=== PATIENT | female | born 1970 | race Caucasian/White ===

== ENCOUNTER 2021-01-11 23:39 | Emergency (ER) | payer BC ==
--- OUTSIDE RECORDS SUMMARY | 2021-01-11 23:43 | XMS REPORT | Continuity of Care Document ---
:1970 Demographics Address [address] [place] [address] Mobile Phone Email Address DECLINE Preferred Language Iraqi Marital Status Unknown Islam Affiliation Unknown Race Unknown Additional Race(s) Unavailable White Ethnic Group Unknown Author Organization [facility] t Address [address] [place] [address] Care Team Providers Name Role Phone NONE Primary Care Physician Unavailable Theresa Calderon Attending Clinician Yoselyn GARCIA Attending Clinician Doctor Unassigned, Name Attending Clinician Unavailable Yoselyn GARCIA Admitting Clinician Advance Directives Directive Decision Effective Date Termination Date Comments Sour ce Yes N/A [facility] - [place] Problems Condition Condition Condition Status Onset Resolution Last Treating Co mments Source Name Details Category Date Date Treatment Clinician Date Chest pain Problem JENNIFER ANAND at rest S - [place] Atypical Problem [facility]U chest pain S - St . Cammie Upper Problem CHRISTU respirator S - St . y tract Cammie infection Sinusitis Problem SUKUMAR U S - [place] Headache Problem [facility] S - [place] Cervical Problem [facility]U radiculopa S - St . thy Cammie Acute pain Problem JENNIFER TU of right S - St. shoulder Cammie Vertigo Problem [facility] S - [place] Rotator Problem [facility]U cuff S - St. impingemen Cammie t syndrome of right shoulder Rotator Problem [facility]RISTU cuff S St. tendinitis Elizab e th Neck and Problem [facility] shoulder S - St. pain Cammie Dental Problem [facility] abscess S - [place] Calculus Problem [facility]STU of kidney S - [place] Constipati Problem JENNIFER TU on S - [place] Abdominal Problem SUKUMAR U pain S - [place] Nausea and Problem JENNIFER ANAND vomiting S - [place] History of Problem JENNIFER NAAND paroxysmal S - St . supraventr Cammie icular tachycardi a Thoracic Problem [facility] myofascial S - St . strain Cammie Muscle Problem [facility] spasm S - [place] Acute Problem [facility] sinusitis S - [place] Hematuria Problem SUKUMAR U S - [place] Flank pain Problem JENNIFER TU S - [place] Urinary Problem [facility] tract S - St. infection Cammie Supraventr Problem JENNIFER ANAND icular S - St. tachycardi Cammie a Anxiety Problem [facility] S - [place] Rotator Problem [facility] cuff S - St. tendinitis Cammie Labyrinthi Problem JENNIFER ANAND tis of S - St. left ear Cammie Otitis Problem CHRI[facility]U media with S - St . effusion [facility] Allergies, Adverse Reactions, Alerts Allergy Allergy Status Severity Reaction(s) Onset Inactive Treating Comm ents Source Name Type Date Date Clinician soap Allergy Active CHRISTU to 6-04 S - St. substanc 00:00: Alfredito 00 Povidone Allergy Active CHRISTU -iodine to 6-04 S - [address] substanc 00:00: Alfredito 00 Social History Social Habit Start Date Stop Date Quantity Comments Source Sex Assigned At [birth year] [facility] 00:00:00 [facility] Smoking Status Start Date Stop Date Source Never smoked tobacco (finding) C [facility] Medications Ordered Filled Start Stop Current Ordering Indication Dosage Frequency Signature Comments Components Source Medication Medication Date Date Medication? Clinician (SIG) Name Name D-Methorpha 2019-08 No 10mL SUKUMAR U n Hb/P-Epd 0-04 S - St. Hcl/Bpm Syr 14:05: Cammie (Bromphenir 00 -Pseudoephe d-Dm Syr) 118 Ml SYRUP Doxycycline 2019-08 No 100mg JENNIFER TU Monohydrate 0-04 S - St. (Doxycyclin 14:05: Alfredito) 100 Mg 00 CAPSULE Ketorolac 2019-08 No 10mg CHRISTU Tromethamin 0-04 S - St. e (Toradol) 14:05: Cammie 10 Mg TAB 00 Meclizine No 25mg CHRI[facility] Hcl 5-29 S - St. (Antivert) 11:14: Cammie 25 Mg TAB 00 Methylpredn 2020-0 No 1 SUKUMAR U isolone 5-29 S - St. (Medrol 11:14: [facility] Dose-Pack) 00 21 Tab/Dspk TAB Meclizine 2020-0 No 25mg CHRIST[facility] Hcl 5-29 S - St. (Antivert) 11:14: Cammie 25 Mg TAB 00 Methylpredn 2020-0 No 1 SUKUMAR U isolone 5-29 S - St. (Medrol 11:14: [facility] Dose-Pack) 00 21 Tab/Dspk TAB Ondansetron 2020-0 No 8mg SUKUMAR U Hcl (Zofran 1-19 S - St. Odt) 8 Mg 11:52: Cammie ODT 00 Pantoprazol 2020-0 No 40mg SUKUMAR U e 1-19 S - St. (Protonix) 11:48: Cammie 40 Mg TABEC 00 Ondansetron 2020-0 No 8mg SUKUMAR U Hcl (Zofran 1-[address] Odt) 8 Mg 10:52: Elizabe ODT 00 th Ondansetron 2020-0 No 8mg SUKUMAR U Hcl (Zofran 1-19 S - St. Odt) 8 Mg 10:52: Cammie ODT 00 Pantoprazol 2020-0 No 40mg SUKUMAR U e 1-19 S - St. (Protonix) 10:48: Cammie 40 Mg TABEC 00 Pantoprazol 2020-0 No 40mg SUKUMAR U e 1-[address] (Protonix) 10:48: Elizabe 40 Mg TABEC 00 th Cyclobenzap 2018-0 No 10mg SUKUMAR U rine Hcl 2-08 S - St. (Flexeril) 02:03: Cammie 10 Mg TAB 00 Cyclobenzap 2018-0 No 10mg SUKUMAR U rine Hcl 2-[address] (Flexeril) 01:03: Elizabe 10 Mg TAB 00 th Cyclobenzap 2018-0 No 10mg SUKUMAR U rine Hcl 2-08 S - St. (Flexeril) 01:03: Cammie 10 Mg TAB 00 Tramadol 2016- No 50mg CHRISTU Hcl 1-05 S - St. (Ultram) 50 18:07: Cammie Mg TAB 00 Tramadol 2016-08 No 50mg CHRISTU Hcl 1-05 S - St. (Ultram) 50 17:07: Cammie Mg TAB 00 Tramadol 2016-08 No 50mg CHRI[facility] Hcl 1-[address] (Ultram) 50 17:07: Elizab e Mg TAB 00 th Vital Signs Vital Name Observation Time Observation Value Comments Source Body Temperature 2020-05-18 14:14:00 98.3 [degF] [facility] Heart Rate 2020-05-18 14:14:00 81 /min [facility] Respiratory rate 2020-05-18 14:14:00 16 /min [facility] BP Systolic 2020-05-18 14:14:00 116 mm[Hg] [facility] [place] BP Diastolic 2020-05-18 14:14:00 87 mm[Hg] [facility] Heart Rate 2020-05-18 14:11:00 81 /min [facility] Respiratory rate 2020-05-18 14:11:00 16 /min [facility] BP Systolic 2020-05-18 14:11:00 116 mm[Hg] [facility] BP Diastolic 2020-05-18 14:11:00 87 mm[Hg] [facility] Weight 2020-05-18 12:19:00 166.44 [lb_av] [facility] BMI (Body Mass 2020-05-18 12:19:00 28.6 kg/m2 [facility] Body Temperature 2020-01-11 11:16:00 98.2 [degF] [facility] Heart Rate 2020-01-11 11:16:00 74 /min [facility] Respiratory rate 2020-01-11 11:16:00 18 /min [facility] BP Systolic 2020-01-11 11:16:00 139 mm[Hg] [facility] - [place] BP Diastolic 2020-01-11 11:16:00 75 mm[Hg] [facility] - [place] Heart Rate 2020-01-11 11:03:00 74 /min [facility] - [place] Respiratory rate 2020-01-11 11:03:00 18 /min [facility] [place] BP Systolic 2020-01-11 11:03:00 139 mm[Hg] [facility] - [place] BP Diastolic 2020-01-11 11:03:00 75 mm[Hg] [facility] [place] Weight 2020-01-11 11:03:00 170 [lb_av] [facility] [place] BMI (Body Mass 2020-01-11 11:03:00 29.2 kg/m2 [facility] - St. Index) [facility] Body Temperature 2019-09-02 08:00:00 98.1 [degF] [facility] [place] Weight 2019-08-30 11:00:00 174.25 [lb_av] [facility] [place] BMI (Body Mass 2019-08-30 11:00:00 29.9 kg/m2 [facility]. Index) [place] Procedures Procedure Date / Time Performing Source Performed Clinician X-ray of chest, single view 2020-05-18 [facility] - [facility] 00:00:00 Cammie Radiologic examination, abdomen; 2 2019-09-[address] views 00:00:00 [place] Esophagogastroduodenoscopy with 2019-08-[address] closed biopsy 00:00:00 [place] Diagnostic 2019-08-[address] esophagogastroduodenoscopy (EGD) 00:00:00 [place] with specimen collection X-RAY EXAM OF FOOT 2019-08-[address] 00:00:00 [place] X-ray of foot, two views 2019-08-[address] 00:00:00 [place] Plan of Care Planned Activity Planned Date Details Comments Source Future Scheduled Test Streptococcus pyogenes [facility] - St. culture [code = Cammie 38582-1] Future Scheduled Test Serum or plasma [facility]R ISTUS St. magnesium measurement Elizab eth (mass/volume) [code = 49414-9] Goal Patient referral [code JENNIFER TUS - St. = 7886058 ] [facility] Goal Patient referral [code JENNIFER TUS - St. = [id number] ] Cammie Instructions Nausea and Vomiting, CHRISTU S St. Adult [place] Instructions Stomach Ache and [facility] St . Stomach Upset [place] Encounters Start End Encounter Admission Attending Care Care Encounter Source Date/Time Date/Time Type Type Clinicians Facility Department ID 2020-11-07 2020-11-08 Emergency Braden Rivas [facility] [id number]. [id number] 11:25:00 13:59:00 Yoselyn Enrriquericardo Peguero [id number] [place] 4.2.7.2.686 [place] [id number] 2020-11-07 2020-11-07 Orders Doctor LOREE [id number] 00:00:00 00:00:00 Only Unassigned, ANKITA 350.1.13.10 [facility] .2.7.2.686 [id number] 2020-10-05 2020-10-05 Emergency Braden Rivas [facility] [id number] 14:42:00 17:26:00 Theresa Peguero [id number] [place] 4.2.7.2.686 [place] [id number] 2020-05-18 2020-05-18 Departed TAM ELIAS [id number] [facility] 12:15:00 14:15:00 Emergency [facility] [address] - [address] Room [facility] 2020-01-11 2020-01-11 Departed TAM ELIAS [id number] [facility] 11:00:00 11:21:00 [facility] [place] [address] - [facility] Room [facility] 2019-09-01 2019-09-02 Discharged TAM ELIAS [id number] [facility] 18:00:00 14:00:00 [facility] [address] [facility] 2019-08-13 2019-08-13 Registered TAM ELIAS AM07 [id number] [facility] 10:44:00 10:44:00 Clinic [facility] [address] [facility] 2017-01-15 2017-01-15 Emergency E [facility] [id number] Medical 14:30:00 14:30:00 [facility] 2016-12-29 2016-12-29 Emergency E [facility] [id number] Medical 17:31:00 17:31:00 [facility] Results Test Description Test Time Test Comments Results Result Comments Source REFLEX CULTURE, URINE 2020-11-01 12:59:00 Test Item Value Reference Range Interpretation Comme nts Report Text (test code = Report Text) [facility] 2020-10-31 936 Report Text7 (test code = Report NO GROWTH WITHIN 24 HOURS Text7) Report Text8 (test code = Report PRELIMINARY REPORT Text8) Report Text9 (test code = Report Text9) Report Text10 (test code = Report [facility] 2020-11-01 1259 Text10) Report Text11 (test code = Report NO GROWTH WITHIN 48 HOURS Text11) Report Text12 (test code = Report FINAL REPORT Text12) [id number] 04:39:00 Test Item Value Reference Range Interpretation Comments GLUCOSE (test code = URGLU) NEGATIVE MG/DL NEG-100 BILIRUBN (test code = URBILI) NEGATIVE NEGATIVE KETONE (test code = URKET) NEGATIVE MG/DL NEGATIVE BLOOD (test code = URBLD) MODERATE UR PH (test code = URPH) 5.0 5.0-7.5 PROTEIN (test code = URPRO) 100 MG/DL NEGATIVE NITRITES (test code = URNIT) NEGATIVE NEGATIVE UROBILINGEN (test code = 1.0 EU/DL 0.2-1.0 URURO) LEUKOCYT (test code = URLEU) SMALL NEGATIVE UA COLOR (test code = UA YELLOW YELLOW COLOR) CLARITY (test code = CLARITY) CLOUDY CLEAR SP GRAV (test code = URSPGRAV) 1.024 1.000-1.025 UAMICRO (test code = UAMICRO) YES WBC (test code = URWBC) 274 /HPF 0-5 H RBC (test code = URRBC) 11 /HPF 0-2 H CASTS (test code = CAST) 2 /LPF 0-3 UR EPI (test code = EPI) 21 /LPF BACTERIA (test code = NEGATIVE NONE BACTERIA) WHOLE BLOOD [id number] 04:35:00 Test Item Value Reference Range Interpretation Comments WHOLE BLOOD GLUCOSE 124 MG/DL 70-99 H Fastin g glucose (test code = POC GLU) normal <100 MG/DL- [employer] recommend ation Throat Streptococcus pyogenes antigen [id number] 13:00:00 Test Item Value Reference Range Interpretation Comments Group A Streptococcus Screen (test Negative code = 74888-9) [facility] A antigen detection in [id number] 13:00:00 Test Item Value Reference Range Interpretation Comments Influenza Type A Antigen (test code Negative = 12137-1) [facility] virus B antigen detection in [id number] 13:00:00 Test Item Value Reference Range Interpretation Comments Influenza Type B Antigen (test code Negative = 14398-1) [facility] BondsGFR estimate [id number] 05:10:00 Test Item Value Reference Range Interpretation Comments Estimat Glomerular Filtration Rate 114 (test code = 87569-5) [facility] glucose [facility] (mass/volume) 2019-09-02 05:10:00 Test Item Value Reference Range Interpretation Comments Glucose Level (test code = 2345-7) 104 mg/dL [facility] Cent[facility]rum or plasma calcium measurement (mass/volume) 2019-09-02 05:10:00 Test Item Value Reference Range Interpretation Comments Calcium Level (test code = 39875-2) 8.0 mg/dL [facility] total bilirubin measurement (mass/volume) 2019-09-02 05:10:00 Test Item Value Reference Range Interpretation Comments Total Bilirubin (test code = 0.2 mg/dL 1974-2) [facility]. [facility] or plasma aspartate aminotransferase measurement (enzymatic activity/volume)2019-09-02 05:10:00 Test Item Value Reference Range Interpretation Comments Aspartate Amino Transf (AST/SGOT) 12 U/L (test code = 1920-8) [facility] alanine aminotransferase measurement (enzymatic activity/volume)2019-09-02 05:10:00 Test Item Value Reference Range Interpretation Comments Alanine Aminotransferase (ALT/SGPT) 8 U/L (test code = 1742-6) [facility]. [facility] Centererum or plasma protein measurement (mass/volume) 2019-09-02 05:10:00 Test Item Value Reference Range Interpretation Comments Total Protein (test code = 2885-2) 5.8 g/dL [facility] Centererum or plasma albumin measurement (mass/volume) 2019-09-02 05:10:00 Test Item Value Reference Range Interpretation Comments Albumin (test code = 1751-7) 3.4 g/dL [facility]ibeLand[facility] Medical Centererum or plasma alkaline phosphatase measurement (enzymatic activity/volume)2019-09-02 05:10:00 Test Item Value Reference Range Interpretation Comments Alkaline Phosphatase (test code = 49 U/L 6768-6) [facility] ElizabethSer[facility] or plasma sodium measurement (moles/volume) 2019-09-02 05:10:00 Test Item Value Reference Range Interpretation Comments Sodium Level (test code = 2951-2) 138 mmol/L [facility] St[facility] ElibethSerum or plasma potassium measurement (moles/volume) 2019-09-02 05:10:00 Test Item Value Reference Range Interpretation Comments Potassium Level (test code = 3.8 mmol/L 2823-3) [facility] ElizabethSerum or plasma chloride measurement (moles/volume) 2019-09-02 05:10:00 Test Item Value Reference Range Interpretation Comments Chloride Level (test code = 109 mmol/L 5-0) [facility]ibeLand[facility] Medical Centererum or plasma total carbon dioxide measurement (moles/volume)2019-09-02 05:10:00 Test Item Value Reference Range Interpretation Comments Carbon Dioxide Level (test code = 25 mmol/L 2027-9) [facility] ElizabethSerum or plasma anion gap determination (moles/volume) 2019-09-02 05:10:00 Test Item Value Reference Range Interpretation Comments Anion Gap (test code = 24262-3) [address] [facility] [address] ElizabethSerum or plasma urea nitrogen measurement (mass/volume) 2019-09-02 05:10:00 Test Item Value Reference Range Interpretation Comments Blood Urea Nitrogen (test code = 13 mg/dL 3094-0) [facility] ElizabethSerum or plasma creatinine measurement (mass/volume) 2019-09-02 05:10:00 Test Item Value Reference Range Interpretation Comments Creatinine (test code = 2160-0) 0.6 mg/dL [facility] ElizabethSerum or plasma magnesium measurement (mass/volume) 2019-09-01 04:50:00 Test Item Value Reference Range Interpretation Comments Magnesium Level (test code = 1.95 mg/dL 47376-2) [facility] StJw PerezbethCapillary whole blood glucose measurement by glucometer (mass/volume)2019-08-31 05:22:00 Test Item Value Reference Range Interpretation Comments Bedside Glucose (test code = 78 mg/dL 98457-1) [facility] AnabethAutomated blood leukocyte count (number/volume)2019-08-31 05:05:00 Test Item Value Reference Range Interpretation Comments White Blood Count (test code = 4.4 10*3/uL 6690-2) [facility] AnabethBlood erythrocytes automated count (number/volume) 2019-08-31 05:05:00 Test Item Value Reference Range Interpretation Comments Red Blood Count (test code = 3.77 10*6/uL 789-8) [facility] AnabethBlood hemoglobin measurement (mass/volume)2019-08-31 05:05:00 Test Item Value Reference Range Interpretation Comments Hemoglobin (test code = 718-7) 11.5 g/dL [facility] StJw PerezbethAutomated blood hematocrit (volume fraction)2019-08-31 05:05:00 Test Item Value Reference Range Interpretation Comments Hematocrit (test code = 4544-3) 35.3 % [facility] AnabethAutomated erythrocyte mean corpuscular volume (MCV) [id number] 05:05:00 Test Item Value Reference Range Interpretation Comments Mean Corpuscular Volume (test code = 94 fL 787-2) [facility] ElizabethAutomated erythrocyte mean corpuscular hemoglobin (mass per erythrocyte)2019-08-31 05:05:00 Test Item Value Reference Range Interpretation Comments Mean Corpuscular Hemoglobin (test 30.5 pg code = 785-6) [facility] ElizabethAutomated erythrocyte mean corpuscular hemoglobin concentration measurement (mass/[id number] 05:05:00 Test Item Value Reference Range Interpretation Comments Mean Corpuscular Hemoglobin Concent 32.6 g/dL (test code = 786-4) [facility] ArianazabethAutomated erythrocyte distribution width [id number] 05:05:00 Test Item Value Reference Range Interpretation Comments Red Cell Distribution Width (test code 12.8 % = 788-0) [facility] AnabethAutomated blood platelet count (count/volume)2019-08-31 05:05:00 Test Item Value Reference Range Interpretation Comments Platelet Count (test code = 162 10*3/uL 777-3) [facility] ElizabethAutomated blood platelet mean volume [id number] 05:05:00 Test Item Value Reference Range Interpretation Comments Mean Platelet Volume (test code = 12.1 52476-6) [facility] ElizabethAutomated blood neutrophil count as percentage of total rzjzevupqz1150-36-41 05:05:00 Test Item Value Reference Range Interpretation Comments Neutrophils (%) (Auto) (test code = 43 % 770-8) [facility] ElizabethAutomated blood immature granulocyte count as percentage of total bkjxgvuoyo6910-71-43 05:05:00 Test Item Value Reference Range Interpretation Comments Immature Granulocyte % (Auto) (test 1 % code = 54771-5) [facility] ElizabethAutomated blood lymphocyte count as percentage of total gwyahtimzd5225-98-35 05:05:00 Test Item Value Reference Range Interpretation Comments Lymphocytes (%) (Auto) (test code = 43 % 736-9) [facility] ElizabethAutomated blood monocyte count as percentage of total famqpxuqgx5760-43-78 05:05:00 Test Item Value Reference Range Interpretation Comments Monocytes (%) (Auto) (test code = 8 % 5905-5) [facility] ElizabethAutomated blood eosinophil count as percentage of total swovhbjtvh6743-01-35 05:05:00 Test Item Value Reference Range Interpretation Comments Eosinophils (%) (Auto) (test code = 4 % 713-8) [facility] ElizabethAutomated blood basophil count as percentage of total rbhwjthgvc1712-25-25 05:05:00 Test Item Value Reference Range Interpretation Comments Basophils (%) (Auto) (test code = 1 % 706-2) [facility] ElizabethAutomated blood nucleated erythrocyte count as percentage of total lwvdicwjmw0379-51-87 05:05:00 Test Item Value Reference Range Interpretation Comments Nucleated Red Blood Cells % (test code 0.0 % = 85685-4) [facility] ElizabethAutomated blood neutrophil count (number/volume)2019-08-31 05:05:00 Test Item Value Reference Range Interpretation Comments Neutrophils # (Auto) (test code = 1.9 10*3/uL 751-8) [facility] immature granulocyte count as percentage of total izhmmpqtac1806-86-34 05:05:00 Test Item Value Reference Range Interpretation Comments Immature Granulocyte # (Auto) 0.0 10*3/uL (test code = 06895-6) [facility] lymphocyte count (number/volume)2019-08-31 05:05:00 Test Item Value Reference Range Interpretation Comments Lymphocytes # (Auto) (test code = 1.9 10*3/uL 731-0) [facility] automated count (number/volume)2019-08-31 05:05:00 Test Item Value Reference Range Interpretation Comments Monocytes # (Auto) (test code = 0.4 10*3/uL 742-7) [facility]Autom[facility] blood eosinophil [id number] 05:05:00 Test Item Value Reference Range Interpretation Comments Eosinophils # (Auto) (test code = 0.2 10*3/uL 711-2) [facility]. [place] blood basophil count (number/volume)2019-08-31 05:05:00 Test Item Value Reference Range Interpretation Comments Basophils # (Auto) (test code = 0.0 10*3/uL 704-7) [facility]. [place]Autom[place] blood nucleated erythrocyte count (count/volume) 2019-08-31 05:05:00 Test Item Value Reference Range Interpretation Comments Nucleated Red Blood Cells # 0.00 10*3/uL (test code = 771-6) [facility]. [place]Service comment [id number] 05:05:00 Test Item Value Reference Range Interpretation Comments Manual Differential (test code = Not Ind 8265-1) [facility] ElizabeLandmark Medical Centererum or plasma total combined glucuronidated bilirubin and albumin bound bilirubin measurement (mass/volume)2019-08-30 12:48:00 Test Item Value Reference Range Interpretation Comments Direct Bilirubin (test code = 0.1 mg/dL 1967-) [facility] ElizabethSerum or plasma lipase measurement (enzymatic activity/volume)2019-08-30 12:48:00 Test Item Value Reference Range Interpretation Comments Lipase (test code = 3040-3) 26 U/L UCRT [id number] 21:58:00 Test Item Value Reference Range Interpretation Comments LIPASE (test code = LIPA) 69 U/L 23-300 US PELVIS NON-OB [id number] 22:54:[place] [id number] IMAGING REPORTPatient Name: JODI PRAJAPATI DDate of Service: 91-12-1921Lsm: 46 Sex: F Order #: [id number] Room: ERSDOB: 1970 X-Ray Number: [id number] Record Number: [id number] Hospital Number: [id number] Physician: VANE BEST - Ordering Physician: Shanna SOLIMAN pelvis complete 8:37 PMHistory: Right lower quadrant pain.Findings:The uterus has been removed.The right was not visualized.The left ovary is normal in size and echotexture without mass or cyst.There is no adnexalmass seen.There is no free fluid in the pelvis.Impression:Hysterectomy. Nonvisualization of right ovary.Otherwise unremarkable study.Electronically Signed By: Kartik Rios M.D., 03/30/2017 10:51 PMLegally authenticated by ROSIE FOFANA 2017-03-30 22:51:46CT ABDOMEN/PELVIS [id number] 17:41:00BA[place] [id number] IMAGING REPORTPatient Name: JODI PRAJAPATI DDate of Service: 01-40-5933Iwj: 46 Sex: F Order #: [id number] Room: ERSDOB: 1970 X-Ray Number: [id number] Record Number: [id number] Hospital Number: [id number] Physician: VIKTORIA RIVERAOrdering Physician: SOHAIL ELIAS abdomen and pelvis.History: Left lower quadrant abdominal pain.Technique: IV contrast enhanced CT axial images of the abdomen and pelviswith sagittal and coronal reformatted images were reviewed.This CT exam was performed using one or more of the following dosereduction techniques: Automated exposure control, adjustment of the MAand/or KV according to patient size or use of iterative reconstructiontechnique.Comparison: No ne.Findings:Images of the lower lungs and mediastinum demonstrate no specific defects.The solid large organs of the upper abdomen appear focally normal.The gallbladder surgically absent.There is no significant retroperitoneal adenopathy or fluid collectionsdepicted.Small bowel loops appear normal.Large bowel loops demonstrate only scattered fecal debris.The appendix is non-identified.The urinary bladder appears normal. There is no pelvic free fluid seen.The uterus and adnexal structures are not visualized.Impression:No specific acute appearing abdominal abnormalities.Electronically Signed By: Jonnathan Bowen M.D., 03/19/2017 5:39 PMLegally authenticated by STARLA Ritter 2017-03-19 17:39:25CT HEAD W/O [id number] 17:27:00BA10 [address] StreetIAGNOSTIC IMAGING REPORTPatient Name: JODI PRAJAPATI DDate of Service: [id number]: 46 Sex: F Order #: [id number] [facility] 1970 X-Ray Number: [id number] Record Number: [id number] Hospital Number: [id number] Physician: HAROON RUELASOrdering Physician: WILL WELLS head without contrast, 02/04/2017, 1702 hoursHistory: Head injury. Headache.Technique: Axial tomographic images are performed. Sagittal and coronalformatted images are also reviewed. This CT exam was performed using one ormore of the following dose reduction techniques: Automated exposurecontrol, adjustment of the MA and/or KV according to patient size or use ofiterative reconstruction technique.Comparison: NoneFindings: Visualized brain, calvarium, orbits and mastoid air cells aremaintained. There is moderate left maxillary sinus mucoperiostealthickening with or without proteinaceous fungus material.Impression:1. No significant intracranial abnormality detected.2. Chronic left maxillary sinusitis.Electronically Signed By: Jamal Turner M.D., 02/04/2017 5:25 PMLegally authenticated by NIRMAL TOLEDO 2017-02-04 17:25:30CT CHEST ANGIO W/[id number] 05:41:00CT CHEST ANGIO W/CONTRASTDIAGNOSIS: Chest pain and shortness of breathMultiple axial tomographic sections were obtained through the chestfollowing the intravenous injection of 100 cc of Isovue-370. Multiplanarand 3-D reconstructions were performed. Radiation dose loweringtechniques were used with automated exposure control, adjusting the mAaccording to patient's size.The main, right and left pulmonary arteries are normal. No peripheralpulmonary arterial thrombus is demonstrated.The thoracic aorta isnormal.No hilar or mediastinal masses are identified.No pulmonary nodules, pleural effusions or pulmonary infiltrates areevident.IMPRESSION: Normal CT pulmonary angiography.US DUPLX LWR EXT.VEIN COMPRSS [id number] 16:32:32US DUPLX LWR EXT.VEIN COMPRSS UNI- LEFTHISTORY: Left-sided pain and swellingCOMPARISON: None availableTECHNIQUE: Real-time sonographic images of the left lower extremity deepveins obtained color and spectral Doppler analysis.FINDINGS: Complete compressibility with normal phasic and augmented flownoted throughout the sampled left lower extremity deep veins.IMPRESSION: No visualized left lower extremityDVT.XR CHEST SGL 1V, [id number] 15:24:33XR CHEST SGL 1V, FRONTALHISTORY: Chest painCOMPARISON: 05/24/2016TECHNIQUE: Single AP view of the chest providedFINDINGS: Heart size and pulmonary vasculature within normal limits. Nonew opacity or acute pleural abnormality. Bony thorax intact wherevisualized.IMPRESSION: No active cardiopulmonary process.CT HEAD OR BRAIN WO [id number] 18:40:55CT HEAD OR BRAIN WO CONTRASTHISTORY: Injury, headache, dizziness, nausea and vomitingCOMPARISON: None availableTECHNIQUE: Helical noncontrast tomographic imaging obtained through thebrain. Radiation dos e lowering techniques were used according to Adriana.FINDINGS: Midline is nondisplaced. Ventricular caliber and basilarcisterns within normal limits. Norris-white differentiation is preserved.No mass effect, acute intracranial blood products, or abnormalextra-axial fluid collections present. Surrounding calvarium is intact.Near opacification of the left maxillary sinus noted with chronicappearing thickening of the antral de la o.IMPRESSION: 1. No CT evidence of acute intracranial posttraumatic sequela.2. Suspected chronic sinusitis left maxillary antrum.
--- NOTE | 2021-01-12 00:41 | ER ---
Nurse's Notes [facility] Name: Pily Morrissey Age: 50 yrs Sex: Female : 1970 Arrival Date: 01/11/2021 Time: 23:44 Bed Waiting [facility] MD: Diagnosis: ED Course: 01/11 23:44 Patient arrived in ED. es Administered Medications: No medications were administered Outcome: 01/12 00:40 Patient left the ED. iw Signatures: Fela Menchaca Irene, RN RN iw
== END 2021-01-12 00:40 | disposition left against medical advice (07) ==
LOC: ER 23:39
DX: Z02.9 Encounter for administrative examinations, unspecified (principal)

== ENCOUNTER 2021-03-30 14:28 | Emergency (ER) | payer BC ==
--- OUTSIDE RECORDS SUMMARY | 2021-03-30 14:31 | XMS REPORT | Continuity of Care Document ---
:1970 Author Organization [facility] t Address [address] [place] [address] Care Team Providers Name Role Phone NONE Primary Care Physician Unavailable Theresa Calderon Attending Clinician Yoselyn GARCIA Attending Clinician Doctor Unassigned, Name Attending Clinician Unavailable Yoselyn GARCIA Admitting Clinician Advance Directives Directive Decision Effective Date Termination Date Comments Sour ce Yes N/A [facility] - [place] Problems Condition Condition Condition Status Onset Resolution Last Treating Co mments Source Name Details Category Date Date Treatment Clinician Date Chest pain Problem JENNIFER ANAND at rest S - [place] Atypical Problem CH[facility]U chest pain S - St . Cammie Upper Problem CHRISTU respirator S - St . y tract Cammie infection Sinusitis Problem SUKUMAR U S - [place] Headache Problem [facility]U S - [place] Cervical Problem [facility]U radiculopa S - St . thy Cammie Acute pain Problem JENNIFER TU of right S - St. shoulder Cammie Vertigo Problem [facility] S - [place] Rotator Problem [facility] cuff S - St. impingemen Cammie t syndrome of right shoulder Rotator Problem [facility] cuff S St. tendinitis Elizab e th Neck and Problem [facility] shoulder S - St. pain Cammie Dental Problem [facility] abscess S - [place] Calculus Problem CHRISTU of kidney S - [place] Constipati Problem JENNIFER TU on S - [place] Abdominal Problem SUKUMAR U pain S - [place] Nausea and Problem JENNIFER ANAND vomiting S - [place] History of Problem JENNIFER ANAND paroxysmal S - St . supraventr Cammie icular tachycardi a Thoracic Problem [facility] myofascial S - St . strain Cammie Muscle Problem [facility] spasm S - [place] Acute Problem [facility] sinusitis S - [place] Hematuria Problem SUKUMAR U S - [place] Flank pain Problem JENNIFER TU S - [place] Urinary Problem [facility] tract S - St. infection Cammie Supraventr Problem JENNIFER ANAND icular S - St. tachycardi Cammie a Anxiety Problem [facility] S - [place] Rotator Problem [facility] cuff S - St. tendinitis Cammie Labyrinthi Problem JENNIFER ANAND tis of S - St. left ear Cammie Otitis Problem [facility] media with S - St . effusion [facility] Allergies, Adverse Reactions, Alerts Allergy Allergy Status [...] Source Sex Assigned At [birth year] Female [facility] [[email or web address]US - St. 00:00:00 00:00:00 [facility] Smoking Status Start Date Stop Date Source Never smoked tobacco (finding) C [facility] [employer] [facility] Medications Ordered Filled Start Stop Current Ordering [...] isolone 5-29 S - St. (Medrol 11:14: [facility] Dose-Pack) 00 21 Tab/Dspk TAB Meclizine 2020-0 No 25mg [facility] Hcl 5-29 S - St. (Antivert) 11:14: Cammie 25 Mg TAB 00 Methylpredn 2020-0 No 1 SUKUMAR U isolone 5-29 S - St. (Medrol 11:14: [facility] Dose-Pack) 00 21 Tab/Dspk TAB Ondansetron 2020-0 [...] Source Body Temperature 2020-05-18 14:14:00 98.3 [degF] [facility] Heart Rate 2020-05-18 14:14:00 81 /min [facility] Respiratory rate 2020-05-18 14:14:00 16 /min [facility] BP Systolic 2020-05-18 14:14:00 116 mm[Hg] [facility] [place] BP Diastolic 2020-05-18 14:14:00 87 mm[Hg] [facility] Heart Rate 2020-05-18 14:11:00 81 /min [facility] Respiratory rate 2020-05-18 14:11:00 16 /min [facility] BP Systolic 2020-05-18 14:11:00 116 mm[Hg] [facility] BP Diastolic 2020-05-18 14:11:00 87 mm[Hg] [facility] Weight 2020-05-18 12:19:00 166.44 [lb_av] [facility] BMI (Body Mass 2020-05-18 12:19:00 28.6 kg/m2 [facility] Body Temperature 2020-01-11 11:16:00 98.2 [degF] [facility] Heart Rate 2020-01-11 11:16:00 74 /min [facility] Respiratory rate 2020-01-11 11:16:00 18 /min [facility] BP Systolic 2020-01-11 11:16:00 139 mm[Hg] [facility] - [place] BP Diastolic 2020-01-11 11:16:00 75 mm[Hg] [facility] - [place] Heart Rate 2020-01-11 11:03:00 74 /min [facility] - [place] Respiratory rate 2020-01-11 11:03:00 18 /min [facility] [place] BP Systolic 2020-01-11 11:03:00 139 mm[Hg] [facility] - [place] BP Diastolic 2020-01-11 11:03:00 75 mm[Hg] [facility] [place] Weight 2020-01-11 11:03:00 170 [lb_av] [facility] [place] BMI (Body Mass 2020-01-11 11:03:00 29.2 kg/m2 [facility] - St. Index) [facility] Body Temperature 2019-09-02 08:00:00 98.1 [degF] [facility] [place] Weight 2019-08-30 11:00:00 174.25 [lb_av] [facility] [[email or web address] [place] BMI (Body Mass 2019-08-30 11:00:00 29.9 kg/m2 [facility]. Index) [place] Procedures Procedure Date / Time [...] [facility] - St. culture [code = Cammie 76885-1] Future Scheduled Test Serum or plasma CHR ISTUS St. magnesium measurement Elizab eth (mass/volume) [code = 13442-8] Goal Patient referral [code JENNIFER TUS - St. = 4411900 ] [facility] Goal Patient referral [code JENNIFER TUS - St. = 3343833 ] Cammie Instructions Nausea and Vomiting, CHRISTU S St. Adult [place] Instructions Stomach Ache and CHRISTUS St . Stomach Upset [place] Encounters Start End Encounter Admission Attending Care Care Encounter Source Date/Time Date/Time Type Type Clinicians Facility Department ID 2020-11-07 2020-11-08 Emergency Braden Rivas [facility] 1.2.840. [id number] 11:25:00 13:59:00 Yoselyn Enrriquericardo Peguero [id number] [place] 4.2.7.2.686 [place] [id number] 2020-11-07 2020-11-07 Orders Doctor LOREE [id number] 00:00:00 00:00:00 Only Unassigned, ANKITA 350.1.13.10 [facility] .2.7.2.686 [id number] 2020-10-05 2020-10-05 Emergency Braden Rivas [facility] [id number] 14:42:00 17:26:00 Theresa Peguero [id number] [place] 4.2.7.2.686 [place] [id number] 2020-05-18 2020-05-18 Departed TAM ELIAS [id number] [facility] 12:15:00 14:15:00 Emergency [facility] [address] - [address] Room [facility] 2020-01-11 2020-01-11 Departed TAM ELIAS [id number] [facility] 11:00:00 11:21:00 [facility] [place] [address] [facility] [address] Room [facility] 2019-09-01 2019-09-02 Discharged TAM ELIAS AE00 [id number] [facility] 18:00:00 14:00:00 [facility] [address] [facility] 2019-08-13 2019-08-13 Registered TAM ELIAS AM07 [id number] [facility] 10:44:00 10:44:00 Clinic [facility] [address] [facility] 2017-01-15 2017-01-15 Emergency E [facility] [id number] Medical 14:30:00 14:30:00 [facility] 2016-12-29 2016-12-29 Emergency E [facility] [id number] Medical 17:31:00 17:31:00 [facility] Results Test Description Test Time Test Comments Results Result Comments Source REFLEX CULTURE, URINE 2020-11-01 12:59:00 Test Item Value Reference Range Interpretation Comme nts Report Text (test code = Report Text) [facility] 2020-10-31 936 Report Text7 (test code = Report NO GROWTH WITHIN 24 HOURS Text7) Report Text8 (test code = Report PRELIMINARY REPORT Text8) Report Text9 (test code = Report Text9) Report Text10 (test code = Report [facility] 2020-11-01 1259 Text10) Report Text11 (test code = Report NO GROWTH WITHIN 48 HOURS Text11) Report Text12 (test code = Report FINAL REPORT Text12) [id number] 04:39:00 Test Item Value Reference Range Interpretation [...] code = NEGATIVE NONE BACTERIA) WHOLE BLOOD [id number] 04:35:00 Test Item Value Reference Range Interpretation Comments WHOLE BLOOD GLUCOSE 124 MG/DL 70-99 H Fastin g glucose (test code = POC GLU) normal <100 MG/DL- [employer] recommend ation Throat Streptococcus pyogenes antigen [id number] 13:00:00 Test Item Value Reference Range Interpretation Comments Group A Streptococcus Screen (test Negative code = 89422-2) [facility] antigen detection in [id number] 13:00:00 Test Item Value Reference Range Interpretation Comments Influenza Type A Antigen (test code Negative = 94370-4) [facility] B antigen detection in [id number] 13:00:00 Test Item Value Reference Range Interpretation Comments Influenza Type B Antigen (test code Negative = 08775-9) [facility] potassium measurement (moles/volume) 2019-09-02 05:10:00 Test Item Value Reference Range Interpretation Comments Potassium Level (test code = 3.8 mmol/L 2823-3) [facility] plasma chloride measurement (moles/volume) 2019-09-02 05:10:00 Test Item Value Reference Range Interpretation Comments Chloride Level (test code = 109 mmol/L 5-0) [facility]. [facility] or plasma total carbon dioxide measurement (moles/volume)2019-09-02 05:10:00 Test Item Value Reference Range Interpretation Comments Carbon Dioxide Level (test code = 25 mmol/L 2027-9) [facility]. TyrobethSerum or plasma anion gap determination (moles/volume) 2019-09-02 05:10:00 Test Item Value Reference Range Interpretation Comments Anion Gap (test code = 58050-1) [address] [facility] [address] [facility] or plasma urea nitrogen measurement (mass/volume) 2019-09-02 05:10:00 Test Item Value Reference Range Interpretation Comments Blood Urea Nitrogen (test code = 13 mg/dL 3094-0) [facility]. TyrobethSerum or plasma creatinine measurement (mass/volume) 2019-09-02 05:10:00 Test Item Value Reference Range Interpretation Comments Creatinine (test code = 2160-0) 0.6 mg/dL [facility]. TyrobethGFR estimate [id number] 05:10:00 Test Item Value Reference Range Interpretation Comments Estimat Glomerular Filtration Rate 114 (test code = 97906-7) [facility]. TyrobethSerum or plasma glucose measurement (mass/volume) 2019-09-02 05:10:00 Test Item Value Reference Range Interpretation Comments Glucose Level (test code = 2345-7) 104 mg/dL [facility] or plasma calcium measurement (mass/volume) 2019-09-02 05:10:00 Test Item Value Reference Range Interpretation Comments Calcium Level (test code = 64896-9) 8.0 mg/dL [facility] or plasma total bilirubin measurement (mass/volume) 2019-09-02 05:10:00 Test Item Value Reference Range Interpretation Comments Total Bilirubin (test code = 0.2 mg/dL 1975-2) [facility] or plasma aspartate aminotransferase measurement (enzymatic activity/volume)2019-09-02 05:10:00 Test Item Value Reference Range Interpretation Comments Aspartate Amino Transf (AST/SGOT) 12 U/L (test code = 1920-8) [facility] or plasma alanine aminotransferase measurement (enzymatic activity/volume)2019-09-02 05:10:00 Test Item Value Reference Range Interpretation Comments Alanine Aminotransferase (ALT/SGPT) 8 U/L (test code = 1742-6) [facility] plasma protein measurement (mass/volume) 2019-09-02 05:10:00 Test Item Value Reference Range Interpretation Comments Total Protein (test code = 2885-2) 5.8 g/dL [facility] or plasma albumin measurement (mass/volume) 2019-09-02 05:10:00 Test Item Value Reference Range Interpretation Comments Albumin (test code = 1751-7) 3.4 g/dL [facility]. [facility] or plasma alkaline phosphatase measurement (enzymatic activity/volume)2019-09-02 05:10:00 Test Item Value Reference Range Interpretation Comments Alkaline Phosphatase (test code = 49 U/L 6768-6) [facility]. [facility] or plasma sodium measurement (moles/volume) 2019-09-02 05:10:00 Test Item Value Reference Range Interpretation Comments Sodium Level (test code = 2951-2) 138 mmol/L [facility]. [facility] or plasma magnesium measurement (mass/volume) 2019-09-01 04:50:00 Test Item Value Reference Range Interpretation Comments Magnesium Level (test code = 1.95 mg/dL 05032-3) [facility] glucose measurement by glucometer (mass/volume)2019-08-31 05:22:00 Test Item Value Reference Range Interpretation Comments Bedside Glucose (test code = 78 mg/dL 43383-8) [facility] RoseannaAutomated blood leukocyte count (number/volume)2019-08-31 05:05:00 Test Item Value Reference Range Interpretation Comments White Blood Count (test code = 4.4 10*3/uL 6690-2) [facility] MelbaBlood erythrocytes automated count (number/volume) 2019-08-31 05:05:00 Test Item Value Reference Range Interpretation Comments Red Blood Count (test code = 3.77 10*6/uL 789-8) [facility] RoseannaBlood hemoglobin measurement (mass/volume)2019-08-31 05:05:00 Test Item Value Reference Range Interpretation Comments Hemoglobin (test code = 718-7) 11.5 g/dL [facility]. AnabethAutomated blood hematocrit (volume fraction)2019-08-31 05:05:00 Test Item Value Reference Range Interpretation Comments Hematocrit (test code = 4544-3) 35.3 % [facility] St[facility] AnabethAutomated erythrocyte mean corpuscular volume (MCV) oputigqrtrx3539-05-16 05:05:00 Test Item Value Reference Range Interpretation Comments Mean Corpuscular Volume (test code = 94 fL 787-2) [facility] ElivaniabethAutomated erythrocyte mean corpuscular hemoglobin (mass per erythrocyte)2019-08-31 05:05:00 Test Item Value Reference Range Interpretation Comments Mean Corpuscular Hemoglobin (test 30.5 pg code = 785-6) [facility] ElizabethAutomated erythrocyte mean corpuscular hemoglobin concentration measurement (mass/qzz5655-20-94 05:05:00 Test Item Value Reference Range Interpretation Comments Mean Corpuscular Hemoglobin Concent 32.6 g/dL (test code = 786-4) [facility] AnabethAutomated erythrocyte distribution width pluds2417-76-96 05:05:00 Test Item Value Reference Range Interpretation Comments Red Cell Distribution Width (test code 12.8 % = 788-0) [facility] AnabethAutomated blood platelet count (count/volume)2019-08-31 05:05:00 Test Item Value Reference Range Interpretation Comments Platelet Count (test code = 162 10*3/uL 777-3) [facility] platelet mean volume thkxasrhmnr6001-41-00 05:05:00 Test Item Value Reference Range Interpretation Comments Mean Platelet Volume (test code = 12.1 70077-0) [facility] ElizabethAutom[facility] blood neutrophil count as percentage of total stvcxiiqfm9176-33-17 05:05:00 Test Item Value Reference Range Interpretation Comments Neutrophils (%) (Auto) (test code = 43 % 770-8) [facility] ElizabethAutom[facility] blood immature granulocyte count as percentage of total lqnqysobzy4284-63-64 05:05:00 Test Item Value Reference Range Interpretation Comments Immature Granulocyte % (Auto) (test 1 % code = 74432-4) [facility] blood lymphocyte count as percentage of total qvzkcbmtio8189-60-24 05:05:00 Test Item Value Reference Range Interpretation Comments Lymphocytes (%) (Auto) (test code = 43 % 736-9) [facility] blood monocyte count as percentage of total gpyefmoldn2479-34-44 05:05:00 Test Item Value Reference Range Interpretation Comments Monocytes (%) (Auto) (test code = 8 % 5905-5) [facility] Elizabeth[facility] blood eosinophil count as percentage of total clwocendgw9173-04-73 05:05:00 Test Item Value Reference Range Interpretation Comments Eosinophils (%) (Auto) (test code = 4 % 713-8) [facility] Elizabeth[facility] blood basophil count as percentage of total qnnlyukqkf3573-35-27 05:05:00 Test Item Value Reference Range Interpretation Comments Basophils (%) (Auto) (test code = 1 % 706-2) [facility] Elizabeth[facility] blood nucleated erythrocyte count as percentage of total sdudmtfecn8703-58-53 05:05:00 Test Item Value Reference Range Interpretation Comments Nucleated Red Blood Cells % (test code 0.0 % = 30580-8) [facility] ElizabethAutom[facility] blood neutrophil count (number/volume)2019-08-31 05:05:00 Test Item Value Reference Range Interpretation Comments Neutrophils # (Auto) (test code = 1.9 10*3/uL 751-8) [facility] immature granulocyte count as percentage of total fiwqyrsexh3645-73-95 05:05:00 Test Item Value Reference Range Interpretation Comments Immature Granulocyte # (Auto) 0.0 10*3/uL (test code = 89994-4) [facility] lymphocyte count (number/volume)2019-08-31 05:05:00 Test Item Value Reference Range Interpretation Comments Lymphocytes # (Auto) (test code = 1.9 10*3/uL 731-0) [facility] count (number/volume)2019-08-31 05:05:00 Test Item Value Reference Range Interpretation Comments Monocytes # (Auto) (test code = 0.4 10*3/uL 742-7) [facility] HospitalAutom[facility] blood eosinophil yrlsd8893-63-54 05:05:00 Test Item Value Reference Range Interpretation Comments Eosinophils # (Auto) (test code = 0.2 10*3/uL 711-2) [facility] HospitalAutom[facility] blood basophil count (number/volume)2019-08-31 05:05:00 Test Item Value Reference Range Interpretation Comments Basophils # (Auto) (test code = 0.0 10*3/uL 704-7) [facility]. [place] JoseAutomated blood nucleated erythrocyte count (count/volume) 2019-08-31 05:05:00 Test Item Value Reference Range Interpretation Comments Nucleated Red Blood Cells # 0.00 10*3/uL (test code = 771-6) [facility]. TyrobethService comment [id number] 05:05:00 Test Item Value Reference Range Interpretation Comments Manual Differential (test code = Not Ind 8265-1) [facility]ibeNew[facility] Hospitalerum or plasma total combined glucuronidated bilirubin and albumin bound bilirubin measurement (mass/volume)2019-08-30 12:48:00 Test Item Value Reference Range Interpretation Comments Direct Bilirubin (test code = 0.1 mg/dL 1968-02) [facility]. ElizabethSerum or plasma lipase measurement (enzymatic activity/volume)2019-08-30 12:48:00 Test Item Value Reference Range Interpretation Comments Lipase (test code = 3040-3) 26 U/L CURT WoodGangwyrukXLOEFQ2895-11-47 21:58:00 Test Item Value Reference Range Interpretation Comments LIPASE (test code = LIPA) 69 U/L 23-300 US PELVIS NON-OB [id number] 22:54:00[place] [id number] IMAGING REPORTPatient Name: JODI PRAJAPATI DDate of Service: 14-15-6097Tpv: 46 Sex: F Order #: [id number] Room: ERSDOB: 1970 X-Ray Number: [id number] Record Number: [id number] Hospital Number: [id number] Physician: VANE BEST - Ordering Physician: Vikas SOLIMANrasuna pelvis complete 8:37 PMHistory: Right lower quadrant pain.Findings:The uterus has been removed.The right was not visualized.The left ovary is normal in size and echotexture without mass or cyst.There is no adnexalmass seen.There is no free fluid in the pelvis.Impression:Hysterectomy. Nonvisualization of right ovary.Otherwise unremarkable study.Electronically Signed By: Kartik Rios M.D., 03/30/2017 10:51 PMLegally authenticated by ROSIE FOFANA 2017-03-30 22:51:46CT ABDOMEN/PELVIS [id number] 17:41:[address] [address]VQZGDATDOR IMAGING REPORTPatient Name: JODI PRAJAPATI DDate of Service: 91-93-4232Spp: 46 Sex: F Order #: [id number] Room: ERSDOB: 1970 X-Ray Number: [id number] Record Number: [id number] Hospital Number: [id number] Physician: VIKTORIA RIVERAOrdering Physician: SOHAIL ELIAS abdomen [...] by STARLA Ritter 2017-03-19 17:39:25CT HEAD W/O [id number] 17:27:00BA02 Walker StreetIAGNOSTIC IMAGING REPORTPatient Name: JODI PRAJAPATI DDate of Service: 99-05-5735Glv: 46 Sex: F Order #: [id number] Room: [facility]: 1970 X-Ray Number: [id number] Record Number: [id number] Hospital Number: [id number] Physician: HAROON RUELASOrdering Physician: WILL WELLS head [...] by NIRMAL TOLEDO 2017-02-04 17:25:30CT CHEST ANGIO W/[id number] 05:41:00CT CHEST ANGIO W/CONTRASTDIAGNOSIS: Chest pain and [...] CT pulmonary angiography.US DUPLX LWR EXT.VEIN COMPRSS DRN-[id number] 16:32:32US DUPLX LWR EXT.VEIN COMPRSS UNI- LEFTHISTORY: Left-sided pain and swellingCOMPARISON: None availableTECHNIQUE: Real-time sonographic images of the left lower extremity deepveins obtained color and spectral Doppler analysis.FINDINGS: Complete compressibility with normal phasic and augmented flownoted throughout the sampled left lower extremity deep veins.IMPRESSION: No visualized left lower extremityDVT.XR CHEST SGL 1V, [id number] 15:24:33XR CHEST SGL 1V, FRONTALHISTORY: Chest painCOMPARISON: 05/24/2016TECHNIQUE: Single AP view of the chest providedFINDINGS: Heart size and pulmonary vasculature within normal limits. Nonew opacity or acute pleural abnormality. Bony thorax intact wherevisualized.IMPRESSION: No active cardiopulmonary process.CT HEAD OR BRAIN WO [id number] 18:40:55CT HEAD OR BRAIN WO CONTRASTHISTORY: Injury, [...]
--- NOTE | 2021-03-30 15:33 | RAD REPORT ---
EXAM DESCRIPTION: RAD - Chest Single View - 03/30/2021 3:22 pm CLINICAL HISTORY: CHEST PAIN COMPARISON: None TECHNIQUE: AP portable chest image was obtained 03/30/2021 3:22 pm . FINDINGS: Lungs are clear. Heart and vasculature are normal. No measurable pleural effusion and no p neumothorax. No acute bony abnormality seen. No acute aortic findings suspected. IMPRESSION: No acute cardiopulmonary process.
[2021-03-30 18:13] LABS: Absolute Lymphocytes (CBC) 1.5 K/uL (0.7-4.9); Basophils % 0.6 % (0-1.3); Hematocrit 41.5 % (36.0-45.0); Lymphocytes % 32.4 % (15.3-44.8); MPV 8.7 fL (7.6-11.3)
[2021-03-30 18:16] LABS: Protime INR 0.93
[2021-03-30 18:36] LABS: ALT/SGPT 25 U/L (12-78); AST/SGOT 19 U/L (15-37); Alkaline Phosphatase 84 U/L (45-117); BUN Blood Urea Nitrogen 17 mg/dL (7-18); Bicarbonate 33 mmol/L (21-32); Bilirubin Direct < 0.1 mg/dL (0-0.2); Bilirubin Total 0.2 mg/dL (0.2-1.0); Glucose Level 88 mg/dL (74-106); Magnesium 2.2 mg/dL (1.8-2.4); NT PRO-BNP 31 pg/mL (<125); Protein, Total 8.1 g/dL (6.4-8.2); Sodium Level 140 mmol/L (136-145); Troponin (Emerg Dept Use Only) < 0.02 ng/mL (0.0-0.045)
[2021-03-30] MEDS ORDERED: ONDANSETRON 4 MG/2 ML VIAL ONE (18:44)
[2021-03-30] MEDS ORDERED: MORPHINE 4 MG/ML SYR ONE (18:44)
--- NOTE | 2021-03-30 20:17 | RAD REPORT ---
EXAM DESCRIPTION: CT - Chest For Pe Angio - 03/30/2021 8:06 pm CLINICAL HISTORY: chest pain, sob COMPARISON: Chest Single View dated 03/30/2021 TECHNIQUE: Dynamically enhanced 3 mm thick images of the chest were obtained during administration o f approximately 150mL Isovue 370 IV contrast. Coronal and oblique MIP reconstruction images were gene rated and reviewed. Exam utilizes a protocol to evaluate the pulmonary arterial tree. All CT scans are performed using dose optimization technique as appropriate and may include automated exposure control or mA/KV adjustment according to patient size. FINDINGS: No pulmonary emboli are identified. The aorta as imaged shows no acute or suspicious finding. No pericardial thickening or effusion. Minimal ground-glass opacities in each posterior lower lung field believed to be atelectasis. No cons olidation or suspicious mass. No typical COVID-19 pneumonia process identifiable. No pleural effusion or pleural thickening. No mediastinal or hilar suspicious masses. No chest wall masses or abnormal axillary lymphadenopathy. IMPRESSION: No pulmonary emboli identified. No other significant or suspicious findings.
[2021-03-30] MEDS ORDERED: KETOROLAC 30 MG/ML INJ ONE (21:38)
[2021-03-30] MEDS ORDERED: MAGNES/ALUMIN/SIMET 30ML UCUP ONE (21:38)
[2021-03-30] MEDS ORDERED: LIDOCAINE VISCOUS 2% SOLN 15 ML UDC ONE (21:38)
[2021-03-30] MEDS ORDERED: FAMOTIDINE 20 MG/2 ML VIAL IV ONE (21:41)
--- NOTE | 2021-03-30 22:01 | ER ---
Nurse's Notes [facility] Name: Pily Morrissey Age: 50 yrs Sex: Female : 1970 Arrival Date: 03/30/2021 Time: 14:29 Bed 12 Private MD: Diagnosis: Chest pain, unspecified Presentation: 03/30 14:59 Chief complaint: Substernal chest pain, unrelieved by antacids x 2 days. Hx of SVT. hb Coronavirus screen: At this time, the client does not indicate any symptoms associated with coronavirus-19. Ebola Screen: No symptoms or risks identified at this time. Onset of symptoms was March 28, 2021. 14:59 Method Of Arrival: Ambulatory hb 14:59 Acuity: RJ 3 hb 22:20 Initial Sepsis Screen: Does the patient meet any 2 criteria? No. Patient's initial ms4 sepsis screen is negative. Does the patient have a suspected source of infection? No. Patient's initial sepsis screen is negative. Risk Assessment: Do you want to hurt yourself or someone else? Patient reports no desire to harm self or others. Triage Assessment: 22:20 General: Appears in no apparent distress. General: Behavior is calm, cooperative. Pain: ms4 Denies pain. Historical: - Allergies: 15:01 Betadine; hb - PMHx: 15:01 SVT; hb - Immunization history:: Adult Immunizations up to date, Client reports having NOT received the Covid vaccine. - Social history:: Smoking status: unknown. Screenin:38 Abuse screen: Denies threats or abuse. Denies injuries from another. Nutritional ms4 screening: No deficits noted. Tuberculosis screening: No symptoms or risk factors identified. Fall Risk None identified. Assessment: 21:38 Pain: Complains of pain in abdomen. Neuro: No deficits noted. Cardiovascular: No ms4 deficits noted. Respiratory: No deficits noted. 22:21 Pain: Pain began. ms4 Vital Signs: 14:59 BP 154 / 87; Pulse 59; Resp 16; Temp 97.9; Pulse Ox 100% on R/A; Pain 8/10; hb 21:37 BP 104 / 74; Pulse 61; Resp 18; Temp 98.2; Pulse Ox 99% ; Pain 4/10; ms4 ED Course: 14:29 Patient arrived in ED. ds1 15:00 Ajay Spencer PA is PHCP. [facility] 15:00 Pippa León is Attending Physician. [facility] 15:01 Triage completed. hb 15:21 XRAY Chest (1 view) In Process Unspecified. EDMS 18:18 Initial lab(s) drawn, by me, sent to lab. Inserted saline lock: 20 gauge in left jp3 antecubital area, using aseptic technique. Blood collected. 20:06 CT Chest For PE Angio In Process Unspecified. EDMS 21:38 Patient has correct armband on for positive identification. cafeteria monitor on. ms4 22:20 No provider procedures requiring assistance completed. IV discontinued, intact, ms4 bleeding controlled, No redness/swelling at site. Patient maintains SpO2 saturation greater than 95% on room air. 22:21 Arm band placed on. ms4 Administered Medications: 18:24 Drug: morphine 4 mg Route: IVP; Site: left antecubital; iw 22:20 Follow up: Response: No adverse reaction ms4 18:24 Drug: Zofran (Ondansetron) 4 mg Route: IVP; Site: left antecubital; iw 22:19 Follow up: Response: No adverse reaction ms4 21:25 Drug: Pepcid (famotidine) 20 mg Route: IVP; Site: left antecubital; ms4 22:19 Follow up: Response: No adverse reaction ms4 21:25 Drug: Ketorolac 30 mg Route: IVP; Site: left antecubital; ms4 22:19 Follow up: Response: No adverse reaction ms4 21:25 Drug: GI Cocktail without - (Maalox Suspension 30 ml, Lidocaine Liquid 2 % 15 ms4 ml) Route: PO; 22:19 Follow up: Response: No adverse reaction ms4 Outcome: 22:01 Discharge ordered by . [facility] 22:20 Discharged to home ms4 22:20 Condition: stable 22:20 Discharge instructions given to patient, Instructed on discharge instructions, follow up and referral plans. Demonstrated understanding of instructions, follow-up care, medications, Prescriptions given X 1. 22:21 Patient left the ED. ms4 Signatures: Dispatcher [employer] EDMS Ajay Spencer PA PA jmm Sanford, Demi ds1 Lina Covarrubias RN RN Mary Jimenez RN RN Ryan Augusitne jp3 Ysabel Shaw, DONAVON RN ms4
--- NOTE | 2021-03-30 22:02 | EDPHYS ---
Physician Documentation [facility] Name: Pily Morrissey Age: 50 yrs Sex: Female : 1970 Arrival Date: 03/30/2021 Time: 14:29 Bed 12 Private MD: ED Physician Pippa León HPI: 03/30 21:35 This 50 yrs old Female presents to ER via Ambulatory with complaints of Chest jmm Pain. 21:35 The patient or guardian reports chest pain that is located primarily in the substernal [facility] area. Onset: gradually, 1 day(s) ago. Onset: The symptoms/episode began/occurred acutely. The pain does not radiate. Associated signs and symptoms: Pertinent negatives: shortness of breath, vomiting. Modifying factors: The patient symptoms are alleviated by nothing, the patient symptoms are aggravated by nothing. Associated signs and symptoms: Pertinent negatives: palpitations, vomiting. The chest pain is described as aching, a pressure. Duration: The patient or guardian reports a single episode, that is still ongoing, and worsening. Modifying factors: The symptoms are alleviated by nothing. the symptoms are aggravated by eating. The patient has not experienced similar symptoms in the past. Historical: - Allergies: 15:01 Betadine; hb - PMHx: 15:01 SVT; hb - Immunization history:: Adult Immunizations up to date, Client reports having NOT received the Covid vaccine. - Social history:: Smoking status: unknown. ROS: 21:35 Constitutional: Negative for fever, chills, and weight loss. jmm 21:35 Cardiovascular: Positive for chest pain. 21:35 All other systems are negative. Exam: 21:35 Constitutional: This is a well developed, well nourished patient who is awake, alert, jmm and in no acute distress. Head/Face: atraumatic. Eyes: EOMI, no conjunctival erythema appreciated ENT: Moist Mucus Membranes Neck: Trachea midline, Supple Chest/axilla: Normal chest wall appearance and motion. Cardiovascular: Regular rate and rhythm. No edema appreciated Respiratory: Normal respirations, no respiratory distress appreciated Abdomen/GI: Non distended, soft Back: Normal ROM Skin: General appearance color normal MS/ Extremity: Moves all extremities, no obvious deformities appreciated, no edema noted to the lower extremities Neuro: Awake and alert, normal gait Psych: Behavior is normal, Mood is normal, Patient is cooperative and pleasant Vital Signs: 14:59 BP 154 / 87; Pulse 59; Resp 16; Temp 97.9; Pulse Ox 100% on R/A; Pain 8/10; hb 21:37 BP 104 / 74; Pulse 61; Resp 18; Temp 98.2; Pulse Ox 99% ; Pain 4/10; ms4 MDM: 15:06 Patient medically screened. [facility] 21:57 The patient was not given aspirin in the Emergency Department. Data reviewed: vital [facility] signs, nurses notes, lab test result(s), EKG, radiologic studies. ED course: Patient is alert nontoxic in appearance in the ED. Cardiac enzymes are negative. Patient's pain is relieved after GI cocktail. I do not suspect ACS, PE, dissection at this time. Patient is advised to follow-up with PCP for possible GI/cardiology follow-up. Patient is otherwise given strict return precautions. Patient understood and agrees to plan of care.. 03/30 15:05 Order name: Basic Metabolic Panel [facility] 03/30 15:05 Order name: CBC with Diff [facility] 03/30 15:05 Order name: LFT's [facility] 03/30 15:05 Order name: Magnesium [facility] 03/30 15:05 Order name: NT PRO-BNP; Complete Time: 18:47 [facility] 03/30 15:05 Order name: PT-INR; Complete Time: 18:47 [facility] 03/30 15:05 Order name: Troponin (emerg Dept Use Only); Complete Time: 18:47 [facility] 03/30 15:05 Order name: Basic Metabolic Panel; Complete Time: 18:47 [facility] 03/30 15:05 Order name: CBC with Automated Diff; Complete Time: 18:47 [facility] 03/30 15:05 Order name: Liver (Hepatic) Function; Complete Time: 18:47 [facility] 03/30 15:05 Order name: D-Dimer; Complete Time: 18:47 [facility] 03/30 15:05 Order name: Magnesium; Complete Time: 18:47 [facility] 03/30 15:05 Order name: XRAY Chest (1 view); Complete Time: 15:36 [facility] 03/30 15:05 Order name: EKG; Complete Time: 15:05 [facility] 03/30 15:05 Order name: Cardiac monitoring; Complete Time: 20:39 [facility] 03/30 15:05 Order name: EKG - Nurse/Tech; Complete Time: 19:10 [facility] 03/30 15:05 Order name: IV Saline Lock; Complete Time: 19:10 [facility] 03/30 15:05 Order name: Labs collected and sent; Complete Time: 19:10 [facility] 03/30 15:05 Order name: O2 Per Protocol; Complete Time: 20:39 [facility] 03/30 18:35 Order name: CT Chest For PE Angio; Complete Time: 20:19 [facility] 03/30 19:13 Order name: SARS-COV-2 RT PCR; Complete Time: 19:30 [facility] 03/30 19:31 Order name: Troponin (emerg Dept Use Only); Complete Time: 21:54 [facility] 03/30 15:05 Order name: O2 Sat Monitoring; Complete Time: 20:39 [facility] Administered Medications: 18:24 Drug: morphine 4 mg Route: IVP; Site: left antecubital; iw 22:20 Follow up: Response: No adverse reaction ms4 18:24 Drug: Zofran (Ondansetron) 4 mg Route: IVP; Site: left antecubital; iw 22:19 Follow up: Response: No adverse reaction ms4 21:25 Drug: Pepcid (famotidine) 20 mg Route: IVP; Site: left antecubital; ms4 22:19 Follow up: Response: No adverse reaction ms4 21:25 Drug: Ketorolac 30 mg Route: IVP; Site: left antecubital; ms4 22:19 Follow up: Response: No adverse reaction ms4 21:25 Drug: GI Cocktail without - (Maalox Suspension 30 ml, Lidocaine Liquid 2 % 15 ms4 ml) Route: PO; 22:19 Follow up: Response: No adverse reaction ms4 Disposition: 03/31 18:54 Co-signature as Attending Physician, Pippa León I agree with the assessment and plan sp3 of care. Disposition Summary: 03/30/21 22:01 Discharge Ordered Location: Home [facility] Condition: Stable [facility] Diagnosis - Chest pain, unspecified jmm Followup: [facility] - With: Private Physician - When: 2 - 3 days - Reason: Recheck today's complaints, Continuance of care, Re-evaluation by your physician Discharge Instructions: - Discharge Summary Sheet [facility] - Nonspecific Chest Pain, Adult [facility] Forms: - Medication Reconciliation Form jm - Thank You Letter jm - Antibiotic Education [facility] - Prescription Opioid Use [facility] Prescriptions: - sucralfate 100 mg/mL Oral suspension - take 10 milliliter by ORAL route 4 times per day on an empty stomach 1 hour jmm before meals and at bedtime; 200 milliliter; Refills: 0, Product Selection Permitted Signatures: Dispatcher [employer] EDMS Ajay Spencer PA PA jmm Williams, Irene, DONAVON RN Mary Jimenez RN RN Pippa León sp3 Ysabel Shaw RN RN ms4 Corrections: (The following items were deleted from the chart) 03/30 18:13 15:12 CORONAVIRUS+MR.LAB.BRZ ordered. EDMS EDMS 18:38 18:36 CBC Smear Scan ordered. EDMS EDMS 21:31 21:28 TROPONIN (EMERG DEPT USE ONLY)+C.LAB.BRZ ordered. EDMS EDMS
[2021-03-30 23:04] VITALS: BP 104/74; TEMP 98.2; O2SAT 99
--- NOTE | 2021-03-31 16:57 | EKG ---
Test Date: 2021-03-30 Test Time: 14:56:59 Professor Of Finance: HB MEASUREMENT RESULTS: Intervals: Rate: 68 AR: 172 QRSD: 92 QT: 378 QTc: 401 Shannon: P: 28 AR: 172 QRS: 30 T: 47 INTERPRETIVE STATEMENTS: Normal sinus rhythm Normal ECG No previous ECG available for comparison Electronically Signed On 03-31-21 16:53:46 CDT by Urban Lopez
== END 2021-03-30 22:21 | disposition home or self-care (01) ==
LOC: ER 14:28
DX: R07.9 Chest pain, unspecified (principal); Z20.822 Contact with and (suspected) exposure to COVID-19; Z91.048 Other nonmedicinal substance allergy status
CPT/HCPCS: 93005; 85025; 80048; 36415; 83735; 85610; 85379; 80076; 84484 ×2; 83880; 71275; 71045; 96375; 96374; 99285; U0003; Q9967; J2405

== ENCOUNTER 2021-06-06 20:48 | Emergency (ER) | payer BC ==
--- NOTE | 2021-06-06 21:52 | RAD REPORT ---
EXAM DESCRIPTION: RAD - Knee Left 3 View - 06/06/2021 9:44 pm CLINICAL HISTORY: PAIN COMPARISON: <Comparisons> FINDINGS: No acute fracture. No malalignment. No significant focal degenerative changes. IMPRESSION: No acute osseous abnormality involving the left knee.
--- NOTE | 2021-06-06 21:58 | ER ---
Nurse's Notes [facility] Name: Pily Morrissey Age: 50 yrs Sex: Female : 1970 Arrival Date: 06/06/2021 Time: 21:00 Bed 5 Private MD: Diagnosis: Pain in left knee Presentation: 06/06 21:06 Chief complaint: Patient states: patient presents to the ED c/o left knee pain s/p ms4 fall. patient states she slipped on some water at work and fell on her left knee. no deformity noted. patient ambulatory upon arrival. injury occurred around 193. Care prior to arrival: None. Mechanism of Injury: Fall from standing position. Trauma event details: Injury occurred at: 19:30. 21:06 Acuity: RJ 4 ms4 21:06 Method Of Arrival: Ambulatory ms4 21:20 Coronavirus screen: Client denies travel out of the [place] in the last 14 days. At this ms4 time, the client does not indicate any symptoms associated with coronavirus-19. Ebola Screen: Patient negative for fever greater than or equal to 101.5 degrees Fahrenheit, and additional compatible Ebola Virus Disease symptoms Patient denies exposure to infectious person. Patient denies travel to an Ebola-affected area in the 21 days before illness onset. Initial Sepsis Screen: Does the patient meet any 2 criteria? No. Patient's initial sepsis screen is negative. Does the patient have a suspected source of infection? No. Patient's initial sepsis screen is negative. Risk Assessment: Do you want to hurt yourself or someone else? Patient reports no desire to harm self or others. Onset of symptoms was June 06, 2021. Triage Assessment: 21:10 General: Appears in no apparent distress. Behavior is calm, cooperative, appropriate ms4 for age. Pain: Complains of pain in left knee. Neuro: No deficits noted. Cardiovascular: No deficits noted. Respiratory: No deficits noted. Musculoskeletal: Reports pain in left knee Pain is 6 out of 10 on a pain scale. Trauma Activation: Not Applicable Physician: ED Physician; Name: ; Notified At: ; Arrived At: Physician: General Surgeon; Name: ; Notified At: ; Arrived At: Physician: Radiology; Name: ; Notified At: ; Arrived At: Physician: Respiratory; Name: ; Notified At: ; Arrived At: Physician: Lab; Name: ; Notified At: ; Arrived At: Historical: - Allergies: 21:11 Betadine; ms4 - PMHx: 21:11 SVT; ms4 - Immunization history:: Adult Immunizations up to date, Client reports having NOT received the Covid vaccine. Last tetanus immunization: up to date. - Social history:: Smoking status: unknown Patient uses. Screenin:09 Abuse screen: Denies threats or abuse. Denies injuries from another. Tuberculosis ms4 screening: No symptoms or risk factors identified. 21:21 Nutritional screening: No deficits noted. Fall Risk None identified. ms4 Primary Survey: 21:08 NO uncontrolled hemorrhage observed. A: Airway: patent. Breathing/Chest: Respiratory ms4 pattern: regular, Respiratory effort: spontaneous. Circulation: Cardiac rhythm: sinus rhythm Heart tones present. Disability Alert. Exposure/Environment: There is no evidence of uncontrolled external bleeding. No obvious injuries are noted at this time. Reassessment Airway Airway Breathing/Chest Respiratory pattern Circulation Heart rhythm Sinus rhythm Disability Alert. Secondary Survey: 21:09 HEENT: No deficits noted. Gastrointestinal: No deficits noted. : No deficits noted. ms4 Musculoskeletal: Reports pain in left knee. Assessment: 21:07 General: Appears in no apparent distress. Behavior is calm, cooperative, appropriate ms4 for age, Smells of. Pain: Complains of pain in left leg and left knee. Neuro: No deficits noted. Cardiovascular: No deficits noted. Respiratory: No deficits noted. Musculoskeletal: Circulation, motion, and sensation intact. Capillary refill Tenderness present in left knee Reports pain in left leg and left knee. Vital Signs: 21:20 BP 142 / 82; Pulse 83; Resp 18; Temp 96.9(O); Pulse Ox 99% on R/A; Pain 6/10; ms4 ED Course: 21:00 Patient arrived in ED. cf2 21:01 Day[facility] Frias [facility]C [facility] kb 21:01 Amadou Bradley MD is Attending Physician. kb 21:07 Triage completed. ms4 21:09 Patient has correct armband on for positive identification. ms4 21:11 No provider procedures requiring assistance completed. ms4 21:21 Arm band placed on right wrist. ms4 21:44 Knee Left 3 View XRAY In Process Unspecified. EDMS Administered Medications: 22:07 Not Given (Patient Refused; took before arrivall): Ibuprofen 600 mg PO once ms4 Outcome: 21:58 Discharge ordered by . kb 22:11 Patient left the ED. ms4 Signatures: Dispatcher [employer] EDDayanna Lane, MARIBEL MITCHELL-Suhail Hill cf2 Ysabel Shaw, RN RN ms4
--- NOTE | 2021-06-06 21:59 | EDPHYS ---
Physician Documentation [facility] Name: Pily Morrissey Age: 50 yrs Sex: Female : 1970 Arrival Date: 06/06/2021 Time: 21:00 Bed 5 Private MD: ED Physician Amadou Bradley HPI: 06/06 21:04 This 50 yrs old Female presents to ER via Unassigned with complaints of Fall kb Injury, Knee Injury, Knee Pain, KNEE SWELLING. 21:04 Details of fall: The patient fell from an upright position, while walking. Onset: The kb symptoms/episode began/occurred just prior to arrival. Associated injuries: The patient sustained left knee, painful injury, swelling. Severity of symptoms: At their worst the symptoms were moderate, in the emergency department the symptoms are unchanged. The patient has not experienced similar symptoms in the past. The patient has not recently seen a physician. Pt reports she slipped in water and fell onto left knee . Historical: - Allergies: 21:11 Betadine; ms4 - PMHx: 21:11 SVT; ms4 - Immunization history:: Adult Immunizations up to date, Client reports having NOT received the Covid vaccine. Last tetanus immunization: up to date. - Social history:: Smoking status: unknown Patient uses. ROS: 21:03 Constitutional: Negative for fever, chills, and weight loss. kb 21:03 MS/extremity: Positive for injury or acute deformity, pain, swelling, tenderness, of the left knee. 21:03 All other systems are negative. Exam: 21:03 Constitutional: This is a well developed, well nourished patient who is awake, alert, kb and in no acute distress. Head/Face: Normocephalic, atraumatic. ENT: Moist Mucous membranes Respiratory: Respirations even and unlabored. No increased work of breathing, no retractions or nasal flaring. Skin: Warm, dry with normal turgor. Normal color. Neuro: Awake and alert, GCS 15, oriented to person, place, time, and situation. Moves all extremities. Normal gait. Psych: Awake, alert, with orientation to person, place and time. Behavior, mood, and affect are within normal limits. 21:03 Musculoskeletal/extremity: Extremities: grossly normal except: noted in the left knee: pain, swelling, tenderness, ROM: no acute changes, Circulation is intact in all extremities. Sensation intact. Weight bearing: able to fully bear weight. Vital Signs: 21:20 BP 142 / 82; Pulse 83; Resp 18; Temp 96.9(O); Pulse Ox 99% on R/A; Pain 6/10; ms4 MDM: 21:03 Patient medically screened. kb 21:03 Data reviewed: vital signs, nurses notes. Data interpreted: Pulse oximetry: on room air kb is 100 %. Interpretation: normal. 21:57 Counseling: I had a detailed discussion with the patient and/or guardian regarding: the kb historical points, exam findings, and any diagnostic results supporting the discharge/admit diagnosis, radiology results, the need for outpatient follow up, a orthopedic surgeon, to return to the emergency department if symptoms worsen or persist or if there are any questions or concerns that arise at home. 06/06 21:03 Order name: Knee Left 3 View XRAY; Complete Time: 21:57 kb 06/06 21:58 Order name: Clarke Wrap; Complete Time: 22:07 kb Administered Medications: 22:07 Not Given (Patient Refused; took before arrivall): Ibuprofen 600 mg PO once ms4 Disposition: 06/07 07:35 Co-signature as Attending Physician, Amadou Bradley MD. [email or web address] Disposition Summary: 06/06/21 21:58 Discharge Ordered Location: Home kb Condition: Stable kb Diagnosis - Pain in left knee kb Followup: kb - With: Emergency Department - When: As needed - Reason: Worsening of condition Followup: kb - With: Private Physician - When: 2 - 3 days - Reason: Recheck today's complaints, Continuance of care, Re-evaluation by your physician Discharge Instructions: - Discharge Summary Sheet kb - Acute Knee Pain, Adult, [id number] kb Forms: - Medication Reconciliation Form kb - Thank You Letter kb - Antibiotic Education kb - Prescription Opioid Use kb - Work release form lp1 Signatures: Dispatcher [employer] Dayanna Hawthorne FNP-C FNP-Amadou López MD MD 7 Ysabel Shaw RN RN ms4
[2021-06-06 22:22] VITALS: BP 142/82; TEMP 96.9; O2SAT 99
== END 2021-06-06 22:11 | disposition home or self-care (01) ==
LOC: ER 20:48
DX: M25.562 Pain in left knee (principal); W01.0XXA Fall on same level from slipping, tripping and stumbling without subsequent striking against object, initial encounter; Y93.9 Activity, unspecified; Y92.89 Other specified places as the place of occurrence of the external cause; Y99.0 Civilian activity done for income or pay
CPT/HCPCS: 99282

== ENCOUNTER 2021-11-29 14:33 | Emergency (ER) | payer BC ==
--- OUTSIDE RECORDS SUMMARY | 2021-11-29 14:39 | XMS REPORT | Continuity of Care Document ---
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 [facility] 22:55:00 19:46:00 Deon 77 [facility] 2021-04-16 2021-04-16 Outpatient CURT TERESA [id number] [facility] 12:08:00 12:08:00 TANA [id number] [facility] 2020-11-07 2020-11-08 Emergency Braden Rivas Theresa [facility] 1.2.840. [id number] 11:25:00 13:59:00 Enrrique Topete [id number] [place] [id number] [place] [phone] 2020-11-07 2020-11-07 Orders Doctor LOREE 1.2.840.114 [id number] 00:00:00 00:00:00 Only Unassigned, ANKITA [id number] [place] [phone] [id number] 2020-10-30 2020-10-30 Emergency ENNIS, CHAPIN GORMAN QER 1205 16813- Spiritism 03:51:00 03:51:00 [id number] Hospi [facility] 2020-10-05 2020-10-05 Emergency Braden Rivas [facility] 1.2.840.114 [id number] 14:42:00 17:26:00 Theresa [place] [id number] [place] [id number] [place] [phone] [id number] 2020-05-18 2020-05-18 Departed TAM ELIAS [id number] [facility] 12:15:00 14:15:00 Emergency [facility] [address] [facility] 2020-05-18 2020-05-18 Departed TAM ELIAS [id number] [place] 12:15:00 14:15:00 Emergency [facility] [address] - [facility] 2020-05-18 2020-05-18 Emergency ER UNASSIGNED, CURT ELIAS [id number] [place] 12:15:00 12:15:00 ED [facility] 2020-01-11 2020-01-11 Departed TAM ELIAS [id number] [place] 11:00:00 11:21:00 Emergency [facility] [address] [facility] 2020-01-11 2020-01-11 Departed TAM ELIAS [id number] [place] 11:00:00 11:21:00 Emergency [facility] [address] - [facility] 2019-12-04 2019-12-04 Outpatient CARMEN CURT ELIAS [id number] [facility] 09:11:00 09:11:00 URI 96 [facility] 2019-09-01 2019-09-02 Inpatient UR PERRY CURT [facility] [id number] [place] 18:00:00 14:00:00 AI [id number] [facility] 2019-09-01 2019-09-02 Discharged SUKUMARLUIZA CURT AE00 [id number] [facility] 18:00:00 14:00:[address] 2019-09-01 2019-09-02 Discharged SUKUMARLUIZA CURT AE00 [id number] [facility] 18:00:00 14:00:[address] 2019-08-13 2019-08-13 Outpatient MIKA CURT ROWELL [id number] 23-20 [facility] 10:44:00 10:44:00 TANA [id number] [facility] 2019-08-13 2019-08-13 Registered CHRISTLUIZA [facility]US AM07 [id number] [facility] 10:44:00 10:44:00 Clinic [facility] 09 [facility] 2019-08-13 2019-08-13 Registered CHRISTLUIZA [facility]US AM07 [id number] [facility] 10:44:00 10:44:00 Clinic [facility] 09 [facility] 2019-03-13 2019-03-13 Emergency ER CURT KRUGER [id number] 3-20 [facility] 07:06:00 09:02:00 QUIN [id number] [facility] 2018-08-22 2018-08-22 Emergency ER NIEVES CURT ELIAS [id number] 23-20 [facility] 20:34:00 21:26:00 FANG [id number] [facility] 2017-09-21 2017-09-22 Emergency ER NIEVESCURT CHUNG [id number] 23-20 [facility] 22:04:00 01:13:00 FANG [id number] [facility] 2017-08-01 2017-08-01 Outpatient MIKA ROWELLCURT [id number] 23-20 [facility] 10:54:00 10:54:00 TANA [id number] [facility] 2017-06-23 2017-06-23 Outpatient EL CURT MORALES [id number] [facility] 07:52:00 07:52:00 URI [id number] [facility] 2017-06-19 2017-06-19 Emergency ER CURT QUACH [id number] [facility] 15:05:00 17:24:00 SHANNON [id number] [facility] 2017-06-10 2017-06-10 Outpatient EL CURT ROWELL [id number] 23-20 [place] 08:04:00 08:04:00 TANA [id number] [facility] 2017-03-17 2017-03-17 Emergency ER CURT HALE [id number] 23-20 [facility] 07:40:00 10:05:00 ADEYIN [id number] [facility] 2017-01-15 2017-01-15 Emergency E MCSET[facility] MED [id number] Medical 14:30:00 14:30:00 [facility] 2016-12-29 2016-12-29 Emergency E MCSETX MED [id number] Medical 17:31:00 17:31:00 [facility] 2016-06-14 2016-06-14 Emergency ER UCRT FELIZ [id number] [place] 10:26:00 11:59:00 NATA [id number] [facility] 2016-04-09 2016-04-09 Emergency ER CURT MORA [id number] 3-20 [facility] 14:11:00 15:12:00 CAMRYN [id number] [facility] 2015-11-18 2015-11-19 Emergency ER CURT TOVAR CURT 5269 [id number] [place] 21:14:00 00:29:00 KALEY [id number] [facility] Results Test Description Test Time Test Comments Results Result Comments Source BASIC METABOLIC PANEL 2021-10-07 10:00:00 Test Item Value Reference Range Interpretation Comme nts SODIUM (test code = NA) 143 mEq/L 134-147 N POTASSIUM (test code = K) 3.9 mEq/L 3.4-5.0 N CHLORIDE (test code = CL) 105 mEq/L 100-108 N CARBON DIOXIDE (test code = CO2) 30 mEq/l 21-33 N ANION GAP (test code = GAP) 12 0-20 N GLUCOSE (test code = GLU) 98 mg/dL 70-110 N BLOOD UREA NITROGEN (test code = 15 mg/dL 7-18 N BUN) GLOMERULAR FILTRATION RATE (test 131.1 95-105 H Units of measure = ml/min/1.73 code = GFR) m2 CREATININE (test code = CREAT) 0.5 mg/dL 0.6-1.3 L CALCIUM (test code = CA) 8.9 mg/dL 8.0-10.5 N CBC W/AUTO [id number] 09:49:00 Test Item Value Reference Range Interpretation Comments WHITE BLOOD CELL (test code = 4.4 x10 3/uL 4.5-11.0 L WBC) RED BLOOD CELL (test code = 3.38 x10 6/uL 3.54-5.02 L RBC) HEMOGLOBIN (test code = HGB) 10.0 g/dL 11.0-15.0 L HEMATOCRIT (test code = HCT) 31.8 % 33.0-45.0 L MEAN CELL VOLUME (test code = 94.1 fL 81.0-99.0 N MCV) MEAN CELL HGB (test code = MCH) 29.6 pg 27.0-33.0 N MEAN CELL HGB CONCETRATION 31.4 g/dL 33.0-37.0 L (test code = MCHC) RED CELL DISTRIBUTION WIDTH CV 14.9 % 11.5-14.5 H (test code = RDW) PLATELET COUNT (test code = 353 x10 3/uL 150-400 N PLT) NEUTROPHIL % (test code = NT%) 51.5 % 56.0-77.0 L LYMPHOCYTE % (test code = LY%) 29.4 % 14.0-32.0 N NEUTROPHIL # (test code = NT#) 2.25 x10 3/uL 2.0-7.6 N LYMPHOCYTE # (test code = LY#) 1.28 x10 3/uL 1.0-3.8 N MANUAL DIFF REQUIRED (test code NO = MDIFF) RED CELL DISTRIBUTION WIDTH SD 51.2 fL 37.0-54.0 N (test code = RDW-SD) MEAN PLATELET VOLUME (test code 9.3 fL 7.0-9.0 H = MPV) IMMATURE GRANULOCYTE % (test 0.5 % 0.0-2.0 N code = IG%) MONOCYTE % (test code = MO%) 12.2 % 4.8-9.0 H EOSINOPHIL % (test code = EO%) 5.5 % 0.3-3.7 H BASOPHIL % (test code = BA%) 0.9 % 0.0-2.0 N NUCLEATED RBC % (test code = 0.0 % 0-0 N NRBC%) IMMATURE GRANULOCYTE # (test 0.02 x10 3/uL 0.00-0.03 N code = IG#) MONOCYTE # (test code = MO#) 0.53 x10 3/uL 0.1-0.8 N EOSINOPHIL # (test code = EO#) 0.24 x10 3/uL 0.0-0.2 H BASOPHIL # (test code = BA#) 0.04 x10 3/uL 0.0-0.2 N NUCLEATED RBC # (test code = 0.00 x10 3/uL 0.0-0.1 N NRBC#) HGB [id number] 07:26:00 Test Item Value Reference Range Interpretation Comments HEMOGLOBIN (test code = HGB) 8.9 g/dL 11.0-15.0 L HEMATOCRIT (test code = HCT) 28.8 % 33.0-45.0 L [id number] 07:09:00 Test Item Value Reference Range Interpretation Comments ALBUMIN (test code = ALB) 3.10 g/dL 3.4-5.0 L [id number] 07:09:00 Test Item Value Reference Range Interpretation Comments PREALBUMIN (test code = PREALB) 16.9 mg/dL 16.0-40.0 N HGB [id number] 07:46:00 Test Item Value Reference Range Interpretation Comments HEMOGLOBIN (test code = HGB) 8.0 g/dL 11.0-15.0 L HEMATOCRIT (test code = HCT) 25.7 % 33.0-45.0 L HGB [id number] 08:19:00 Test Item Value Reference Range Interpretation Comments HEMOGLOBIN (test code = HGB) 8.2 g/dL 11.0-15.0 L HEMATOCRIT (test code = HCT) 25.2 % 33.0-45.0 L [id number] 06:53:00 Test Item Value Reference Range Interpretation Comments ALBUMIN (test code = ALB) 3.00 g/dL 3.4-5.0 L [id number] 06:53:00 Test Item Value Reference Range Interpretation Comments PREALBUMIN (test code = PREALB) 10.1 mg/dL 16.0-40.0 L UA RFLX MICR CULT IF [id number] 16:36:00 Test Item Value Reference Range Interpretation Comments UA COLOR (test code = COLU) YELLOW YEL/STRAW UA APPEARANCE (test code = APPU) SL CLOUDY CLEAR UA GLUCOSE DIPSTICK (test code = NEGATIVE NEGATIVE DGLUU) UA BILIRUBIN DIPSTICK (test code NEGATIVE NEGATIVE = BILU) UA KETONE DIPSTICK (test code = NEGATIVE NEGATIVE KETU) UA SPECIFIC GRAVITY (test code = 1.012 1.005-1.030 N SGU) UA BLOOD DIPSTICK (test code = 1+ NEGATIVE A NESTOR) UA PH DIPSTICK (test code = VIDA) 7.0 5.0-7.0 N UA PROTEIN DIPSTICK (test code = NEGATIVE NEGATIVE PROU) UA UROBILINIOGEN DIPSTICK (test 0.2 mg/dL 0.2-1.0 code = URO) UA NITRITE DIPSTICK (test code = NEGATIVE NEGATIVE RIANA) UA LEUKOCYTE ESTERASE DIPSTICK 3+ NEGATIVE A (test code = LEUU) UA WBC (test code = WBCU) >50 WBC/HPF 0-3 A UA RBC (test code = RBCU) >50 RBC/HPF 0-3 A UA WBC NO REFLEX (test code = >50 WBC/HPF 0-3 A WBCUCL) UA BACTERIA (test code = BACU) 1+ /HPF NONE SEEN A UA SQUAMOUS CELLS (test code = 0-5 /HPF NONE SEEN SQU) UA MUCUS (test code = MUCU) TRACE /LPF NONE SEEN Cath type: Temporary/indwellingIN date: 09/24/21IN time: 1840Elapse time: 44 Hrs 29 MinsIndication for culture: RiskForSepsis-no oth srcSpecimen Description: STRAIGHT CATHHGB [id number] 07:30:00 Test Item Value Reference Range Interpretation Comments HEMOGLOBIN (test code = HGB) 7.7 g/dL 11.0-15.0 L HEMATOCRIT (test code = HCT) 24.4 % 33.0-45.0 L COMPREHENSIVE METABOLIC [id number] 07:37:00 Test Item Value Reference Range Interpretation Comments SODIUM (test code = NA) 140 mEq/L 134-147 N POTASSIUM (test code = 3.7 mEq/L 3.4-5.0 N K) CHLORIDE (test code = 103 mEq/L 100-108 N CL) CARBON DIOXIDE (test 30 mEq/l 21-33 N code = CO2) ANION GAP (test code = 10 0-20 N GAP) GLUCOSE (test code = 113 mg/dL 70-110 H GLU) BLOOD UREA NITROGEN 18 mg/dL 7-18 (test code = BUN) GLOMERULAR FILTRATION 169.6 95-105 H Units of measure = RATE (test code = GFR) ml/mi n/1.73 m2 CREATININE (test code = 0.4 mg/dL 0.6-1.3 L CREAT) TOTAL PROTEIN (test 5.8 g/dL 6.4-8.2 L code = PROT) ALBUMIN (test code = 2.60 g/dL 3.4-5.0 L ALB) CALCIUM (test code = 8.3 mg/dL 8.0-10.5 N CA) BILIRUBIN TOTAL (test 0.50 mg/dL 0.0-1.0 N code = BILT) SGOT/AST (test code = 20 IUnit/L 15-37 N AST) SGPT/ALT (test code = 16 IUnit/L 30-65 L ALT) ALKALINE PHOSPHATASE 66 IUnit/L 20-125 N TOTAL (test code = ALKP) [id number] 07:37:00 Test Item Value Reference Range Interpretation Comments MAGNESIUM (test code = MAG) 1.66 mg/dL 1.80-2.40 L CBC W/AUTO [id number] 07:13:00 Test Item Value Reference Range Interpretation Comments WHITE BLOOD CELL (test code = 6.1 x10 3/uL 4.5-11.0 N WBC) RED BLOOD CELL (test code = 2.60 x10 6/uL 3.54-5.02 L RBC) HEMOGLOBIN (test code = HGB) 7.8 g/dL 11.0-15.0 L HEMATOCRIT (test code = HCT) 23.7 % 33.0-45.0 L MEAN CELL VOLUME (test code = 91.2 fL 81.0-99.0 N MCV) MEAN CELL HGB (test code = MCH) 30.0 pg 27.0-33.0 N MEAN CELL HGB CONCETRATION 32.9 g/dL 33.0-37.0 L (test code = MCHC) RED CELL DISTRIBUTION WIDTH CV 14.0 % 11.5-14.5 N (test code = RDW) PLATELET COUNT (test code = 250 x10 3/uL 150-400 N PLT) NEUTROPHIL % (test code = NT%) 64.6 % 56.0-77.0 N LYMPHOCYTE % (test code = LY%) 21.0 % 14.0-32.0 N NEUTROPHIL # (test code = NT#) 3.91 x10 3/uL 2.0-7.6 N LYMPHOCYTE # (test code = LY#) 1.27 x10 3/uL 1.0-3.8 N MANUAL DIFF REQUIRED (test code NO = MDIFF) RED CELL DISTRIBUTION WIDTH SD 45.4 fL 37.0-54.0 N (test code = RDW-SD) MEAN PLATELET VOLUME (test code 10.1 fL 7.0-9.0 H = MPV) IMMATURE GRANULOCYTE % (test 3.3 % 0.0-2.0 H code = IG%) MONOCYTE % (test code = MO%) 6.8 % 4.8-9.0 N EOSINOPHIL % (test code = EO%) 3.8 % 0.3-3.7 H BASOPHIL % (test code = BA%) 0.5 % 0.0-2.0 N NUCLEATED RBC % (test code = 0.0 % 0-0 N NRBC%) IMMATURE GRANULOCYTE # (test 0.20 x10 3/uL 0.00-0.03 H code = IG#) MONOCYTE # (test code = MO#) 0.41 x10 3/uL 0.1-0.8 N EOSINOPHIL # (test code = EO#) 0.23 x10 3/uL 0.0-0.2 H BASOPHIL # (test code = BA#) 0.03 x10 3/uL 0.0-0.2 N NUCLEATED RBC # (test code = 0.00 x10 3/uL 0.0-0.1 N NRBC#) COVID 19 Asymptomatic IH [id number] 16:41:00 Test Item Value Reference Range Interpretation Comments COVID 19 Asymptomatic Negative Negative A nega tive result is IH AG (test code = presumpti ve and should COVNONPUIAG) be confirmedwit h an FDA authorized mole cular assay, if neces barrett forpatient tye gement.A positive result does not rule out co-inf ections withother patho gens.This test detects maria alejandra th viable (live) and non-viable,SARS -CoV, and SARS-CoV-2. Ezequiel t performance dep ends on theamount of vi mayte (antigen) in th e sample.This ezequiel t has not been FDA cleare d or approved; the t est hasbeen authori zed by FDA under an Em ergency Use Authorizati on(EUA) for use by labo ratories certified under the CLIA thatmeet the requirements to perform moderate, high or waivedcomplexit y tests. CBC W/AUTO [id number] 08:04:00 Test Item Value Reference Range Interpretation Comments WHITE BLOOD CELL (test code = 6.6 x10 3/uL 4.5-11.0 N WBC) RED BLOOD CELL (test code = 2.73 x10 6/uL 3.54-5.02 L RBC) HEMOGLOBIN (test code = HGB) 8.0 g/dL 11.0-15.0 L HEMATOCRIT (test code = HCT) 25.3 % 33.0-45.0 L MEAN CELL VOLUME (test code = 92.7 fL 81.0-99.0 N MCV) MEAN CELL HGB (test code = MCH) 29.3 pg 27.0-33.0 N MEAN CELL HGB CONCETRATION 31.6 g/dL 33.0-37.0 L (test code = MCHC) RED CELL DISTRIBUTION WIDTH CV 14.1 % 11.5-14.5 N (test code = RDW) RED CELL DISTRIBUTION WIDTH SD 46.7 fL 37.0-54.0 N (test code = RDW-SD) PLATELET COUNT (test code = 233 x10 3/uL 150-400 N PLT) MEAN PLATELET VOLUME (test code 10.3 fL 7.0-9.0 H = MPV) NEUTROPHIL % (test code = NT%) 63.7 % 56.0-77.0 N IMMATURE GRANULOCYTE % (test 4.1 % 0.0-2.0 H code = IG%) LYMPHOCYTE % (test code = LY%) 21.5 % 14.0-32.0 N MONOCYTE % (test code = MO%) 8.4 % 4.8-9.0 N EOSINOPHIL % (test code = EO%) 1.8 % 0.3-3.7 N BASOPHIL % (test code = BA%) 0.5 % 0.0-2.0 N NUCLEATED RBC % (test code = 0.6 % 0-0 H NRBC%) NEUTROPHIL # (test code = NT#) 4.23 x10 3/uL 2.0-7.6 N IMMATURE GRANULOCYTE # (test 0.27 x10 3/uL 0.00-0.03 H code = IG#) LYMPHOCYTE # (test code = LY#) 1.43 x10 3/uL 1.0-3.8 N MONOCYTE # (test code = MO#) 0.56 x10 3/uL 0.1-0.8 N EOSINOPHIL # (test code = EO#) 0.12 x10 3/uL 0.0-0.2 N BASOPHIL # (test code = BA#) 0.03 x10 3/uL 0.0-0.2 N NUCLEATED RBC # (test code = 0.04 x10 3/uL 0.0-0.1 N NRBC#) MANUAL DIFF REQUIRED (test code NO = MDIFF) BASIC METABOLIC [id number] 08:01:00 Test Item Value Reference Range Interpretation Comments SODIUM (test code = NA) 140 mEq/L 134-147 N POTASSIUM (test code = 3.9 mEq/L 3.4-5.0 N K) CHLORIDE (test code = 103 mEq/L 100-108 N CL) CARBON DIOXIDE (test 30 mEq/l 21-33 N code = CO2) ANION GAP (test code = 11 0-20 N GAP) GLUCOSE (test code = 108 mg/dL 70-110 N GLU) BLOOD UREA NITROGEN 12 mg/dL 7-18 N (test code = BUN) GLOMERULAR FILTRATION 170.4 95-105 H Units of measure = RATE (test code = GFR) ml/mi n/1.73 m2 CREATININE (test code = 0.4 mg/dL 0.6-1.3 L CREAT) CALCIUM (test code = 8.1 mg/dL 8.0-10.5 N CA) RENAL FUNCTION [id number] 06:40:00 Test Item Value Reference Range Interpretation Comments SODIUM (test code = NA) 143 mEq/L 134-147 N POTASSIUM (test code = 3.6 mEq/L 3.4-5.0 N K) CHLORIDE (test code = 108 mEq/L 100-108 N CL) CARBON DIOXIDE (test 30 mEq/l 21-33 N code = CO2) ANION GAP (test code = 8 0-20 N GAP) GLUCOSE (test code = 112 mg/dL 70-110 H GLU) BLOOD UREA NITROGEN 12 mg/dL 7-18 N (test code = BUN) GLOMERULAR FILTRATION 170.4 95-105 H Units of measure = RATE (test code = GFR) ml/mi n/1.73 m2 CREATININE (test code = 0.4 mg/dL 0.6-1.3 L CREAT) ALBUMIN (test code = 2.80 g/dL 3.4-5.0 L ALB) CALCIUM (test code = CA) 7.5 mg/dL 8.0-10.5 L PHOSPHOROUS (test code = 2.2 MG/DL 2.5-4.9 L PHOS) [id number] 06:40:00 Test Item Value Reference Range Interpretation Comments MAGNESIUM (test code = MAG) 1.75 mg/dL 1.80-2.40 L CBC W/AUTO [id number] 06:35:00 Test Item Value Reference Range Interpretation Comments WHITE BLOOD CELL (test code = 10.2 x10 3/uL 4.5-11.0 N WBC) RED BLOOD CELL (test code = 2.68 x10 6/uL 3.54-5.02 L RBC) HEMOGLOBIN (test code = HGB) 8.0 g/dL 11.0-15.0 L HEMATOCRIT (test code = HCT) 24.8 % 33.0-45.0 L MEAN CELL VOLUME (test code = 92.5 fL 81.0-99.0 N MCV) MEAN CELL HGB (test code = MCH) 29.9 pg 27.0-33.0 N MEAN CELL HGB CONCETRATION 32.3 g/dL 33.0-37.0 L (test code = MCHC) RED CELL DISTRIBUTION WIDTH CV 13.9 % 11.5-14.5 N (test code = RDW) RED CELL DISTRIBUTION WIDTH SD 47.1 fL 37.0-54.0 N (test code = RDW-SD) PLATELET COUNT (test code = 215 x10 3/uL 150-400 N PLT) MEAN PLATELET VOLUME (test code 10.8 fL 7.0-9.0 H = MPV) NEUTROPHIL % (test code = NT%) 71.4 % 56.0-77.0 N IMMATURE GRANULOCYTE % (test 3.5 % 0.0-2.0 H code = IG%) LYMPHOCYTE % (test code = LY%) 15.0 % 14.0-32.0 N MONOCYTE % (test code = MO%) 9.8 % 4.8-9.0 H EOSINOPHIL % (test code = EO%) 0.0 % 0.3-3.7 L BASOPHIL % (test code = BA%) 0.3 % 0.0-2.0 N NUCLEATED RBC % (test code = 0.4 % 0-0 H NRBC%) NEUTROPHIL # (test code = NT#) 7.26 x10 3/uL 2.0-7.6 N IMMATURE GRANULOCYTE # (test 0.36 x10 3/uL 0.00-0.03 H code = IG#) LYMPHOCYTE # (test code = LY#) 1.53 x10 3/uL 1.0-3.8 N MONOCYTE # (test code = MO#) 1.00 x10 3/uL 0.1-0.8 H EOSINOPHIL # (test code = EO#) 0.00 x10 3/uL 0.0-0.2 N BASOPHIL # (test code = BA#) 0.03 x10 3/uL 0.0-0.2 N NUCLEATED RBC # (test code = 0.04 x10 3/uL 0.0-0.1 N NRBC#) MANUAL DIFF REQUIRED (test code NO = MDIFF) PROTHROMBIN [id number] 06:48:00 Test Item Value Reference Range Interpretation Comments PROTHROMBIN TIME 10.9 SECONDS 9.3-12.9 N PATIENT (test code = PTP) INTERNATIONAL NORMAL 1.0 0.8-1.2 N TARGET RATIO (test code = INR BY IN DICATION INR) Indication INR1. Prophyl axis of venous thrombos is 2.0 - 3. 0 (orthopedic vanessa evelyn), Prophylaxis of venous thrombos is (other than hig h-risk surgery), Gilda tment of Deep Vein Thrombosis/Pulm onary Embolism, Preve ntion of systemic emb olism - Tissue heart va lves, Acute Myocardia l Infarction (to prevent systemic embo lism), Valvular heart disease, Atri al Fibrillation, Bileaflet mecha nical valve in aortic position.2. Mec hanical prosthetic valv es (high risk), 2.5 - 3.5 Presence of Lupus Anticoagu lant or Antiphospholi pid Antibodies, Pre vention of systemic e mbolism - Acute Myocard ial Infarction (t o prevent recurre nt infarct). THROMBOPLASTIN TIME [id number] 06:48:00 Test Item Value Reference Range Interpretation Comments THROMBOPLASTIN TIME 30.1 Seconds 25.0-39.5 N Ther apeutic PARTIAL (test code = Range: 50.4 - 88.3 PTT) Seconds Effective 11/28/2018 RENAL FUNCTION [id number] 06:33:00 Test Item Value Reference Range Interpretation Comments SODIUM (test code = NA) 145 mEq/L 134-147 N POTASSIUM (test code = 3.6 mEq/L 3.4-5.0 N K) CHLORIDE (test code = 113 mEq/L 100-108 H CL) CARBON DIOXIDE (test 29 mEq/l 21-33 N code = CO2) ANION GAP (test code = 6 0-20 N GAP) GLUCOSE (test code = 112 mg/dL 70-110 H GLU) BLOOD UREA NITROGEN 15 mg/dL 7-18 N (test code = BUN) GLOMERULAR FILTRATION 131.7 95-105 H Units of measure = RATE (test code = GFR) ml/mi n/1.73 m2 CREATININE (test code = 0.5 mg/dL 0.6-1.3 L CREAT) ALBUMIN (test code = 2.60 g/dL 3.4-5.0 L ALB) CALCIUM (test code = CA) 7.8 mg/dL 8.0-10.5 L PHOSPHOROUS (test code = 1.8 MG/DL 2.5-4.9 L PHOS) [id number] 06:33:00 Test Item Value Reference Range Interpretation Comments MAGNESIUM (test code = MAG) 1.58 mg/dL 1.80-2.40 L CBC W/AUTO [id number] 06:23:00 Test Item Value Reference Range Interpretation Comments WHITE BLOOD CELL (test code = 8.8 x10 3/uL 4.5-11.0 N WBC) RED BLOOD CELL (test code = 2.52 x10 6/uL 3.54-5.02 L RBC) HEMOGLOBIN (test code = HGB) 7.6 g/dL 11.0-15.0 L HEMATOCRIT (test code = HCT) 23.4 % 33.0-45.0 L MEAN CELL VOLUME (test code = 92.9 fL 81.0-99.0 N MCV) MEAN CELL HGB (test code = MCH) 30.2 pg 27.0-33.0 N MEAN CELL HGB CONCETRATION 32.5 g/dL 33.0-37.0 L (test code = MCHC) RED CELL DISTRIBUTION WIDTH CV 13.6 % 11.5-14.5 N (test code = RDW) PLATELET COUNT (test code = 195 x10 3/uL 150-400 N PLT) NEUTROPHIL % (test code = NT%) 68.2 % 56.0-77.0 N LYMPHOCYTE % (test code = LY%) 23.6 % 14.0-32.0 N NEUTROPHIL # (test code = NT#) 6.02 x10 3/uL 2.0-7.6 N LYMPHOCYTE # (test code = LY#) 2.08 x10 3/uL 1.0-3.8 N MANUAL DIFF REQUIRED (test code NO = MDIFF) RED CELL DISTRIBUTION WIDTH SD 45.7 fL 37.0-54.0 N (test code = RDW-SD) MEAN PLATELET VOLUME (test code 10.6 fL 7.0-9.0 H = MPV) IMMATURE GRANULOCYTE % (test 1.4 % 0.0-2.0 N code = IG%) MONOCYTE % (test code = MO%) 6.3 % 4.8-9.0 N EOSINOPHIL % (test code = EO%) 0.3 % 0.3-3.7 N BASOPHIL % (test code = BA%) 0.2 % 0.0-2.0 N NUCLEATED RBC % (test code = 0.6 % 0-0 H NRBC%) IMMATURE GRANULOCYTE # (test 0.12 x10 3/uL 0.00-0.03 H code = IG#) MONOCYTE # (test code = MO#) 0.56 x10 3/uL 0.1-0.8 N EOSINOPHIL # (test code = EO#) 0.03 x10 3/uL 0.0-0.2 N BASOPHIL # (test code = BA#) 0.02 x10 3/uL 0.0-0.2 N NUCLEATED RBC # (test code = 0.05 x10 3/uL 0.0-0.1 N NRBC#) - XR FLUOROSCOPY 0-60 [id number] 00:00:00 [facility] JODI PRAJAPATI : 1970 Sex: F FAX: Sebastian Joseph Jr [phone] [place]: St: [facility] FAX: Deon Lorenz DO [phone] FAX: Theron Burleson MD [phone] Name: JODI PRAJAPATI [facility] [place], [place] : 1970 Age/S: 50/F [address] [place] [address] Blvd Unit #: [id number] Loc: [address] [address] Phys: Sebastian Lindsay Jr, MD Acct: [id number] Dis Date: Status: ADM IN PHONE #: [phone] Exam Date: 09/21/2021 1623 FAX #: [phone] Reason: LEFT ELBOW FX EXAMS: CPT CODE: [id number] XR FLUOROSCOPY 0-60 MIN 13059 PROCEDURE INFORMATION: Exam: FL Fluoroscopy, Up to 1 Hour Physician Time; Radiologist Not Present For Fluoroscopy Exam date and time:09/21/2021 12:58 PM Age: 50 years old Clinical indication: Symptoms: Left elbow FX TECHNIQUE: Imaging protocol: Fluoroscopy , up to 1 hour physician or other qualified health after school caregiver time. This radiologist did not supervise this procedure. Exam supervised by facility personnel. Report for radiation dosage reporting and documentation only. Other technique: Radiologist was not present during this procedure. COMPARISON: No relevant prior studies available. RADIATION DOSE METRICS: Fluoroscopy time (seconds): seconds= 7SEC Number of fluoro spot images: images= 2 Reference air kerma (MOISES): 0.50 mGy FINDINGS: Procedural imaging: Fluoroscopic assistance was provided. Radiologist was not present during the procedure. Intraoperative review of these images was performed by the operating physician. Please refer to the procedure report for further details. Notes: Fluoroscopy supervised by facility personnel. See also separate procedure report. IMPRESSION: Fluoroscopy dosage documentation. See also separate procedure notes. at 6244 Reported and signed by: Simon Castro M.D. CC: Sebastian Lindsay Jr, MD; Deon Lorenz DO; Theron High MD Technologist: RT Domingo(R); RT Maria Victoria(R) Trnncrd Date/Time/By: 09/21/2021 (0084) : By: [email or web address] Orig Print D/T: S: 09/21/2021 (2341) PAGE 1 Signed ReportRENAL FUNCTION PANEL 2021-09-20 05:25:00 Test Item Value Reference Range Interpretation Comments SODIUM (test code = NA) 142 mEq/L 134-147 N POTASSIUM (test code = 4.2 mEq/L 3.4-5.0 N K) CHLORIDE (test code = 112 mEq/L 100-108 H CL) CARBON DIOXIDE (test 27 mEq/l 21-33 N code = CO2) ANION GAP (test code = 7 0-20 N GAP) GLUCOSE (test code = 170 mg/dL 70-110 H GLU) BLOOD UREA NITROGEN 15 mg/dL 7-18 N (test code = BUN) GLOMERULAR FILTRATION 131.7 95-105 H Units of measure = RATE (test code = GFR) ml/mi n/1.73 m2 CREATININE (test code = 0.5 mg/dL 0.6-1.3 L CREAT) ALBUMIN (test code = 2.70 g/dL 3.4-5.0 L ALB) CALCIUM (test code = CA) 7.5 mg/dL 8.0-10.5 L PHOSPHOROUS (test code = 1.4 MG/DL 2.5-4.9 L PHOS) [id number] 05:25:00 Test Item Value Reference Range Interpretation Comments MAGNESIUM (test code = MAG) 2.01 mg/dL 1.80-2.40 N CBC W/AUTO [id number] 05:13:00 Test Item Value Reference Range Interpretation Comments WHITE BLOOD CELL (test code = 9.9 x10 3/uL 4.5-11.0 WBC) RED BLOOD CELL (test code = 2.66 x10 6/uL 3.54-5.02 L RBC) HEMOGLOBIN (test code = HGB) 8.0 g/dL 11.0-15.0 L HEMATOCRIT (test code = HCT) 24.3 % 33.0-45.0 L MEAN CELL VOLUME (test code = 91.4 fL 81.0-99.0 N MCV) MEAN CELL HGB (test code = MCH) 30.1 pg 27.0-33.0 N MEAN CELL HGB CONCETRATION 32.9 g/dL 33.0-37.0 L (test code = MCHC) RED CELL DISTRIBUTION WIDTH CV 13.0 % 11.5-14.5 N (test code = RDW) RED CELL DISTRIBUTION WIDTH SD 43.2 fL 37.0-54.0 N (test code = RDW-SD) PLATELET COUNT (test code = 170 x10 3/uL 150-400 N PLT) MEAN PLATELET VOLUME (test code 10.6 fL 7.0-9.0 H = MPV) NEUTROPHIL % (test code = NT%) 87.7 % 56.0-77.0 H IMMATURE GRANULOCYTE % (test 1.0 % 0.0-2.0 N code = IG%) LYMPHOCYTE % (test code = LY%) 6.5 % 14.0-32.0 L MONOCYTE % (test code = MO%) 4.7 % 4.8-9.0 L EOSINOPHIL % (test code = EO%) 0.0 % 0.3-3.7 L BASOPHIL % (test code = BA%) 0.1 % 0.0-2.0 N NUCLEATED RBC % (test code = 0.0 % 0-0 N NRBC%) NEUTROPHIL # (test code = NT#) 8.70 x10 3/uL 2.0-7.6 H IMMATURE GRANULOCYTE # (test 0.10 x10 3/uL 0.00-0.03 H code = IG#) LYMPHOCYTE # (test code = LY#) 0.65 x10 3/uL 1.0-3.8 L MONOCYTE # (test code = MO#) 0.47 x10 3/uL 0.1-0.8 N EOSINOPHIL # (test code = EO#) 0.00 x10 3/uL 0.0-0.2 N BASOPHIL # (test code = BA#)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 Bedside Glucose (test code = 78 mg/dL 40546-3) [facility] (number/volume)2019-08-31 05:05:00 Test Item Value Reference Range Interpretation Comments White Blood Count (test code = 4.4 10*3/uL 4.5-11.5 6690-2) [facility] erythrocytes automated count (number/volume)2019-08-31 05:05:00 Test Item Value Reference Range Interpretation Comments Red Blood Count (test code = 3.77 10*6/uL 3.8-5.1 789-8) [facility] hemoglobin measurement (mass/volume)2019-08-31 05:05:00 Test Item Value Reference Range Interpretation Comments Hemoglobin (test code = 718-7) 11.5 g/dL 12.0-15.2 [facility] HealthAutomated blood hematocrit (volume fraction)2019-08-31 05:05:00 Test Item Value Reference Range Interpretation Comments Hematocrit (test code = 4544-3) 35.3 % 34.0-45.5 [facility] HealthAutomated erythrocyte mean corpuscular volume (MCV) measurement 2019-08-31 05:05:00 Test Item Value Reference Range Interpretation Comments Mean Corpuscular Volume (test code = 94 fL 80-94 787-2) [facility] erythrocyte mean corpuscular hemoglobin (mass per erythrocyte)2019-08-31 05:05:00 Test Item Value Reference Range Interpretation Comments Mean Corpuscular Hemoglobin (test 30.5 pg 27.0-33.0 code = 785-6) [facility] erythrocyte mean corpuscular hemoglobin concentration measurement (mass/[id number] 05:05:00 Test Item Value Reference Range Interpretation Comments Mean Corpuscular Hemoglobin Concent 32.6 g/dL 33.0-37.0 (test code = 786-4) [facility] erythrocyte distribution width vdgon9297-30-01 05:05:00 Test Item Value Reference Range Interpretation Comments Red Cell Distribution Width (test code 12.8 % 10.7-14.5 = 788-0) [facility] blood platelet count (count/volume)2019-08-31 05:05:00 Test Item Value Reference Range Interpretation Comments Platelet Count (test code = 162 10*3/uL 150-450 777-3) [facility] blood platelet mean volume ugwadmdctkk1299-08-54 05:05:00 Test Item Value Reference Range Interpretation Comments Mean Platelet Volume (test code = 12.1 5.7-10.7 54448-4) [facility] blood neutrophil count as percentage of total eyoxymipeb4325-21-68 05:05:00 Test Item Value Reference Range Interpretation Comments Neutrophils (%) (Auto) (test code = 43 % 47-75 770-8) [facility] blood immature granulocyte count as percentage of total ydbebbdked8746-98-53 05:05:00 Test Item Value Reference Range Interpretation Comments Immature Granulocyte % (Auto) (test 1 % 0-0 code = 58592-0) [facility]Autom[facility] blood lymphocyte count as percentage of total rfqfijvhxd4977-24-41 05:05:00 Test Item Value Reference Range Interpretation Comments Lymphocytes (%) (Auto) (test code = 43 % 25-44 736-9) [facility] blood monocyte count as percentage of total leukocytes 2019-08-31 05:05:00 Test Item Value Reference Range Interpretation Comments Monocytes (%) (Auto) (test code = 8 % 3-10 5905-5) [facility] blood eosinophil count as percentage of total bmqwcocorg5418-53-27 05:05:00 Test Item Value Reference Range Interpretation Comments Eosinophils (%) (Auto) (test code = 4 % 0-7 713-8) [facility] blood basophil count as percentage of total leukocytes 2019-08-31 05:05:00 Test Item Value Reference Range Interpretation Comments Basophils (%) (Auto) (test code = 1 % 0-1 706-2) [facility] blood nucleated erythrocyte count as percentage of total tbkltgokyu6415-51-37 05:05:00 Test Item Value Reference Range Interpretation Comments Nucleated Red Blood Cells % (test code 0.0 % 0-0.2 = 75078-5) [facility] blood neutrophil count (number/volume)2019-08-31 05:05:00 Test Item Value Reference Range Interpretation Comments Neutrophils # (Auto) (test code = 1.9 10*3/uL 1.3-6.7 751-8) [facility] blood immature granulocyte count as percentage of total lflyensotd1973-12-83 05:05:00 Test Item Value Reference Range Interpretation Comments Immature Granulocyte # (Auto) 0.0 10*3/uL 0.0-0.0 (test code = 29685-6) [facility] blood lymphocyte count (number/volume)2019-08-31 05:05:00 Test Item Value Reference Range Interpretation Comments Lymphocytes # (Auto) (test code = 1.9 10*3/uL 1.4-4.1 731-0) [facility] HealthBlood monocytes automated count (number/volume)2019-08-31 05:05:00 Test Item Value Reference Range Interpretation Comments Monocytes # (Auto) (test code = 0.4 10*3/uL 0-1.3 742-7) [facility] blood eosinophil hzqla7954-39-61 05:05:00 Test Item Value Reference Range Interpretation Comments Eosinophils # (Auto) (test code = 0.2 10*3/uL 0-0.8 711-2) [facility] blood basophil count (number/volume)2019-08-31 05:05:00 Test Item Value Reference Range Interpretation Comments Basophils # (Auto) (test code = 0.0 10*3/uL 0-0.1 704-7) [facility] blood nucleated erythrocyte count (count/volume) 2019-08-31 05:05:00 Test Item Value Reference Range Interpretation Comments Nucleated Red Blood Cells # 0.00 10*3/uL 0-0.01 (test code = 771-6) [facility] comment [id number] 05:05:00 Test Item Value Reference Range Interpretation Comments Manual Differential (test code = Not Ind 8265-1) [facility] HealthAutomated blood leukocyte count (number/volume)2019-08-31 05:05:00 Test Item Value Reference Range Interpretation Comments White Blood Count (test code = 4.4 10*3/uL 6690-2) [facility] erythrocytes automated count (number/volume) 2019-08-31 05:05:00 Test Item Value Reference Range Interpretation Comments Red Blood Count (test code = 3.77 10*6/uL 789-8) [facility] hemoglobin measurement (mass/volume)2019-08-31 05:05:00 Test Item Value Reference Range Interpretation Comments Hemoglobin (test code = 718-7) 11.5 g/dL [facility] blood hematocrit (volume fraction)2019-08-31 05:05:00 Test Item Value Reference Range Interpretation Comments Hematocrit (test code = 4544-3) 35.3 % [facility] erythrocyte mean corpuscular volume (MCV) kkqpphokeso8264-99-37 05:05:00 Test Item Value Reference Range Interpretation Comments Mean Corpuscular Volume (test code = 94 fL 787-2) [facility] erythrocyte mean corpuscular hemoglobin (mass per erythrocyte)2019-08-31 05:05:00 Test Item Value Reference Range Interpretation Comments Mean Corpuscular Hemoglobin (test 30.5 pg code = 785-6) [facility] erythrocyte mean corpuscular hemoglobin concentration measurement (mass/ixo0205-78-24 05:05:00 Test Item Value Reference Range Interpretation Comments Mean Corpuscular Hemoglobin Concent 32.6 g/dL (test code = 786-4) [facility] erythrocyte distribution width sgwnx8140-45-35 05:05:00 Test Item Value Reference Range Interpretation Comments Red Cell Distribution Width (test code 12.8 % = 788-0) [facility]Autom[facility] blood platelet count (count/volume)2019-08-31 05:05:00 Test Item Value Reference Range Interpretation Comments Platelet Count (test code = 162 10*3/uL 777-3) [facility] blood platelet mean volume qhipqnxjdxs0649-52-78 05:05:00 Test Item Value Reference Range Interpretation Comments Mean Platelet Volume (test code = 12.1 33243-7) [facility] blood neutrophil count as percentage of total adkmsgbdxw5094-18-69 05:05:00 Test Item Value Reference Range Interpretation Comments Neutrophils (%) (Auto) (test code = 43 % 770-8) [facility]Autom[facility] blood immature granulocyte count as percentage of total oaciwyzcso4884-07-56 05:05:00 Test Item Value Reference Range Interpretation Comments Immature Granulocyte % (Auto) (test 1 % code = 05212-8) [facility] lymphocyte count as percentage of total jqodsxincc0463-11-62 05:05:00 Test Item Value Reference Range Interpretation Comments Lymphocytes (%) (Auto) (test code = 43 % 736-9) [facility] blood monocyte count as percentage of total sjampzhaga8125-13-80 05:05:00 Test Item Value Reference Range Interpretation Comments Monocytes (%) (Auto) (test code = 8 % 5905-5) [facility] blood eosinophil count as percentage of total llsbcarfqk2463-95-61 05:05:00 Test Item Value Reference Range Interpretation Comments Eosinophils (%) (Auto) (test code = 4 % 713-8) [facility] blood basophil count as percentage of total panwoekyft6212-59-52 05:05:00 Test Item Value Reference Range Interpretation Comments Basophils (%) (Auto) (test code = 1 % 706-2) [facility] blood nucleated erythrocyte count as percentage of total ggpwtulxwt6804-75-99 05:05:00 Test Item Value Reference Range Interpretation Comments Nucleated Red Blood Cells % (test code 0.0 % = 69644-3) [facility] blood neutrophil count (number/volume)2019-08-31 05:05:00 Test Item Value Reference Range Interpretation Comments Neutrophils # (Auto) (test code = 1.9 10*3/uL 751-8) [facility] blood immature granulocyte count as percentage of total dlcrhxsdbs8444-03-50 05:05:00 Test Item Value Reference Range Interpretation Comments Immature Granulocyte # (Auto) 0.0 10*3/uL (test code = 92579-2) [facility] blood lymphocyte count (number/volume)2019-08-31 05:05:00 Test Item Value Reference Range Interpretation Comments Lymphocytes # (Auto) (test code = 1.9 10*3/uL 731-0) [facility]Blood monocytes automated count (number/volume)2019-08-31 05:05:00 Test Item Value Reference Range Interpretation Comments Monocytes # (Auto) (test code = 0.4 10*3/uL 742-7) [facility] blood eosinophil hcois6293-95-73 05:05:00 Test Item Value Reference Range Interpretation Comments Eosinophils # (Auto) (test code = 0.2 10*3/uL 711-2) [facility] blood basophil count (number/volume)2019-08-31 05:05:00 Test Item Value Reference Range Interpretation Comments Basophils # (Auto) (test code = 0.0 10*3/uL 704-7) [facility] blood nucleated erythrocyte count (count/volume) 2019-08-31 05:05:00 Test Item Value Reference Range Interpretation Comments Nucleated Red Blood Cells # 0.00 10*3/uL (test code = 771-6) [facility] comment [id number] 05:05:00 Test Item Value Reference Range Interpretation Comments Manual Differential (test code = Not Ind 8265-1) [facility]Serum or plasma total combined glucuronidated bilirubin and albumin bound bilirubin measurement (mass/volume)2019-08-30 12:48:00 Test Item Value Reference Range Interpretation Comments Direct Bilirubin (test code = 0.1 mg/dL 0.0-0.5 1968-02) [facility] or plasma lipase measurement (enzymatic activity/volume) 2019-08-30 12:48:00 Test Item Value Reference Range Interpretation Comments Lipase (test code = 3040-3) 26 U/L 8-78 [facility]um or plasma total combined glucuronidated bilirubin and albumin bound bilirubin measurement (mass/volume)2019-08-30 12:48:00 Test Item Value Reference Range Interpretation Comments Direct Bilirubin (test code = 0.1 mg/dL 1968-02) [facility] lipase measurement (enzymatic activity/volume)2019-08-30 12:48:00 Test Item Value Reference Range Interpretation Comments Lipase (test code = 3040-3) 26 U/L [facility]gwudavqvZKCQAF0359-46-23 21:58:00 Test Item Value Reference Range Interpretation Comments LIPASE (test code = LIPA) 69 U/L 23-300 US PELVIS NON-OB [id number] 22:54:[address] [id number] IMAGING REPORTPatient Name: JODI PRAJAPATI DDate of Service: 06-44-9738Spy: 44 Sex: F Order #: [id number] [facility] 1970 [facility] Number: [id number] Record Number: [id number] Hospital Number: [id number] Physician: VANE BEST - Ordering Physician: Shanna [...] authenticated by ROSIE FOFANA 2017-03-30 22:51:46CT ABDOMEN/PELVIS [id number] 17:41:[address] [id number] IMAGING REPORTPatient Name: JODI PRAJAPATI DDate of Service: 04-10-9452Pfi: 44 Sex: F Order #: 500 Room: ERSDOB: 1970 X-Ray Number: [id number] Record Number: [id number] Hospital Number: [id number] Physician: VIKTORIA RIVERAOrdering Physician: SOHAIL ELIAS abdomen [...] by STARLA Ritter 2017-03-19 17:39:25CT HEAD W/O [id number] 17:27:[address] [id number] IMAGING REPORTPatient Name: JODI PRAJAPATI DDate of Service: 75-64-9350Ray: 46 Sex: F Order #: 100 [facility] 1970 [facility] Number: [id number] Record Number: [id number] Hospital Number: [id number] Physician: HAROON RUELASOrdering Physician: WILL WELLS head [...] by NIRMAL TOLEDO 2017-02-04 17:25:30CT CHEST ANGIO W/[id number] 05:41:00CT CHEST ANGIO W/CONTRASTDIAGNOSIS: Chest pain and [...] CT pulmonary angiography.US DUPLX LWR EXT.VEIN COMPRSS [id number] 16:32:32US DUPLX LWR EXT.VEIN COMPRSS UNI- LEFTHISTORY: Left-sided pain and swellingCOMPARISON: None availableTECHNIQUE: Real-time sonographic images of the left lower extremity deepveins obtained color and spectral Doppler analysis.FINDINGS: Complete compressibility with normal phasic and augmented flownoted throughout the sampled left lower extremity deep veins.IMPRESSION: No visualized left lower extremityDVT.XR CHEST SGL 1V, [id number] 15:24:33XR CHEST SGL 1V, FRONTALHISTORY: Chest painCOMPARISON: 05/24/2016TECHNIQUE: Single AP view of the chest providedFINDINGS: Heart size and pulmonary vasculature within normal limits. Nonew opacity or acute pleural abnormality. Bony thorax intact wherevisualized.IMPRESSION: No active cardiopulmonary process.CT HEAD OR BRAIN WO [id number] 18:40:55CT HEAD OR BRAIN WO CONTRASTHISTORY: Injury, headache, dizziness, nausea and vomitingCOMPARISON: None availableTECHNIQUE: Helical noncontrast tomographic imaging obtained through thebrain. Radiation dos e lowering techniques were used according to ALARAprinciple.FINDINGS: Midline is nondisplaced. Ventricular caliber and basilarcisterns [...]
--- NOTE | 2021-11-29 16:31 | RAD REPORT ---
EXAM DESCRIPTION: CT - Head Brain Wo Cont - 11/29/2021 4:22 pm CLINICAL HISTORY: Headache COMPARISON: None. TECHNIQUE: Computed axial tomography of the head was obtained. IV contrast was not requested. All CT scans are performed using dose optimization technique as appropriate and may include automated exposure control or mA/KV adjustment according to patient size. FINDINGS: An intracranial bleed is not seen . The ventricles are normal in caliber. No significant hypodense areas within the brain No extra-axial fluid collection is noted. Fluid within the sinuses/ mastoids is not seen. Chronic opacification left maxillary sinus probably c hronic sinusitis IMPRESSION: No acute intracranial abnormality is seen. If patient's symptoms persist MRI of the bra in would be recommended. Chronic opacification left maxillary sinus probably chronic sinusitis
[2021-11-29] MEDS ORDERED: MECLIZINE HCL 12.5 MG TAB ONE (17:41)
[2021-11-29] MEDS ORDERED: DIPHENHYDRAMINE 50 MG/ML VIAL ONE (17:41)
[2021-11-29] MEDS ORDERED: KETOROLAC 30 MG/ML INJ ONE (17:41)
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
[2021-11-29] MEDS ORDERED: DIAZEPAM 2 MG TABLET ONE (19:00)
[2021-11-29 19:17] VITALS: BP 144/90; TEMP 98.3; O2SAT 99
== END 2021-11-29 19:02 | disposition home or self-care (01) ==
LOC: ER 14:33
DX: H81.10 Benign paroxysmal vertigo, unspecified ear (principal); R51.9 Headache, unspecified; I47.1 Supraventricular tachycardia; W18.30XA Fall on same level, unspecified, initial encounter; Z88.3 Allergy status to other anti-infective agents
CPT/HCPCS: 70450; 96375; 96374; 99284; J1200; J8597

== ENCOUNTER 2022-09-03 10:14 | Emergency (ER) | payer BC, SELFPAY ==
--- OUTSIDE RECORDS SUMMARY | 2022-09-03 10:21 | XMS REPORT | Continuity of Care Document ---
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 Basophils # (Auto) (test code = 0.0 10*3/uL 704-7) Automated blood nucleated erythrocyte count (count/volume)2019-08-31 05:05:00 Test Item Value Reference Range Interpretation Comments Nucleated Red Blood Cells # 0.00 10*3/uL (test code = 771-6) Service comment 05:05:00 Test Item Value Reference Range Interpretation Comments Manual Differential (test code = Not Ind 8265-1) Serum or plasma total combined glucuronidated bilirubin and [...] Bilirubin (test code = 0.1 mg/dL 1968-02) Serum or plasma lipase measurement (enzymatic activity/volume)2019-08-30 12:48:00 Test Item Value Reference Range Interpretation Comments Lipase (test code = 3040-3) 26 U/L [id number] 21:58:00 Test Item Value Reference Range Interpretation Comments LIPASE (test code = LIPA) 69 U/L 23-300 US PELVIS NON-OB [id number] 22:54:[address] [id number] IMAGING REPORTPatient Name: JODI PRAJAPATI DDate of Service: 33-93-4381Omn: 46 Sex: F Order #: [id number] [facility] 1970 [facility] Number: [id number] Record Number: [id number] Hospital Number: [id number] Physician: VANE BEST -Ordering Physician: Shanna SOLIMAN pelvis complete 8:37 PMHistory: Right lower quadrant pain.Findings:The uterus has been removed.The right was not visualized.The left ovary is normal in size and echotexture without mass or cyst.There is no adnexal mass seen.There isno free fluid in the pelvis.Impression:Hysterectomy. Nonvisualization of right ovary.Otherwise unrema rkable study.Electronically Signed By: Kartik Rios M.D., 03/30/2017 10:51 PMLegally authenticatedby ROSIE FOFANA 2017-03-30 22:51:46CT ABDOMEN/PELVIS WITH 2017-03-19 17:41:[address] [id number] IMAGING REPORTPatient Name: JODI PRAJAPATI DDate of Service: 56-14-9974Ggp: 46 Sex: F Order #: [id number] [facility] 1970 [facility] Number: [id number] Record Number: [id number] Hospital Number: [id number] Physician: VIKTORIA RIVERAOrdering Physician: SOHAIL ELIAS abdomen and pelvis.History: Left lower quadrant abdominal pain.Technique: IV contrast enhanced CT axial images of the abdomen and pelviswithsagittal and coronal reformatted images were reviewed.This CT exam was performed using one or more of the following dosereduction techniques: Automated exposure control, adjustment of the MAand/or KV according to patient size or use of iterative reconstructiontechnique.Comparison: None.Findings:Imagesof the lower lungs and mediastinum demonstrate no specific defects.The solid large organs of the upper abdomen appear focally normal.The gallbladder surgically absent.There is no significant retroperitoneal adenopathy or fluid collectionsdepicted.Small bowel loops appear normal.Large bowel loops demonstrate only scattered fecal debris.The appendix is non-identified.The urinary bladder appears normal.There is no pelvic free fluid seen.The uterus and adnexal structures are not visualized.Impression:No specific acute appearing abdominal abnormalities.Electronically Signed By: Jonnathan Bowen M.D.,03/19/2017 5:39 PMLegally authenticated by STARLA Ritter 2017-03-19 17:39:25CT HEAD W/O CONT 2017-02-04 17:27:[address] [id number] IMAGING REPORTPatient Name: JODI PRAJAPATI DDate of Service: 58-83-0194Njg: 46 Sex: F Order #: [id number] [facility] 1970 [facility] Number: [id number] Record Number: [id number] Hospital Number: [id number] Physician: HAROON RUELASOrdering Physician: WILL WELLS head without contrast, 02/04/2017, 1702 hoursHistory: Head injury. Headache.Technique: Axial tomographic images are performed. Sagittal and coronalformatted images are also reviewed. This CT exam was performed using one ormore of the following dose reduction techniques: Automated exposurecontrol, adjustment of the MA and/or KV according topatient size or use ofiterative reconstruction technique.Comparison: NoneFindings: Visualized brain,calvarium, orbits and mastoid air cells aremaintained. There is moderate left maxillary sinus mucoperiostealthickening with or without proteinaceous fungus material.Impression:1. No significant intracranial abnormality detected.2. Chronic left maxillary sinusitis.Electronically Signed By: Jamal Turner M.D., 02/04/2017 5:25 PMLegally authenticated by NIRMAL TOLEDO 2017-02-04 17:25:30CT CHEST ANGIO [id number] 05:41:00CT CHEST ANGIO W/CONTRASTDIAGNOSIS: Chest pain and [...] CT pulmonary angiography.US DUPLX LWR EXT.VEIN COMPRSS [id number] 16:32:32US DUPLX LWR EXT.VEIN COMPRSS UNI- LEFTHISTORY: Left-sided pain and swellingCOMPARISON: None availableTECHNIQUE: Real-time sonographic images of the left lower extremity deepveins obtained color and spectral Doppler analysis.FINDINGS: Complete compressibility with normal phasic and augmented flownoted throughout the sampled left lower extremity deep veins.IMPRESSION: No visualized left lower extremityDVT.XR CHEST SGL 1V, [id number] 15:24:33XR CHEST SGL 1V, FRONTALHISTORY: Chest painCOMPARISON: 05/24/2016TECHNIQUE: Single AP view of the chest providedFINDINGS: Heart size and pulmonary vasculature within normal limits. Nonew opacity or acute pleural abnormality. Bony thorax intact wherevisualized.IMPRESSION: No active cardiopulmonary process.CT HEAD OR BRAIN WO [id number] 18:40:55CT HEAD OR BRAIN WO CONTRASTHISTORY: Injury, [...]
[2022-09-03] MEDS ORDERED: Ringers Lactate 1,000 ML IV ONE ×2 (10:30→11:54)
[2022-09-03] MEDS ORDERED: ONDANSETRON 4 MG/2 ML VIAL ONE (10:42)
[2022-09-03] MEDS ORDERED: KETOROLAC 30 MG/ML INJ ONE (10:42)
[2022-09-03 10:51] LABS: Absolute Lymphocytes (CBC) 1.8 K/uL (0.7-4.9); Hematocrit 38.1 % (36.0-45.0); Lymphocytes % 36.6 % (15.3-44.8); MCV 87.5 fL (80-100); MPV 9.1 fL (7.6-11.3); RBC Red Blood Cell Count 4.36 M/uL (3.86-4.86)
[2022-09-03 11:02] LABS: Albumin 3.7 g/dL (3.4-5.0); Bilirubin Total 0.4 mg/dL (0.2-1.0); Potassium 3.5 mmol/L (3.5-5.1); Protein, Total 7.5 g/dL (6.4-8.2)
[2022-09-03 11:15] LABS: Urine Blood Negative (Negative); Urine Glucose Negative (Negative); Urine Protein Negative (Negative); Urine pH 5.5 (5.0-7.0)
[2022-09-03 11:24] LABS: SARS-COV-2 RT PCR NEGATIVE (NEGATIVE)
[2022-09-03] MEDS ORDERED: NA CHLORIDE 0.9% 50 ML IV ONE (11:43)
[2022-09-03] MEDS ORDERED: PROMETHAZINE INJ 25 MG/ML AMP ONE (11:43)
--- NOTE | 2022-09-03 13:03 | EDPHYS ---
Physician Documentation [facility] Name: Pily Morrissey Age: 51 yrs Sex: Female : 1970 Arrival Date: 09/03/2022 Time: 10:16 Bed 7 Private MD: Cliff Hannah ED Physician James Magaña HPI: 09/03 10:25 This 51 yrs old Female presents to ER via Ambulatory with complaints of Cough, Vomiting.jmm 10:25 Is a 51-year-old female with history of SVT the presents emerged part with complaints jmm of cough, vomiting, frontal sinus headache the past few days ago. States multiple family emergency had similar episodes. Also complains of a few episodes of diarrhea. Denies abdominal pain denies chest pain, denies shortness of. 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 Flu vaccine is up to date. - Social history:: Smoking status: Patient denies any tobacco usage or history of. ROS: 10:25 Constitutional: Positive for body aches, chills. jmm 10:25 Respiratory: Positive for cough. 10:25 Abdomen/GI: Positive for nausea, vomiting, diarrhea. 10:25 Neuro: Positive for headache. 10:25 All other systems are negative. Exam: 10:25 Constitutional: This is a well developed, well nourished patient who is awake, alert, jmm and in no acute distress. Head/Face: atraumatic. Eyes: EOMI, no conjunctival erythema appreciated ENT: Moist Mucus Membranes Neck: Trachea midline, Supple Chest/axilla: Normal chest wall appearance and motion. Cardiovascular: Regular rate and rhythm. No edema appreciated Respiratory: Normal respirations, no respiratory distress appreciated Abdomen/GI: Non distended Back: Normal ROM Skin: General appearance color normal MS/ Extremity: Moves all extremities, no obvious deformities appreciated, no edema noted to the lower extremities Neuro: Awake and alert Psych: Behavior is normal, Mood is normal, Patient is cooperative and pleasant Vital Signs: 10:21 BP 131 / 79; Pulse 88; Resp 18; Temp 97.7; Pulse Ox 97% on R/A; Weight 77.11 kg; Height iw 5 ft. 4 in. (162.56 cm); 11:54 BP 124 / 80; Pulse 60; ll1 13:24 BP 130 / 75; Pulse 60; Resp 17; Pulse Ox 97% ; Pain 7/10; ll1 10:21 Body Mass Index 29.18 (77.11 kg, 162.56 cm) MDM: 10:[address] [facility] 13:01 Data reviewed: vital signs, nurses notes. [facility] 17:43 Data reviewed: lab test result(s). I considered the following discharge prescriptions [facility] or medication management in the emergency department Antibiotics: At this time antibiotics are not recommended, Medications were administered in the Emergency Department. See MAR. Test considered but Not performed: Other Details CT of the brain was not completed due to previous similar episodes.. Counseling: I had a detailed discussion with the patient and/or guardian regarding: the historical points, exam findings, and any diagnostic results supporting the discharge/admit diagnosis, lab results, the need for outpatient follow up, to return to the emergency department if symptoms worsen or persist or if there are any questions or concerns that arise at home. Response to treatment: the patient's symptoms have markedly improved after treatment. 09/03 10:25 Order name: CBC with Diff; Complete Time: 11:15 [facility] 09/03 10:25 Order name: CMP; Complete Time: 11:15 [facility] 09/03 10:25 Order name: Lipase; Complete Time: 11:15 [facility] 09/03 10:25 Order name: COVID-19/FLU A+B; Complete Time: 11:28 [facility] 09/03 11:16 Order name: Urine Dipstick-Ancillary; Complete Time: 11:17 [facility] 09/03 10:25 Order name: IV Saline Lock; Complete Time: 10:26 [facility] 09/03 10:25 Order name: Labs collected and sent; Complete Time: 10: [facility] Administered Medications: 10:43 Drug: Zofran (Ondansetron) 4 mg Route: IVP; Site: right antecubital; ll1 11:35 Follow up: Response: No adverse reaction ll1 10:45 Drug: Lactated Ringers Solution 1000 ml Route: IV; Rate: 1000 bolus; Site: right ll1 antecubital; 11:35 Follow up: Response: No adverse reaction; IV Status: Completed infusion; IV Intake: ll1 1000ml 10:45 Drug: Ketorolac 15 mg {Note: pain 8/10.} Route: IVP; Site: right antecubital; ll1 11:35 Follow up: Response: No adverse reaction; Pain is decreased; RASS: Alert and Calm (0) ll1 11:49 Drug: Promethazine 12.5 mg Route: IVP; Site: right antecubital; ll1 12:23 Follow up: Response: No adverse reaction; Nausea is decreased; RASS: Alert and Calm (0) ll1 11:54 Drug: Lactated Ringers Solution 1000 ml Route: IV; Rate: 1000 bolus; Site: right ll1 antecubital; 13:26 Follow up: Response: No adverse reaction; IV Status: Completed infusion; IV Intake: ll1 1000ml Disposition: 16:57 Co-signature as Attending Physician, James Magaña DO I reviewed the patient's care ms3 provided by the Advanced Practice Provider and agree with the diagnosis and treatment plan. Disposition Summary: 09/03/22 13:02 Discharge Ordered Location: Home jmm Condition: Stable jmm Diagnosis - Vomiting jmm - Diarrhea, unspecified jmm - Cough jmm Followup: jmm - With: Cliff Hannah DO - When: 2 - 3 days - Reason: Recheck today's complaints, Continuance of care, Re-evaluation by your physician Discharge Instructions: - Discharge Summary Sheet jmm - Diarrhea, Adult jmm - Cough, Adult jmm - Vomiting, Adult jmm Forms: - Medication Reconciliation Form jmm - Thank You Letter jmm - Antibiotic Education jmm - Prescription Opioid Use jmm - Work release form ms3 Prescriptions: - promethazine-DM - take 10 milliliter by ORAL route every 4 hours As needed; [address]; [facility] Refills: 0, Product Selection Permitted Signatures: Dispatcher [employer] Ajay Buck PA PA jmm Williams, Irene, RN RN Sky Arauz RN RN [facility] James Magaña DO DO ms3
--- NOTE | 2022-09-03 13:03 | ER ---
Nurse's Notes [facility] Name: Pily Morrissey Age: 51 yrs Sex: Female : 1970 Arrival Date: 09/03/2022 Time: 10:16 Bed 7 Private MD: Cliff Hannah Diagnosis: Vomiting;Diarrhea, unspecified;Cough Presentation: 09/03 10:21 Chief complaint: Patient states: feeling sick since Tuesday, this morning I woke up iw vomiting , cough and body aches since yesterday. Coronavirus screen: Client presents with at least one sign or symptom that may indicate coronavirus-19. Ebola Screen: Patient negative for fever greater than or equal to 101.5 degrees Fahrenheit, and additional compatible Ebola Virus Disease symptoms Patient denies exposure to infectious person. Patient denies travel to an Ebola-affected area in the 21 days before illness onset. No symptoms or risks identified at this time. Initial Sepsis Screen: Does the patient meet any 2 criteria? No. Patient's initial sepsis screen is negative. Does the patient have a suspected source of infection?. Risk Assessment: Do you want to hurt yourself or someone else? Patient reports no desire to harm self or others. Onset of symptoms was August 31, 2022. 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 Flu vaccine is up to date. - Social history:: Smoking status: Patient denies any tobacco usage or history of. Screenin:24 [facility] ED Fall Risk Assessment (Adult) Score/Fall Risk Level 0 - 2 = Low Risk ll1 Oriented to surroundings, Maintained a safe environment, Educated pt \T\ family on fall prevention, incl call for assistance when getting out of bed, Hourly rounding (assess needs \T\ fall precautionary measures) done. Abuse screen: Denies threats or abuse. Nutritional screening: No deficits noted. Tuberculosis screening: No symptoms or risk factors identified. Assessment: 10:25 General: Appears ill, Behavior is calm, cooperative, appropriate for age. Respiratory: ll1 Reports cough that is. GI: Abdomen is round Reports nausea, vomiting. EENT: EENT: Reports nasal congestion. 10:25 Pain: Complains of pain in head Quality of pain is described as aching, Pain began 2-3 ll1 days ago. Neuro: Reports headache weakness. 10:45 Reassessment: No changes from previously documented assessment. ll1 11:54 Reassessment: No changes from previously documented assessment. Patient and/or family ll1 updated on plan of care and expected duration. Pain level reassessed. Patient is alert, oriented x 3, equal unlabored respirations, skin warm/dry/pink. 12:00 Reassessment: No changes from previously documented assessment. ll1 13:25 Reassessment: No changes from previously documented assessment. Patient and/or family ll1 updated on plan of care and expected duration. Pain level reassessed. Patient is alert, oriented x 3, equal unlabored respirations, skin warm/dry/pink. Vital Signs: 10:21 BP 131 / 79; Pulse 88; Resp 18; Temp 97.7; Pulse Ox 97% on R/A; Weight 77.11 kg; Height iw 5 ft. 4 in. (162.56 cm); 11:54 BP 124 / 80; Pulse 60; ll1 13:24 BP 130 / 75; Pulse 60; Resp 17; Pulse Ox 97% ; Pain 7/10; ll1 10:21 Body Mass Index 29.18 (77.11 kg, 162.56 cm) iw ED Course: 10:16 Patient arrived in ED. as 10:16 Cliff Hannah DO is Private Physician. as 10:17 Ajay Spencer PA is PHCP. jmlucy 10:17 James Magaña DO is Attending Physician. jmm 10:22 Triage completed. iw 10:23 Arm band placed on. iw 10:24 Sky Arauz, DONAVON is Primary Nurse. ll1 10:24 Patient placed in an exam room, on a stretcher. ll1 10:24 Patient has correct armband on for positive identification. Bed in low position. Call ll1 light in reach. Side rails up X 1. Client placed on continuous cardiac and pulse oximetry monitoring. NIBP monitoring applied. 10:46 COVID-19/FLU A+B Sent. ll1 10:46 Inserted saline lock: 22 gauge in right antecubital area, using aseptic technique. ll1 Blood collected. 13:01 Cliff Hannah DO is Referral Physician. elder 13:25 No provider procedures requiring assistance completed. IV discontinued, intact, ll1 bleeding controlled, No redness/swelling at site. Pressure dressing applied. Administered Medications: 10:43 Drug: Zofran (Ondansetron) 4 mg Route: IVP; Site: right antecubital; ll1 11:35 Follow up: Response: No adverse reaction ll1 10:45 Drug: Lactated Ringers Solution 1000 ml Route: IV; Rate: 1000 bolus; Site: right ll1 antecubital; 11:35 Follow up: Response: No adverse reaction; IV Status: Completed infusion; IV Intake: ll1 1000ml 10:45 Drug: Ketorolac 15 mg {Note: pain 8/10.} Route: IVP; Site: right antecubital; ll1 11:35 Follow up: Response: No adverse reaction; Pain is decreased; RASS: Alert and Calm (0) ll1 11:49 Drug: Promethazine 12.5 mg Route: IVP; Site: right antecubital; ll1 12:23 Follow up: Response: No adverse reaction; Nausea is decreased; RASS: Alert and Calm (0) ll1 11:54 Drug: Lactated Ringers Solution 1000 ml Route: IV; Rate: 1000 bolus; Site: right ll1 antecubital; 13:26 Follow up: Response: No adverse reaction; IV Status: Completed infusion; IV Intake: ll1 1000ml Medication: 10:24 VIS not applicable for this client. ll1 Intake: 11:35 IV: 1000ml; Total: 1000ml. ll1 13:26 IV: 1000ml; Total: 2000ml. ll1 Outcome: 13:02 Discharge ordered by . elder 13:25 Discharged to home ambulatory. ll1 13:25 Condition: stable 13:25 Discharge instructions given to patient, Instructed on discharge instructions, follow up and referral plans. no drinking with medication, no driving heavy equipment, medication usage, Demonstrated understanding of instructions, follow-up care, medications, Prescriptions given X 1. 13:26 Patient left the ED. ll1 Signatures: Ajay Spencer PA PA jmm Martinez, Amelia as Lina Covarrubias RN RN iw Sky Arauz RN RN ll1 Corrections: (The following items were deleted from the chart) : 10:25 EENT: ll1 ll1 10:47 10:46 Pain: Complains of pain in head Quality of pain is described as aching, Pain 1 began 2-3 days ago. ll1 10:47 10:46 Neuro: Reports headache weakness 1 ll1
[2022-09-03 14:26] VITALS: TEMP 97.7; O2SAT 97
[2022-09-03 14:28] VITALS: BP 130/75
== END 2022-09-03 13:26 | disposition home or self-care (01) ==
LOC: ER 10:14
DX: R11.10 Vomiting, unspecified (principal); R19.7 Diarrhea, unspecified; R05.9 Cough, unspecified; Z88.3 Allergy status to other anti-infective agents; Z20.822 Contact with and (suspected) exposure to COVID-19
CPT/HCPCS: 0240U; 36415; 80053; 81003; 83690; 85025; 96361; 96374; 96375; 99284; J2405; J2550; J7120

== ENCOUNTER 2022-09-13 10:35 | Emergency (ER) | payer SELFPAY ==
--- OUTSIDE RECORDS SUMMARY | 2022-09-13 10:40 | XMS REPORT | Continuity of Care Document ---
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 code 0.0 % 0-0.2 = 58644-1) [facility] HealthAutomated blood neutrophil count (number/volume)2019-08-31 05:05:00 Test Item Value Reference Range Interpretation Comments Neutrophils # (Auto) (test code = 1.9 10*3/uL 1.3-6.7 751-8) [facility] HealthAutomated blood immature granulocyte count as percentage of total fznvuempjp4632-66-95 05:05:00 Test Item Value Reference Range Interpretation Comments Immature Granulocyte # (Auto) 0.0 10*3/uL 0.0-0.0 (test code = 25004-6) [facility] HealthAutomated blood lymphocyte count (number/volume)2019-08-31 05:05:00 Test Item Value Reference Range Interpretation Comments Lymphocytes # (Auto) (test code = 1.9 10*3/uL 1.4-4.1 731-0) [facility] monocytes automated count (number/volume)2019-08-31 05:05:00 Test Item Value Reference Range Interpretation Comments Monocytes # (Auto) (test code = 0.4 10*3/uL 0-1.3 742-7) [facility] HealthAutomated blood eosinophil wxkqt5293-59-25 05:05:00 Test Item Value Reference Range Interpretation Comments Eosinophils # (Auto) (test code = 0.2 10*3/uL 0-0.8 711-2) [facility] HealthAutomated blood basophil count (number/volume)2019-08-31 05:05:00 Test Item Value Reference Range Interpretation Comments Basophils # (Auto) (test code = 0.0 10*3/uL 0-0.1 704-7) [facility] HealthAutomated blood nucleated erythrocyte count (count/volume) 2019-08-31 05:05:00 Test Item Value Reference Range Interpretation Comments Nucleated Red Blood Cells # 0.00 10*3/uL 0-0.01 (test code = 771-6) [facility] HealthService comment [id number] 05:05:00 Test Item Value Reference Range Interpretation Comments Manual Differential (test code = Not Ind 8265-1) [facility]number/volume)2019-08-31 05:05:00 Test Item [...] % Automated erythrocyte mean corpuscular volume (MCV) nzlyvmtukhy2447-43-51 05:05:00 Test Item Value Reference Range Interpretation Comments Mean Corpuscular Volume (test code = 94 fL 787-2) Automated erythrocyte mean corpuscular hemoglobin (mass per erythrocyte) 2019-08-31 05:05:00 Test Item Value Reference Range Interpretation Comments Mean Corpuscular Hemoglobin (test 30.5 pg code = 785-6) Automated erythrocyte mean corpuscular hemoglobin concentration measurement (mass/rtj3681-01-52 05:05:00 Test Item Value Reference Range Interpretation Comments Mean Corpuscular Hemoglobin Concent 32.6 g/dL (test code = 786-4) Automated erythrocyte distribution width sriqi6933-98-82 05:05:00 Test Item Value Reference Range Interpretation Comments Red Cell Distribution Width (test code 12.8 % = 788-0) Automated blood platelet count (count/volume)2019-08-31 05:05:00 Test Item Value Reference Range Interpretation Comments Platelet Count (test code = 162 10*3/uL 777-3) Automated blood platelet mean volume thrgayqupbo5845-64-64 05:05:00 Test Item Value Reference Range Interpretation Comments Mean Platelet Volume (test code = 12.1 07361-2) Automated blood neutrophil count as percentage of total sdvdsscmne8753-07-78 05:05:00 Test Item Value Reference Range Interpretation Comments Neutrophils (%) (Auto) (test code = 43 % 770-8) Automated blood immature granulocyte count as percentage of total leukocytes 2019-08-31 05:05:00 Test Item Value Reference Range Interpretation Comments Immature Granulocyte % (Auto) (test 1 % code = 28788-7) Automated blood lymphocyte count as percentage of total ukibyyelfm4463-97-01 05:05:00 Test Item Value Reference Range Interpretation Comments Lymphocytes (%) (Auto) (test code = 43 % 736-9) Automated blood monocyte count as percentage of total uloiojawhd4141-24-30 05:05:00 Test Item Value Reference Range Interpretation Comments Monocytes (%) (Auto) (test code = 8 % 5905-5) Automated blood eosinophil count as percentage of total fcvkajggsa9904-05-41 05:05:00 Test Item Value Reference Range Interpretation Comments Eosinophils (%) (Auto) (test code = 4 % 713-8) Automated blood basophil count as percentage of total fsqubwvqqq7309-43-80 05:05:00 Test Item Value Reference Range Interpretation Comments Basophils (%) (Auto) (test code = 1 % 706-2) Automated blood nucleated erythrocyte count as percentage of total leukocytes 2019-08-31 05:05:00 Test Item Value Reference Range Interpretation Comments Nucleated Red Blood Cells % (test code 0.0 % = 89190-7) Automated blood neutrophil count (number/volume)2019-08-31 05:05:00 Test Item Value Reference Range Interpretation Comments Neutrophils # (Auto) (test code = 1.9 10*3/uL 751-8) Automated blood immature granulocyte count as percentage of total leukocytes 2019-08-31 05:05:00 Test Item Value Reference Range Interpretation Comments Immature Granulocyte # (Auto) 0.0 10*3/uL (test code = 52589-3) Automated blood lymphocyte count (number/volume)2019-08-31 05:05:00 Test Item Value Reference Range Interpretation Comments Lymphocytes # (Auto) (test code = 1.9 10*3/uL 731-0) Blood monocytes automated count (number/volume)2019-08-31 05:05:00 Test Item Value Reference Range Interpretation Comments Monocytes # (Auto) (test code = 0.4 10*3/uL 742-7) Automated blood eosinophil wwqma3271-70-94 05:05:00 Test Item Value Reference Range Interpretation [...] Lipase (test code = 3040-3) 26 U/L URBIFR0714-01-13 21:58:00 Test Item Value Reference Range Interpretation Comments LIPASE (test code = LIPA) 69 U/L 23-300 US PELVIS NON-OB [id number] 22:54:[address] [id number] IMAGING REPORTPatient Name: JODI PRAJAPATI DDate of Service: 68-93-3196Cdp: 46 Sex: F Order #: [id number] Room: ERSDOB: 1970 X-Ray Number: [id number] Record Number: [id number] Hospital Number: [id number] Physician: VANE BEST -Ordering Physician: Shanna SOLIMAN [...] ROSIE FOFANA 2017-03-30 22:51:46CT ABDOMEN/PELVIS WITH 2017-03-19 17:41:[address] [id number] IMAGING REPORTPatient Name: JODI PRAJAPATI DDate of Service: 78-83-9266Gvo: 46 Sex: F Order #: [id number] [facility] 1970 [facility] Number: [id number] Record Number: [id number] Hospital Number: [id number] Physician: VIKTORIA RIVERAOrdering Physician: SOHAIL ELIAS abdomen and pelvis.History: Left lowerquadrant abdominal pain.Technique: IV contrast enhanced CT axial images of the abdomen and pelviswith sagittal and coronal reformatted images were reviewed.This CT exam was performed using one or more of the following dosereduction techniques: Automated exposure control, adjustment of the MAand/or KV according to patient size or use of iterative reconstructiontechnique.Comparison: None.Findings:Images of the lower lungs and mediastinum demonstrate [...] Ritter 2017-03-19 17:39:25CT HEAD W/O CONT 2017-02-04 17:27:[address] [id number] IMAGING REPORTPatient Name: JODI PRAJAPATI DDate of Service: 61-07-4975Axd: 46 Sex: F Order #: 100 [facility] 1970 [facility] Number: [id number] Record Number: [id number] Hospital Number: [id number] Physician: HAROON RUELASOrdering Physician: WILL WELLS head [...] by NIRMAL TOLEDO 2017-02-04 17:25:30CT CHEST ANGIO W/FBXVBNBC1535-18-32 05:41:00CT CHEST ANGIO W/CONTRASTDIAGNOSIS: Chest pain and [...] CT pulmonary angiography.US DUPLX LWR EXT.VEIN COMPRSS [id number] 16:32:32US DUPLX LWR EXT.VEIN COMPRSS UNI- LEFTHISTORY: Left-sided pain and swellingCOMPARISON: None availableTECHNIQUE: Real-time sonographic images of the left lower extremity deepveins obtained color and spectral Doppler analysis.FINDINGS: Complete compressibility with normal phasic and augmented flownoted throughout the sampled left lower extremity deep veins.IMPRESSION: No visualized left lower extremityDVT.XR CHEST SGL 1V, [id number] 15:24:33XR CHEST SGL 1V, FRONTALHISTORY: Chest painCOMPARISON: 05/24/2016TECHNIQUE: Single AP view of the chest providedFINDINGS: Heart size and pulmonary vasculature within normal limits. Nonew opacity or acute pleural abnormality. Bony thorax intact wherevisualized.IMPRESSION: No active cardiopulmonary process.CT HEAD OR BRAIN WO [id number] 18:40:55CT HEAD OR BRAIN WO CONTRASTHISTORY: Injury, [...]
--- NOTE | 2022-09-13 11:45 | RAD REPORT ---
EXAM DESCRIPTION: RAD - Chest Single View - 09/13/2022 11:24 am CLINICAL HISTORY: COUGH Chest pain. COMPARISON: Chest Single View dated 03/30/2021 FINDINGS: Portable technique limits examination quality. Small patchy opacity medial left lung base. This is retrocardiac. The heart is normal in size. No dis placed fractures. IMPRESSION: Small retrocardiac opacity medial left lung base likely pneumonia.
--- NOTE | 2022-09-13 11:59 | ER ---
Nurse's Notes [facility] Name: Pily Morrissey Age: 51 yrs Sex: Female : 1970 Arrival Date: 09/13/2022 Time: 10:36 Bed 7 Private MD: Diagnosis: Pneumonia, unspecified organism Presentation: 09/13 10:46 Chief complaint: Patient states: she was evaluated here approx one week ago for cough ap3 and congestion, however the patient reports her symptoms are getting increasingly worse instead of better. patient reports cough, congestion, and chest tightness with her cough for the last three days. Coronavirus screen: Client presents with at least one sign or symptom that may indicate coronavirus-19. Ebola Screen: No symptoms or risks identified at this time. Initial Sepsis Screen: Does the patient meet any 2 criteria? No. Patient's initial sepsis screen is negative. Does the patient have a suspected source of infection? Yes: Productive cough/pneumonia. Risk Assessment: Do you want to hurt yourself or someone else? Patient reports no desire to harm self or others. Onset of symptoms was September 06, 2022. 10:46 Method Of Arrival: Ambulatory ap3 10:46 Acuity: RJ 4 ap3 Triage Assessment: 10:48 General: Appears uncomfortable, Behavior is calm, cooperative. Pain: Complains of pain ap3 in chest Quality of pain is described as tightness Aggravated by coughing. Neuro: Level of Consciousness is awake, alert, obeys commands, Oriented to person, place, time, situation, Gait is steady. Cardiovascular: Patient's skin is warm and dry. Respiratory: Reports cough that is Airway is patent Respiratory effort is even, unlabored. FIELD RESEARCH ASSISTANT: 12:28 LMP N/A - control method kr3 Historical: - Allergies: 10:48 Betadine; ap3 - PMHx: 10:48 SVT; ap3 - PSHx: 10:48 birthmark removal; hysterectomy; left arm; sinus; ap3 - Immunization history:: Client reports having NOT received the Covid vaccine. Flu vaccine is up to date. - Social history:: Smoking status: Patient denies any tobacco usage or history of. Screenin:49 [facility] ED Fall Risk Assessment (Adult) History of falling in the last 3 months, ap3 including since admission No falls in past 3 months (0 pts). Abuse screen: Denies threats or abuse. Nutritional screening: No deficits noted. Tuberculosis screening: No symptoms or risk factors identified. Assessment: 10:49 Pain: ap3 10:55 General: Appears uncomfortable, Behavior is calm, cooperative. Pain: Complains of pain aa5 in chest with cough Pain currently is 8 out of 10 on a pain scale. Quality of pain is described as aching, Pain began 2-3 days ago. Is intermittent. Neuro: Level of Consciousness is awake, alert, obeys commands, Oriented to person, place, time, situation. Cardiovascular: Heart tones S1 S2 present Rhythm is regular. Respiratory: Reports cough/congestion Airway is patent Respiratory effort is even, unlabored, Respiratory pattern is regular, symmetrical, Breath sounds with wheezes bilaterally. GI: No signs and/or symptoms were reported involving the gastrointestinal system. : No signs and/or symptoms were reported regarding the genitourinary system. EENT: Reports nasal congestion. Derm: Skin is pink, warm \T\ dry. Musculoskeletal: Range of motion: intact in all extremities. 11:04 Reassessment: X-ray at bedside . aa5 12:26 Reassessment: Patient appears in no apparent distress at this time. kr3 Vital Signs: 10:46 BP 138 / 79; Pulse 76; Resp 19; Temp 97.9; Pulse Ox 100% ; Weight 77.11 kg; ap3 12:26 BP 141 / 74; Pulse 98; Resp 18; Pulse Ox 97% on R/A; kr3 ED Course: 10:36 Patient arrived in ED. as 10:36 Abby Manrique FNP is [facility]. jh7 10:36 Luke Birmingham MD is Attending Physician. jh7 10:48 Triage completed. ap3 10:49 Arm band placed on right wrist. ap3 10:49 Patient has correct armband on for positive identification. Bed in low position. Call ap3 light in reach. Side rails up X 1. Pulse ox on. NIBP on. Door closed. Noise minimized. 10:49 Patient maintains SpO2 saturation greater than 95% on room air. ap3 10:50 Lissett Ortiz, RN is Primary Nurse. aa5 11:27 XRAY Chest (1 view) In Process Unspecified. EDMS 12:27 No provider procedures requiring assistance completed. Patient did not have IV access kr3 during this emergency room visit. intact, bleeding controlled, No redness/swelling at site. Pressure dressing applied. Administered Medications: 11:03 Drug: Albuterol - atroVENT (ipratropium) (3:1) (2.5 mg - 0.5 mg) 3 ml Route: Nebulizer; aa5 12:27 Follow up: Response: No adverse reaction kr3 11:03 Drug: Decadron (dexamethasone) 10 mg Route: IM; Site: right gluteus; aa5 12:27 Follow up: Response: No adverse reaction kr3 Medication: 10:50 VIS not applicable for this client. ap3 Outcome: 11:58 Discharge ordered by . jh7 12:27 Discharged to home ambulatory. kr3 12:27 Condition: stable 12:27 Discharge instructions given to patient, Instructed on discharge instructions, follow up and referral plans. medication usage, Demonstrated understanding of instructions, follow-up care, medications, Prescriptions given X 3. 12:28 Patient left the ED. kr3 Signatures: Dispatcher [employer] EDMS Sonia Dumont Audri, RN RN aa5 Montserrat Manzo RN RN ap3 Abby Manrique, MANUFACTURING INDUSTRIAL ENGINEER MANUFACTURING INDUSTRIAL ENGINEER 7 Loly German, RN RN kr3 Corrections: (The following items were deleted from the chart) 11:16 10:55 Respiratory: Reports cough/congestion Airway is patent Respiratory effort is aa5 even, unlabored, Respiratory pattern is regular, symmetrical, aa5
--- NOTE | 2022-09-13 11:59 | EDPHYS ---
Physician Documentation [facility] Name: Pily Morrissey Age: 51 yrs Sex: Female : 1970 Arrival Date: 09/13/2022 Time: 10:36 Bed 7 Private MD: ED Physician Luke Birmingham HPI: 09/13 10:50 This 51 yrs old Female presents to ER via Ambulatory with complaints of Chest Pressure, jh7 Congestion, Cough. 10:50 Onset: The symptoms/episode began/occurred 1 week(s) ago, and became worse 3 day(s) jh7 ago. Associated signs and symptoms: Pertinent positives: cough, shortness of breath, Chest Tightness, Pertinent negatives: abdominal pain, chest pain, fever. Patient reports that she tested negative for COVID 1 week ago. Has been using [id number] meds with no relief.. MONUMENTAL STONEMASON: 12:28 LMP N/A - control method kr3 Historical: - Allergies: 10:48 Betadine; ap3 - PMHx: 10:48 SVT; ap3 - PSHx: 10:48 birthmark removal; hysterectomy; left arm; sinus; ap3 - Immunization history:: Client reports having NOT received the Covid vaccine. Flu vaccine is up to date. - Social history:: Smoking status: Patient denies any tobacco usage or history of. ROS: 10:50 Constitutional: Negative for fever, chills, and weight loss, Eyes: Negative for injury, jh7 pain, redness, and discharge, ENT: Negative for injury, pain, and discharge, Neck: Negative for injury, pain, and swelling, Abdomen/GI: Negative for abdominal pain, nausea, vomiting, diarrhea, and constipation, Back: Negative for injury and pain, MS/Extremity: Negative for injury and deformity, Skin: Negative for injury, rash, and discoloration, Neuro: Negative for headache, weakness, numbness, tingling, and seizure. 10:50 Cardiovascular: Positive for chest pain, with cough. 10:50 Respiratory: Positive for cough, with yellow sputum, shortness of breath, on exertion. Negative for wheezing. 10:50 All other systems are negative. Exam: 10:50 Constitutional: This is a well developed, well nourished patient who is awake, alert, jh7 and in no acute distress. Head/Face: Normocephalic, atraumatic. Eyes: Pupils equal round and reactive to light, extra-ocular motions intact. Lids and lashes normal. Conjunctiva and sclera are non-icteric and not injected. Cornea within normal limits. Periorbital areas with no swelling, redness, or edema. ENT: Nares patent. No nasal discharge, no septal abnormalities noted. Oropharynx with no redness, swelling, or masses, exudates, or evidence of obstruction, uvula midline. Mucous membranes moist. Neck: Trachea midline, no thyromegaly or masses palpated, and no cervical lymphadenopathy. Supple, full range of motion without nuchal rigidity, or vertebral point tenderness. No Meningismus. Cardiovascular: Regular rate and rhythm with a normal S1 and S2. No gallops, murmurs, or rubs. Normal PMI, no JVD. No pulse deficits. Abdomen/GI: Soft, non-tender, with normal bowel sounds. No distension or tympany. No guarding or rebound. No evidence of tenderness throughout. Back: No spinal tenderness. No costovertebral tenderness. Full range of motion. Skin: Warm, dry with normal turgor. Normal color with no rashes, no lesions, and no evidence of cellulitis. MS/ Extremity: Pulses equal, no cyanosis. Neurovascular intact. Full, normal range of motion. Neuro: Awake and alert, GCS 15, oriented to person, place, time, and situation. Normal gait. 10:50 Respiratory: the patient does not display signs of respiratory distress, Respirations: normal, Breath sounds: decreased breath sounds, that are mild, are heard in the left posterior lower lobe and right posterior lower lobe, Respiratory rate: 18 hacking cough noted on exam. Vital Signs: 10:46 BP 138 / 79; Pulse 76; Resp 19; Temp 97.9; Pulse Ox 100% ; Weight 77.11 kg; ap3 12:26 BP 141 / 74; Pulse 98; Resp 18; Pulse Ox 97% on R/A; kr3 MDM: 10:36 Patient medically screened. jh7 11:55 Differential diagnosis: viral Infection, bacterial infection, URI, bronchitis, jh7 pneumonia. Data reviewed: vital signs, nurses notes, radiologic studies, plain films. I considered the following discharge prescriptions or medication management in the emergency department Medications were administered in the Emergency Department. See MAR. Independent interpretation of the following test(s) in the Emergency Department X-Ray: My interpretation is pneumonia. Test considered but Not performed: EKG: Chest pain reproducible with cough only. Counseling: I had a detailed discussion with the patient and/or guardian regarding: the historical points, exam findings, and any diagnostic results supporting the discharge/admit diagnosis, to return to the emergency department if symptoms worsen or persist or if there are any questions or concerns that arise at home. Response to treatment: the patient's symptoms have mildly improved after treatment. 09/13 10:47 Order name: XRAY Chest (1 view); Complete Time: 11:51 [facility] Administered Medications: 11:03 Drug: Albuterol - atroVENT (ipratropium) (3:1) (2.5 mg - 0.5 mg) 3 ml Route: Nebulizer; aa5 12:27 Follow up: Response: No adverse reaction kr3 11:03 Drug: Decadron (dexamethasone) 10 mg Route: IM; Site: right gluteus; aa5 12:27 Follow up: Response: No adverse reaction kr3 Disposition: 16:38 Co-signature as Attending Physician, Luke Birmingham MD. rn Disposition Summary: 09/13/22 11:58 Discharge Ordered Location: Home [facility] Problem: new [facility] Symptoms: are unchanged [facility] Condition: Stable [facility] Diagnosis - Pneumonia, unspecified organism [facility] Followup: [facility] - With: Private Physician - When: 2 - 3 days - Reason: Recheck today's complaints Discharge Instructions: - Discharge Summary Sheet [facility] - Community-Acquired Pneumonia, Adult [facility] Forms: - Work release form [facility] - Medication Reconciliation Form [facility] - Thank You Letter [facility] - Antibiotic Education [facility] Prescriptions: - ProAir HFA 90 mcg/actuation Inhalation HFA aerosol inhaler - inhale 2 puff by INHALATION route every 4-6 hours As needed; 1 Inhaler; [facility] Refills: 0, Product Selection Permitted - Tessalon Perles 100 mg Oral Capsule - take 1 capsule by ORAL route every 8 hours As needed; 20 capsule; Refills: 0, [facility] Product Selection Permitted - Doxycycline Hyclate 100 mg Oral Tablet - take 1 tablet by ORAL route every 12 hours for 7 days; 14 tablet; Refills: 0, [facility] Product Selection Permitted Signatures: Dispatcher [employer] EDLuke Alarcon MD MD rn Ortiz, Lissett, RN RN aa5 Montserrat Manzo RN RN ap3 Abby Manrique, FILE DRAWER FINISHER FILE DRAWER FINISHER jh7 Loly German RN kr3
[2022-09-13 12:40] VITALS: BP 138/79; TEMP 97.9; O2SAT 100
== END 2022-09-13 12:28 | disposition home or self-care (01) ==
LOC: ER 10:35
DX: J18.9 Pneumonia, unspecified organism (principal); Z88.3 Allergy status to other anti-infective agents
CPT/HCPCS: 71045

== ENCOUNTER 2022-09-16 17:37 | Emergency (ER) | payer SELFPAY ==
--- OUTSIDE RECORDS SUMMARY | 2022-09-16 17:44 | XMS REPORT | Continuity of Care Document ---
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 Immature Granulocyte % (Auto) (test 1 % code = 90208-6) Automated blood lymphocyte count as percentage of total rjyzjgijbr4020-75-70 05:05:00 Test Item Value Reference Range Interpretation Comments Lymphocytes (%) (Auto) (test code = 43 % 736-9) Automated blood monocyte count as percentage of total zujijcpdjk6298-22-49 05:05:00 Test Item Value Reference Range Interpretation Comments Monocytes (%) (Auto) (test code = 8 % 5905-5) Serum or plasma total combined glucuronidated bilirubin [...] Lipase (test code = 3040-3) 26 U/L [id number] 21:58:00 Test Item Value Reference Range Interpretation Comments LIPASE (test code = LIPA) 69 U/L 23-300 US PELVIS NON-OB [id number] 22:54:00[address] [id number] IMAGING REPORTPatient Name: JODI PRAJAPATI DDate of Service: 10-12-8138Jev: 46 Sex: F Order #: [id number] [facility] 1970 [facility] Number: [id number] Record Number: [id number] Hospital Number: [id number] Physician: VANE BEST -Ordering Physician: Shanna SOLIMAN [...] ROSIE FOFANA 2017-03-30 22:51:46CT ABDOMEN/PELVIS WITH 2017-03-19 17:41:[address] [id number] IMAGING REPORTPatient Name: JODI PRAJAPATI DDate of Service: 32-65-7458Mug: 46 Sex: F Order #: 500 [facility] 1970 [facility] Number: [id number] Record Number: [id number] Hospital Number: [id number] Physician: VIKTORIA RIVERAOrdering Physician: SOHAIL ELIAS abdomen [...] Ritter 2017-03-19 17:39:25CT HEAD W/O CONT 2017-02-04 17:27:[address] [id number] IMAGING REPORTPatient Name: JODI PRAJAPATI DDate of Service: 86-13-2546Ngp: 46 Sex: F Order #: [id number] [facility] 1970 [facility] Number: [id number] Record Number: [id number] Hospital Number: [id number] Physician: HAROON RUELASOrdering Physician: WILL WELLS head [...] by NIRMAL TOLEDO 2017-02-04 17:25:30CT CHEST ANGIO W/[id number] 05:41:00CT CHEST ANGIO W/CONTRASTDIAGNOSIS: Chest pain and [...] CT pulmonary angiography.US DUPLX LWR EXT.VEIN COMPRSS WIF-[id number] 16:32:32US DUPLX LWR EXT.VEIN COMPRSS UNI- LEFTHISTORY: Left-sided pain and swellingCOMPARISON: None availableTECHNIQUE: Real-time sonographic images of the left lower extremity deepveins obtained color and spectral Doppler analysis.FINDINGS: Complete compressibility with normal phasic and augmented flownoted throughout the sampled left lower extremity deep veins.IMPRESSION: No visualized left lower extremityDVT.XR CHEST SGL 1V, [id number] 15:24:33XR CHEST SGL 1V, FRONTALHISTORY: Chest painCOMPARISON: 05/24/2016TECHNIQUE: Single AP view of the chest providedFINDINGS: Heart size and pulmonary vasculature within normal limits. Nonew opacity or acute pleural abnormality. Bony thorax intact wherevisualized.IMPRESSION: No active cardiopulmonary process.CT HEAD OR BRAIN WO [id number] 18:40:55CT HEAD OR BRAIN WO CONTRASTHISTORY: Injury, [...]
[2022-09-16] MEDS ORDERED: HYDROCODONE/CHLORPHEN 5 ML/OSYR ONE (18:15)
[2022-09-16] MEDS ORDERED: CEFTRIAXONE 1000 MG/VIAL ONE (18:18)
[2022-09-16 18:30] LABS: Absolute Lymphocytes (CBC) 2.5 K/uL (0.7-4.9); Hematocrit 41.3 % (36.0-45.0); Lymphocytes % 31.3 % (15.3-44.8); MCV 87.8 fL (80-100); MPV 8.9 fL (7.6-11.3); RBC Red Blood Cell Count 4.71 M/uL (3.86-4.86)
[2022-09-16] MEDS ORDERED: LIDOCAINE 1% MPF 5 ML VIAL ONE (18:47)
[2022-09-16 19:01] LABS: Albumin 3.9 g/dL (3.4-5.0); Bilirubin Total 0.3 mg/dL (0.2-1.0); Potassium 3.8 mmol/L (3.5-5.1); Protein, Total 8.1 g/dL (6.4-8.2)
[2022-09-16 19:03] LABS: SARS-COV-2 RT PCR NEGATIVE (NEGATIVE)
--- NOTE | 2022-09-16 20:05 | RAD REPORT ---
EXAM DESCRIPTION: CT - Chest For Pe Angio - 09/16/2022 7:54 pm CLINICAL HISTORY: Chest pain. pneumonia COMPARISON: Chest For Pe Angio dated 03/30/2021 TECHNIQUE: CT angiogram of the pulmonary arteries was performed with MIP. All CT scans are performed using dose optimization technique as appropriate and may include automated exposure control or mA/KV adjustment according to patient size. FINDINGS: No evidence of pulmonary thromboembolism. No acute aortic finding demonstrated. Mild linear atelectasis seen in medial left lung base. Otherwise, the lungs are clear. No significant pericardial or pleural fluid. No concerning bony finding. IMPRESSION: No evidence of pulmonary thromboembolism. Mild linear atelectasis is seen left lung base medially. No consolidation typical of pneumonia.
--- NOTE | 2022-09-16 21:18 | EDPHYS ---
Physician Documentation [facility] Name: Pily Morrissey Age: 51 yrs Sex: Female : 1970 Arrival Date: 09/16/2022 Time: 17:39 Bed 12 Private MD: ED Physician James Magaña HPI: 09/16 18:36 This 51 yrs old Female presents to ER via Ambulatory with complaints of Chest Pain, snw Breathing Difficulty. 18:36 The patient or guardian reports cough, that is constant. Onset: The symptoms/episode snw began/occurred 5 day(s) ago, and became worse and became persistent. Associated signs and symptoms: Pertinent positives: insomnia. The patient has not experienced similar symptoms in the past. The patient has been recently seen at the [facility] Emergency Department, this week, for similar complaints continued cough. Historical: - Allergies: 17:45 Betadine; ll1 - PMHx: 17:45 SVT; ll1 - PSHx: 17:45 birthmark removal; hysterectomy; left arm; sinus; ll1 - Immunization history:: Client reports receiving the 2nd dose of the Covid vaccine. - Social history:: Smoking status: Patient denies any tobacco usage or history of. ROS: 18:34 Constitutional: Negative for fever, chills, and weight loss, Eyes: Negative for injury, snw pain, redness, and discharge, ENT: Negative for injury, pain, and discharge, Neck: Negative for injury, pain, and swelling, Cardiovascular: Negative for chest pain, palpitations, and edema. 18:34 Abdomen/GI: Negative for abdominal pain, nausea, vomiting, diarrhea, and constipation, Back: Negative for injury and pain, : Negative for injury, bleeding, discharge, and swelling, MS/Extremity: Negative for injury and deformity, Skin: Negative for injury, rash, and discoloration, Neuro: Negative for headache, weakness, numbness, tingling, and seizure, Psych: Negative for depression, anxiety, suicide ideation, homicidal ideation, and hallucinations. 18:34 Respiratory: Positive for cough, incessant. Exam: 18:33 Head/Face: Normocephalic, atraumatic. Eyes: Pupils equal round and reactive to light, snw extra-ocular motions intact. Lids and lashes normal. Conjunctiva and sclera are non-icteric and not injected. Cornea within normal limits. Periorbital areas with no swelling, redness, or edema. ENT: Nares patent. No nasal discharge, no septal abnormalities noted. Tympanic membranes are normal and external auditory canals are clear. Oropharynx with no redness, swelling, or masses, exudates, or evidence of obstruction, uvula midline. Mucous membranes moist. Neck: Trachea midline, no thyromegaly or masses palpated, and no cervical lymphadenopathy. Supple, full range of motion without nuchal rigidity, or vertebral point tenderness. No Meningismus. Chest/axilla: Normal chest wall appearance and motion. Nontender with no deformity. No lesions are appreciated. Cardiovascular: Regular rate and rhythm with a normal S1 and S2. No gallops, murmurs, or rubs. Normal PMI, no JVD. No pulse deficits. 18:33 Abdomen/GI: Soft, non-tender, with normal bowel sounds. No distension or tympany. No guarding or rebound. No evidence of tenderness throughout. Back: No spinal tenderness. No costovertebral tenderness. Full range of motion. Skin: Warm, dry with normal turgor. Normal color with no rashes, no lesions, and no evidence of cellulitis. MS/ Extremity: Pulses equal, no cyanosis. Neurovascular intact. Full, normal range of motion. Neuro: Awake and alert, GCS 15, oriented to person, place, time, and situation. Cranial nerves II-XII grossly intact. Motor strength 5/5 in all extremities. Sensory grossly intact. Cerebellar exam normal. Normal gait. Psych: Awake, alert, with orientation to person, place and time. Behavior, mood, and affect are within normal limits. 18:33 Constitutional: The patient appears alert, awake, anxious, uncomfortable. 18:33 Respiratory: mild respiratory distress is noted, Respirations: shallow respirations, tachypnea, Breath sounds: rhonchi, that are moderate, are located in both bases, wheezing: expiratory is heard in the left posterior upper lobe and right posterior upper lobe. Vital Signs: 17:42 BP 137 / 73; Pulse 88; Resp 20; Temp 97.5; Pulse Ox 96% ; Weight 77.11 kg; Height 5 ft. ll1 4 in. (162.56 cm); Pain 8/10; 19:00 BP 116 / 73; Pulse 89; Resp 18; Pulse Ox 95% on R/A; eh3 21:00 BP 109 / 63; Pulse 85; Resp 16; Pulse Ox 97% on R/A; eh3 17:42 Body Mass Index 29.18 (77.11 kg, 162.56 cm) ll1 MDM: 17:49 Patient medically screened. snw 21:22 Differential diagnosis: tracheal injury, bronchitis. Antibiotic administration: The snw patient is discharged and will get outpatient antibiotics. Data interpreted: Pulse oximetry: on room air is 94 %. Interpretation: acceptable. Data reviewed: vital signs, nurses notes, old medical records, [employer], dx with pneumonia this week. Counseling: I had a detailed discussion with the patient and/or guardian regarding: the historical points, exam findings, and any diagnostic results supporting the discharge/admit diagnosis, lab results, radiology results, the need for outpatient follow up, for definitive care, to return to the emergency department if symptoms worsen or persist or if there are any questions or concerns that arise at home. Response to treatment: the patient's symptoms have markedly improved after treatment. Special discussion: Based on the patient's history, exam, and Dx evaluation, there is no indication for emergent intervention or inpatient Tx. It is understood by the patient/guardian that if the Sx's persist or worsen they need to return immediately for re-evaluation. 09/16 18:00 Order name: COVID-19/FLU A+B/RSV; Complete Time: 19:07 snw 09/16 18:00 Order name: Blood Culture Adult (2) [facility] 09/16 18:00 Order name: CBC with Diff; Complete Time: 18:32 snw 09/16 18:00 Order name: CMP; Complete Time: 19:07 snw 09/16 18:00 Order name: Lactate w/ 2H reflex if indic.; Complete Time: 19:29 snw 09/16 18:03 Order name: Troponin High Sensitivity; Complete Time: 21:16 snw 09/16 18:00 Order name: Accucheck; Complete Time: 19:45 snw 09/16 18:32 Order name: DD; Complete Time: 19:29 snw 09/16 19:36 Order name: CT Chest For PE Angio; Complete Time: 20:18 snw 09/16 18:00 Order name: Cardiac monitoring; Complete Time: 18:12 snw 09/16 18:00 Order name: EKG - Nurse/Tech; Complete Time: 18:57 snw 09/16 18:00 Order name: IV Saline Lock - Large Bore; Complete Time: 18:13 snw 09/16 18:00 Order name: Labs collected and sent; Complete Time: 18:57 snw 09/16 18:00 Order name: O2 Per Protocol; Complete Time: 18:12 snw 09/16 18:00 Order name: O2 Sat Monitoring; Complete Time: 18:12 snw 09/16 18:00 Order name: Vital Signs; Complete Time: 18:12 snw EC:00 Rate is 73 beats/min. Rhythm is regular. QRS [place] is Normal. No ST changes noted. snw Clinical impression: NSR w/ Non-specific ST/T Changes. Administered Medications: 18:12 Drug: Tussionex Pennkinetic ER (chlorpheniramine-hydrocodone) Suspension 5 ml Route: PO;ko1 19:00 Follow up: Response: Pain is unchanged, physician notified eh3 18:30 Drug: Rocephin (cefTRIAXone) 1 grams Route: IV; Rate: calculated rate; Site: right ko1 antecubital; 19:00 Follow up: Response: No adverse reaction; IV Status: Completed infusion; IV Intake: [id number] 18:48 Drug: Lidocaine (1 %) 3 mg Route: Infiltration; ko1 20:50 Drug: Ketorolac 30 mg Route: IVP; Site: right antecubital; 3 Disposition: 19:17 Co-signature as Attending Physician, James Magaña DO I reviewed the patient's care ms3 provided by the Advanced Practice Provider and agree with the diagnosis and treatment plan. Disposition Summary: 09/16/22 21:17 Discharge Ordered Location: Home snw Condition: Stable snw Diagnosis - Other pneumonia, unspecified organism snw - Cough snw Followup: snw - With: Emergency Department - When: As needed - Reason: Worsening of condition Followup: snw - With: Private Physician - When: 1 - 2 days - Reason: Recheck today's complaints, Continuance of care, Re-evaluation by your physician Discharge Instructions: - Discharge Summary Sheet snw - Community-Acquired Pneumonia, Adult snw - Cool Mist Vaporizer snw - How to Use an Incentive Spirometer snw - Cough, Adult snw - Form - Incentive Spirometer Record snw Forms: - Medication Reconciliation Form snw - Thank You Letter snw - Antibiotic Education snw - Prescription Opioid Use snw Prescriptions: - Pepcid 20 mg Oral Tablet - take 1 tablet by ORAL route every 12 hours for 10 days; 20 tablet; Refills: 0, snw Product Selection Permitted - Zyrtec 10 mg Oral Tablet - take 1 tablet by ORAL route once daily As needed; 20 tablet; Refills: 0, snw Product Selection Permitted Signatures: Dispatcher [employer] EDMS Yolis Posada, EDUCATIONAL/DEVELOPMENT ASSISTANT-C EDUCATIONAL/DEVELOPMENT ASSISTANT-Csnw Sky Arauz RN RN ll1 James Magaña DO DO ms3 Sera Ramirez, RN RN eh3 Karina Ospina RN RN ko1
--- NOTE | 2022-09-16 21:18 | ER ---
Nurse's Notes [facility] Name: Pily Morrissey Age: 51 yrs Sex: Female : 1970 Arrival Date: 09/16/2022 Time: 17:39 Bed 12 Private MD: Diagnosis: Other pneumonia, unspecified organism;Cough Presentation: 09/16 17:42 Chief complaint: Patient states: Diagnosed with pneumonia Tuesday. Had flu 2 months ago. ll1 SOB, CP, and REYES getting worse. Coronavirus screen: Vaccine status: Patient reports being unvaccinated. Client denies travel out of the [place] in the last 14 days. cough unrelated to allergies, difficulty breathing, fatigue, headache, Client presents with at least one sign or symptom that may indicate coronavirus-19. Standard/surgical mask placed on the client. Ebola Screen: Patient denies travel to an Ebola-affected area in the 21 days before illness onset. Initial Sepsis Screen: Does the patient meet any 2 criteria? No. Patient's initial sepsis screen is negative. Does the patient have a suspected source of infection? Yes: Productive cough/pneumonia. Risk Assessment: Do you want to hurt yourself or someone else? Patient reports no desire to harm self or others. Onset of symptoms was September 08, 2022. 17:42 Method Of Arrival: Ambulatory ll1 17:42 Acuity: RJ 3 ll1 Historical: - Allergies: 17:45 Betadine; ll1 - PMHx: 17:45 SVT; ll1 - PSHx: 17:45 birthmark removal; hysterectomy; left arm; sinus; ll1 - Immunization history:: Client reports receiving the 2nd dose of the Covid vaccine. - Social history:: Smoking status: Patient denies any tobacco usage or history of. Screenin:45 [facility] ED Fall Risk Assessment (Adult) History of falling in the last 3 months, ko1 including since admission No falls in past 3 months (0 pts) Confusion or Disorientation No (0 pts) Intoxicated or Sedated No (0 pts) Impaired Gait No (0 pts) Mobility Assist Device Used No (0 pt) Altered Elimination No (0 pt) Score/Fall Risk Level 0 - 2 = Low Risk Oriented to surroundings, Maintained a safe environment, Educated pt \T\ family on fall prevention, incl call for assistance when getting out of bed, Assessed \T\ reinforced patient's understanding of fall precautions, Provided non-skid footwear, Hourly rounding (assess needs \T\ fall precautionary measures) done, Used ambulatory aids as needed (educated on \T\ assisted with), Used gait belt as appropriate. Abuse screen: Denies threats or abuse. Denies injuries from another. Nutritional screening: No deficits noted. Tuberculosis screening: No symptoms or risk factors identified. Assessment: 17:45 General: Appears distressed, uncomfortable, Behavior is cooperative, appropriate for ko1 age, anxious. Pain: Complains of pain in right posterior upper lobe and left posterior upper lobe Pain does not radiate. Pain began gradually. Neuro: No deficits noted. Cardiovascular: No deficits noted. Respiratory: Reports cough that is non-productive, hacking, persistent. GI: No deficits noted. : No deficits noted. EENT: No deficits noted. Derm: No deficits noted. Musculoskeletal: No deficits noted. 19:00 General: Appears in no apparent distress. uncomfortable, Behavior is cooperative, eh3 appropriate for age, anxious. Pain: Complains of pain in forehead, left temporal area and left ear Pain currently is 9 out of 10 on a pain scale. Neuro: Level of Consciousness is awake, alert, obeys commands, Oriented to person, place, time, situation. Cardiovascular: Capillary refill < 3 seconds Patient's skin is warm and dry. Respiratory: Reports cough that is productive, Airway is patent Respiratory effort is even, unlabored, Respiratory pattern is regular, symmetrical. GI: Abdomen is round non-distended, Reports vomiting. : No signs and/or symptoms were reported regarding the genitourinary system. EENT: No signs and/or symptoms were reported regarding the EENT system. Derm: No signs and/or symptoms reported regarding the dermatologic system. Skin is pink, warm \T\ dry. Musculoskeletal: No signs and/or symptoms reported regarding the musculoskeletal system. Circulation, motion, and sensation intact. Range of motion: intact in all extremities. 20:00 Reassessment: Patient appears in no apparent distress at this time. Patient and/or eh3 family updated on plan of care and expected duration. Pain level reassessed. Patient is alert, oriented x 3, equal unlabored respirations, skin warm/dry/pink. 21:00 Reassessment: Patient appears in no apparent distress at this time. Patient and/or eh3 family updated on plan of care and expected duration. Pain level reassessed. Patient is alert, oriented x 3, equal unlabored respirations, skin warm/dry/pink. Vital Signs: 17:42 BP 137 / 73; Pulse 88; Resp 20; Temp 97.5; Pulse Ox 96% ; Weight 77.11 kg; Height 5 ft. ll1 4 in. (162.56 cm); Pain 8/10; 19:00 BP 116 / 73; Pulse 89; Resp 18; Pulse Ox 95% on R/A; eh3 21:00 BP 109 / 63; Pulse 85; Resp 16; Pulse Ox 97% on R/A; eh3 17:42 Body Mass Index 29.18 (77.11 kg, 162.56 cm) ll1 ED Course: 17:39 Patient arrived in ED. rg4 17:40 Yolis Posada FNP-C is [facility]. snw 17:40 James Magaña DO is Attending Physician. snw 17:45 Triage completed. ll1 17:45 Patient has correct armband on for positive identification. Bed in low position. Call ko1 light in reach. Client placed on continuous cardiac and pulse oximetry monitoring. NIBP monitoring applied. playground monitor on. 17:45 Inserted saline lock: 20 gauge in right antecubital area, using aseptic technique. ko1 Blood collected. Patient maintains SpO2 saturation greater than 95% on room air. 17:48 Karina Ospina, RN is Primary Nurse. ko1 18:51 Initial Neb Treatment Given as ordered Patient was instructed and evaluated on ko1 procedure. 18:57 DD Sent. bc6 18:58 Blood Culture Adult (2) Sent. bc6 18:58 CMP Sent. bc6 18:58 Lactate w/ 2H reflex if indic. Sent. bc6 19:00 Arm band placed on. eh3 19:01 COVID-19/FLU A+B/RSV Sent. bc6 19:01 Troponin High Sensitivity Sent. bc6 19:56 CT Chest For PE Angio In Process Unspecified. EDMS 21:06 No provider procedures requiring assistance completed. eh3 21:26 IV discontinued, intact, bleeding controlled, No redness/swelling at site. Pressure eh3 dressing applied. Administered Medications: 18:12 Drug: Tussionex Pennkinetic ER (chlorpheniramine-hydrocodone) Suspension 5 ml Route: PO;ko1 19:00 Follow up: Response: Pain is unchanged, physician notified 3 18:30 Drug: Rocephin (cefTRIAXone) 1 grams Route: IV; Rate: calculated rate; Site: right ko1 antecubital; 19:00 Follow up: Response: No adverse reaction; IV Status: Completed infusion; IV Intake: [id number] 18:48 Drug: Lidocaine (1 %) 3 mg Route: Infiltration; ko1 20:50 Drug: Ketorolac 30 mg Route: IVP; Site: right antecubital; 3 Medication: 21:05 VIS not applicable for this client. 3 Intake: 19:00 IV: 50ml; Total: 50ml. 3 Outcome: 21:17 Discharge ordered by . snw 21:26 Discharged to home ambulatory, with significant other. 3 21:26 Condition: stable 21:26 Discharge instructions given to patient, Instructed on discharge instructions, follow up and referral plans. medication usage, Demonstrated understanding of instructions, follow-up care, medications, Prescriptions given X 2. 21:26 Patient left the ED. 3 Signatures: Dispatcher [employer] EDMS Yolis Posada, FILM AND VIDEO EDITOR-C FILM AND VIDEO EDITOR-Csnw Soraya Nuñez rg4 Sky Arauz RN RN 1 Sera Ramirez RN RN 3 Karina Ospina RN RN ko1 Zaida Pruitt bc6
[2022-09-16 21:30] VITALS: TEMP 97.5
[2022-09-16 21:33] VITALS: BP 109/63; O2SAT 97
== END 2022-09-16 21:26 | disposition home or self-care (01) ==
LOC: ER 17:37
DX: J18.8 Other pneumonia, unspecified organism (principal); Z20.822 Contact with and (suspected) exposure to COVID-19; Z88.3 Allergy status to other anti-infective agents
CPT/HCPCS: 0241U; 36415; 71275; 80053; 83605; 84484; 85025; 85379; 87040; 93005; 96365; 96375; 99285; J2001; Q9967

== ENCOUNTER 2022-10-22 11:36 | Emergency (ER) | payer SELFPAY ==
--- OUTSIDE RECORDS SUMMARY | 2022-10-22 11:42 | XMS REPORT | Continuity of Care Document ---
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 kqvxxxlfmo9676-53-92 05:05:00 Test Item Value Reference Range Interpretation Comments Lymphocytes (%) (Auto) (test code = 43 % 25-44 736-9) [facility]Automated blood monocyte count as percentage of total leukocytes 2019-08-31 05:05:00 Test Item Value Reference Range Interpretation Comments Monocytes (%) (Auto) (test code = 8 % 3-10 5905-5) [facility]Automated blood eosinophil count as percentage of total hevdjbxaix6078-50-76 05:05:00 Test Item Value Reference Range Interpretation Comments Eosinophils (%) (Auto) (test code = 4 % 0-7 713-8) [facility]Automated blood basophil count as percentage of total leukocytes 2019-08-31 05:05:00 Test Item Value Reference Range Interpretation Comments Basophils (%) (Auto) (test code = 1 % 0-1 706-2) [facility] HealthAutomated blood nucleated erythrocyte count as percentage of total uzhgsltzxb5055-10-51 05:05:00 Test Item Value Reference Range Interpretation Comments Nucleated Red Blood Cells % (test code 0.0 % 0-0.2 = 03365-1) [facility] neutrophil count (number/volume)2019-08-31 05:05:00 Test Item Value Reference Range Interpretation Comments Neutrophils # (Auto) (test code = 1.9 10*3/uL 1.3-6.7 751-8) [facility] HealthAutomated blood immature granulocyte count as percentage of total sxszvbnpvm9956-32-88 05:05:00 Test Item Value Reference Range Interpretation Comments Immature Granulocyte # (Auto) 0.0 10*3/uL 0.0-0.0 (test code = 23370-2) [facility] HealthAutomated blood lymphocyte count (number/volume)2019-08-31 05:05:00 Test Item Value Reference Range Interpretation Comments Lymphocytes # (Auto) (test code = 1.9 10*3/uL 1.4-4.1 731-0) [facility] monocytes automated count (number/volume)2019-08-31 05:05:00 Test Item Value Reference Range Interpretation Comments Monocytes # (Auto) (test code = 0.4 10*3/uL 0-1.3 742-7) [facility] HealthAutomated blood eosinophil pgkvk7580-54-39 05:05:00 Test Item Value Reference Range Interpretation Comments Eosinophils # (Auto) (test code = 0.2 10*3/uL 0-0.8 711-2) [facility] HealthAutomated blood basophil count (number/volume)2019-08-31 05:05:00 Test Item Value Reference Range Interpretation Comments Basophils # (Auto) (test code = 0.0 10*3/uL 0-0.1 704-7) [facility] blood nucleated erythrocyte count (count/volume) 2019-08-31 05:05:00 Test Item Value Reference Range Interpretation Comments Nucleated Red Blood Cells # 0.00 10*3/uL 0-0.01 (test code = 771-6) [facility] HealthService comment 05:05:00 Test Item Value Reference Range Interpretation Comments Manual Differential (test code = Not Ind 8265-1) [facility] HealthAutomated blood platelet mean volume efcxyfelmbp0681-26-01 05:05:00 Test Item Value Reference Range Interpretation Comments Mean Platelet Volume (test code = 12.1 32181-3) Automated blood neutrophil count as percentage of total jwxenanajw6132-18-57 05:05:00 Test Item Value Reference Range Interpretation Comments Neutrophils (%) (Auto) (test code = 43 % 770-8) Automated blood immature granulocyte count as percentage of total leukocytes 2019-08-31 05:05:00 Test Item Value Reference Range Interpretation Comments Immature Granulocyte % (Auto) (test 1 % code = 74183-4) Automated blood lymphocyte count as percentage of total afwyzffhrq0134-13-55 05:05:00 Test Item Value Reference Range Interpretation Comments Lymphocytes (%) (Auto) (test code = 43 % 736-9) Automated blood monocyte count as percentage of total yuclrxahme8967-50-96 05:05:00 Test Item Value Reference Range Interpretation Comments Monocytes (%) (Auto) (test code = 8 % 5905-5) Automated blood eosinophil count as percentage of total ydnnjggigg1531-40-29 05:05:00 Test Item Value Reference Range Interpretation Comments Eosinophils (%) (Auto) (test code = 4 % 713-8) Automated blood basophil count as percentage of total gfwurcamty5040-84-69 05:05:00 Test Item Value Reference Range Interpretation Comments Basophils (%) (Auto) (test code = 1 % 706-2) Automated blood nucleated erythrocyte count as percentage of total leukocytes 2019-08-31 05:05:00 Test Item Value Reference Range Interpretation Comments Nucleated Red Blood Cells % (test code 0.0 % = 87242-9) Automated blood neutrophil count (number/volume)2019-08-31 05:05:00 Test Item Value Reference Range Interpretation Comments Neutrophils # (Auto) (test code = 1.9 10*3/uL 751-8) Automated blood immature granulocyte count as percentage of total leukocytes 2019-08-31 05:05:00 Test Item Value Reference Range Interpretation Comments Immature Granulocyte # (Auto) 0.0 10*3/uL (test code = 05509-2) Automated blood lymphocyte count (number/volume)2019-08-31 05:05:00 Test Item Value Reference Range Interpretation Comments Lymphocytes # (Auto) (test code = 1.9 10*3/uL 731-0) Blood monocytes automated count (number/volume)2019-08-31 05:05:00 Test Item Value Reference Range Interpretation Comments Monocytes # (Auto) (test code = 0.4 10*3/uL 742-7) Automated blood eosinophil eejsk2543-72-71 05:05:00 Test Item Value Reference Range Interpretation [...] 10*3/uL (test code = 771-6) Service comment [id number] 05:05:00 Test Item Value Reference Range Interpretation [...] % Automated erythrocyte mean corpuscular volume (MCV) hsohmsczocc9772-51-23 05:05:00 Test Item Value Reference Range Interpretation Comments Mean Corpuscular Volume (test code = 94 fL 787-2) Automated erythrocyte mean corpuscular hemoglobin (mass per erythrocyte) 2019-08-31 05:05:00 Test Item Value Reference Range Interpretation Comments Mean Corpuscular Hemoglobin (test 30.5 pg code = 785-6) Automated erythrocyte mean corpuscular hemoglobin concentration measurement (mass/gbk9622-21-66 05:05:00 Test Item Value Reference Range Interpretation Comments Mean Corpuscular Hemoglobin Concent 32.6 g/dL (test code = 786-4) Automated erythrocyte distribution width zexxb3413-19-56 05:05:00 Test Item Value Reference Range Interpretation Comments Red Cell Distribution Width (test code 12.8 % = 788-0) Automated blood platelet count (count/volume)2019-08-31 05:05:00 Test Item Value Reference Range Interpretation Comments Platelet Count (test code = 162 10*3/uL 777-3) Serum or plasma total combined glucuronidated bilirubin and albumin bound bilirubin measurement (mass/volume)2019-08-30 12:48:00 Test Item Value Reference Range Interpretation Comments Direct Bilirubin (test code = 0.1 mg/dL 0.0-0.5 1967-) [facility]um or plasma lipase measurement (enzymatic [...] Lipase (test code = 3040-3) 26 U/L [id number] 21:58:00 Test Item Value Reference Range Interpretation Comments LIPASE (test code = LIPA) 69 U/L 23-300 US PELVIS NON-OB [id number] 22:54:[address] [id number] IMAGING REPORTPatient Name: JODI PRAJAPATI DDate of Service: 52-54-1282Zyp: 46 Sex: F Order #: [id number] [facility] 1970 [facility]-Ray Number: [id number] Record Number: [id number] Hospital Number: [id number] Physician: VANE BEST -Ordering Physician: Shanna SOLIMAN [...] ROSIE FOFANA 2017-03-30 22:51:46CT ABDOMEN/PELVIS WITH 2017-03-19 17:41:[address] [id number] IMAGING REPORTPatient Name: JODI PRAJAPATI DDate of Service: 10-46-2057Kzy: 46 Sex: F Order #: 500 [facility] [place] 1970 X-Ray Number: [id number] Record Number: [id number] Hospital Number: [id number] Physician: VIKTORIA RIVERAOrdering Physician: SOHAIL ELIAS abdomen [...] Ritter 2017-03-19 17:39:25CT HEAD W/O CONT 2017-02-04 17:27:[address] [id number] IMAGING REPORTPatient Name: JODI PRAJAPATI DDate of Service: 06-03-2838Qei: 46 Sex: F Order #: [id number] Room: [facility]: 1970 X-Ray Number: [id number] Record Number: [id number] Hospital Number: [id number] Physician: HAROON RUELASOrdering Physician: WILL WELLS head [...] by NIRMAL TOLEDO 2017-02-04 17:25:30CT CHEST ANGIO W/[id number] 05:41:00CT CHEST ANGIO W/CONTRASTDIAGNOSIS: Chest pain and [...] CT pulmonary angiography.US DUPLX LWR EXT.VEIN COMPRSS ROY-[id number] 16:32:32US DUPLX LWR EXT.VEIN COMPRSS UNI- LEFTHISTORY: Left-sided pain and swellingCOMPARISON: None availableTECHNIQUE: Real-time sonographic images of the left lower extremity deepveins obtained color and spectral Doppler analysis.FINDINGS: Complete compressibility with normal phasic and augmented flownoted throughout the sampled left lower extremity deep veins.IMPRESSION: No visualized left lower extremityDVT.XR CHEST SGL 1V, [id number] 15:24:33XR CHEST SGL 1V, FRONTALHISTORY: Chest painCOMPARISON: 05/24/2016TECHNIQUE: Single AP view of the chest providedFINDINGS: Heart size and pulmonary vasculature within normal limits. Nonew opacity or acute pleural abnormality. Bony thorax intact wherevisualized.IMPRESSION: No active cardiopulmonary process.CT HEAD OR BRAIN WO [id number] 18:40:55CT HEAD OR BRAIN WO CONTRASTHISTORY: Injury, [...]
[2022-10-22] MEDS ORDERED: LEVALBUTEROL 1.25 MG/3 ML NEB ONE ×2 (13:03→13:39)
[2022-10-22] MEDS ORDERED: KETOROLAC 30 MG/ML INJ ONE ×2 (13:03→13:39)
[2022-10-22] MEDS ORDERED: HYDROCODONE/CHLORPHEN 5 ML/OSYR ONE (14:29)
[2022-10-22 14:30] LABS: SARS-COV-2 RT PCR NEGATIVE (NEGATIVE)
--- NOTE | 2022-10-22 14:37 | RAD REPORT ---
EXAM DESCRIPTION: CT - Thorax Wo Con - 10/22/2022 1:49 pm CLINICAL HISTORY: cough, sob COMPARISON: Chest For Pe Angio dated 09/16/2022; Chest For Pe Angio dated 03/30/2021 TECHNIQUE: Axial thin cut images of the chest were obtained without IV contrast. Multiplanar reforma ts were generated and reviewed. All CT scans are performed using dose optimization technique as appropriate and may include automated exposure control or mA/KV adjustment according to patient size. FINDINGS: No suspicious mass or sizable consolidation in the lung parenchyma. Few scattered centrilo bular ground-glass opacities in the right lower lobe, spanning the upper through lower segments. No p leural thickening or pleural effusion. No pneumothorax. No abnormal mediastinal or hilar masses or lymphadenopathy seen. No significant aortic or pulmonary a rtery findings. Assessment is limited in the absence of IV contrast. No chest wall mass or abnormal axillary lymphadenopathy. Evaluation of the solid abdominal structures reveals no suspicious findings. Status post cholecystect marnie. Asymmetric upper left breast soft tissue density is stable, not well evaluated on CT. IMPRESSION: Few scattered centrilobular ground-glass opacities throughout the right lower lobe, most suggestive up but infectious or inflammatory process such as pneumonia.
--- NOTE | 2022-10-22 15:20 | RAD REPORT ---
EXAM DESCRIPTION: Jaquelinet Pa And Lat (2 Views)10/22/2022 1:08 pm CLINICAL HISTORY: cough, chest pain COMPARISON: Chest Single View dated 09/13/2022; Chest Single View dated 03/30/2021 TECHNIQUE: PA and lateral views of the chest. FINDINGS: The lungs are clear. No pneumothorax or effusion. The cardiomediastinal contours are unrem arkable. IMPRESSION: No acute cardiopulmonary process.
[2022-10-22 15:42] VITALS: TEMP 98.9
[2022-10-22 15:43] VITALS: BP 123/64; O2SAT 96
--- NOTE | 2022-11-05 16:23 | EDPHYS ---
Physician Documentation [facility] Name: Pily Morrissey Age: 52 yrs Sex: Female : 1970 Arrival Date: 10/22/2022 Time: 11:39 Bed 9 Private MD: ED Physician Luke Birmingham HPI: 10/22 12:05 This 52 yrs old Female presents to ER via Wheelchair with complaints of Cough, jmm Congestion, Fever. 12:05 The patient or guardian reports cough. Onset: The symptoms/episode began/occurred jmm gradually, 3 month(s) ago. This is a 52 year old female with a history of svt that presents to the ED with complaints of cough, congestion beginning approx 3 months. Was treated for pneumonia approx 1 month ago without relief. Patient developed a last night and complains of worsening symptoms. . Historical: - Allergies: 12:08 Betadine; mb9 - Home Meds: 12:08 None [Active]; mb9 - PMHx: 12:08 SVT; mb9 - PSHx: 12:08 birthmark removal; hysterectomy; left arm; sinus; mb9 - Immunization history:: Adult Immunizations up to date. - Social history:: Smoking status: Patient denies any tobacco usage or history of. ROS: 12:05 Constitutional: Positive for body aches, fever. jmm 12:05 ENT: Positive for ear pain. 12:05 Respiratory: Positive for cough, shortness of breath. 12:05 All other systems are negative. Exam: 12:05 Constitutional: This is a well developed, well nourished patient who is awake, alert, jmm and in no acute distress. Head/Face: atraumatic. Eyes: EOMI, no conjunctival erythema appreciated ENT: Moist Mucus Membranes Neck: Trachea midline, Supple Chest/axilla: Normal chest wall appearance and motion. Cardiovascular: Regular rate and rhythm. No edema appreciated Respiratory: Normal respirations, no respiratory distress appreciated Abdomen/GI: Non distended Back: Normal ROM Skin: General appearance color normal MS/ Extremity: Moves all extremities, no obvious deformities appreciated, no edema noted to the lower extremities Neuro: Awake and alert Psych: Behavior is normal, Mood is normal, Patient is cooperative and pleasant Vital Signs: 12:06 BP 142 / 72; Pulse 108; Resp 19; Temp 98.9; Pulse Ox 98% on R/A; Weight 77.11 kg; mb9 Height 5 ft. 4 in. ; Pain 8/10; 14:20 BP 123 / 64; Pulse 105; Resp 18; Pulse Ox 96% on R/A; mb9 12:06 Body Mass Index 29.18 (77.11 kg, 162.56 cm) 9 12:06 Pain Scale: Adult mb9 MDM: 12:11 Patient medically screened. [facility] 12:59 Differential Diagnosis: Other pneumonia, bronchitis. Data reviewed: vital signs, nurses [facility] notes. 16:34 Management of patient was discussed with the following: Dr. Luke Birmingham. I considered [facility] the following discharge prescriptions or medication management in the emergency department Medications were administered in the Emergency Department. See MAR. Independent interpretation of the following test(s) in the Emergency Department X-Ray: My interpretation is infiltrate noted. Historians other than the Patient: . Counseling: I had a detailed discussion with the patient and/or guardian regarding: the historical points, exam findings, and any diagnostic results supporting the discharge/admit diagnosis, lab results, radiology results, the need for outpatient follow up, to return to the emergency department if symptoms worsen or persist or if there are any questions or concerns that arise at home. ED course: Patient is alert and non toxic in appearance in the ED. No signs of sepsis. Non hypoxic. Advised to follow up with pcp and otherwise given strict return precautions. . 10/22 12:04 Order name: COVID-19/FLU A+B; Complete Time: 14:30 [facility] 10/22 12:04 Order name: Strep; Complete Time: 14:04 [facility] 10/22 14:05 Order name: Throat Culture [facility] 10/22 12:13 Order name: Chest Pa And Lat (2 Views) XRAY [facility] 10/22 13:29 Order name: CT Chest Wo Con; Complete Time: 14:38 [facility] Administered Medications: 13:42 Drug: Levalbuterol Inhalation 1.25 mg Route: Inhalation; 9 13:42 Drug: Ketorolac IM 30 mg Route: IM; Site: right deltoid; mb9 14:21 Follow up: Response: No adverse reaction 9 14:29 Drug: Tussionex Pennkinetic ER PO Suspension 5 ml Route: PO; mb9 14:51 Follow up: Response: No adverse reaction mb9 Disposition: 16:09 Co-signature as Attending Physician, Luke Birmingham MD I reviewed the patient's care rn provided by the Advanced Practice Provider and agree with the diagnosis and treatment plan. Disposition Summary: 10/22/22 14:48 Discharge Ordered Location: Home [facility] Condition: Stable jm Diagnosis - Community-acquired pneumonia [facility] Followup: [facility] - With: King Briceño MD - When: 2 - 3 days - Reason: Recheck today's complaints, Continuance of care, Re-evaluation by your physician Discharge Instructions: - Discharge Summary Sheet [facility] - Community-Acquired Pneumonia, Adult [facility] Forms: - Medication Reconciliation Form [facility] - Thank You Letter [facility] - Antibiotic Education [facility] - Prescription Opioid Use [facility] - Work release form mb9 Prescriptions: - cefdinir 300 mg Oral capsule - take 1 capsule by ORAL route 2 times per day for 10 days; 20 capsule; Refills: jmm 0, Product Selection Permitted - promethazine-DM 6.25-15 mg/5 mL Oral syrup - administer 10 milliliter by ORAL route every 4 hours As needed as needed for jmm cough; DNExceed 4 doses/24h; 200 milliliter; Refills: 0, Product Selection Permitted - Zithromax Z-Jose Manuel 250 mg Oral Tablet - take 1 tablet by ORAL route as directed for 5 days Day 1 - take two (2) tablets [facility] one time. Day 2, 3, 4 , 5 take one (1) tablet once daily.; 6 tablet; Refills: 0, Product Selection Permitted Signatures: Dispatcher [employer] EDAjay Chang PA PA [facility] Luke Birmingham MD MD rn Breneman, Mary Beth, RN RN mb9
--- NOTE | 2022-11-05 16:23 | ER ---
Nurse's Notes [facility] Name: Pily Morrissey Age: 52 yrs Sex: Female : 1970 Arrival Date: 10/22/2022 Time: 11:39 Bed 9 Private MD: Diagnosis: Community-acquired pneumonia Presentation: 10/22 12:06 Chief complaint: Patient states: "cough for 3 months. Fever started today. I also have mb9 pain in both ears, bodyaches, and my head hurts". Coronavirus screen: Vaccine status: Patient reports being unvaccinated. Ebola Screen: No symptoms or risks identified at this time. Initial Sepsis Screen: Does the patient meet any 2 criteria? No. Patient's initial sepsis screen is negative. Does the patient have a suspected source of infection? No. Patient's initial sepsis screen is negative. Risk Assessment: Do you want to hurt yourself or someone else? Patient reports no desire to harm self or others. Onset of symptoms was August 15, 2022. 12:06 Method Of Arrival: Wheelchair 9 12:06 Acuity: RJ 4 mb9 Triage Assessment: 12:09 General: Appears uncomfortable, ill, Behavior is anxious. Pain: Complains of pain in mb9 head, throat, and body Pain does not radiate. Pain currently is 8 out of 10 on a pain scale. Quality of pain is described as aching. Neuro: Tolentino Agitation-Sedation Scale (RASS): Level of Consciousness is awake, alert, obeys commands, Oriented to person, place, time, situation, Appropriate for age. Cardiovascular: Rhythm is sinus tachycardia. Respiratory: Reports cough that is non-productive, Airway is patent Respiratory effort is even, unlabored, Respiratory pattern is regular, symmetrical, pt coughing. GI: Patient currently denies diarrhea, nausea. Derm: Skin is pink, warm \\T\\ dry. Musculoskeletal: Range of motion: intact in all extremities. Historical: - Allergies: 12:08 Betadine; mb9 - Home Meds: 12:08 None [Active]; mb9 - PMHx: 12:08 SVT; mb9 - PSHx: 12:08 birthmark removal; hysterectomy; left arm; sinus; mb9 - Immunization history:: Adult Immunizations up to date. - Social history:: Smoking status: Patient denies any tobacco usage or history of. Screenin:08 [facility] ED Fall Risk Assessment (Adult) History of falling in the last 3 months, mb9 including since admission No falls in past 3 months (0 pts) Confusion or Disorientation No (0 pts) Intoxicated or Sedated No (0 pts) Impaired Gait Yes (1 pt) Mobility Assist Device Used No (0 pt) Altered Elimination No (0 pt) Score/Fall Risk Level 0 - 2 = Low Risk Oriented to surroundings, Maintained a safe environment, Educated pt \\T\\ family on fall prevention, incl call for assistance when getting out of bed. Abuse screen: Denies threats or abuse. Nutritional screening: No deficits noted. Tuberculosis screening: No symptoms or risk factors identified. Assessment: 12:11 Reassessment: see triage assessment. mb9 13:42 Reassessment: No changes from previously documented assessment. Patient and/or family mb9 updated on plan of care and expected duration. Pain level reassessed. Patient is alert, oriented x 3, equal unlabored respirations, skin warm/dry/pink. General: Appears. General: Appears uncomfortable. 14:21 Reassessment: pt states "I have a really bad headache and my cough isn't feeling any mb9 better." Tj GRIFFITHS, notified. New orders at this time. 15:01 Reassessment: No changes from previously documented assessment. Patient and/or family mb9 updated on plan of care and expected duration. Pain level reassessed. Patient is alert, oriented x 3, equal unlabored respirations, skin warm/dry/pink. Patient states feeling better. Patient states symptoms have improved. Vital Signs: 12:06 BP 142 / 72; Pulse 108; Resp 19; Temp 98.9; Pulse Ox 98% on R/A; Weight 77.11 kg; mb9 Height 5 ft. 4 in. ; Pain 8/10; 14:20 BP 123 / 64; Pulse 105; Resp 18; Pulse Ox 96% on R/A; mb9 12:06 Body Mass Index 29.18 (77.11 kg, 162.56 cm) [facility] 12:06 Pain Scale: Adult mb9 ED Course: 11:39 Patient arrived in ED. mr 11:44 Ajay Spencer PA is PHCP. [facility] 11:44 Luke Birmingham MD is Attending Physician. jmm 12:06 Cammie Shah, RN is Primary Nurse. mb9 12:08 Triage completed. mb9 12:08 Arm band placed on. mb9 12:09 Placed in gown. Bed in low position. Call light in reach. Side rails up X 1. Client mb9 placed on continuous cardiac and pulse oximetry monitoring. NIBP monitoring applied. media monitor on. 12:09 No provider procedures requiring assistance completed. mb9 13:04 Chest Pa And Lat (2 Views) XRAY In Process Unspecified. EDMS 13:42 COVID-19/FLU A+B Sent. mb9 13:42 Strep Sent. mb9 13:50 CT Chest Wo Con In Process Unspecified. EDMS 14:48 King Briceño MD is Referral Physician. jmm 15:02 IV discontinued. mb9 Administered Medications: 13:42 Drug: Levalbuterol Inhalation 1.25 mg Route: Inhalation; mb9 13:42 Drug: Ketorolac IM 30 mg Route: IM; Site: right deltoid; mb9 14:21 Follow up: Response: No adverse reaction mb9 14:29 Drug: Tussionex Pennkinetic ER PO Suspension 5 ml Route: PO; mb9 14:51 Follow up: Response: No adverse reaction mb9 Medication: 12:09 VIS not applicable for this client. mb9 Outcome: 14:48 Discharge ordered by . jmm 15:02 Discharged to home ambulatory. mb9 15:02 Condition: stable 15:02 Discharge instructions given to patient, Instructed on discharge instructions, follow up and referral plans. Demonstrated understanding of instructions, follow-up care, medications, Prescriptions given X 3. 15:02 Patient left the ED. mb9 Signatures: Dispatcher [employer] EDMS Ajay Spencer PA PA jmm Rivera, Mary mr Breneman, Mary Beth, RN RN mb9
== END 2022-10-22 15:02 | disposition home or self-care (01) ==
LOC: ER 11:36
DX: J18.9 Pneumonia, unspecified organism (principal); Z88.3 Allergy status to other anti-infective agents
CPT/HCPCS: 0240U; 71046; 71250; 87070; 87081; 96372; 99285; J7614

== ENCOUNTER 2023-05-04 14:12 | Emergency (ER) | payer BC ==
--- OUTSIDE RECORDS SUMMARY | 2023-05-04 14:18 | XMS REPORT | Continuity of Care Document ---
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 87359-6) Serum or plasma sodium measurement (moles/volume)2019-09-02 05:10:00 [...] Dioxide Level (test code = 25 mmol/L 22-29 8-9) [facility] Health[facility]um or plasma anion gap determination (moles/volume)2019-09-02 05:10:00 Test Item Value Reference Range Interpretation Comments Anion Gap (test code = 29769-3) 8 04-01 [facility] HealthSerum or plasma urea nitrogen measurement (mass/volume)2019-09-02 05:10:00 Test Item Value Reference Range Interpretation Comments Blood Urea Nitrogen (test code = 13 mg/dL 03-02 3094-0) [facility] or plasma creatinine measurement (mass/volume)2019-09-02 05:10:00 Test Item Value Reference Range Interpretation Comments Creatinine (test code = 2160-0) 0.6 mg/dL 0.6-1.1 [facility] HealthGFR estimate [id number] 05:10:00 Test Item Value Reference Range Interpretation Comments Estimat Glomerular Filtration Rate 114 73-125 (test code = 29995-4) [facility]um or plasma glucose measurement (mass/volume)2019-09-02 05:10:00 Test Item Value Reference Range Interpretation Comments Glucose Level (test code = 2345-7) 104 mg/dL 60-100 [facility] or plasma calcium measurement (mass/volume)2019-09-02 05:10:00 Test Item Value Reference Range Interpretation Comments Calcium Level (test code = 74312-9) 8.0 mg/dL 8.4-10.2 [facility] HealthSerum or plasma [...] (test code = 49 U/L 40-150 6768-6) [facility] HealthSerum or plasma sodium measurement (moles/volume)2019-09-02 05:10:00 [...] Interpretation Comments Anion Gap (test code = 68656-3) 8 Serum or plasma urea nitrogen measurement (mass/volume)2019-09-02 05:10:00 Test Item Value Reference Range Interpretation Comments Blood Urea Nitrogen (test code = 13 mg/dL 3094-0) Serum or plasma creatinine measurement (mass/volume)2019-09-02 05:10:00 Test Item Value Reference Range Interpretation Comments Creatinine (test code = 2160-0) 0.6 mg/dL GFR estimate [id number] 05:10:00 Test Item Value Reference Range Interpretation Comments Estimat Glomerular Filtration Rate 114 (test code = 81192-4) Serum or plasma glucose measurement (mass/volume)2019-09-02 05:10:00 Test Item Value Reference Range Interpretation Comments Glucose Level (test code = 2345-7) 104 mg/dL Serum or plasma calcium measurement (mass/volume)2019-09-02 05:10:00 Test Item Value Reference Range Interpretation Comments Calcium Level (test code = 78594-8) 8.0 mg/dL Serum or plasma total bilirubin measurement (mass/volume)2019-09-02 05:10:00 Test Item Value Reference Range Interpretation Comments Total Bilirubin (test code = 0.2 mg/dL 1974-) Serum or plasma aspartate aminotransferase measurement (enzymatic [...] Level (test code = 1.95 mg/dL 1.60-2.60 17080-2) [facility] or plasma magnesium measurement (mass/volume)2019-09-01 04:50:00 Test Item Value Reference Range Interpretation Comments Magnesium Level (test code = 1.95 mg/dL 48177-5) Capillary whole blood glucose measurement by glucometer (mass/volume)2019-08-31 05:22:00 Test Item Value Reference Range Interpretation Comments Bedside Glucose (test code = 78 mg/dL 60-100 85687-6) [facility] HealthCapillary whole blood glucose measurement by glucometer (mass/volume)2019-08-31 05:22:00 Test Item Value Reference Range Interpretation Comments Bedside Glucose (test code = 78 mg/dL 17680-2) Automated blood leukocyte count (number/volume)2019-08-31 05:05:00 Test [...] HealthAutomated erythrocyte mean corpuscular hemoglobin concentration measurement (mass/swd3050-63-24 05:05:00 Test Item Value Reference Range Interpretation Comments Mean Corpuscular Hemoglobin Concent 32.6 g/dL 33.0-37.0 (test code = 786-4) [facility] HealthAutomated erythrocyte distribution width ogdsn9654-66-53 05:05:00 Test Item Value Reference Range Interpretation Comments Red Cell Distribution Width (test code 12.8 % 10.7-14.5 = 788-0) [facility] HealthAutomated blood platelet count (count/volume)2019-08-31 05:05:00 Test Item Value Reference Range Interpretation Comments Platelet Count (test code = 162 10*3/uL 150-450 777-3) [facility] HealthAutomated blood platelet mean volume cqebcfnuaht0878-07-15 05:05:00 Test Item Value Reference Range Interpretation Comments Mean Platelet Volume (test code = 12.1 5.7-10.7 84214-4) [facility] HealthAutomated blood neutrophil count as percentage of total dpmlkkkbva4974-18-10 05:05:00 Test Item Value Reference Range Interpretation Comments Neutrophils (%) (Auto) (test code = 43 % 47-75 770-8) [facility] HealthAutomated blood immature granulocyte count as percentage of total irzqwxzcel0594-04-45 05:05:00 Test Item Value Reference Range Interpretation Comments Immature Granulocyte % (Auto) (test 1 % 0-0 code = 75436-8) [facility] HealthAutomated blood lymphocyte count as percentage of total wzbubywoqn0950-66-64 05:05:00 Test Item Value Reference Range Interpretation Comments Lymphocytes (%) (Auto) (test code = 43 % 25-44 736-9) [facility] HealthAutomated blood monocyte count as percentage of total leukocytes 2019-08-31 05:05:00 Test Item Value Reference Range Interpretation Comments Monocytes (%) (Auto) (test code = 8 % 3-10 5905-5) [facility] HealthAutomated blood eosinophil count as percentage of total rnyvfozcrr0789-96-87 05:05:00 Test Item Value Reference Range Interpretation Comments Eosinophils (%) (Auto) (test code = 4 % 0-7 713-8) [facility] HealthAutomated blood basophil count as percentage of total leukocytes 2019-08-31 05:05:00 Test Item Value Reference Range Interpretation Comments Basophils (%) (Auto) (test code = 1 % 0-1 706-2) [facility] HealthAutomated blood nucleated erythrocyte count as percentage of total rdalylkzbi5838-81-66 05:05:00 Test Item Value Reference Range Interpretation Comments Nucleated Red Blood Cells % (test code 0.0 % 0-0.2 = 33154-7) [facility] HealthAutomated blood neutrophil count (number/volume)2019-08-31 05:05:00 Test Item Value Reference Range Interpretation Comments Neutrophils # (Auto) (test code = 1.9 10*3/uL 1.3-6.7 751-8) [facility] HealthAutomated blood immature granulocyte count as percentage of total bjiuefovuw9902-82-44 05:05:00 Test Item Value Reference Range Interpretation Comments Immature Granulocyte # (Auto) 0.0 10*3/uL 0.0-0.0 (test code = 93261-7) [facility] HealthAutomated blood lymphocyte count (number/volume)2019-08-31 05:05:00 Test Item Value Reference Range Interpretation Comments Lymphocytes # (Auto) (test code = 1.9 10*3/uL 1.4-4.1 731-0) [facility] monocytes automated count (number/volume)2019-08-31 05:05:00 Test Item Value Reference Range Interpretation Comments Monocytes # (Auto) (test code = 0.4 10*3/uL 0-1.3 742-7) [facility] HealthAutomated blood eosinophil yueue0477-55-08 05:05:00 Test Item Value Reference Range Interpretation Comments Eosinophils # (Auto) (test code = 0.2 10*3/uL 0-0.8 711-2) [facility] HealthAutomated blood basophil count (number/volume)2019-08-31 05:05:00 Test Item Value Reference Range Interpretation Comments Basophils # (Auto) (test code = 0.0 10*3/uL 0-0.1 704-7) [facility] HealthAutomated blood nucleated erythrocyte count (count/volume) 2019-08-31 05:05:00 Test Item Value Reference Range Interpretation Comments Nucleated Red Blood Cells # 0.00 10*3/uL 0-0.01 (test code = 771-6) [facility] HealthService comment [id number] 05:05:00 Test Item Value Reference Range Interpretation Comments Manual Differential (test code = Not Ind 8265-1) [facility] HealthAutomated blood neutrophil count as percentage of total dhrsuyjllf4114-37-65 05:05:00 Test Item Value Reference Range Interpretation Comments Neutrophils (%) (Auto) (test code = 43 % 770-8) Automated blood immature granulocyte count as percentage of total leukocytes 2019-08-31 05:05:00 Test Item Value Reference Range Interpretation Comments Immature Granulocyte % (Auto) (test 1 % code = 35159-8) Automated blood lymphocyte count as percentage of total kpbszfcgzf7473-28-38 05:05:00 Test Item Value Reference Range Interpretation Comments Lymphocytes (%) (Auto) (test code = 43 % 736-9) Automated blood monocyte count as percentage of total knuecdbogt4409-32-77 05:05:00 Test Item Value Reference Range Interpretation Comments Monocytes (%) (Auto) (test code = 8 % 5905-5) Automated blood eosinophil count as percentage of total cvuimcqfgw4543-88-49 05:05:00 Test Item Value Reference Range Interpretation Comments Eosinophils (%) (Auto) (test code = 4 % 713-8) Automated blood basophil count as percentage of total zdtqsqsohw5082-24-82 05:05:00 Test Item Value Reference Range Interpretation Comments Basophils (%) (Auto) (test code = 1 % 706-2) Automated blood nucleated erythrocyte count as percentage of total leukocytes 2019-08-31 05:05:00 Test Item Value Reference Range Interpretation Comments Nucleated Red Blood Cells % (test code 0.0 % = 46900-4) Automated blood neutrophil count (number/volume)2019-08-31 05:05:00 Test Item Value Reference Range Interpretation Comments Neutrophils # (Auto) (test code = 1.9 10*3/uL 751-8) Automated blood immature granulocyte count as percentage of total leukocytes 2019-08-31 05:05:00 Test Item Value Reference Range Interpretation Comments Immature Granulocyte # (Auto) 0.0 10*3/uL (test code = 90293-4) Automated blood lymphocyte count (number/volume)2019-08-31 05:05:00 Test Item Value Reference Range Interpretation Comments Lymphocytes # (Auto) (test code = 1.9 10*3/uL 731-0) Blood monocytes automated count (number/volume)2019-08-31 05:05:00 Test Item Value Reference Range Interpretation Comments Monocytes # (Auto) (test code = 0.4 10*3/uL 742-7) Automated blood eosinophil hovfk0309-15-15 05:05:00 Test Item Value Reference Range Interpretation [...] 10*3/uL (test code = 771-6) Service comment [id number] 05:05:00 Test Item Value Reference Range Interpretation [...] % Automated erythrocyte mean corpuscular volume (MCV) kksltvrcohg9270-78-18 05:05:00 Test Item Value Reference Range Interpretation Comments Mean Corpuscular Volume (test code = 94 fL 787-2) Automated erythrocyte mean corpuscular hemoglobin (mass per erythrocyte) 2019-08-31 05:05:00 Test Item Value Reference Range Interpretation Comments Mean Corpuscular Hemoglobin (test 30.5 pg code = 785-6) Automated erythrocyte mean corpuscular hemoglobin concentration measurement (mass/hkw9530-64-09 05:05:00 Test Item Value Reference Range Interpretation Comments Mean Corpuscular Hemoglobin Concent 32.6 g/dL (test code = 786-4) Automated erythrocyte distribution width btkwc1718-73-74 05:05:00 Test Item Value Reference Range Interpretation Comments Red Cell Distribution Width (test code 12.8 % = 788-0) Automated blood platelet count (count/volume)2019-08-31 05:05:00 Test Item Value Reference Range Interpretation Comments Platelet Count (test code = 162 10*3/uL 777-3) Automated blood platelet mean volume uwdiqyhwxkn0454-60-99 05:05:00 Test Item Value Reference Range Interpretation Comments Mean Platelet Volume (test code = 12.1 21039-6) Serum or plasma total combined glucuronidated bilirubin and albumin bound bilirubin measurement (mass/volume)2019-08-30 12:48:00 Test Item Value Reference Range Interpretation Comments Direct Bilirubin (test code = 0.1 mg/dL 0.0-0.5 1968-02) [facility]um or plasma lipase measurement (enzymatic activity/volume) 2019-08-30 12:48:00 Test Item Value Reference Range Interpretation Comments Lipase (test code = 3040-3) 26 U/L 78 [facility] HealthSerum or plasma total combined glucuronidated bilirubin and albumin bound bilirubin measurement (mass/volume)2019-08-30 12:48:00 Test Item Value Reference Range Interpretation Comments Direct Bilirubin (test code = 0.1 mg/dL 1968-02) Serum or plasma lipase measurement (enzymatic activity/volume)2019-08-30 12:48:00 Test Item Value Reference Range Interpretation Comments Lipase (test code = 3040-3) 26 U/L HUMXTR2641-59-29 21:58:00 Test Item Value Reference Range Interpretation Comments LIPASE (test code = LIPA) 69 U/L 23-300 US PELVIS NON-OB RZJIVRHP7895-34-63 22:54:[address] [address]AAFIOJTRJU IMAGING REPORTPatient Name: JODI PRAJAPATI DDate of Service: 34-27-1298Mhq: 46 Sex: F Order #: [id number] Room: ERSDOB: 1970 X-Ray Number: [id number] Record Number: [id number] Hospital Number: [id number] Physician: VANE BEST -Ordering Physician: Shanna SOLIMAN pelvis complete 8:37 PMHistory: Right lower quadrant pain.Findings:The uterus has been removed.The right was not visualized.The left ovary is normal in size and echotexture without mass or cyst.There is no adnexal mass seen.There is no free fluid in the pelvis.Impression:Hysterectomy. Nonvisualization of right ovary.Otherwise unrem arkable study.Electronically Signed By: Kartik Rios M.D., 03/30/2017 10:51 PMLegally authenticated by ROSIE FOFANA 2017-03-30 22:51:46CT ABDOMEN/PELVIS [id number] 17:41:[address] [id number] IMAGING REPORTPatient Name: JODI PRAJAPAIT DDate of Service: 97-36-5024Qpf: 46 Sex: F Order #: [id number] [facility] 1970 [facility] Number: [id number] Record Number: [id number] Hospital Number: [id number] Physician: VIKTORIA RIVERAOrdering Physician: SOHAIL ELIAS abdomen [...] Ritter 2017-03-19 17:39:25CT HEAD W/O CONT 2017-02-04 17:27:[address], [place] [address]KLKGKSGOIG IMAGING REPORTPatient Name: JODI PRAJAPATI DDate of Service: 16-41-6627Two: 46 Sex: F Order #: 100 [facility] 1970 [facility] Number: [id number] Record Number: [id number] Hospital Number: [id number] Physician: HAROON RUELASOrdering Physician: WILL WELLS head [...] by NIRMAL TOLEDO 2017-02-04 17:25:30CT CHEST ANGIO W/PLFNLNFJ6895-55-44 05:41:00CT CHEST ANGIO W/CONTRASTDIAGNOSIS: Chest pain and [...] CT pulmonary angiography.US DUPLX LWR EXT.VEIN COMPRSS BBM-ACKT0658-64-03 16:32:32US DUPLX LWR EXT.VEIN COMPRSS UNI- LEFTHISTORY: Left-sided pain and swellingCOMPARISON: None availableTECHNIQUE: Real-time sonographic images of the left lower extremity deepveins obtained color and spectral Doppler analysis.FINDINGS: Complete compressibility with normal phasic and augmented flownoted throughout the sampled left lower extremity deep veins.IMPRESSION: No visualized left lower extremityDVT.XR CHEST SGL 1V, LHEHEYV6496-34-59 15:24:33XR CHEST SGL 1V, FRONTALHISTORY: Chest painCOMPARISON: 05/24/2016TECHNIQUE: Single AP view of the chest providedFINDINGS: Heart size and pulmonary vasculature within normal limits. Nonew opacity or acute pleural abnormality. Bony thorax intact wherevisualized.IMPRESSION: No active cardiopulmonary process.CT HEAD OR BRAIN WO TAHQAYRE4620-14-63 18:40:55CT HEAD OR BRAIN WO CONTRASTHISTORY: Injury, [...]
[2023-05-04 15:06] LABS: Specific Gravity 1.007 (1.005-1.030); Urine Bacteria <20 /HPF (<20); Urine Bilirubin NEGATIVE (Negative); Urine Blood 2+ (Negative); Urine Clarity Extremely Turbid (Clear); Urine Color Dark-Yellow (Yellow); Urine Glucose NEGATIVE (Negative); Urine Mucus Slight /HPF (None Seen); Urine Protein NEGATIVE (Negative); Urine Urobilinogen Normal (Normal)
[2023-05-04 15:21] LABS: Absolute Lymphocytes (CBC) 1.9 K/uL (0.7-4.9); Hematocrit 38.6 % (36.0-45.0); Lymphocytes % 21.4 % (15.3-44.8); MCV 90.4 fL (80-100); MPV 9.4 fL (7.6-11.3); Platelets 180 thou/uL (152-406); RBC Red Blood Cell Count 4.27 M/uL (3.86-4.86)
[2023-05-04 15:38] LABS: Albumin 3.8 g/dL (3.4-5.0); Bilirubin Total 0.3 mg/dL (0.2-1.0); Potassium 3.8 mEq/L (3.5-5.1); Protein, Total 7.5 g/dL (6.4-8.2)
[2023-05-04] MEDS ORDERED: ONDANSETRON 4 MG/2 ML VIAL ONE (15:51)
[2023-05-04] MEDS ORDERED: NA CHLORIDE 0.9% 1,000 ML ONE (15:51)
[2023-05-04] MEDS ORDERED: MORPHINE 4 MG/ML SYR ONE (15:51)
[2023-05-04] MEDS ORDERED: KETOROLAC 30 MG/ML INJ ONE (16:22)
[2023-05-04] MEDS ORDERED: CEFTRIAXONE 1000 MG/VIAL ONE (16:22)
--- NOTE | 2023-05-04 17:00 | RAD REPORT ---
EXAM DESCRIPTION: CT - Abdomen Pelvis Wo Contrast - 05/04/2023 4:05 pm CLINICAL HISTORY: ABD PAIN COMPARISON: No comparisons TECHNIQUE: Thin cut axial CT imaging of the abdomen and pelvis was performed without IV contrast. Mu ltiplanar reformats were generated and reviewed. All CT scans are performed using dose optimization technique as appropriate and may include automated exposure control or mA/KV adjustment according to patient size. FINDINGS: No suspicious findings in the lung bases. The liver, spleen, adrenal glands, and pancreas show no suspicious findings. Gallbladder was surgical ly removed. Symmetric renal contour, without suspicious parenchymal findings within limits of noncontrast techniq ue. No evidence of radiopaque calculi. No left hydroureteronephrosis. Mildly prominent caliber of the right ureter and renal pelvis, without adjacent fat stranding, nonspecific. No dilated bowel loops or bowel wall thickening. No free air, free fluid or inflammatory stranding. N o hernia, mass or bulky lymphadenopathy. The urinary bladder is suboptimally distended, limiting the patient. No suspicious bony findings. Deformity along the right pubic bone and superior and inferior right pub ic rami, suggestive of sequelae of remote fractures. IMPRESSION: No acute intra-abdominal process. Mild prominence of the right renal pelvis and ureter caliber, nonspecific, and could relate to a rece ntly passed stone. No evidence of obstructing calculi.
--- NOTE | 2023-05-04 17:35 | EDPHYS ---
Physician Documentation [facility] Name: Pily Morrissey Age: 52 yrs Sex: Female : 1970 Arrival Date: 05/04/2023 Time: 14:12 Bed 2 Private MD: ED Physician Mojgan Wesley HPI: 05/04 15:45 This 52 yrs old Female presents to ER via Ambulatory with complaints of Possible Kidney ci Stone. 15:45 Patient is a 52-year-old female with PMH SVT who presents with right flank pain that ci began yesterday. Pain is sharp, radiates into the right lower quadrant. Reports history of kidney stone many years ago. She has had dysuria, increased urinary frequency, hematuria since yesterday. She has been taking Azo with no improvement. She denies any fever, chills. She has had nausea but no vomiting.. Historical: - Allergies: 14:36 Betadine; ph - PMHx: 14:36 SVT; ph - PSHx: 14:36 birthmark removal; hysterectomy; left arm; sinus; Cholecystectomy; Appendectomy; ph - Immunization history:: Adult Immunizations unknown. - Social history:: Smoking status: Patient denies any tobacco usage or history of. ROS: 15:45 Constitutional: Negative for fever, chills, and weight loss, ci 15:45 Abdomen/GI: Positive for nausea, 15:45 Back: Positive for flank pain, on the right, 15:45 : Positive for urinary symptoms, hematuria, burning with urination, 15:45 All other systems are negative, Exam: 15:45 Constitutional: This is a well developed, well nourished patient who is awake, alert, ci and in no acute distress. Head/Face: Normocephalic, atraumatic. Eyes: Pupils equal round and reactive to light, extra-ocular motions intact. Lids and lashes normal. Conjunctiva and sclera are non-icteric and not injected. Cornea within normal limits. Periorbital areas with no swelling, redness, or edema. ENT: Nares patent. No nasal discharge, no septal abnormalities noted. Tympanic membranes are normal and external auditory canals are clear. Oropharynx with no redness, swelling, or masses, exudates, or evidence of obstruction, uvula midline. Mucous membranes moist. Neck: Trachea midline, no thyromegaly or masses palpated, and no cervical lymphadenopathy. Supple, full range of motion without nuchal rigidity, or vertebral point tenderness. No Meningismus. Vital Signs: 14:35 BP 144 / 92; Pulse 82; Resp 18; Temp 98.6; Pulse Ox 96% on R/A; Weight 77.11 kg; Height ph 5 ft. 4 in. ; 15:40 BP 139 / 82; Pulse 74; Resp 20 S; Pulse Ox 99% on R/A; aa5 16:15 BP 112 / 71; Pulse 66; Resp 16 S; Pulse Ox 95% on R/A; aa5 14:35 Body Mass Index 29.18 (77.11 kg, 162.56 cm) ph MDM: 14:45 Patient medically screened. ci 16:55 Awaiting: CT scan results, Awaiting radiology read. ED course: Patient presents for ci right flank pain. She is nontoxic-appearing, vital signs stable. Patient has had an appendectomy, cholecystectomy. Suspicion for nephrolithiasis, UTI, pyelonephritis. Will obtain imaging to rule out serious intra-abdominal pathology. Patient is UA is concerning for UTI, she was started on Rocephin. She was hydrated with IV fluids, given morphine and Toradol for pain with some improvement. . 17:16 Differential Diagnosis UTI, pyelonephritis, nephrolithiasis, sepsis. Data reviewed: vital signs, nurses notes, old medical records, Patient was seen in the ED February 2023 for chest pain/epigastric pain. lab test result(s), CBC, urinalysis, bacteruria, hematuria. Historians other than the Patient: Spouse/Significant Other: . Response to treatment: the patient's symptoms have mildly improved after treatment. ED course: UA consistent with UTI, possible pyelonephritis given left CVA tenderness. Patient was given 1 g Rocephin, will discharge with Keflex, Jay dose. CT negative for nephrolithiasis, questionable recently passed stone. Patient was hydrated with IV fluids, she was given morphine, Toradol for her symptoms. She continues to endorse some dysuria, will try Pyridium.. 17:40 I considered the following discharge prescriptions or medication management in the emergency department Medications were administered in the Emergency Department. See MAR. Counseling: I had a detailed discussion with the patient and/or guardian regarding the historical points, exam findings, and any diagnostic results supporting the discharge/admit diagnosis, lab results, radiology results, the need for outpatient follow up, to return to the emergency department if symptoms worsen or persist or if there are any questions or concerns that arise at home. ED course: Discharged home in stable condition with prescription for cefpodoxime and Pyridium. 05/04 14:40 Order name: Urine W/Microscopic (UAM); Complete Time: 15:51 em1 05/04 15:51 Interpretation: Abnormal: UWBC >50; UESTR 500; URBC 11-20. ci 05/04 14:57 Order name: CBC with Diff; Complete Time: 15:51 ci 05/04 14:57 Order name: CMP; Complete Time: 15:51 ci 05/04 14:57 Order name: Lipase; Complete Time: 15:51 ci 05/04 15:11 Order name: Urine Culture EDMS 05/04 15:32 Order name: CT Abd/Pelvis - Without Contrast; Complete Time: 17:08 ci 05/04 17:09 Interpretation: Per Radiologist's finding(s): IMPRESSION: No acute intra-abdominal ci process. Mild prominence of the right renal pelvis and ureter caliber, nonspecific, and could relate to a recently passed stone. No evidence of obstructing calculi. 05/04 14:57 Order name: IV Saline Lock; Complete Time: 15:15 ci 05/04 14:57 Order name: Labs collected and sent; Complete Time: 15:15 ci Administered Medications: 15:40 Drug: NS 0.9% IV 1000 ml IV at 1 bolus Per protocol; 1000 mL bolus Route: IV; Rate: 1 aa5 bolus; Site: right antecubital; 16:30 Follow up: IV Status: Completed infusion; IV Intake: 1000ml aa5 15:40 Drug: Ondansetron IVP 4 mg IVP once; over 2 minutes Route: IVP; Site: right antecubital;aa5 16:00 Follow up: Response: No adverse reaction aa5 15:42 Drug: morphine IVP or IV 4 mg IVP once over 4 mins Route: IVP; Infused Over: 4 mins; aa5 Site: right antecubital; 16:00 Follow up: Response: No adverse reaction; Pain is unchanged, physician notified aa5 16:17 Drug: TORadol - Ketorolac IVP 15 mg IVP once Route: IVP; Site: right antecubital; rs5 16:17 Drug: Rocephin IV 1 grams IV at per protocol once; Given slow IV push per pharmacy rs5 instructions Route: IV; Rate: per protocol; Site: right antecubital; 17:35 Drug: Phenazopyridine PO 200 mg PO once Route: PO; aa5 17:44 Follow up: Response: No adverse reaction; Medication administered at discharge. aa5 Disposition Summary: 05/04/23 17:34 Discharge Ordered Notes: Location: Home ci Condition: Stable ci Diagnosis - UTI/ Urinary tract infection, site not specified ci Followup: ci - With: Private Physician - When: 2 - 3 days - Reason: Recheck today's complaints, Continuance of care, Re-evaluation by your physician Discharge Instructions: - Discharge Summary Sheet ci - Urinary Tract Infection, Adult, [id number] ci - Antibiotic Medicine, Adult, [id number] ci Forms: - Medication Reconciliation Form ci - Thank You Letter ci - Antibiotic Education ci - Prescription Opioid Use ci - Patient Portal Instructions ci - Leadership Thank You Letter ci Prescriptions: - Pyridium 200 mg Oral Tablet - take 1 tablet ORAL route every 8 hours for 3 days; 9 tablet; Refills: 0, ci Product Selection Permitted - cefpodoxime 200 mg Oral tablet - take 1 tablet ORAL route every 12 hours with food; 20 tablet; Refills: 0, ci Product Selection Permitted Signatures: Dispatcher [employer] EDIN Lissett Ortiz RN RN aa5 Charisma Ramirez RN RN Amrik Mack RN RN rs5 Mojgan Wesley ci Corrections: (The following items were deleted from the chart) 15:18 14:58 Test, Urine+UC.LAB.BRZ ordered. EDIN EDMS 17:34 17:16 ED course: UA consistent with UTI. CT negative for nephrolithiasis, questionable ci recently passed stone. Patient was hydrated with IV fluids, she was given morphine, Toradol for her symptoms. She continues to endorse some dysuria, will try Pyridium.. ci
--- NOTE | 2023-05-04 17:35 | ER ---
Nurse's Notes [facility] Name: Pily Morrissey Age: 52 yrs Sex: Female : 1970 Arrival Date: 05/04/2023 Time: 14:12 Bed 2 Private MD: Diagnosis: UTI/ Urinary tract infection, site not specified Presentation: 05/04 14:35 Chief complaint: Patient states: Urinary frequency, pain w/ urination that started ph yesterday, today began having RLQ and R flank pain and noticed blood in urine. Coronavirus screen: Vaccine status: Patient reports being unvaccinated. Ebola Screen: No symptoms or risks identified at this time. Initial Sepsis Screen: Does the patient meet any 2 criteria? No. Patient's initial sepsis screen is negative. Does the patient have a suspected source of infection? Yes: Dysuria/Frequency/Urgency/UTI. Risk Assessment: Do you want to hurt yourself or someone else? Patient reports no desire to harm self or others. Onset of symptoms was May 04, 2023. 14:35 Method Of Arrival: Ambulatory ph 14:35 Acuity: RJ 3 ph Historical: - Allergies: 14:36 Betadine; ph - PMHx: 14:36 SVT; ph - PSHx: 14:36 birthmark removal; hysterectomy; left arm; sinus; Cholecystectomy; Appendectomy; ph - Immunization history:: Adult Immunizations unknown. - Social history:: Smoking status: Patient denies any tobacco usage or history of. Screenin:40 [facility] ED Fall Risk Assessment (Adult) History of falling in the last 3 months, ko1 including since admission No falls in past 3 months (0 pts) Confusion or Disorientation No (0 pts) Intoxicated or Sedated No (0 pts) Impaired Gait No (0 pts) Mobility Assist Device Used No (0 pt) Altered Elimination No (0 pt) Score/Fall Risk Level 0 - 2 = Low Risk Oriented to surroundings, Maintained a safe environment, Educated pt \T\ family on fall prevention, incl call for assistance when getting out of bed, Assessed \T\ reinforced patient's understanding of fall precautions, Provided non-skid footwear, Hourly rounding (assess needs \T\ fall precautionary measures) done, Used ambulatory aids as needed (educated on \T\ assisted with), Used gait belt as appropriate. Abuse screen: Denies threats or abuse. Denies injuries from another. Nutritional screening: No deficits noted. Tuberculosis screening: No symptoms or risk factors identified. Assessment: 15:40 Reassessment: Patient is alert, oriented x 3, equal unlabored respirations, skin aa5 warm/dry/pink. General: Appears uncomfortable. 15:40 Pain: Complains of pain in left low back and right low back. GI: Bowel sounds present X ko1 4 quads. Abd is soft and non tender X 4 quads. 16:00 Reassessment: Patient is alert, oriented x 3, equal unlabored respirations, skin aa5 warm/dry/pink. Patient states symptoms have not improved. MD was notified. . 17:44 Reassessment: Patient is alert, oriented x 3, equal unlabored respirations, skin aa5 warm/dry/pink. Vital Signs: 14:35 BP 144 / 92; Pulse 82; Resp 18; Temp 98.6; Pulse Ox 96% on R/A; Weight 77.11 kg; Height ph 5 ft. 4 in. ; 15:40 BP 139 / 82; Pulse 74; Resp 20 S; Pulse Ox 99% on R/A; aa5 16:15 BP 112 / 71; Pulse 66; Resp 16 S; Pulse Ox 95% on R/A; aa5 14:35 Body Mass Index 29.18 (77.11 kg, 162.56 cm) ph ED Course: 14:16 Patient arrived in ED. cc5 14:36 Triage completed. ph 14:36 Arm band placed on. ph 14:45 Mojgan Wesley is Attending Physician. ci 14:46 Karina Ospina, DONAVON is Primary Nurse. ko1 14:46 Urine W/Microscopic (UAM) Sent. ko1 15:15 Inserted saline lock: 22 gauge in right antecubital area, using aseptic technique. ds4 Blood collected. 15:40 Patient has correct armband on for positive identification. Bed in low position. Call ko1 light in reach. Provided Education on: na. Pulse ox on. NIBP on. Door closed. Noise minimized. 16:07 CT Abd/Pelvis - Without Contrast In Process Unspecified. EDMS 17:38 No provider procedures requiring assistance completed. IV discontinued, intact, ko1 bleeding controlled, No redness/swelling at site. Pressure dressing applied. Administered Medications: 15:40 Drug: NS 0.9% IV 1000 ml IV at 1 bolus Per protocol; 1000 mL bolus Route: IV; Rate: 1 aa5 bolus; Site: right antecubital; 16:30 Follow up: IV Status: Completed infusion; IV Intake: 1000ml aa5 15:40 Drug: Ondansetron IVP 4 mg IVP once; over 2 minutes Route: IVP; Site: right antecubital;aa5 16:00 Follow up: Response: No adverse reaction aa5 15:42 Drug: morphine IVP or IV 4 mg IVP once over 4 mins Route: IVP; Infused Over: 4 mins; aa5 Site: right antecubital; 16:00 Follow up: Response: No adverse reaction; Pain is unchanged, physician notified aa5 16:17 Drug: TORadol - Ketorolac IVP 15 mg IVP once Route: IVP; Site: right antecubital; rs5 16:17 Drug: Rocephin IV 1 grams IV at per protocol once; Given slow IV push per pharmacy rs5 instructions Route: IV; Rate: per protocol; Site: right antecubital; 17:35 Drug: Phenazopyridine PO 200 mg PO once Route: PO; aa5 17:44 Follow up: Response: No adverse reaction; Medication administered at discharge. aa5 Medication: 17:38 VIS not applicable for this client. ko1 Intake: 16:30 IV: 1000ml; Total: 1000ml. aa5 Outcome: 17:34 Discharge ordered by MD. ci 17:44 Discharged to home ambulatory, with family, aa5 17:44 Condition: stable 17:44 Discharge instructions given to patient, Instructed on discharge instructions, follow up and referral plans. medication usage, Demonstrated understanding of instructions, follow-up care, medications, Prescriptions given X 2, 17:45 Patient left the ED. aa5 Signatures: Dispatcher [employer] EDMS Lissett Ortiz RN RN aa5 Hubert Amezquita ds4 Charisma Ramirez RN Karina Gandhi ph, RN RN ko1 Amrik Mack RN RN rs5 Ly Beasley Mojgan Alexander ci Corrections: (The following items were deleted from the chart) 15:45 15:44 Ondansetron IVP 4 mg IVP in right antecubital aa5 aa5 16:16 16:00 Reassessment: Patient is alert, oriented x 3, equal unlabored respirations, skin aa5 warm/dry/pink. Patient states symptoms have not improved. aa5
[2023-05-04] MEDS ORDERED: PHENAZOPYRIDINE 100MG TAB PO ONE (17:44)
[2023-05-04 18:00] VITALS: TEMP 98.6
[2023-05-04 18:02] VITALS: BP 139/82; O2SAT 99
== END 2023-05-04 17:45 | disposition home or self-care (01) ==
LOC: ER 14:12
DX: N39.0 Urinary tract infection, site not specified (principal); Z88.3 Allergy status to other anti-infective agents
CPT/HCPCS: 87088; 85025; 81001; 87086; 36415; 83690; 80053; 74176; J2405; J7030; J0696

== ENCOUNTER → 2023-08-20 | Emergency (ER) | payer BC ==
[~2023-08-20] MED LIST: HYDROMORPHONE HCL 1 MG/ML INJ ONE; MORPHINE 4 MG/ML SYR ONE; NA CHLORIDE 0.9% 1,000 ML ONE; ONDANSETRON 4 MG/2 ML VIAL ONE
--- OUTSIDE RECORDS SUMMARY | 2023-08-20 04:43 | XMS REPORT | Continuity of Care Document ---
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 Radiologic examination, abdo men; 2 views 2019-09-01 00:00:00 [facility] Esophagogastroduodenoscopy w ith closed biopsy 2019-08-31 00:00:00 [facility] Diagnostic esophagogastroduodenoscopy (EGD) with specimen collection 2019-08-31 00:00:00 [facility] X-RAY EXAM OF FOOT 2019-08-13 00:00:00 [facility] X-ray of foot, two views 2019-08-13 00:00:00 [facility] Care Planned Activity Planned Date Details Comments Source Future Scheduled Test Streptococ cus pyogenes culture [code = 72312-0] [facility] Future Scheduled Test Serum or p lasma magnesium measurement (mass/volume) [code = 16590-8] [facility]IS Goal Patient referral [code = 6859174 ] [facility] HCIS Goal Patient referral [code = 7961370 ] [facility]IS Instructions Nausea and Vomit ing, Adult [facility]IS Instructions Stomach Ache and Stomach Upset [facility]IS Encounters Start Date/Time End Date/Time Encounter Type Admission Type Attending [facility] Facility Care Department Encounter ID Source 2021-06-16 12:30:00 Inpatient TANA TERESA CURT ELIAS [id number] [facility] 2021-06-06 05:50:09 Outpatient CURT ELIAS [id number] [facility] 2021-06-05 23:11:36 Outpatient CURT ELIAS [id number] [facility] 2021-06-05 21:01:56 Outpatient CURT ELIAS [id number] [facility] 2021-06-05 19:41:19 Outpatient [facility] CURT [id number] [facility] 2021-06-05 19:18:13 Outpatient [facility] CURT [id number] [facility] 2021-06-05 19:15:23 Outpatient CURT ELIAS [id number] [facility] 2021-06-05 18:37:28 Outpatient [facility] CURT [id number] [facility] 2023-09-19 08:40:00 2023-09-19 08:40:00 Outpatient NEHAL DELA CRUZ [facility] [id number] [facility] 2023-08-22 13:00:00 2023-08-22 13:00:00 Outpatient NEHAL DELA CRUZ [facility] [id number] [facility] 2023-07-19 09:53:23 2023-07-19 23:59:00 Outpatient R NEHAL BUSTAMANTE [facility] [id number] [facility] 2023-07-19 09:53:23 2023-07-19 23:59:00 Hospital Encounter Dianna [facility] CHRISTOPHER?[facility] 1.2.840.114 350.1.13.10 4.2.7.2.686 [id number] [facility] 2023-07-19 08:40:00 2023-07-19 09:46:34 Office Visit Dianna [facility] CHRISTOPHER?[facility] 1.2.840.114 350.1.13.10 4.2.7.2.686 [id number] [facility] 2023-07-19 00:00:00 2023-07-19 00:00:00 Telephone Dianna [facility] CHRISTOPHER?[facility] 1.2.840.114 350.1.13.10 4.2.7.2.686 [id number] [facility] 2023-06-23 08:40:00 2023-06-23 08:40:00 Outpatient R NEHAL BUSTAMANTE [facility] [id number] [facility] 2023-06-14 00:00:00 2023-06-14 00:00:00 Outpatient GC_GCBZW_Ka diyala_S PRIV PRIV [id number] [facility] 2023-06-13 00:00:00 2023-06-13 00:00:00 Outpatient GC_GCBZW_Ka diyala_S PRIV PRIV [id number] [facility] 2023-05-09 08:40:00 2023-05-09 08:40:00 Outpatient R SUKUMAR BUSTAMANTEINE DIANNA [facility] [id number] [facility] 2023-04-14 08:40:00 2023-04-14 08:40:00 Outpatient R KLESylviaNEHALSylviaNEHAL [facility] [id number] [facility] 2022-12-03 00:00:00 2022-12-03 00:00:00 Orders Only Doctor Unassigned, Intercourse [facility] 1..840.114 350.1.13.10 4.2.7.2.686 [id number] [facility] 2022-05-07 00:00:00 2022-05-07 00:00:00 Outpatient PREZAS, CLIFF HATTIE COWART [id number] [facility] 2022-05-04 00:00:00 2022-05-04 00:00:00 Outpatient PREZAS, CLIFF COWART [id number] [facility] 2022-05-04 00:00:00 2022-05-04 00:00:00 Outpatient PREZAS, CLIFF COWART [id number] [facility] 2022-05-03 00:00:00 2022-05-03 00:00:00 Outpatient PREZAS, CLIFFMARK ANTHONY COWART [id number] [facility] 2022-05-03 00:00:00 2022-05-03 00:00:00 Outpatient PREZAS, CLIFF HATTIE COWART [id number] [facility] 2022-05-03 00:00:00 2022-05-03 00:00:00 Outpatient PREZAS, CLIFF COWART [id number] [facility] 2022-04-30 11:35:00 2022-04-30 11:35:00 Outpatient LAB90 HATTIE COWART [id number] [facility] 2022-04-30 00:00:00 2022-04-30 00:00:00 Outpatient PREZAS CLIFF COWART [id number] [facility] 2022-04-27 13:30:00 2022-04-27 14:00:00 Office Visit [place] Cliff Frias 1..840.114 350.1.13.13 1.2.7.2.686 [id number] [facility]22-03-10 00:00:00 2022-03-10 00:00:00 Outpatient KB SELLERS HATTIE [id number] [facility] 2022-03-09 13:30:00 2022-03-09 13:30:00 Outpatient KB SELLERS HATTIE [id number] [facility] 2022-03-08 13:30:00 2022-03-08 13:30:00 Outpatient KB SELLERS HATTIE [id number] [facility] 2022-03-08 13:30:00 2022-03-08 13:30:00 Outpatient FLORY QUIÑONES [facility] [id number] [facility] 2022-03-08 11:30:00 2022-03-08 11:30:00 Outpatient LAB90 HATTIE MCKINNEYSEY [id number] [facility] 2022-03-08 10:45:00 2022-03-08 11:15:00 Office Visit MarlonKb floyd [facility] [place] 1.2.840.114 350.1.13.13 1.2.7.2.686 [id number] [facility] 2021-12-22 11:00:00 2021-12-22 11:00:00 Outpatient KAMI TORRE PATRICK [facility] [id number] [facility] 2021-11-19 10:15:00 2021-11-19 10:15:00 Outpatient LADI MCGILL [facility] [id number] [facility] 2021-11-19 00:00:00 2021-11-19 00:00:00 Case Management La Armando [facility] YARI [facility] 1..840.114 350.1.13.10 4.2.7.2.686 [id number] [facility] 2021-11-18 00:00:00 2021-11-18 00:00:00 Patient Secure Msg Doctor Unassigned, Intercourse [facility] 1..840.114 350.1.13.10 4.2.7.2.686 [id number] [facility] 2021-11-17 09:30:00 2021-11-17 09:30:00 Outpatient R [facility] [id number] [facility] 2021-11-17 09:30:00 2021-11-17 09:30:00 Outpatient R LADI BAH [facility] [id number] [facility] 2021-11-13 13:00:00 2021-11-13 13:00:00 Outpatient LADI BAH [facility] [id number] [facility] 2021-11-10 15:15:00 2021-11-10 16:00:00 Ancillary Visit La Armando Craig L [place] [address]..840.114 350.1.13.10 4.2.7.2.686 [id number] [facility] 2021-11-10 14:30:00 2021-11-10 15:47:51 Outpatient R LADI BAH [facility] [id number] [facility] 2021-11-10 14:30:00 2021-11-10 15:47:51 Ancillary Visit Luis Enrique Lauren Craig L [place] [address]..840.114 350.1.13.10 4.2.7.2.686 [id number] [facility] 2021-11-10 14:30:00 2021-11-10 14:30:00 Outpatient R [facility] [id number] [facility] 2021-11-06 09:30:00 2021-11-06 10:00:00 Office Visit Nell Patel [facility] CHRISTOPHER?[facility] [place] [facility] 1..840.114 350.1.13.10 4.2.7.2.686 [id number] [facility] 2021-11-06 09:30:00 2021-11-06 09:30:00 Outpatient NELL BLANCHARD [facility] [id number] [facility] 2021-11-06 09:30:00 2021-11-06 09:30:00 Outpatient NELL BLANCHARD [facility] [id number] [facility] 2021-11-05 15:30:00 2021-11-05 16:26:10 Outpatient LADI MCGILL [facility] [id number] [facility] 2021-11-05 15:30:00 2021-11-05 16:26:10 Ancillary Visit Luis Enrique Lauren Craig L [facility] 1..840.114 350.1.13.10 4.2.7.2.686 [id number] [facility] 2021-11-03 15:15:00 2021-11-03 17:21:48 Outpatient LADI MCGILL [facility] [id number] [facility] 2021-11-03 15:15:00 2021-11-03 17:21:48 Ancillary Visit Letitia Osborne Craig L [facility] 1..840.114 350.1.13.10 4.2.7.2.686 [id number] [facility] 2021-10-27 00:00:00 2021-10-27 00:00:00 Patient Secure Msg Doctor Unassigned, Intercourse [facility] .840.114 350.1.13.10 4.2.7.2.686 [id number] [facility] 2021-10-19 09:30:00 2021-10-19 10:47:29 Outpatient FLORY QUIÑONES [facility] [id number] [facility] 2021-08-26 00:00:00 2021-08-26 00:00:00 Letter (Out) Nell Galvan [facility] 1.2.840.114 350.1.13.10 4.2.7.2.686 [id number] [facility] 2021-08-12 00:00:00 2021-08-12 00:00:00 Orders Only Doctor Unassigned, Intercourse [facility] 1.2.840.114 350.1.13.10 4.2.7.2.686 [id number] [facility] 2021-04-16 12:08:00 2021-04-16 12:08:00 Outpatient TANA TERESA [id number] [address] [place] [address] 2020-11-07 11:25:00 2020-11-08 13:59:00 Emergency Braden Rivas [facility] 1.2.840.114 350.1.13.10 4.2.7.2.686 [id number] [facility] 2020-11-07 11:25:00 2020-11-08 13:59:00 Emergency Braden Rivas [facility] 1.2.840.114 350.1.13.10 4.2.7.2.686 [id number] 2020-11-07 11:21:00 2020-11-07 11:21:00 Emergency X [facility] ERT [id number] [facility] 2020-11-07 00:00:00 2020-11-07 00:00:00 Orders Only Doctor Unassigned, Intercourse [facility] 1.2.840.114 350.1.13.10 4.2.7.2.686 [id number] [facility] 2020-11-07 00:00:00 2020-11-07 00:00:00 Orders Only Doctor Unassigned, Intercourse [facility] 1.2.840.114 350.1.13.10 4.2.7.2.686 [id number] 2020-10-30 03:51:00 2020-10-30 03:51:00 Emergency CHAPIN ENNISER [id number] [facility] 2020-10-05 14:42:00 2020-10-05 17:26:00 Emergency Braden Rivas [facility] 1.2.840.114 350.1.13.10 4.2.7.2.686 [id number] [facility] 2020-10-05 14:42:00 2020-10-05 17:26:00 [facility] 1.2.840.114 350.1.13.10 4.2.7.2.686 [id number] 2020-10-05 14:28:00 2020-10-05 14:28:00 Emergency X [facility] ERT [id number] [facility] 2020-05-18 12:15:00 2020-05-18 14:15:00 Departed Emergency Room TAM KIDDZOIE [facility] [id number] [facility] 2020-05-18 12:15:00 2020-05-18 12:15:00 Departed Emergency Room ER UNASSIGNED, ED CURT ELIAS [id number] [address] [place] [address] 2020-01-11 11:00:00 2020-01-11 11:21:00 Departed Emergency Room TAM MISHRA [facility] [id number] [facility] 2020-01-11 10:56:00 2020-01-11 11:21:00 Departed Emergency Room ALEXEY DEVINE [id number] [address] [place] [address] 2019-12-04 09:11:00 2019-12-04 09:11:00 Outpatient URI MORALES [id number] [facility] 2019-09-01 18:00:00 2019-09-02 14:00:00 Discharged Inpatient TAM Wood [id number] [facility]IS 2019-09-01 18:00:00 2019-09-02 14:00:00 Discharged Inpatient UR AI [facility] [id number] [facility] 2019-08-13 10:44:00 2019-08-13 10:44:00 [id number] [facility] 10:44:00 2019-08-13 10:44:00 Registered Clinic TANA TERESA [id number] [facility] 2019-03-13 07:06:00 2019-03-13 09:02:00 Emergency ER UQIN KRUGER [id number] 22 [facility] 2018-08-22 20:34:00 2018-08-22 21:26:00 Emergency ER FANG PICKETT [id number] [facility] 2017-09-21 22:04:00 2017-09-22 01:13:00 Emergency ER FANG PICKETT [id number] [facility] 2017-08-01 10:54:00 2017-08-01 10:54:00 Outpatient TANA TERESA [id number] [facility] 2017-06-23 07:52:00 2017-06-23 07:52:00 Outpatient URI CHATTERJEE [id number] [facility] 2017-06-19 15:05:00 2017-06-19 17:24:00 Emergency ER SHANNON QUACH [id number] [facility] 2017-06-10 08:04:00 2017-06-10 08:04:00 Outpatient TANA TERESA [id number] [facility] 2017-03-17 07:40:00 2017-03-17 10:05:00 Emergency ER SARWAT HALE CURT ELIAS [id number] [facility] 2017-01-15 14:30:00 2017-01-15 14:30:00 Emergency E [facility] [id number] [facility] 2016-12-29 17:31:00 2016-12-29 17:31:00 Emergency E [facility] [id number] [facility] 2016-06-14 10:26:00 2016-06-14 11:59:00 Emergency ER NATA FELIZ CURT ELIAS [id number] [facility] 2016-04-09 14:11:00 2016-04-09 15:12:00 Emergency ER CAMRYN MORA CURT ELIAS [id number] [facility] 2015-11-18 21:14:00 2015-11-19 00:29:00 Emergency ER KALEY TOVAR CURT ELIAS [id number] [facility] Results Test Description Test Time Test Comments Results Result Co mments Source [id number] 04:39:00* Test Item Value Reference Range Interpretation Comme nts GLUCOSE (test code = URGLU) NEGATIVE MG/DL NEG-100 BILIRUBN (test code = URBILI) NEGATIVE NEGATIVE KETONE (test code = URKET) NEGATIVE MG/DL NEGATIVE BLOOD (test code = URBLD) MODERATE UR PH (test code = URPH) 5.0 5.0-7.5 PROTEIN (test code = URPRO) 100 MG/DL NEGATIVE NITRITES (test code = URNIT) NEGATIVE NEGATIVE UROBILINGEN (test code = URURO) 1.0 EU/DL 0.2-1.0 LEUKOCYT (test code = URLEU) SMALL NEGATIVE UA COLOR (test code = UA COLOR) YELLOW YELLOW CLARITY (test code = CLARITY) CLOUDY CLEAR SP GRAV (test code = URSPGRAV) 1.024 1.000-1.025 UAMICRO (test code = UAMICRO) YES WBC (test code = URWBC) 274 /HPF 0-5 H RBC (test code = URRBC) 11 /HPF 0-2 H CASTS (test code = CAST) 2 /LPF 0-3 UR EPI (test code = EPI) 21 /LPF BACTERIA (test code = BACTERIA) NEGATIVE NONE WHOLE BLOOD [id number] 04:35:00* Test Item Value Reference Range Interpretation Comme nts WHOLE BLOOD GLUCOSE (test code = POC GLU) 124 MG/DL 70-99 H Fasting glucose normal <100 MG/DL- [employer] recommendation Throat Streptococcus pyogenes antigen [id number] 13:00:00* Test Item Value Reference Range Interpretation Comme nts Group A Streptococcus Screen (test code = 41050-1) Negative Negative [facility] A antigen detection in [id number] 13:00:00* Test Item Value Reference Range Interpretation Comme nts Influenza Type A Antigen (te st code = 93508-1) Negative Negative [facility] virus B antigen detection in [id number] 13:00:00* Test Item Value Reference Range Interpretation Comme nts Influenza Type B Antigen (te st code = 82376-1) Negative Negative [facility] Health[facility]ro[facility] Streptococcus pyogenes antigen [id number] 13:00:00* Test Item Value Reference Range Interpretation Comme nts Group A Streptococcus Screen (test code = 19976-7) Negative Influenza virus A antigen detection in [id number] 13:00:00* Test Item Value Reference Range Interpretation Comme nts Influenza Type A Antigen (te st code = 42337-1) Negative Influenza virus B antigen detection in [id number] 13:00:00* Test Item Value Reference Range Interpretation Comme nts Influenza Type B Antigen (te st code = 55055-9) Negative Serum or plasma sodium measurement (moles/volume)2019-09-02 05:10:00* Test Item Value Reference Range Interpretation Comme nts Sodium Level (test code = 2951-2) 138 mmol/L 136-145 [facility] or plasma potassium measurement (moles/volume)2019-09-02 05:10:00* Test Item Value Reference Range Interpretation Comme nts Potassium Level (test code = 2823-3) 3.8 mmol/L 3.5-5.1 [facility] or plasma chloride measurement (moles/volume)2019-09-02 05:10:00* Test Item Value Reference Range Interpretation Comme nts Chloride Level (test code = 2075-0) 109 mmol/L 98-107 [facility] or plasma total carbon dioxide measurement (moles/volume) 2019-09-02 05:10:00* Test Item Value Reference Range Interpretation Comme nts Carbon Dioxide Level (test c ode = 2027-) 25 mmol/L 22-29 [facility] or plasma anion gap determination (moles/volume)2019-09-02 05:10:00* Test Item Value Reference Range Interpretation Comme nts Anion Gap (test code = 23633-4) 8 8-18 [facility] or plasma urea nitrogen measurement (mass/volume)2019-09-02 05:10:00* Test Item Value Reference Range Interpretation Comme nts Blood Urea Nitrogen (test co de = 3094-0) 13 mg/dL 7-19 [facility] or plasma creatinine measurement (mass/volume)2019-09-02 05:10:00* Test Item Value Reference Range Interpretation Comme nts Creatinine (test code = 2160-0) 0.6 mg/dL 0.6-1.1 [facility] [id number] 05:10:00* Test Item Value Reference Range Interpretation Comme nts Estimat Glomerular Filtratio n Rate (test code = 07260-4) 114 73-125 [facility] or plasma glucose measurement (mass/volume)2019-09-02 05:10:00* Test Item Value Reference Range Interpretation Comme nts Glucose Level (test code = 2345-7) 104 mg/dL 60-100 [facility] or plasma calcium measurement (mass/volume)2019-09-02 05:10:00* Test Item Value Reference Range Interpretation Comme nts Calcium Level (test code = 09221-6) 8.0 mg/dL 8.4-10.2 [facility] or plasma total bilirubin measurement (mass/volume) 2019-09-02 05:10:00* Test Item Value Reference Range Interpretation Comme nts Total Bilirubin (test code = 1975-2) 0.2 mg/dL 0.2-1.2 [facility] or plasma aspartate aminotransferase measurement (enzymatic activity/volume)2019-09-02 05:10:00* Test Item Value Reference Range Interpretation Comme nts Aspartate Amino Transf (AST/ SGOT) (test code = 1920-8) 12 U/L 5-34 [facility] or plasma alanine aminotransferase measurement (enzymatic activity/volume)2019-09-02 05:10:00* Test Item Value Reference Range Interpretation Comme nts Alanine Aminotransferase (AL T/SGPT) (test code = 1742-6) 8 U/L 0-55 [facility] or plasma protein measurement (mass/volume)2019-09-02 05:10:00* Test Item Value Reference Range Interpretation Comme nts Total Protein (test code = 2885-2) 5.8 g/dL 6.4-8.3 [facility] or plasma albumin measurement (mass/volume)2019-09-02 05:10:00* Test Item Value Reference Range Interpretation Comme nts Albumin (test code = 1751-7) 3.4 g/dL 3.5-5.0 [facility] or plasma alkaline phosphatase measurement (enzymatic activity/volume)2019-09-02 05:10:00* Test Item Value Reference Range Interpretation Comme nts Alkaline Phosphatase (test c ode = 6768-6) 49 U/L 40-150 [facility] plasma sodium measurement (moles/volume)2019-09-02 05:10:00* Test Item Value Reference Range Interpretation Comme nts Sodium Level (test code = 2951-2) 138 mmol/L Serum or plasma potassium measurement (moles/volume)2019-09-02 05:10:00* Test Item Value Reference Range Interpretation Comme nts Potassium Level (test code = 2823-3) 3.8 mmol/L Serum or plasma chloride measurement (moles/volume)2019-09-02 05:10:00* Test Item Value Reference Range Interpretation Comme nts Chloride Level (test code = 2075-0) 109 mmol/L Serum or plasma total carbon dioxide measurement (moles/volume)2019-09-02 05:10:00* Test Item Value Reference Range Interpretation Comme nts Carbon Dioxide Level (test c ode = 2028-9) 25 mmol/L Serum or plasma anion gap determination (moles/volume)2019-09-02 05:10:00* Test Item Value Reference Range Interpretation Comme nts Anion Gap (test code = 82432-0) 8 Serum or plasma urea nitrogen measurement (mass/volume)2019-09-02 05:10:00* Test Item Value Reference Range Interpretation Comme nts Blood Urea Nitrogen (test co de = 3094-0) 13 mg/dL Serum or plasma creatinine measurement (mass/volume)2019-09-02 05:10:00* Test Item Value Reference Range Interpretation Comme nts Creatinine (test code = 2160-0) 0.6 mg/dL GFR estimate [id number] 05:10:00* Test Item Value Reference Range Interpretation Comme nts Estimat Glomerular Filtratio n Rate (test code = 12391-2) 114 Serum or plasma glucose measurement (mass/volume)2019-09-02 05:10:00* Test Item Value Reference Range Interpretation Comme nts Glucose Level (test code = 2345-7) 104 mg/dL Serum or plasma calcium measurement (mass/volume)2019-09-02 05:10:00* Test Item Value Reference Range Interpretation Comme nts Calcium Level (test code = 16113-8) 8.0 mg/dL Serum or plasma total bilirubin measurement (mass/volume)2019-09-02 05:10:00* Test Item Value Reference Range Interpretation Comme nts Total Bilirubin (test code = 1975-2) 0.2 mg/dL Serum or plasma aspartate aminotransferase measurement (enzymatic activity/volume)2019-09-02 05:10:00* Test Item Value Reference Range Interpretation Comme nts Aspartate Amino Transf (AST/ SGOT) (test code = 1920-8) 12 U/L Serum or plasma alanine aminotransferase measurement (enzymatic activity/volume) 2019-09-02 05:10:00* Test Item Value Reference Range Interpretation Comme nts Alanine Aminotransferase (AL T/SGPT) (test code = 1742-6) 8 U/L Serum or plasma protein measurement (mass/volume)2019-09-02 05:10:00* Test Item Value Reference Range Interpretation Comme nts Total Protein (test code = 2885-2) 5.8 g/dL Serum or plasma albumin measurement (mass/volume)2019-09-02 05:10:00* Test Item Value Reference Range Interpretation Comme nts Albumin (test code = 1751-7) 3.4 g/dL Serum or plasma alkaline phosphatase measurement (enzymatic activity/volume) 2019-09-02 05:10:00* Test Item Value Reference Range Interpretation Comme nts Alkaline Phosphatase (test c ode = 6768-6) 49 U/L Serum or plasma magnesium measurement (mass/volume)2019-09-01 04:50:00* Test Item Value Reference Range Interpretation Comme nts Magnesium Level (test code = 25179-5) 1.95 mg/dL 1.60-2.60 [facility] or plasma magnesium measurement (mass/volume)2019-09-01 04:50:00* Test Item Value Reference Range Interpretation Comme nts Magnesium Level (test code = 30387-0) 1.95 mg/dL Capillary whole blood glucose measurement by glucometer (mass/volume)2019-08-31 05:22:00* Test Item Value Reference Range Interpretation Comme [facility] Bedside Glucose (test code = 91523-7) 78 mg/dL 60-100 [facility] HealthCapillary whole blood glucose measurement by glucometer (mass/volume)2019-08-31 05:22:00* Test Item Value Reference Range Interpretation Comme [facility] Bedside Glucose (test code = 00017-2) 78 mg/dL Automated blood leukocyte count (number/volume)2019-08-31 05:05:00* Test Item Value Reference Range Interpretation Comme [facility] White Blood Count (test code = 6690-2) 4.4 10*3/uL 4.5-11.5 [facility] HealthBlood erythrocytes automated count (number/volume)2019-08-31 05:05:00* Test Item Value Reference Range Interpretation Comme [facility] Red Blood Count (test code = 789-8) 3.77 10*6/uL 3.8-5.1 [facility] hemoglobin measurement (mass/volume)2019-08-31 05:05:00* Test Item Value Reference Range Interpretation Comme nts Hemoglobin (test code = 718-7) 11.5 g/dL 12.0-15.2 [facility] HealthAutomated blood hematocrit (volume fraction)2019-08-31 05:05:00* Test Item Value Reference Range Interpretation Comme nts Hematocrit (test code = 4544-3) 35.3 % 34.0-45.5 [facility] HealthAutomated erythrocyte mean corpuscular volume (MCV) measurement 2019-08-31 05:05:00* Test Item Value Reference Range Interpretation Comme nts Mean Corpuscular Volume (ezequiel t code = 787-2) 94 fL 80-94 [facility] HealthAutomated erythrocyte mean corpuscular hemoglobin (mass per erythrocyte)2019-08-31 05:05:00* Test Item Value Reference Range Interpretation Comme nts Mean Corpuscular Hemoglobin (test code = 785-6) 30.5 pg 27.0-33.0 [facility] HealthAutomated erythrocyte mean corpuscular hemoglobin concentration measurement (mass/qcv1825-48-33 05:05:00* Test Item Value Reference Range Interpretation Comme nts Mean Corpuscular Hemoglobin Concent (test code = 786-4) 32.6 g/dL 33.0-37.0 [facility] HealthAutomated erythrocyte distribution width cmcve4749-51-26 05:05:00 * Test Item Value Reference Range Interpretation Comme nts Red Cell Distribution Width (test code = 788-0) 12.8 % 10.7-14.5 [facility] HealthAutomated blood platelet count (count/volume)2019-08-31 05:05:00 * Test Item Value Reference Range Interpretation Comme nts Platelet Count (test code = 777-3) 162 10*3/uL 150-450 [facility] HealthAutomated blood platelet mean volume cmidyqvlpfp4737-11-21 05:05:00* Test Item Value Reference Range Interpretation Comme nts Mean Platelet Volume (test c ode = 39739-5) 12.1 5.7-10.7 [facility] HealthAutomated blood neutrophil count as percentage of total qwdiaolccs2488-52-14 05:05:00* Test Item Value Reference Range Interpretation Comme nts Neutrophils (%) (Auto) (test code = 770-8) 43 % 47-75 [facility] HealthAutomated blood immature granulocyte count as percentage of total spofmxhltr3600-63-79 05:05:00* Test Item Value Reference Range Interpretation Comme nts Immature Granulocyte % (Auto ) (test code = 08035-9) 1 % 0-0 [facility] HealthAutomated blood lymphocyte count as percentage of total bbwfnuesrd0331-33-24 05:05:00* Test Item Value Reference Range Interpretation Comme nts Lymphocytes (%) (Auto) (test code = 736-9) 43 % 25-44 [facility] HealthAutomated blood monocyte count as percentage of total leukocytes 2019-08-31 05:05:00* Test Item Value Reference Range Interpretation Comme nts Monocytes (%) (Auto) (test c ode = 5905-5) 8 % 3-10 [facility] HealthAutomated blood eosinophil count as percentage of total xfcrhpslfn3831-15-02 05:05:00* Test Item Value Reference Range Interpretation Comme nts Eosinophils (%) (Auto) (test code = 713-8) 4 % 0-7 [facility] HealthAutomated blood basophil count as percentage of total leukocytes 2019-08-31 05:05:00* Test Item Value Reference Range Interpretation Comme nts Basophils (%) (Auto) (test c ode = 706-2) 1 % 0-1 [facility] HealthAutomated blood nucleated erythrocyte count as percentage of total eimalrfdmc5044-82-48 05:05:00* Test Item Value Reference Range Interpretation Comme nts Nucleated Red Blood Cells % (test code = 18608-1) 0.0 % 0-0.2 [facility] HealthAutomated blood neutrophil count (number/volume)2019-08-31 05:05:00* Test Item Value Reference Range Interpretation Comme nts Neutrophils # (Auto) (test c ode = 751-8) 1.9 10*3/uL 1.3-6.7 [facility] HealthAutomated blood immature granulocyte count as percentage of total emlzpjgqpg4013-36-07 05:05:00* Test Item Value Reference Range Interpretation Comme nts Immature Granulocyte # (Auto ) (test code = 42475-2) 0.0 10*3/uL 0.0-0.0 [facility] HealthAutomated blood lymphocyte count (number/volume)2019-08-31 05:05:00* Test Item Value Reference Range Interpretation Comme nts Lymphocytes # (Auto) (test c ode = 731-0) 1.9 10*3/uL 1.4-4.1 [facility] HealthBlood monocytes automated count (number/volume)2019-08-31 05:05:00* Test Item Value Reference Range Interpretation Comme nts Monocytes # (Auto) (test cod e = 742-7) 0.4 10*3/uL 0-1.3 [facility] HealthAutomated blood eosinophil wxnhq3380-19-47 05:05:00* Test Item Value Reference Range Interpretation Comme nts Eosinophils # (Auto) (test c ode = 711-2) 0.2 10*3/uL 0-0.8 [facility] HealthAutomated blood basophil count (number/volume)2019-08-31 05:05:00 * Test Item Value Reference Range Interpretation Comme nts Basophils # (Auto) (test cod e = 704-7) 0.0 10*3/uL 0-0.1 [facility] HealthAutomated blood nucleated erythrocyte count (count/volume) 2019-08-31 05:05:00* Test Item Value Reference Range Interpretation Comme nts Nucleated Red Blood Cells # (test code = 771-6) 0.00 10*3/uL 0-0.01 [facility]Service comment 05:05:00* Test Item Value Reference Range Interpretation Comme nts Manual Differential (test co de = 8265-1) Not Ind [facility] HealthAutomated blood immature granulocyte count as percentage of total wkvvprzvbb3962-65-53 05:05:00* Test Item Value Reference Range Interpretation Comme nts Immature Granulocyte # (Auto ) (test code = 20791-4) 0.0 10*3/uL Automated blood lymphocyte count (number/volume)2019-08-31 05:05:00* Test Item Value Reference Range Interpretation Comme nts Lymphocytes # (Auto) (test c ode = 731-0) 1.9 10*3/uL Blood monocytes automated count (number/volume)2019-08-31 05:05:00* Test Item Value Reference Range Interpretation Comme nts Monocytes # (Auto) (test cod e = 742-7) 0.4 10*3/uL Automated blood eosinophil lqaoh3409-98-30 05:05:00* Test Item Value Reference Range Interpretation Comme nts Eosinophils # (Auto) (test c ode = 711-2) 0.2 10*3/uL Automated blood basophil count (number/volume)2019-08-31 05:05:00* Test Item Value Reference Range Interpretation Comme nts Basophils # (Auto) (test cod e = 704-7) 0.0 10*3/uL Automated blood nucleated erythrocyte count (count/volume)2019-08-31 05:05:00* Test Item Value Reference Range Interpretation Comme nts Nucleated Red Blood Cells # (test code = 771-6) 0.00 10*3/uL Service comment 05:05:00* Test Item Value Reference Range Interpretation Comme nts Manual Differential (test co de = 8265-1) Not Ind Automated blood leukocyte count (number/volume)2019-08-31 05:05:00* Test Item Value Reference Range Interpretation Comme nts White Blood Count (test code = 6690-2) 4.4 10*3/uL Blood erythrocytes automated count (number/volume)2019-08-31 05:05:00* Test Item Value Reference Range Interpretation Comme nts Red Blood Count (test code = 789-8) 3.77 10*6/uL Blood hemoglobin measurement (mass/volume)2019-08-31 05:05:00* Test Item Value Reference Range Interpretation Comme nts Hemoglobin (test code = 718-7) 11.5 g/dL Automated blood hematocrit (volume fraction)2019-08-31 05:05:00* Test Item Value Reference Range Interpretation Comme nts Hematocrit (test code = 4544-3) 35.3 % Automated erythrocyte mean corpuscular volume (MCV) vvcxlnmsdnx2882-99-93 05:05:00* Test Item Value Reference Range Interpretation Comme nts Mean Corpuscular Volume (ezequiel t code = 787-2) 94 fL Automated erythrocyte mean corpuscular hemoglobin (mass per erythrocyte) 2019-08-31 05:05:00* Test Item Value Reference Range Interpretation Comme nts Mean Corpuscular Hemoglobin (test code = 785-6) 30.5 pg Automated erythrocyte mean corpuscular hemoglobin concentration measurement (mass/hcp1262-39-09 05:05:00* Test Item Value Reference Range Interpretation Comme nts Mean Corpuscular Hemoglobin Concent (test code = 786-4) 32.6 g/dL Automated erythrocyte distribution width ntppd8528-46-43 05:05:00* Test Item Value Reference Range Interpretation Comme nts Red Cell Distribution Width (test code = 788-0) 12.8 % Automated blood platelet count (count/volume)2019-08-31 05:05:00* Test Item Value Reference Range Interpretation Comme nts Platelet Count (test code = 777-3) 162 10*3/uL Automated blood platelet mean volume fxlbdrmryag9014-52-19 05:05:00* Test Item Value Reference Range Interpretation Comme nts Mean Platelet Volume (test c ode = 68661-1) 12.1 Automated blood neutrophil count as percentage of total kzgemccmyx9579-70-54 05:05:00* Test Item Value Reference Range Interpretation Comme nts Neutrophils (%) (Auto) (test code = 770-8) 43 % Automated blood immature granulocyte count as percentage of total leukocytes 2019-08-31 05:05:00* Test Item Value Reference Range Interpretation Comme nts Immature Granulocyte % (Auto ) (test code = 17888-2) 1 % Automated blood lymphocyte count as percentage of total vkiltwfjnb2879-69-46 05:05:00* Test Item Value Reference Range Interpretation Comme nts Lymphocytes (%) (Auto) (test code = 736-9) 43 % Automated blood monocyte count as percentage of total forlgskfpn0149-61-10 05:05:00* Test Item Value Reference Range Interpretation Comme nts Monocytes (%) (Auto) (test c ode = 5905-5) 8 % Automated blood eosinophil count as percentage of total mjgejledpp4704-72-51 05:05:00* Test Item Value Reference Range Interpretation Comme nts Eosinophils (%) (Auto) (test code = 713-8) 4 % Automated blood basophil count as percentage of total rioieltajo6071-93-78 05:05:00* Test Item Value Reference Range Interpretation Comme nts Basophils (%) (Auto) (test c ode = 706-2) 1 % Automated blood nucleated erythrocyte count as percentage of total leukocytes 2019-08-31 05:05:00* Test Item Value Reference Range Interpretation Comme nts Nucleated Red Blood Cells % (test code = 85629-3) 0.0 % Automated blood neutrophil count (number/volume)2019-08-31 05:05:00* Test Item Value Reference Range Interpretation Comme nts Neutrophils # (Auto) (test c ode = 751-8) 1.9 10*3/uL Serum or plasma total combined glucuronidated bilirubin and albumin bound bilirubin measurement (mass/volume)2019-08-30 12:48:00* Test Item Value Reference Range Interpretation Comme nts Direct Bilirubin (test code = 1968-7) 0.1 mg/dL 0.0-0.5 [facility] plasma lipase measurement (enzymatic activity/volume) 2019-08-30 12:48:00* Test Item Value Reference Range Interpretation Comme nts Lipase (test code = 3040-3) 26 U/L 8-78 [facility] HealthSerum or plasma total combined glucuronidated bilirubin and albumin bound bilirubin measurement (mass/volume)2019-08-30 12:48:00* Test Item Value Reference Range Interpretation Comme nts Direct Bilirubin (test code = 1968-7) 0.1 mg/dL Serum or plasma lipase measurement (enzymatic activity/volume)2019-08-30 12:48:00* Test Item Value Reference Range Interpretation Comme nts Lipase (test code = 3040-3) 26 U/L SAZAZR9978-67-59 21:58:00* Test Item Value Reference Range Interpretation Comme nts LIPASE (test code = LIPA) 69 U/L 23-300 US PELVIS NON-OB [id number] 22:54:00[place] [id number] IMAGING REPORTPatient Name: JODI PRAJAPATI [facility]: [id number]: 46 Sex: F Order #: [id number] Room: [facility]: 1970 X-Ray Number: [id number] Record Number: [id number] Hospital Number: [id number] Physician: VANE BEST -Ordering Physician: Shanna SOLIMAN [...] authenticated by ROSIE FOFANA 2017-03-30 22:51:46CT ABDOMEN/PELVIS [id number] 17:41:00[place] [id number] IMAGING REPORTPatient Name: JODI PRAJAPATI [facility] of Service: [id number]: 46 Sex: F Order #: 500 Room: ERSDOB: X-Ray Number: [id number] Record Number: [id number] Hospital Number: [id number] Physician: VIKTORIA RIVERAOrdering Physician: SOHAIL ELIAS abdomen and pelvis.History: Left lower quadrant abdominal pain.Technique: IV contrast enhanced CT axial images of the abdomen and pelvis with sagittal and coronal reformatted images were reviewed.This [...] by STARLA Ritter 2017-03-19 17:39:25CT HEAD W/O [id number] 17:27:[address] [id number] IMAGING REPORTPatient Name: JODI PRAJAPATI DDate of Service: [id number]: 46 Sex: F Order #: 100 [facility] 1970 [facility] Number: [id number] Record Number: [id number] Hospital Number: [id number] Physician: HAROON RUELASOrderjaskaran Physician: WILL WELLS head without contrast, 02/04/2017,1702 hoursHistory: Head injury. Headache.Technique: Axial tomographic images [...] 5:25 PMLegally authenticated by NIRMAL TOLEDO 2017-02-04 17:25 :30CT CHEST ANGIO W/[id number] 05:41:00CT CHEST ANGIO W/CONTRASTDIAGNOSIS: Chest pain and shortness of breathMultiple axial tomographic sections were obtained through the chestfollowing the intravenous injection of 100 cc of Isovue-370. Multiplanarand 3-D reconstructions were performed. Radiation dose loweringtechniques were used with automated exposure control, adjusting the mAaccording to patient's size.The main, right and left pulmonary arteries are normal. No peripheralpulmonary arterial thrombus is demonstrated.The thoracic aorta is normal.No hilar or mediastinal masses are identified.No pulmonary nodules, pleural effusions or pulmonary infiltrates areevident.IMPRESSION: Normal CT pulmonary angiography.US DUPLX LWR EXT.VEIN COMPRSS [id number] 16:32:32US DUPLX LWR EXT.VEIN COMPRSS UNI- LEFTHISTORY: Left-sided pain and swellingCOMPARISON: None availableTECHNIQUE: Real-time sonographic images of the left lower extremity deepveins obtained color and spectral Doppler analysis.FINDINGS: Complete compressibility with normal phasic and augmented flownoted throughout the sampled left lower extremity deep veins.IMPRESSION: No visualized left lower extremity DVT.XR CHEST SGL 1V, [id number] 15:24:33XR CHEST SGL 1V, FRONTALHISTORY: Chest painCOMPARISON: 05/24/2016TECHNIQUE: Single AP view of the chest providedFINDINGS: Heart size and pulmonary vasculature within normal limits. Nonew opacity or acute pleural abnormality. Bony thorax intact wherevisualized.IMPRESSION: No active cardiopulmonary process.CT HEAD OR BRAIN WO [id number] 18:40:55CT HEAD OR BRAIN WO CONTRASTHISTORY: Injury, headache, dizziness, nausea and vomitingCOMPARISON: None availableTECHNIQUE: Helical noncontrast tomographic imaging obtained through thebrain. Radiation d ose lowering techniques were used according to ALARAprinciple.FINDINGS: Midline is nondisplaced. Ventricular caliber and basilarcisterns within normal limits. Norris-white differentiation is preserved.No mass effect, acute intracranial blood products, or abnormalextra-axial fluid collections present.Surrounding calvarium is intact.Near opacification of the left maxillary sinus noted with chronicapp earing thickening of the antral de la o.IMPRESSION: 1. No CT evidence of acute intracranial posttraumatic sequela.2. Suspected chronic sinusitis left maxillary antrum.
[2023-08-20 05:15] LABS: Absolute Lymphocytes (CBC) 2.1 K/uL (0.7-4.9); Hematocrit 36.9 % (36.0-45.0); Lymphocytes % 20.8 % (15.3-44.8); MCV 90.7 fL (80-100); MPV 9.3 fL (7.6-11.3); Platelets 175 thou/uL (152-406); RBC Red Blood Cell Count 4.07 M/uL (3.86-4.86)
[2023-08-20 05:33] LABS: Albumin 3.1 g/dL (3.4-5.0); Bilirubin Total 0.3 mg/dL (0.2-1.0); Potassium 3.5 mEq/L (3.5-5.1); Protein, Total 6.7 g/dL (6.4-8.2)
[2023-08-20 06:44] LABS: Specific Gravity > 1.030 (1.005-1.030); Urine Bacteria None Seen /HPF (<20); Urine Bilirubin NEGATIVE (Negative); Urine Blood Negative (Negative); Urine Clarity Clear (Clear); Urine Color Colorless (Yellow); Urine Glucose NEGATIVE (Negative); Urine Mucus Slight /HPF (None Seen); Urine Protein NEGATIVE (Negative); Urine RBC <5 /HPF (None Seen); Urine Urobilinogen Normal (Normal); Urine pH 6.5 (5.0-7.0)
--- NOTE | 2023-08-20 07:25 | ER ---
Nurse's Notes [facility] Name: Pily Morrissey Age: 52 yrs Sex: Female : 1970 Arrival Date: 08/20/2023 Time: 04:37 Bed 7 Private MD: Diagnosis: Enteritis Presentation: 08/20 04:45 Chief complaint: Patient states: lower abdominal pain of 9 with bloating,onset 4 days, pf1 worse this AM with vomiting. stated gave patient Bentyl this AM. 04:45 Coronavirus screen: Vaccine status:. Ebola Screen: Patient negative for fever greater pf1 than or equal to 101.5 degrees Fahrenheit, and additional compatible Ebola Virus Disease symptoms. Initial Sepsis Screen: Does the patient meet any 2 criteria? No. Patient's initial sepsis screen is negative. Does the patient have a suspected source of infection? No. Patient's initial sepsis screen is negative. Risk Assessment: Do you want to hurt yourself or someone else? Patient reports no desire to harm self or others. 04:45 Method Of Arrival: Wheelchair pf1 04:45 Acuity: RJ 3 pf1 05:14 Onset of symptoms was August 17, 2023. 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 - Social history:: Smoking status: Patient denies any tobacco usage or history of. Patient/guardian denies using alcohol, street drugs. - Family history:: not pertinent. Screenin:13 [facility] ED Fall Risk Assessment (Adult) History of falling in the last 3 months, jw7 including since admission No falls in past 3 months (0 pts) Score/Fall Risk Level 0 - 2 = Low Risk Oriented to surroundings, Maintained a safe environment. Abuse screen: Denies threats or abuse. Denies injuries from another. Nutritional screening: No deficits noted. Tuberculosis screening: No symptoms or risk factors identified. Assessment: 05:11 General: Appears in no apparent distress. uncomfortable, ill, Behavior is calm, jw7 cooperative, crying, restless. Pain: Complains of pain in abdomen Pain does not radiate. Pain currently is 10 out of 10 on a pain scale. Quality of pain is described as crampy, sharp, throbbing, Pain began 2-3 days ago. Is continuous. Neuro: [place]ino Agitation-Sedation Scale (RASS): 0 - Alert and Calm Level of Consciousness is awake, alert, obeys commands, Oriented to person, place, time, situation. Cardiovascular: Capillary refill < 3 seconds Clubbing of nail beds is absent JVD is absent Patient's skin is warm and dry. Respiratory: Airway is patent Trachea midline Respiratory effort is even, unlabored, Respiratory pattern is regular, symmetrical. GI: Abdomen is round non-distended, Abd is soft X 4 quads Abdomen is tender to palpation in suprapubic area, right lower quadrant and left lower quadrant. : No deficits noted. No signs and/or symptoms were reported regarding the genitourinary system. EENT: No deficits noted. No signs and/or symptoms were reported regarding the EENT system. Derm: Skin is intact, is healthy with good turgor, Skin is dry, Skin is normal, Skin temperature is warm. Musculoskeletal: Circulation, motion, and sensation intact. Range of motion: intact in all extremities. 06:00 Reassessment: Patient appears in no apparent distress at this time. No changes from km8 previously documented assessment. Patient and/or family updated on plan of care and expected duration. Pain level reassessed. Patient is alert, oriented x 3, equal unlabored respirations, skin warm/dry/pink. 07:00 Reassessment: Patient appears in no apparent distress at this time. No changes from km8 previously documented assessment. Patient and/or family updated on plan of care and expected duration. Pain level reassessed. Patient is alert, oriented x 3, equal unlabored respirations, skin warm/dry/pink. 07:49 Reassessment: Patient appears in no apparent distress at this time. Patient and/or ph family updated on plan of care and expected duration. Pain level reassessed. Patient is alert, oriented x 3, equal unlabored respirations, skin warm/dry/pink. Pt d/c home. Vital Signs: 04:45 BP 138 / 87; Pulse 82; Resp 16; Temp 97.7; Pulse Ox 99% on R/A; Weight 77.11 kg; Height pf1 5 ft. 4 in. ; Pain 9/10; 05:00 BP 125 / 80; Pulse 69; Resp 16; Pulse Ox 98% on R/A; km8 05:30 BP 134 / 65; Pulse 65; Resp 16; Pulse Ox 99% ; km8 06:30 BP 122 / 55; Pulse 71; Resp 16; Pulse Ox 96% ; km8 07:50 BP 128 / 55; Pulse 61; Resp 18; Temp 98; Pulse Ox 99% on R/A; ph 04:45 Body Mass Index 29.18 (77.11 kg, 162.56 cm) pf1 04:45 Pain Scale: Adult pf1 ED Course: 04:40 Patient arrived in ED. gm2 04:47 Iker Tate MD is Attending Physician. rt 04:59 CBC with Diff Sent. km8 04:59 CMP Sent. km8 04:59 Lipase Sent. km8 04:59 Inserted saline lock: 20 gauge in right antecubital area, using aseptic technique. km8 Blood collected. 05:04 Triage completed. pf1 05:13 Patient has correct armband on for positive identification. Bed in low position. Call jw7 light in reach. 05:14 Arm band placed on. jw7 06:16 CT Abd/Pelvis - IV Contrast Only In Process Unspecified. EDMS 07:51 No provider procedures requiring assistance completed. IV discontinued, intact, ph bleeding controlled, No redness/swelling at site. Pressure dressing applied. Administered Medications: 05:11 Drug: NS 0.9% IV 1000 ml IV at 1 bolus Per protocol; 1000 mL bolus Route: IV; Rate: 1 jw7 bolus; Site: right antecubital; 05:58 Follow up: IV Status: Completed infusion; IV Intake: 1000ml [facility] 05:11 Drug: Ondansetron IVP 4 mg IVP once; over 2 minutes Route: IVP; Site: right antecubital;jw7 05:58 Follow up: Response: No adverse reaction 8 05:11 Drug: morphine IVP or IV 4 mg IVP once over 4 mins Route: IVP; Infused Over: 4 mins; jw7 Site: right antecubital; 05:29 Follow up: Response: No adverse reaction; Pain is unchanged, physician notified 05:30 Drug: morphine IVP or IV 4 mg IVP once over 4 mins Route: IVP; Infused Over: 4 mins; km8 Site: right antecubital; 05:57 Follow up: Response: No adverse reaction; Pain is unchanged, physician notified km8 05:52 CANCELLED (Duplicate Order): hydromorphone0.5 mg IVP once rt 05:58 Drug: Ondansetron IVP 4 mg IVP once; over 2 minutes Route: IVP; Site: right antecubital;km8 06:49 Follow up: Response: No adverse reaction 8 05:58 Drug: HYDROmorphone IVP 1 mg IVP once Route: IVP; Site: right antecubital; km8 06:49 Follow up: Response: No adverse reaction; Pain is decreased km8 Medication: 07:51 VIS not applicable for this client. ph Intake: 05:58 IV: 1000ml; Total: 1000ml. km8 Outcome: 07:25 Discharge ordered by MD. rt 07:48 Patient left the ED. hb 07:51 Discharged to home ambulatory, with significant other, ph 07:51 Condition: good 07:51 Discharge instructions given to patient, Instructed on discharge instructions, follow up and referral plans. medication usage, Demonstrated understanding of instructions, follow-up care, medications, Prescriptions given X 3, Signatures: Dispatcher [employer] Charisma Peters RN Mary Florez ph, RN DONAVON Blanca Romero RN RN jw7 Iker Tate MD MD rt Krystal Scruggs RN RN pf1 [place] 2 Carlyn Cortez RN RN km8
--- NOTE | 2023-08-20 07:25 | EDPHYS ---
Physician Documentation [facility] Name: Pily Morrissey Age: 52 yrs Sex: Female : 1970 Arrival Date: 08/20/2023 Time: 04:37 Bed 7 Private MD: ED Physician Iker Tate HPI: 08/20 05:07 This 52 yrs old Female presents to ER via Wheelchair with complaints of Abdominal Pain, rt Abdominal Swelling, Vomiting. 05:07 Patient presents to the ED with abdominal pain, nausea, vomiting. The patient has had a rt mild lower abdominal pain for the past 3 days. Patient woke up, and that when she was sitting down, the pain acutely worsened. It is severe in severity at this time. It is nonradiating. There is associated nausea and vomiting, no diarrhea. Denies other acute complaints,. 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 - Social history:: Smoking status: Patient denies any tobacco usage or history of. Patient/guardian denies using alcohol, street drugs. - Family history:: not pertinent. ROS: 05:07 Constitutional: Negative for fever, chills, and weight loss, Cardiovascular: Negative rt for chest pain, palpitations, and edema, Respiratory: Negative for shortness of breath, cough, wheezing, and pleuritic chest pain, MS/Extremity: Negative for injury and deformity, Skin: Negative for injury, rash, and discoloration, Neuro: Negative for headache, weakness, numbness, tingling, and seizure, Psych: Negative for depression, anxiety, suicide ideation, homicidal ideation, and hallucinations, 05:07 Abdomen/GI: Positive for abdominal pain, nausea and vomiting, Exam: 05:07 Constitutional: This is a well developed, well nourished patient who is awake, alert, rt and in no acute distress. Head/Face: Normocephalic, atraumatic. Chest/axilla: Normal chest wall appearance and motion. Nontender with no deformity. No lesions are appreciated. Cardiovascular: Regular rate and rhythm with a normal S1 and S2. No gallops, murmurs, or rubs. Normal PMI, no JVD. No pulse deficits. Respiratory: Lungs have equal breath sounds bilaterally, clear to auscultation and percussion. No rales, rhonchi or wheezes noted. No increased work of breathing, no retractions or nasal flaring. Skin: Warm, dry with normal turgor. Normal color with no rashes, no lesions, and no evidence of cellulitis. MS/ Extremity: Pulses equal, no cyanosis. Neurovascular intact. Full, normal range of motion. Neuro: Awake and alert, GCS 15, oriented to person, place, time, and situation. Cranial nerves II-XII grossly intact. Motor strength 5/5 in all extremities. Sensory grossly intact. Cerebellar exam normal. Normal gait. Psych: Awake, alert, with orientation to person, place and time. Behavior, mood, and affect are within normal limits. 05:07 Abdomen/GI: Tenderness to the suprapubic region with mild guarding, no rebound, distention, Vital Signs: 04:45 BP 138 / 87; Pulse 82; Resp 16; Temp 97.7; Pulse Ox 99% on R/A; Weight 77.11 kg; Height pf1 5 ft. 4 in. ; Pain 9/10; 05:00 BP 125 / 80; Pulse 69; Resp 16; Pulse Ox 98% on R/A; km8 05:30 BP 134 / 65; Pulse 65; Resp 16; Pulse Ox 99% ; km8 06:30 BP 122 / 55; Pulse 71; Resp 16; Pulse Ox 96% ; km8 07:50 BP 128 / 55; Pulse 61; Resp 18; Temp 98; Pulse Ox 99% on R/A; ph 04:45 Body Mass Index 29.18 (77.11 kg, 162.56 cm) pf1 04:45 Pain Scale: Adult pf1 MDM: 04:50 Patient medically screened. rt 07:28 Differential diagnosis: Enteritis, bowel obstruction, diverticulitis. Data reviewed: rt vital signs, nurses notes. Consideration of Admission/Observation Escalation of care including admission/observation considered. Pain well-controlled, enteritis only on CT scan, labs benign, vital signs stable, no indications for admission at this time, return precautions for worsening symptoms were discussed with patient.. I considered the following discharge prescriptions or medication management in the emergency department Medications were administered in the Emergency Department. See MAR. Independent interpretation of the following test(s) in the Emergency Department CT Scan: My interpretation is No bowel obstruction some interpretation of CT scan images. Counseling: I had a detailed discussion with the patient and/or guardian regarding the historical points, exam findings, and any diagnostic results supporting the discharge/admit diagnosis, lab results, radiology results, the need for outpatient follow up, to return to the emergency department if symptoms worsen or persist or if there are any questions or concerns that arise at home. Response to treatment: the patient's symptoms have markedly improved after treatment. 08/20 04:55 Order name: CBC with Diff; Complete Time: 05:28 rt 08/20 04:55 Order name: CMP; Complete Time: 05:54 rt 08/20 04:55 Order name: Lipase; Complete Time: 05:54 rt 08/20 04:55 Order name: Urinalysis w/ reflexes; Complete Time: 06:45 rt 08/20 04:55 Order name: CT Abd/Pelvis - IV Contrast Only rt 08/20 04:55 Order name: IV Saline Lock; Complete Time: 04:59 rt 08/20 04:55 Order name: Labs collected and sent; Complete Time: 04:59 rt Administered Medications: 05:11 Drug: NS 0.9% IV 1000 ml IV at 1 bolus Per protocol; 1000 mL bolus Route: IV; Rate: 1 jw7 bolus; Site: right antecubital; 05:58 Follow up: IV Status: Completed infusion; IV Intake: 1000ml 05:11 Drug: Ondansetron IVP 4 mg IVP once; over 2 minutes Route: IVP; Site: right antecubital;jw7 05:58 Follow up: Response: No adverse reaction 05:11 Drug: morphine IVP or IV 4 mg IVP once over 4 mins Route: IVP; Infused Over: 4 mins; jw7 Site: right antecubital; 05:29 Follow up: Response: No adverse reaction; Pain is unchanged, physician notified 05:30 Drug: morphine IVP or IV 4 mg IVP once over 4 mins Route: IVP; Infused Over: 4 mins; km8 Site: right antecubital; 05:57 Follow up: Response: No adverse reaction; Pain is unchanged, physician notified km8 05:52 CANCELLED (Duplicate Order): hydromorphone0.5 mg IVP once rt 05:58 Drug: Ondansetron IVP 4 mg IVP once; over 2 minutes Route: IVP; Site: right antecubital;km8 06:49 Follow up: Response: No adverse reaction 8 05:58 Drug: HYDROmorphone IVP 1 mg IVP once Route: IVP; Site: right antecubital; km8 06:49 Follow up: Response: No adverse reaction; Pain is decreased km8 Disposition Summary: 08/20/23 07:25 Discharge Ordered Notes: Location: Home rt Problem: new rt Symptoms: have improved rt Condition: Stable rt Diagnosis - Enteritis rt Followup: rt - With: Private Physician - When: 2 - 3 days - Reason: Discharge Instructions: - Discharge Summary Sheet rt - Viral Gastroenteritis, Adult rt Forms: - Work release form rt - Medication Reconciliation Form rt - Thank You Letter rt - Antibiotic Education rt - Prescription Opioid Use rt - Patient Portal Instructions rt - Leadership Thank You Letter rt Prescriptions: - acetaminophen-codeine 300-30 mg Oral tablet - take 1 tablet ORAL route every 4 hours as needed for pain; 15 tablet; Refills: rt 0, Product Selection Permitted - ondansetron 4 mg Oral Tablet,disintegrating - take 1 tablet ORAL route every 6 hours for 4 days as needed for nausea; 15 rt tablet; Refills: 0, Product Selection Permitted - Augmentin 875-125 mg Oral Tablet - take 1 tablet ORAL route every 12 hours for 10 days; 20 tablet; Refills: 0, rt Product Selection Permitted Signatures: Dispatcher [employer] Blanca Loyd RN RN jw7 Iker Tate MD MD rt Krystal Scruggs RN RN pf1 Carlyn Cortez RN RN km8 Corrections: (The following items were deleted from the chart) 05:52 05:52 HYDROmorphone IVP 0.5 mg IVP once ordered. rt rt
[2023-08-20 09:34] VITALS: BP 122/55; TEMP 97.7; O2SAT 96
--- NOTE | 2023-08-20 21:08 | RAD REPORT ---
EXAM DESCRIPTION: Abdomen Pelvis W Contrast RadLex: CT ABDOMEN PELVIS WITH IV CONTRAST CLINICAL HISTORY: 52 years Female; ABD PAIN; IV ONLY Bed Name: 7 TECHNIQUE: CT of the abdomen and pelvis with intravenous contrast. All CT scans at this facility use dose modulation, iterative reconstruction, and/or weight based dosi ng when appropriate to reduce radiation dose to as low as reasonably achievable. COMPARISON: None. FINDINGS: Lower thorax: Bibasilar atelectasis. Abdomen: Stomach: Within normal limits Liver: No focal lesions. Enlarged. Post cholecystectomy prominence of the biliary ductal system. Gallbladder: Surgically absent. Pancreas: Within normal limits Spleen: Within normal limits Right kidney: No hydronephrosis. No focal lesion. Left kidney: No hydronephrosis. No focal lesion. Adrenal glands: Within normal limits Vascular structures: Within normal limits Nodes: No lymphadenopathy by size criteria Pelvis: Small bowel: No significant distention. Wall thickening of proximal small bowel loops in the left upp er abdomen with mild adjacent mesenteric stranding. Appendix: Not visualized. No pericecal inflammatory changes. Colon: No distention or acute pericolonic edema. Moderate stool burden. Peritoneum: No free intraperitoneal fluid or air. Bones: No acute bone findings. Chronic appearing deformity of the right pubic bone and superior infer ior inferior pubic ramus. Bladder: Unremarkable. Reproductive organs: No acute findings. Soft tissues: Tiny fat-containing umbilical hernia. IMPRESSION: 1. Wall thickening of proximal small bowel loops in the left upper abdomen with mild a djacent mesenteric stranding, can be seen in setting of enteritis. 2. Moderate stool burden. 3. Hepatomegaly. Electronically signed by: Leonardo James MD 08/20/2023 07:08 AM WELFARE CENTRE MANAGER Due to temporary technical issues with the PACS/Fluency reporting system, reports are being signed by the in house radiologists without review as a courtesy to insure prompt reporting. The interpreting radiologist is fully responsible for the content of the report.
== END ==
LOC: ER 04:37
DX: K52.9 Noninfective gastroenteritis and colitis, unspecified (principal); Z88.3 Allergy status to other anti-infective agents
CPT/HCPCS: 96361; 85025; 81001; 36415; 83690; 80053; 74177; 96375; 96374; 99284; Q9967; J1170; J2405 ×2; J7030

== ENCOUNTER → 2023-08-21 | Emergency (ER) | payer BC ==
[~2023-08-21] MED LIST changes: +FLEET ENEMA ADULT PR ONE; +KETOROLAC 30 MG/ML INJ ONE; -MORPHINE 4 MG/ML SYR ONE
--- OUTSIDE RECORDS SUMMARY | 2023-08-21 06:06 | XMS REPORT | Continuity of Care Document ---
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 Instructions Stomach Ache and Stomach Upset [facility] Encounters Start Date/Time End Date/Time Encounter Type Admission Type Attending [facility] Facility Care Department Encounter ID Source 2021-06-16 12:30:00 Inpatient TANA TERESA CURT ELIAS [id number] [facility] 2021-06-06 05:50:09 Outpatient CURT ELIAS [id number] [facility] 2021-06-05 23:11:36 Outpatient CURT ELIAS [id number] [facility] 2021-06-05 21:01:56 Outpatient CURT ELIAS [id number] [facility] 2021-06-05 19:41:19 Outpatient [facility] CURT [id number] [facility] 2021-06-05 19:18:13 Outpatient [facility] CURT [id number] [facility] 2021-06-05 19:15:23 Outpatient CURT ELIAS [id number] [facility] 2021-06-05 18:37:28 Outpatient [facility] CURT [id number] [facility] 2023-09-19 08:40:00 2023-09-19 08:40:00 Outpatient NEHAL DELA CRUZ CHRISTINE [facility] [id number] [facility] 2023-08-22 13:00:00 2023-08-22 13:00:00 Outpatient NEHAL DELA CRUZ [facility]STINE NELESLIE [facility] [id number] [facility] 2023-07-19 09:53:23 2023-07-19 23:59:00 Outpatient R NEHAL BUSTAMANTE [facility] [id number] [facility] 2023-07-19 09:53:23 2023-07-19 23:59:00 Hospital Encounter Dianna [facility] CHRISTOPHER?[facility] 1.2.840.114 350.1.13.10 4.2.7.2.686 [id number] [facility] 2023-07-19 08:40:00 2023-07-19 09:46:34 Office Visit Dianna [facility] 1.2.840.114 350.1.13.10 4.2.7.2.686 [id number] [facility] 2023-07-19 00:00:00 2023-07-19 00:00:00 Telephone Dianna [facility] 1.2.840.114 350.1.13.10 4.2.7.2.686 [id number] [facility] 2023-06-23 08:40:00 2023-06-23 08:40:00 Outpatient R NEHAL BUSTAMANTE [facility] [id number] [facility] 2023-06-14 00:00:00 2023-06-14 00:00:00 Outpatient GC_GCBZW_Ka diyala_S PRIV PRIV [id number] [facility] 2023-06-13 00:00:00 2023-06-13 00:00:00 Outpatient GC_GCBZW_Ka diyala_S PRIV PRIV [id number] [facility] 2023-05-09 08:40:00 2023-05-09 08:40:00 Outpatient R SUKUMAR BUSTAMANTEINE DIANNA [facility] [id number] [facility] 2023-04-14 08:40:00 2023-04-14 08:40:00 Outpatient R KLESylviaNEHALSylviaNEHAL [facility] [id number] [facility] 2022-12-03 00:00:00 2022-12-03 00:00:00 Orders Only Doctor Unassigned, [place] [facility] 1..840.114 350.1.13.10 4.2.7.2.686 [id number] [facility] 2022-05-07 00:00:00 2022-05-07 00:00:00 Outpatient PREZAS, CLIFF HATTIE COWART [id number] [facility] 2022-05-04 00:00:00 2022-05-04 00:00:00 Outpatient PREZAS, CLIFF COWART [id number] [facility] 2022-05-04 00:00:00 2022-05-04 00:00:00 Outpatient PREZAS, CLIFF COWART [id number] [facility] 2022-05-03 00:00:00 2022-05-03 00:00:00 Outpatient PREZAS, CLIFFMARK ANTHONY COWART [id number] [facility] 2022-05-03 00:00:00 2022-05-03 00:00:00 Outpatient PREZAS, CLIFF HATTIE COWART [id number] [facility] 2022-05-03 00:00:00 2022-05-03 00:00:00 Outpatient PREZAS, CLIFF COWART [id number] [facility] 2022-04-30 11:35:00 2022-04-30 11:35:00 Outpatient LAB90 HATTIE COWART [id number] [facility] 2022-04-30 00:00:00 2022-04-30 00:00:00 Outpatient PREZAS CLIFF COWART [id number] [facility] 2022-04-27 13:30:00 2022-04-27 14:00:00 Office Visit [place] Cliff Frias 1..840.114 350.1.13.13 1.2.7.2.686 [id number] [facility] 2022-03-10 00:00:00 2022-03-10 00:00:00 Outpatient KB SELLERS HATTIE [id number] [facility] 2022-03-09 13:30:00 2022-03-09 13:30:00 Outpatient KB SELLERS HATTIE [id number] [facility] 2022-03-08 13:30:00 2022-03-08 13:30:00 Outpatient KB SELLERS HATTIE [id number] [facility] 2022-03-08 13:30:00 2022-03-08 13:30:00 Outpatient FLORY QUIÑONES [facility] [id number] [facility] 2022-03-08 11:30:00 2022-03-08 11:30:00 Outpatient LAB90 HATTIE MCKINNEYSEY [id number] [facility] 2022-03-08 10:45:00 2022-03-08 11:15:00 Office Visit MarlonKb floyd Yuniermitul [place] 1.2.840.114 350.1.13.13 1.2.7.2.686 [id number] [facility] 2021-12-22 11:00:00 2021-12-22 11:00:00 Outpatient KAMI TORRE PATRICK [facility] [id number] [facility] 2021-11-19 10:15:00 2021-11-19 10:15:00 Outpatient LADI MCGILL [facility] [id number] [facility] 2021-11-19 00:00:00 2021-11-19 00:00:00 Case Management La Armando [facility] YARI MORAN [facility] 1..840.114 350.1.13.10 4.2.7.2.686 [id number] [facility] 2021-11-18 00:00:00 2021-11-18 00:00:00 Patient Secure Msg Doctor Unassigned, [place] [facility] 1..840.114 350.1.13.10 4.2.7.2.686 [id number] [facility] 2021-11-17 09:30:00 2021-11-17 09:30:00 Outpatient R [facility] [id number] [facility] 2021-11-17 09:30:00 2021-11-17 09:30:00 Outpatient R LADI BAH [facility] [id number] [facility] 2021-11-13 13:00:00 2021-11-13 13:00:00 Outpatient LADI BAH [facility] [id number] [facility] 2021-11-10 15:15:00 2021-11-10 16:00:00 Ancillary Visit La Armando Craig L [place] [address]..840.114 350.1.13.10 4.2.7.2.686 [id number] [facility] 2021-11-10 14:30:00 2021-11-10 15:47:51 Outpatient R LADI BAH [facility] [id number] [facility] 2021-11-10 14:30:00 2021-11-10 15:47:51 Ancillary Visit Luis Enrique Lauren Craig L [place] [address]..840.114 350.1.13.10 4.2.7.2.686 [id number] [facility] 2021-11-10 14:30:00 2021-11-10 14:30:00 Outpatient R [facility] [id number] [facility] 2021-11-06 09:30:00 2021-11-06 10:00:00 Office Visit Nell Patel [facility]HER[facility] 1..840.114 350.1.13.10 4.2.7.2.686 [id number] [facility] 2021-11-06 09:30:00 2021-11-06 09:30:00 Outpatient NELL BLANCHARD [facility] [id number] [facility] 2021-11-06 09:30:00 2021-11-06 09:30:00 Outpatient NELL BLANCHARD [facility] [id number] [facility] 2021-11-05 15:30:00 2021-11-05 16:26:10 Outpatient LADI MCGILL [facility] [id number] [facility] 2021-11-05 15:30:00 2021-11-05 16:26:10 Ancillary Visit Luis Enrique Lauren Craig L [facility] 1..840.114 350.1.13.10 4.2.7.2.686 [id number] [facility] 2021-11-03 15:15:00 2021-11-03 17:21:48 Outpatient LADI MCGILL [facility] [id number] [facility] 2021-11-03 15:15:00 2021-11-03 17:21:48 Ancillary Visit Letitia Osborne Craig L [facility] 1..840.114 350.1.13.10 4.2.7.2.686 [id number] [facility] 2021-10-27 00:00:00 2021-10-27 00:00:00 Patient Secure Msg Doctor Unassigned, [place] [facility] .840.114 350.1.13.10 4.2.7.2.686 [id number] [facility] 2021-10-19 09:30:00 2021-10-19 10:47:29 Outpatient FLORY QUIÑONES [facility] [id number] [facility] 2021-08-26 00:00:00 2021-08-26 00:00:00 Letter (Out) Nell Galvan [facility] 1.2.840.114 350.1.13.10 4.2.7.2.686 [id number] [facility] 2021-08-12 00:00:00 2021-08-12 00:00:00 Orders Only Doctor Unassigned, [place] [facility] 1.2.840.114 350.1.13.10 4.2.7.2.686 [id number] [facility] 2021-04-16 12:08:00 2021-04-16 12:08:00 Outpatient TANA TERESA [id number] [address] [place] [address] 2020-11-07 11:25:00 2020-11-08 13:59:00 Emergency Braden Rivas [facility] 1.2.840.114 350.1.13.10 4.2.7.2.686 [id number] [facility] 2020-11-07 11:25:00 2020-11-08 13:59:00 Emergency Braden Rivas [facility] 1.2.840.114 350.1.13.10 4.2.7.2.686 [id number] 2020-11-07 11:21:00 2020-11-07 11:21:00 Emergency X [facility] ERT [id number] [facility] 2020-11-07 00:00:00 2020-11-07 00:00:00 Orders Only Doctor Unassigned, [place] [facility] 1.2.840.114 350.1.13.10 4.2.7.2.686 [id number] [facility] 2020-11-07 00:00:00 2020-11-07 00:00:00 Orders Only Doctor Unassigned, [place] [facility] 1.2.840.114 350.1.13.10 4.2.7.2.686 [id number] 2020-10-30 03:51:00 2020-10-30 03:51:00 Emergency CHAPIN ENNISER [id number] [facility] ([facility]) 2020-10-05 14:42:00 2020-10-05 17:26:00 Emergency Braden Rivas [facility] 1.2.840.114 350.1.13.10 4.2.7.2.686 [id number] [facility] 2020-10-05 14:42:00 2020-10-05 17:26:00 [facility] 1.2.840.114 350.1.13.10 4.2.7.2.686 [id number] 2020-10-05 14:28:00 2020-10-05 14:28:00 Emergency X [facility] ERT [id number] [facility] 2020-05-18 12:15:00 2020-05-18 14:15:00 Departed Emergency Room TAM KIDDZOIE [facility] [id number] [facility] 2020-05-18 12:15:00 2020-05-18 12:15:00 Departed Emergency Room ER UNASSIGNED, ED CURT ELIAS [id number] [address] [place] [address] 2020-01-11 11:00:00 2020-01-11 11:21:00 Departed Emergency Room TAM MISHRA [facility] [id number] [facility] 2020-01-11 10:56:00 2020-01-11 11:21:00 Departed Emergency Room ALEXEY DEVINE [id number] [address] [place] [address] 2019-12-04 09:11:00 2019-12-04 09:11:00 Outpatient URI MORALES [id number] [facility] 2019-09-01 18:00:00 2019-09-02 14:00:00 Discharged Inpatient TAM Wood [id number] [facility] 2019-09-01 18:00:00 2019-09-02 14:00:00 Discharged Inpatient UR AI [facility] [id number] [facility] 2019-08-13 10:44:00 2019-08-13 10:44:00 Registered Clinic [id number] 2019-08[facility]13 10:44:00 2019-08-13 10:44:00 Registered Clinic TANA TERESA [id number] 09 [facility] 2019-03-13 07:06:00 2019-03-13 09:02:00 Emergency ER QUIN KRUGER [id number] 22 [facility] 2018-08-22 20:34:00 2018-08-22 21:26:00 Emergency ER FANG PICKETT [id number] [facility] 2017-09-21 22:04:00 2017-09-22 01:13:00 Emergency ER FANG PICKETT [id number] 41 [facility] 2017-08-01 10:54:00 2017-08-01 10:54:00 Outpatient TANA TERESA [id number] [facility] 2017-06-23 07:52:00 2017-06-23 07:52:00 Outpatient URI CHATTERJEE [id number] 64 [facility] 2017-06-19 15:05:00 2017-06-19 17:24:00 Emergency ER SHANNON QUACH [id number] 72 [facility] 2017-06-10 08:04:00 2017-06-10 08:04:00 Outpatient TANA TERESA [id number] 81 [facility] 2017-03-17 07:40:00 2017-03-17 10:05:00 Emergency ER SARWAT HALE CURT ELIAS [id number] 58 [facility] 2017-01-15 14:30:00 2017-01-15 14:30:00 Emergency E [facility] [id number] [facility] 2016-12-29 17:31:00 2016-12-29 17:31:00 Emergency E [facility] [id number] [facility] 2016-06-14 10:26:00 2016-06-14 11:59:00 Emergency ER NATA FELIZ CURT ELIAS [id number] 15 [facility] 2016-04-09 14:11:00 2016-04-09 15:12:00 Emergency ER CAMRYN MORA CURT ELIAS [id number] 47 [facility] 2015-11-18 21:14:00 2015-11-19 00:29:00 Emergency ER KALEY TOVAR CURT ELIAS [id number] 24 [facility] Results Test Description Test Time Test Comments Results Result Co mments Source [id number] 04:39:00* Test Item Value Reference Range Interpretation [...] code = BACTERIA) NEGATIVE NONE WHOLE BLOOD [id number] 04:35:00* Test Item Value Reference Range Interpretation Comme nts WHOLE BLOOD GLUCOSE (test code = POC GLU) 124 MG/DL 70-99 H Fasting glucose normal <100 MG/DL- [employer] recommendation Throat Streptococcus pyogenes antigen [id number] 13:00:00* Test Item Value Reference Range Interpretation Comme nts Group A Streptococcus Screen (test code = 40053-7) Negative Negative [facility] A antigen detection in [id number] 13:00:00* Test Item Value Reference Range Interpretation Comme nts Influenza Type A Antigen (te st code = 12051-1) Negative Negative [facility] virus B antigen detection in [id number] 13:00:00* Test Item Value Reference Range Interpretation Comme nts Influenza Type B Antigen (te st code = 93199-3) Negative Negative [facility] Health[facility]ro[facility] Streptococcus pyogenes antigen [id number] 13:00:00* Test Item Value Reference Range Interpretation Comme nts Group A Streptococcus Screen (test code = 19697-9) Negative Influenza virus A antigen detection in [id number] 13:00:00* Test Item Value Reference Range Interpretation Comme nts Influenza Type A Antigen (te st code = 41990-6) Negative Influenza virus B antigen detection in [id number] 13:00:00* Test Item Value Reference Range Interpretation Comme nts Influenza Type B Antigen (te st code = 07174-3) Negative Serum or plasma sodium measurement (moles/volume)2019-09-02 [...] Comme nts Anion Gap (test code = 64664-0) 8 8-18 [facility] or plasma urea nitrogen measurement (mass/volume)2019-09-02 05:10:00* Test Item Value Reference Range Interpretation Comme nts Blood Urea Nitrogen (test co de = 3094-0) 13 mg/dL 7-19 [facility] or plasma creatinine measurement (mass/volume)2019-09-02 05:10:00* Test Item Value Reference Range Interpretation Comme nts Creatinine (test code = 2160-0) 0.6 mg/dL [id number] 05:10:00* Test Item Value Reference Range Interpretation Comme nts Estimat Glomerular Filtratio n Rate (test code = 88680-4) 114 73-125 [facility] or plasma glucose measurement (mass/volume)2019-09-02 05:10:00* Test Item Value Reference Range Interpretation Comme nts Glucose Level (test code = 2345-7) 104 mg/dL 60-100 [facility] or plasma calcium measurement (mass/volume)2019-09-02 05:10:00* Test Item Value Reference Range Interpretation Comme nts Calcium Level (test code = 41756-1) 8.0 mg/dL 8.4-10.2 [facility] or plasma [...] Comme nts Anion Gap (test code = 41222-5) 8 Serum or plasma urea nitrogen measurement (mass/volume)2019-09-02 05:10:00* Test Item Value Reference Range Interpretation Comme nts Blood Urea Nitrogen (test co de = 3094-0) 13 mg/dL Serum or plasma creatinine measurement (mass/volume)2019-09-02 05:10:00* Test Item Value Reference Range Interpretation Comme nts Creatinine (test code = 2160-0) 0.6 mg/dL GFR estimate [id number] 05:10:00* Test Item Value Reference Range Interpretation Comme nts Estimat Glomerular Filtratio n Rate (test code = 23872-0) 114 Serum or plasma glucose measurement (mass/volume)2019-09-02 05:10:00* Test Item Value Reference Range Interpretation Comme nts Glucose Level (test code = 2345-7) 104 mg/dL Serum or plasma calcium measurement (mass/volume)2019-09-02 05:10:00* Test Item Value Reference Range Interpretation Comme nts Calcium Level (test code = 19626-1) 8.0 mg/dL Serum or plasma total bilirubin [...] Comme nts Magnesium Level (test code = 83879-0) 1.95 mg/dL 1.60-2.60 [facility] or plasma magnesium measurement (mass/volume)2019-09-01 04:50:00* Test Item Value Reference Range Interpretation Comme nts Magnesium Level (test code = 32070-2) 1.95 mg/dL Capillary whole blood glucose measurement by glucometer (mass/volume)2019-08-31 05:22:00* Test Item Value Reference Range Interpretation Comme [facility] Bedside Glucose (test code = 03169-1) 78 mg/dL 60-100 [facility] HealthCapillary whole blood glucose measurement by glucometer (mass/volume)2019-08-31 05:22:00* Test Item Value Reference Range Interpretation Comme [facility] Bedside Glucose (test code = 64978-9) 78 mg/dL Automated blood leukocyte count (number/volume)2019-08-31 05:05:00* Test Item Value Reference Range Interpretation Comme [facility] White Blood Count (test code = 6690-2) 4.4 10*3/uL 4.5-11.5 [facility]Blood erythrocytes automated count (number/volume)2019-08-31 05:05:00* Test Item Value Reference Range Interpretation Comme [facility] Red Blood Count (test code = [...] HealthAutomated erythrocyte mean corpuscular hemoglobin concentration measurement (mass/xkf3314-54-32 05:05:00* Test Item Value Reference Range Interpretation Comme nts Mean Corpuscular Hemoglobin Concent (test code = 786-4) 32.6 g/dL 33.0-37.0 [facility] HealthAutomated erythrocyte distribution width jduxw0504-96-46 05:05:00 * Test Item Value Reference Range Interpretation Comme nts Red Cell Distribution Width (test code = 788-0) 12.8 % 10.7-14.5 [facility] HealthAutomated blood platelet count (count/volume)2019-08-31 05:05:00 * Test Item Value Reference Range Interpretation Comme nts Platelet Count (test code = 777-3) 162 10*3/uL 150-450 [facility] HealthAutomated blood platelet mean volume ysdswwbyfbc5823-13-26 05:05:00* Test Item Value Reference Range Interpretation Comme nts Mean Platelet Volume (test c ode = 42780-2) 12.1 5.7-10.7 [facility] HealthAutomated blood neutrophil count as percentage of total frteelhict2920-78-58 05:05:00* Test Item Value Reference Range Interpretation Comme nts Neutrophils (%) (Auto) (test code = 770-8) 43 % 47-75 [facility] HealthAutomated blood immature granulocyte count as percentage of total oddoztesuy4133-83-65 05:05:00* Test Item Value Reference Range Interpretation Comme nts Immature Granulocyte % (Auto ) (test code = 83783-9) 1 % 0-0 [facility] HealthAutomated blood lymphocyte count as percentage of total pfsuqdqggw2023-32-57 05:05:00* Test Item Value Reference Range Interpretation Comme nts Lymphocytes (%) (Auto) (test code = 736-9) 43 % 25-44 [facility]Automated blood monocyte count as percentage of total leukocytes 2019-08-31 05:05:00* Test Item Value Reference Range Interpretation Comme nts Monocytes (%) (Auto) (test c ode = 5905-5) 8 % 3-10 [facility]Automated blood eosinophil count as percentage of total munruyrwpe7444-34-04 05:05:00* Test Item Value Reference Range Interpretation Comme nts Eosinophils (%) (Auto) (test code = 713-8) 4 % 0-7 [facility]Automated blood basophil count as percentage of total leukocytes 2019-08-31 05:05:00* Test Item Value Reference Range Interpretation Comme nts Basophils (%) (Auto) (test c ode = 706-2) 1 % 0-1 [facility]Automated blood nucleated erythrocyte count as percentage of total jxveyebnvy7732-36-17 05:05:00* Test Item Value Reference Range Interpretation Comme nts Nucleated Red Blood Cells % (test code = 72114-6) 0.0 % 0-0.2 [facility]Automated blood neutrophil count (number/volume)2019-08-31 05:05:00* Test Item Value Reference Range Interpretation Comme nts Neutrophils # (Auto) (test c ode = 751-8) 1.9 10*3/uL 1.3-6.7 [facility]Automated blood immature granulocyte count as percentage of total bjkuqcmydu7271-87-97 05:05:00* Test Item Value Reference Range Interpretation Comme nts Immature Granulocyte # (Auto ) (test code = 83727-5) 0.0 10*3/uL 0.0-0.0 [facility]Automated blood lymphocyte count (number/volume)2019-08-31 05:05:00* Test Item Value Reference Range Interpretation Comme nts Lymphocytes # (Auto) (test c ode = 731-0) 1.9 10*3/uL 1.4-4.1 [facility]Blood monocytes automated count (number/volume)2019-08-31 05:05:00* Test Item Value Reference Range Interpretation Comme nts Monocytes # (Auto) (test cod e = 742-7) 0.4 10*3/uL 0-1.3 [facility]Automated blood eosinophil oixrp0674-31-99 05:05:00* Test Item Value Reference Range Interpretation [...] 771-6) 0.00 10*3/uL 0-0.01 [facility] comment [id number] 05:05:00* Test Item Value Reference Range Interpretation Comme nts Manual Differential (test co de = 8265-1) Not Ind [facility] HealthAutomated blood platelet count (count/volume)2019-08-31 05:05:00 * Test Item Value Reference Range Interpretation Comme nts Platelet Count (test code = 777-3) 162 10*3/uL Automated blood platelet mean volume ncqsvvcxdlc2030-44-79 05:05:00* Test Item Value Reference Range Interpretation Comme nts Mean Platelet Volume (test c ode = 17849-4) 12.1 Automated blood neutrophil count as percentage of total gwudzwqrro4653-57-72 05:05:00* Test Item Value Reference Range Interpretation Comme nts Neutrophils (%) (Auto) (test code = 770-8) 43 % Automated blood immature granulocyte count as percentage of total leukocytes 2019-08-31 05:05:00* Test Item Value Reference Range Interpretation Comme nts Immature Granulocyte % (Auto ) (test code = 96450-2) 1 % Automated blood lymphocyte count as percentage of total spvweupsev0404-69-81 05:05:00* Test Item Value Reference Range Interpretation Comme nts Lymphocytes (%) (Auto) (test code = 736-9) 43 % Automated blood monocyte count as percentage of total qnufyfqbap4736-98-85 05:05:00* Test Item Value Reference Range Interpretation Comme nts Monocytes (%) (Auto) (test c ode = 5905-5) 8 % Automated blood eosinophil count as percentage of total iponvluzbi8374-77-99 05:05:00* Test Item Value Reference Range Interpretation Comme nts Eosinophils (%) (Auto) (test code = 713-8) 4 % Automated blood basophil count as percentage of total mhishmzqbq9922-58-34 05:05:00* Test Item Value Reference Range Interpretation Comme nts Basophils (%) (Auto) (test c ode = 706-2) 1 % Automated blood nucleated erythrocyte count as percentage of total leukocytes 2019-08-31 05:05:00* Test Item Value Reference Range Interpretation Comme nts Nucleated Red Blood Cells % (test code = 64206-0) 0.0 % Automated blood neutrophil count (number/volume)2019-08-31 05:05:00* Test Item Value Reference Range Interpretation Comme nts Neutrophils # (Auto) (test c ode = 751-8) 1.9 10*3/uL Automated blood immature granulocyte count as percentage of total leukocytes 2019-08-31 05:05:00* Test Item Value Reference Range Interpretation Comme nts Immature Granulocyte # (Auto ) (test code = 28740-9) 0.0 10*3/uL Automated blood lymphocyte count (number/volume)2019-08-31 05:05:00* Test Item Value Reference Range Interpretation Comme nts Lymphocytes # (Auto) (test c ode = 731-0) 1.9 10*3/uL Blood monocytes automated count (number/volume)2019-08-31 05:05:00* Test Item Value Reference Range Interpretation Comme nts Monocytes # (Auto) (test cod e = 742-7) 0.4 10*3/uL Automated blood eosinophil tpirl9373-47-27 05:05:00* Test Item Value Reference Range Interpretation [...] code = 771-6) 0.00 10*3/uL Service comment [id number] 05:05:00* Test Item Value Reference Range Interpretation [...] % Automated erythrocyte mean corpuscular volume (MCV) jcmkjbwfrjl1132-26-17 05:05:00* Test Item Value Reference Range Interpretation Comme nts Mean Corpuscular Volume (ezequiel t code = 787-2) 94 fL Automated erythrocyte mean corpuscular hemoglobin (mass per erythrocyte) 2019-08-31 05:05:00* Test Item Value Reference Range Interpretation Comme nts Mean Corpuscular Hemoglobin (test code = 785-6) 30.5 pg Automated erythrocyte mean corpuscular hemoglobin concentration measurement (mass/bhd4149-07-40 05:05:00* Test Item Value Reference Range Interpretation Comme nts Mean Corpuscular Hemoglobin Concent (test code = 786-4) 32.6 g/dL Automated erythrocyte distribution width frelb0565-57-12 05:05:00* Test Item Value Reference Range Interpretation Comme nts Red Cell Distribution Width (test code = 788-0) 12.8 % Serum or plasma total combined glucuronidated bilirubin and albumin bound bilirubin measurement (mass/volume)2019-08-30 12:48:00* Test Item Value Reference Range Interpretation Comme nts Direct Bilirubin (test code = 1968-7) 0.1 mg/dL 0.0-0.5 [facility]um or plasma lipase measurement (enzymatic [...] Lipase (test code = 3040-3) 26 U/L JJSLHT2475-70-20 21:58:00* Test Item Value Reference Range Interpretation Comme nts LIPASE (test code = LIPA) 69 U/L 23-300 US PELVIS NON-OB IZGJVDMS1016-27-06 22:54:00[id number] IMAGING REPORTPatient Name: JODI PRAJAPATI DDate of Service: [id number]: 46 Sex: F Order #: [id number] Room: [facility]: 1970 X-Ray Number: [id number] Record Number: [id number] Hospital Number: [id number] Physician: VANE BEST -Ordering Physician: Shanna SOLIMAN [...] authenticated by ROSIE FOFANA 2017-03-30 22:51:46CT ABDOMEN/PELVIS [id number] 17:41:[address] [id number] IMAGING REPORTPatient Name: JODI PRAJAPATI DDate of Service: 64-91-4027Mtu: 46 Sex: F Order #: [id number] Room: ERSDOB: X-Ray Number: [id number] Record Number: [id number] Hospital Number: [id number] Physician: VIKTORIA RIVERAOrdering Physician: SOHAIL ELIAS abdomen [...] by STARLA Ritter 2017-03-19 17:39:25CT HEAD W/O [id number] 17:27:[address] [id number] IMAGING REPORTPatient Name: JODI PRAJAPATI DDate of Service: 99-09-6461Bxh: 46 Sex: F Order #: [id number] [facility] 1970 [facility] Number: [id number] Record Number: [id number] Hospital Number: [id number] Physician: HAROON RUELASOrderjaskaran Physician: WILL WELLS head [...] NIRMAL TOLEDO 2017-02-04 17:25 :30CT CHEST ANGIO W/[id number] 05:41:00CT CHEST ANGIO W/CONTRASTDIAGNOSIS: Chest pain and [...] CT pulmonary angiography.US DUPLX LWR EXT.VEIN COMPRSS GAO-[id number] 16:32:32US DUPLX LWR EXT.VEIN COMPRSS UNI- LEFTHISTORY: Left-sided pain and swellingCOMPARISON: None availableTECHNIQUE: Real-time sonographic images of the left lower extremity deepveins obtained color and spectral Doppler analysis.FINDINGS: Complete compressibility with normal phasic and augmented flownoted throughout the sampled left lower extremity deep veins.IMPRESSION: No visualized left lower extremity DVT.XR CHEST SGL 1V, [id number] 15:24:33XR CHEST SGL 1V, FRONTALHISTORY: Chest painCOMPARISON: 05/24/2016TECHNIQUE: Single AP view of the chest providedFINDINGS: Heart size and pulmonary vasculature within normal limits. Nonew opacity or acute pleural abnormality. Bony thorax intact wherevisualized.IMPRESSION: No active cardiopulmonary process.CT HEAD OR BRAIN WO [id number] 18:40:55CT HEAD OR BRAIN WO CONTRASTHISTORY: Injury, [...]
[2023-08-21 06:46] LABS: Absolute Lymphocytes (CBC) 1.5 K/uL (0.7-4.9); Hematocrit 36.7 % (36.0-45.0); Lymphocytes % 16.8 % (15.3-44.8); MCV 90.2 fL (80-100); MPV 8.9 fL (7.6-11.3); Platelets 183 thou/uL (152-406); RBC Red Blood Cell Count 4.07 M/uL (3.86-4.86)
[2023-08-21 07:03] LABS: Albumin 2.7 g/dL (3.4-5.0); Bilirubin Total 0.3 mg/dL (0.2-1.0); Protein, Total 6.3 g/dL (6.4-8.2)
--- NOTE | 2023-08-21 08:40 | EDPHYS ---
Physician Documentation [facility] Name: Pily Morrissey Age: 52 yrs Sex: Female : 1970 Arrival Date: 08/21/2023 Time: 06:00 Bed 5 Private MD: ED Physician Marcos Bell HPI: 08/21 06:16 This 52 yrs old Female presents to ER via Wheelchair with complaints of Abdominal pain. rt 06:16 Patient was seen in the ED yesterday for abdominal pain, CT scan showed an enteritis, rt labs are benign, symptoms are improving with pain medicines in the ED, subsequent discharge. She states that her pain has returned, worsened this evening. States that she has not had a bowel movement about 3 days. She tried to take mag citrate but vomited up immediately. She took Bentyl with no relief as well as pain medicines were prescribed. Symptoms have been worsening, now severe in severity.. Historical: - Allergies: 06:12 Betadine; jb4 - PMHx: 06:12 SVT; jb4 - PSHx: 06:12 Appendectomy; birthmark removal; Cholecystectomy; hysterectomy; left arm; sinus; jb4 - Immunization history:: Adult Immunizations unknown. - Family history:: not pertinent. - Social history:: Smoking status: Patient denies any tobacco usage or history of. ROS: 06:20 Constitutional: Negative for fever, chills, and weight loss, Cardiovascular: Negative rt for chest pain, palpitations, and edema, Respiratory: Negative for shortness of breath, cough, wheezing, and pleuritic chest pain, MS/Extremity: Negative for injury and deformity, Skin: Negative for injury, rash, and discoloration, Neuro: Negative for headache, weakness, numbness, tingling, and seizure, Psych: Negative for depression, anxiety, suicide ideation, homicidal ideation, and hallucinations, 06:20 Abdomen/GI: Positive for abdominal pain, nausea and vomiting, constipation, Exam: 06:20 Constitutional: This is a well developed, well nourished patient who is awake, alert, rt and in no acute distress. Head/Face: Normocephalic, atraumatic. Chest/axilla: Normal chest wall appearance and motion. Nontender with no deformity. No lesions are appreciated. Cardiovascular: Regular rate and rhythm with a normal S1 and S2. No gallops, murmurs, or rubs. Normal PMI, no JVD. No pulse deficits. Respiratory: Lungs have equal breath sounds bilaterally, clear to auscultation and percussion. No rales, rhonchi or wheezes noted. No increased work of breathing, no retractions or nasal flaring. Skin: Warm, dry with normal turgor. Normal color with no rashes, no lesions, and no evidence of cellulitis. MS/ Extremity: Pulses equal, no cyanosis. Neurovascular intact. Full, normal range of motion. Neuro: Awake and alert, GCS 15, oriented to person, place, time, and situation. Cranial nerves II-XII grossly intact. Motor strength 5/5 in all extremities. Sensory grossly intact. Cerebellar exam normal. Normal gait. Psych: Awake, alert, with orientation to person, place and time. Behavior, mood, and affect are within normal limits. 06:20 Abdomen/GI: Tenderness diffusely with guarding, no rebound, distention, Vital Signs: 06:10 BP 118 / 92; Pulse 90; Resp 18; Temp 98.1(O); Pulse Ox 97% on R/A; Weight 77.11 kg (R); jb4 Height 5 ft. 4 in. (R); 06:44 BP 115 / 72; Pulse 75; Resp 16; Pulse Ox 100% ; Pain 10/10; nw1 07:15 BP 97 / 45; Pulse 72; Resp 18; Pulse Ox 95% on R/A; db 08:15 BP 101 / 63; Pulse 73; Resp 18; Pulse Ox 95% on R/A; db 06:10 Body Mass Index 29.18 (77.11 kg, 162.56 cm) jb4 06:44 Pain Scale: Adult nw1 Ta Coma Score: 06:44 Eye Response: spontaneous(4). Motor Response: obeys commands(6). Verbal Response: nw1 oriented(5). Total: 15. MDM: 06:09 Patient medically screened. rt 07:03 Data reviewed: vital signs. Transition of care: Care assumed from Iker Tate MD. ec2 ED course: Patient signed out to me by physician, in brief patient with complaints of abdominal pain and constipation, had bowel movement after enema placement. Plan is to follow-up lab work and CT imaging and reassess the patient.. 07:18 ED course: Metabolic profile is reassuring. Lipase within normal ranges, lactic within ec2 normal ranges. Pending urine and CT imaging. . 08:38 ED course: On reassessment patient is well-appearing, has had a bowel movement and is ec2 in no acute distress. Patient with pending CT imaging, patient and family member ready for discharge given marked improvement in symptoms. Will discharge home. Return precautions given.. 08/21 06:13 Order name: CBC with Diff; Complete Time: 07:02 rt 08/21 06:13 Order name: CMP; Complete Time: 07:18 rt 08/21 06:13 Order name: Lipase; Complete Time: 07:18 rt 08/21 06:18 Order name: Lactate w/ 2H reflex if indic.; Complete Time: 07:18 rt 08/21 06:13 Order name: CT Abd/Pelvis - IV Contrast Only; Complete Time: 09:18 rt 08/21 06:13 Order name: IV Saline Lock; Complete Time: 06:44 rt 08/21 06:13 Order name: Labs collected and sent; Complete Time: 06:44 rt Administered Medications: 06:43 Drug: NS 0.9% IV 1000 ml IV at 1 bolus Per protocol; 1000 mL bolus Route: IV; Rate: 1 nw1 bolus; Site: right antecubital; 06:43 Drug: Ondansetron IVP 8 mg IVP once; over 2 minutes Route: IVP; Site: right antecubital;nw1 08:21 Follow up: Response: No adverse reaction db 06:43 Drug: HYDROmorphone IVP 1 mg IVP once Route: IVP; Site: right antecubital; nw1 08:20 Follow up: Response: No adverse reaction db 06:43 Drug: Fleet Enema OH 133 ml OH once Route: OH; nw1 08:20 Follow up: Response: No adverse reaction db 08:28 Drug: Ketorolac IVP 15 mg IVP once Route: IVP; Site: right antecubital; db 08:55 Follow up: Response: No adverse reaction db Disposition Summary: 08/21/23 08:39 Discharge Ordered Notes: Location: Home ec2 Condition: Stable ec2 Diagnosis - Constipation ec2 - Other viral enteritis ec2 Followup: ec2 - With: Private Physician - When: - Reason: Recheck today's complaints Discharge Instructions: - Discharge Summary Sheet ec2 - Constipation, Adult ec2 Forms: - Medication Reconciliation Form ec2 - Thank You Letter ec2 - Antibiotic Education ec2 - Prescription Opioid Use ec2 - Patient Portal Instructions ec2 - Leadership Thank You Letter ec2 Signatures: Dispatcher [employer] Theron Rosales RN RN jb4 Catalina Donald RN RN db Iker Tate MD MD rt Marcos Bell MD MD ec2 Vicki Covarrubias RN RN nw1
--- NOTE | 2023-08-21 08:40 | ER ---
Nurse's Notes [facility] Name: Pily Morrissey Age: 52 yrs Sex: Female : 1970 Arrival Date: 08/21/2023 Time: 06:00 Bed 5 Private MD: Diagnosis: Constipation;Other viral enteritis Presentation: 08/21 06:10 Chief complaint: Patient states: I was here on the 6th, I was told I have a moderate jb4 amount of stool in my colon. The pain in my lower abdomen and the nausea never went away or got any better. The meds I was sent home with have not helped at all. Coronavirus screen: At this time, the client does not indicate any symptoms associated with coronavirus-19. Ebola Screen: No symptoms or risks identified at this time. Initial Sepsis Screen: Does the patient meet any 2 criteria? No. Patient's initial sepsis screen is negative. Does the patient have a suspected source of infection? No. Patient's initial sepsis screen is negative. Risk Assessment: Do you want to hurt yourself or someone else? Patient reports no desire to harm self or others. Onset of symptoms was August 21, 2023. Transition of care: patient was not received from another setting of care. 06:10 Method Of Arrival: Wheelchair jb4 06:10 Acuity: RJ 3 jb4 Historical: - Allergies: 06:12 Betadine; jb4 - PMHx: 06:12 SVT; jb4 - PSHx: 06:12 Appendectomy; birthmark removal; Cholecystectomy; hysterectomy; left arm; sinus; jb4 - Immunization history:: Adult Immunizations unknown. - Family history:: not pertinent. - Social history:: Smoking status: Patient denies any tobacco usage or history of. Screenin:44 [facility] ED Fall Risk Assessment (Adult) History of falling in the last 3 months, nw1 including since admission No falls in past 3 months (0 pts) Confusion or Disorientation No (0 pts) Intoxicated or Sedated No (0 pts) Impaired Gait No (0 pts) Mobility Assist Device Used No (0 pt) Altered Elimination No (0 pt) Score/Fall Risk Level 0 - 2 = Low Risk Oriented to surroundings, Maintained a safe environment, Educated pt \\T\\ family on fall prevention, incl call for assistance when getting out of bed, Assessed \\T\\ reinforced patient's understanding of fall precautions, Provided non-skid footwear, Hourly rounding (assess needs \\T\\ fall precautionary measures) done, Used ambulatory aids as needed (educated on \\T\\ assisted with). Abuse screen: Denies threats or abuse. Denies injuries from another. Nutritional screening: No deficits noted. Tuberculosis screening: No symptoms or risk factors identified. Assessment: 06:44 Reassessment: Pt states she was in ED yesterday and was diagnosed with constipation. Pt nw1 states that she took mag citrate and still unable to have a bowel movement. Pt states pain in abdomen is more severe today and with no relief. VSS. Pt has SO at bedside. Pt noted guarding abdomen. Pt also states nausea and vomiting. 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 General: Appears uncomfortable, Behavior is calm, cooperative, appropriate for age. Pain: Complains of pain in abdomen Pain does not radiate. Pain currently is 10 out of 10 on a pain scale. Quality of pain is described as aching, crampy, Pain began 2-3 days ago. Is continuous, Alleviated by nothing. Neuro: Level of Consciousness is awake, alert, obeys commands, Oriented to person, place, time, situation, Appropriate for age. Cardiovascular: Reports None Heart tones present Capillary refill < 3 seconds. Respiratory: Airway is patent Trachea midline Respiratory effort is even, unlabored, Respiratory pattern is regular, symmetrical. GI: Bowel sounds present X 4 quads. Reports lower abdominal pain, upper abdominal pain, constipation, nausea, vomiting. : No deficits noted. No signs and/or symptoms were reported regarding the genitourinary system. Derm: No signs and/or symptoms reported regarding the dermatologic system. Skin is intact, is healthy with good turgor, Skin is dry, Skin is pink, warm \\T\\ dry. normal. Musculoskeletal: No signs and/or symptoms reported regarding the musculoskeletal system. 07:03 Reassessment: 1 large BM noted and notified MD. Pt states 6/10 pain at this time, nw1 stating she "feels much better". 08:28 Reassessment: Patient appears in no apparent distress at this time. Patient and/or db family updated on plan of care and expected duration. Pain level reassessed. Patient is alert, oriented x 3, equal unlabored respirations, skin warm/dry/pink. General: Appears in no apparent distress. Pain: Complains of pain in abdomen Pain currently is 8 out of 10 on a pain scale. 08:55 Reassessment: Patient appears in no apparent distress at this time. Patient states db feeling better. Patient states symptoms have improved. Vital Signs: 06:10 BP 118 / 92; Pulse 90; Resp 18; Temp 98.1(O); Pulse Ox 97% on R/A; Weight 77.11 kg (R); jb4 Height 5 ft. 4 in. (R); 06:44 BP 115 / 72; Pulse 75; Resp 16; Pulse Ox 100% ; Pain 10/10; nw1 07:15 BP 97 / 45; Pulse 72; Resp 18; Pulse Ox 95% on R/A; db 08:15 BP 101 / 63; Pulse 73; Resp 18; Pulse Ox 95% on R/A; db 06:10 Body Mass Index 29.18 (77.11 kg, 162.56 cm) jb4 06:44 Pain Scale: Adult nw1 Dysart Coma Score: 06:44 Eye Response: spontaneous(4). Motor Response: obeys commands(6). Verbal Response: nw1 oriented(5). Total: 15. ED Course: 06:05 Patient arrived in ED. jb4 06:08 kIer Tate MD is Attending Physician. rt 06:12 Triage completed. jb4 06:12 Arm band placed on right wrist. jb4 06:44 Patient has correct armband on for positive identification. Placed in gown. Bed in low nw1 position. Call light in reach. Side rails up X2. Adult w/ patient. Provided Education on: POC. 06:44 CBC with Diff Sent. nw1 06:44 CMP Sent. nw1 06:44 Lipase Sent. nw1 06:44 Urinalysis w/ reflexes Sent. nw1 06:44 Lactate w/ 2H reflex if indic. Sent. nw1 06:44 No provider procedures requiring assistance completed. Inserted saline lock: 20 gauge nw1 in right antecubital area, using aseptic technique. Blood collected. 06:53 Lactate w/ 2H reflex if indic. Sent. nw1 06:53 CMP Sent. nw1 06:53 Lipase Sent. nw1 06:54 Vicki Covarrubias RN is Primary Nurse. nw1 07:03 Attending Physician role handed off by Iker Tate MD ec2 07:03 Marcos Bell MD is Attending Physician. ec2 07:34 Primary Nurse role handed off by Vicki Covarrubias RN db 07:34 Catalina Donald RN is Primary Nurse. db 07:41 CT Abd/Pelvis - IV Contrast Only In Process Unspecified. EDMS 08:55 IV discontinued, intact, bleeding controlled, No redness/swelling at site. db Administered Medications: 06:43 Drug: NS 0.9% IV 1000 ml IV at 1 bolus Per protocol; 1000 mL bolus Route: IV; Rate: 1 nw1 bolus; Site: right antecubital; 06:43 Drug: Ondansetron IVP 8 mg IVP once; over 2 minutes Route: IVP; Site: right antecubital;nw1 08:21 Follow up: Response: No adverse reaction db 06:43 Drug: HYDROmorphone IVP 1 mg IVP once Route: IVP; Site: right antecubital; nw1 08:20 Follow up: Response: No adverse reaction db 06:43 Drug: Fleet Enema NM 133 ml NM once Route: NM; nw1 08:20 Follow up: Response: No adverse reaction db 08:28 Drug: Ketorolac IVP 15 mg IVP once Route: IVP; Site: right antecubital; db 08:55 Follow up: Response: No adverse reaction db Medication: 06:44 VIS not applicable for this client. nw1 Outcome: 08:39 Discharge ordered by . ec2 08:55 Discharged to home ambulatory, db 08:55 Condition: stable 08:55 Discharge instructions given to patient, family, Instructed on discharge instructions, follow up and referral plans. 08:56 Patient left the ED. hb Signatures: Dispatcher [employer] EDNC Mary Jimenez RN RN Theron Jacobson RN RN jb4 Catalina Donald, DONAVON RN db Iker Tate MD MD rt Marcos Bell MD MD ec2 Vicki Covarrubias RN RN nw1
--- NOTE | 2023-08-21 09:00 | RAD REPORT ---
EXAM DESCRIPTION: CT - Abdomen Pelvis W Contrast - 08/21/2023 7:39 am CLINICAL HISTORY: ABD PAIN COMPARISON: Abdomen Pelvis W Contrast dated 08/20/2023 TECHNIQUE: Thin cut axial CT imaging of the abdomen and pelvis was performed following intravenous a dministration of 100 mL Isovue 300. Multiplanar reformats were generated and reviewed. All CT scans are performed using dose optimization technique as appropriate and may include automated exposure control or mA/KV adjustment according to patient size. FINDINGS: No suspicious findings in the lung bases. The liver, spleen, adrenal glands, and pancreas show no suspicious findings. Gallbladder was surgical ly removed. Stable mild prominence of the common bile duct and central intrahepatic biliary radicles, may relate to post cholecystectomy status. Symmetric renal function is seen with no hydronephrosis or suspicious renal mass. No dilated bowel loops. Persistent wall thickening with mild adjacent fat stranding along the mid thi rd part of duodenum extending to the proximal jejunum. Improvement of apparent wall thickening along the remainder of the proximal small bowel loops in the left hemiabdomen seen on the prior exam. Mild burden of liquid and solid stool along the ascending and transverse colon. No free air, free fluid or inflammatory stranding. No hernia, mass or bulky lymphadenopathy. Stable mildly prominent lymph node s along the root of the mesenteric on the left, nonspecific, and favored to be reactive/inflammatory. The urinary bladder is without significant finding. No suspicious bony findings. Stable deformities along the right superior and inferior pubic rami rela celestine to remote fractures. IMPRESSION: Persistent short segment of apparent wall thickening and mild adjacent fat stranding andi ng the mid third part of duodenum extend into the proximal jejunum. This is nonspecific and may relat e to infectious or inflammatory duodenitis. Mild burden of liquid and solid stool along the ascending and transverse colon, may relate to diarrhe al state. Other stable findings as above.
[2023-08-21 09:07] VITALS: TEMP 98.1
[2023-08-21 09:20] VITALS: BP 101/63; O2SAT 95
== END ==
LOC: ER 06:00
DX: K59.00 Constipation, unspecified (principal); A08.39 Other viral enteritis; Z88.3 Allergy status to other anti-infective agents
CPT/HCPCS: 85025; 36415; 83605; 83690; 80053; 74177; 96375; 96374; 99284; Q9967; J1170; J2405; J7030

== ENCOUNTER → 2023-11-05 | Emergency (ER) | payer BC ==
--- OUTSIDE RECORDS SUMMARY | 2023-11-05 15:18 | XMS REPORT | Continuity of Care Document ---
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 81 /min [facility] Respiratory rate 2020-05-18 14:11:00 16 /min [facility] BP Systolic 2020-05-18 14:11:00 116 mm[Hg] [facility] BP Diastolic 2020-05-18 14:11:00 87 mm[Hg] [facility] Weight 2020-05-18 12:19:00 166.44 [lb_av] C [facility] BMI (Body Mass Index) 2020-05-18 12:19:00 28.6 kg/m2 [facility] Body Temperature 2020-01-11 11:16:00 98.2 [degF] [facility] Heart Rate 2020-01-11 11:16:00 74 /min [facility] Respiratory rate 2020-01-11 11:16:00 18 /min [facility] BP Systolic 2020-01-11 11:16:00 139 mm[Hg] [facility] BP Diastolic 2020-01-11 11:16:00 75 mm[Hg] [facility] Heart Rate 2020-01-11 11:03:00 74 /min [facility] Respiratory rate 2020-01-11 11:03:00 18 /min [facility] BP Systolic 2020-01-11 11:03:00 139 mm[Hg] [facility] BP Diastolic 2020-01-11 11:03:00 75 mm[Hg] [facility] Weight 2020-01-11 11:03:00 170 [lb_av] [facility] BMI (Body Mass Index) 2020-01-11 11:03:00 29.2 kg/m2 [facility] Body Temperature 2019-09-02 08:00:00 98.1 [degF] [facility] Weight 2019-08-30 11:00:00 174.25 [lb_av] [facility] BMI (Body Mass Index) 2019-08-30 11:00:00 29.9 kg/m2 [facility] Procedures Procedure Date / Time Performed Performing Clinician Source XR ELBOW >3 VW LEFT 2023-07-19 16:03:53 Nehal Bustamante [facility] FLU VACC ([id number]), 6 MO-6 4 YRS, .5ML, IM, QUAD (FLUCELVAX) 2023-07-19 15:38:00 Danica Nehal [facility] EXTERNAL PROVIDER RECORDS 2022-12-03 05:01:00 Doctor Unassigned, [place] [facility] [id number] 2021 00:00:00 GIBJE.01 [facility] [id number] 2021 00:00:00 GIBJE.01 [facility] [id number] 2021-09-21 00:00:00 MOUDA.01 [facility] [id number] 2021-09-21 00:00:00 MOUDA.01 [facility] [id number] 2021-09-19 00:00:00 MOUDA.01 [facility] [id number] 2021-09-17 00:00:00 SERHA [facility] X-ray of chest, single view 2020-05-18 00:00:00 [facility] Radiologic examination, abdo men; 2 views 2019-09-01 00:00:00 [facility] Esophagogastroduodenoscopy w ith closed biopsy 2019-08-31 00:00:00 [facility] Diagnostic esophagogastroduodenoscopy (EGD) with specimen collection 2019-08-31 00:00:00 [facility] X-RAY EXAM OF FOOT 2019-08-13 00:00:00 [facility] X-ray of foot, two views 2019-08-13 00:00:00 [facility] Plan of Care Planned Activity Planned Date Details Comments Source Future Scheduled Test Streptococ cus pyogenes culture [code = 16701-3] [facility] Serum or p lasma magnesium measurement (mass/volume) [code = 66185-4] [facility] HCIS Goal Patient referral [code = 5609677 ] [facility] HCIS Goal Patient referral [code = 8480169 ] [facility] HCIS Instructions Nausea and Vomit ing, Adult [facility] HCIS Instructions Stomach Ache and Stomach Upset [facility] Start Date/Time End Date/Time Encounter Type Admission Type Attending Clinicians Care Facility Care Department Encounter ID Source 2021-06-16 12:30:00 Inpatient TANA TERESA [facility]T [facility] [id number]plus-transfection 2021-06-06 05:50:09 Outpatient CURT ELIAS [id number]fection 2021-06-05 23:11:36 Outpatient CURT ELIAS [id number] [facility] 2021-06-05 21:01:56 Outpatient CURT ELIAS [id number] [facility] 2021-06-05 19:41:19 Outpatient CURT ELIAS [id number] [facility] 2021-06-05 19:18:13 Outpatient CHRISTUS CURT [id number] [facility] 2021-06-05 19:15:23 Outpatient CHRISTUS CURT [id number] [facility] 2021-06-05 18:37:28 Outpatient CURT ELIAS [id number] [facility] 2023-09-28 00:00:00 2023-09-28 00:00:00 Patient Secure Msg Doctor Unassigned, [place] [facility] 1.2.840.114 350.1.13.10 4.2.7.2.686 [id number] [facility] 2023-09-19 08:40:00 2023-09-19 08:40:00 Outpatient R NEHAL BUSTAMANTE [facility] [id number] [facility] 2023-08-26 13:00:00 2023-08-26 13:00:00 Outpatient R NEHAL BUSTAMANTE [facility] [id number] [facility] 2023-08-22 13:00:00 2023-08-22 13:00:00 Outpatient R NEHAL BUSTAMANTE [facility] [id number] [facility] 2023-08-21 00:00:00 2023-08-21 00:00:00 Nurse Triage Danielayesica [facility] [place] 1.2.840.114 350.1.13.10 4.2.7.2.686 [id number] [facility] 2023-07-19 09:53:23 2023-07-19 23:59:00 Outpatient R NEHAL BUSTAMANTE [facility] [id number] [facility] 2023-07-19 09:53:23 2023-07-19 23:59:00 Hospital Encounter Kleyesica, [facility] CHRISTOPHER?[facility] 1.2.840.114 350.1.13.10 4.2.7.2.686 [id number] [facility] 2023-07-19 08:40:00 2023-07-19 09:46:34 Office Visit Danica [facility] CHRISTOPHER?[facility] 1.2.840.114 350.1.13.10 4.2.7.2.686 [id number] [facility] 2023-07-19 00:00:00 2023-07-19 00:00:00 Telephone Danica [facility] CHRISTPOHER?[facility] 1.2.840.114 350.1.13.10 4.2.7.2.686 [id number] [facility] 2023-06-23 08:40:00 2023-06-23 08:40:00 Outpatient R NEHAL BUSTAMANTE [facility] [id number] [facility] 2023-06-14 00:00:00 2023-06-14 00:00:00 Outpatient GC_GCBZW_Ka diyala_S PRIV PRIV [id number] [facility] 2023-06-13 00:00:00 2023-06-13 00:00:00 Outpatient GC_GCBZW_Ka diyala_S PRIV PRIV [id number] [facility] 2023-05-09 08:40:00 2023-05-09 08:40:00 Outpatient NEHAL DELA CRUZ [facility] [id number] [facility] 2023-04-14 08:40:00 2023-04-14 08:40:00 Outpatient NEHAL DELA CRUZ [facility] [id number] [facility] 2022-12-03 00:00:00 2022-12-03 00:00:00 Orders Only Doctor Unassigned, [place] [facility] 1.2.840.114 350.1.13.10 4.2.7.2.686 [id number] [facility] 2022-05-07 00:00:00 2022-05-07 00:00:00 Outpatient PREZAS, CLIFF HATTIE COWART [id number] [facility] 2022-05-04 00:00:00 2022-05-04 00:00:00 Outpatient PREZAS, CLIFF HATTIE COWART [id number] [facility] 2022-05-04 00:00:00 2022-05-04 00:00:00 Outpatient PREZAS, CLIFF HATTIE COWART [id number] [facility] 2022-05-03 00:00:00 2022-05-03 00:00:00 Outpatient PREZAS, CLIFF [facility] COW[facility] [id number] [facility]03 00:00:00 2022-05-03 00:00:00 Outpatient PREZAS, CLIFF HATTIE COWART [id number] [facility] 2022-05-03 00:00:00 2022-05-03 00:00:00 Outpatient PREZAS, CLIFF HATTIE CWOART [id number] [facility] 2022-04-30 11:35:00 2022-04-30 11:35:00 Outpatient LABMiguel H[facility]IE COW[facility] [id number] [facility] 2022-04-30 00:00:00 2022-04-30 00:00:00 Outpatient PREZASCLIFF HATTIE COWART [id number] [facility] 2022-04-27 13:30:00 2022-04-27 14:00:00 Office Visit Cliff Hannah Kyle Frias 1.2.840.114 350.1.13.13 1.2.7.2.686 [id number] [facility] 2022-03-10 00:00:00 2022-03-10 00:00:00 Outpatient KB SELLERS [id number] [facility] 2022-03-09 13:30:00 2022-03-09 13:30:00 Outpatient KB SELLERS HATTIE COWART [id number] [facility] 2022-03-08 13:30:00 2022-03-08 13:30:00 Outpatient KB SELLERS HATTIE COWART [id number] [facility] 2022-03-08 13:30:00 2022-03-08 13:30:00 Outpatient FLORY QUIÑONES [facility] [id number] [facility] 2022-03-08 11:30:00 2022-03-08 11:30:00 Outpatient LAB90 HATTIE HATTIE [id number] [facility] 2022-03-08 10:45:00 2022-03-08 11:15:00 Office Visit MarlonMonica floydricardo Fayemitul [place] 1..840.114 350.1.13.13 1.2.7.2.686 [id number] [facility] 2021-12-22 11:00:00 2021-12-22 11:00:00 Outpatient KAMI TORRE PATRICK [facility] [id number] [facility] 2021-11-19 10:15:00 2021-11-19 10:15:00 Outpatient LADI MCGILL [facility] [id number] [facility] 2021-11-19 00:00:00 2021-11-19 00:00:00 Case Management La Armando [facility] YARI BRYSON [facility] N[facility] 1..840.114 350.1.13.10 4.2.7.2.686 [id number] [facility] 2021-11-18 00:00:00 2021-11-18 00:00:00 Patient Secure Msg Doctor Unassigned, [place] [facility] 1.2.840.114 350.1.13.10 4.2.7.2.686 [id number] [facility] 2021-11-17 09:30:00 2021-11-17 09:30:00 Outpatient R [facility] [id number] [facility] 2021-11-17 09:30:00 2021-11-17 09:30:00 Outpatient R LADI BAH [facility] [id number] [facility] 2021-11-13 13:00:00 2021-11-13 13:00:00 Outpatient LADI BAH [facility] [id number] [facility] 2021-11-10 15:15:00 2021-11-10 16:00:00 Ancillary Visit La Armadno Craig [facility] 1.2.840.114 350.1.13.10 4.2.7.2.686 [id number] [facility] 2021-11-10 14:30:00 2021-11-10 15:47:51 Outpatient R LADI BAH [facility] [id number] [facility] 2021-11-10 14:30:00 2021-11-10 15:47:51 Ancillary Visit Luis Enrique Lauren Craig [facility] 1.2.840.114 350.1.13.10 4.2.7.2.686 [id number] [facility] 2021-11-10 14:30:00 2021-11-10 14:30:00 Outpatient R [facility] [id number] [facility] 2021-11-06 09:30:00 2021-11-06 10:00:00 Office Visit Nell Patel [facility] 1.2.840.114 350.1.13.10 4.2.7.2.686 [id number] [facility] 2021-11-06 09:30:00 2021-11-06 09:30:00 Outpatient R NELL PATEL [facility] [id number] [facility] 2021-11-06 09:30:00 2021-11-06 09:30:00 Outpatient NELL BLANCHARD [facility] [id number] [facility] 2021-11-05 15:30:00 2021-11-05 16:26:10 Outpatient LADI MCGILL [facility] [id number] [facility] 2021-11-05 15:30:00 2021-11-05 16:26:10 Ancillary Visit Luis Enrique Lauren Craig L [facility] 1..840.114 350.1.13.10 4.2.7.2.686 [id number] [facility] 2021-11-03 15:15:00 2021-11-03 17:21:48 Outpatient LADI MCGILL [facility] [id number] [facility] 2021-11-03 15:15:00 2021-11-03 17:21:48 Ancillary Visit Letitia Osborne Craig L [facility] 1..840.114 350.1.13.10 4.2.7.2.686 [id number] [facility] 2021-10-27 00:00:00 2021-10-27 00:00:00 Patient Secure Msg Doctor Unassigned, [place] [facility] 1..840.114 350.1.13.10 4.2.7.2.686 [id number] [facility] 2021-10-19 09:30:00 2021-10-19 10:47:29 Outpatient FLORY QUIÑONES [facility] [id number] [facility] 2021-09-24 18:40:00 2021-10-09 12:34:[address] [facility] [id number] [address] [place] [address] 2021-09-17 22:55:00 2021-09-24 19:46:00 Inpatient TR Deon Lorenz [facility] [id number] 77 [facility] 2021-08-26 00:00:00 2021-08-26 00:00:00 Letter (Out) Nell Galvan [facility] 1.2840.114 350.1.13.10 4.2.7.2.686 [id number] [facility] 2021-08-12 00:00:00 2021-08-12 00:00:00 Orders Only Doctor Unassigned, [place] [facility] 1.20.114 350.1.13.10 4.2.7.2.686 [id number] [facility] 2021-04-16 12:08:00 2021-04-16 12:08:00 Outpatient TANA TERESA [id number] [address] [place] [address] 2020-11-07 11:25:00 2020-11-08 13:59:00 Emergency Braden Rivas [facility] 1.2840.114 350.1.13.10 4.2.7.2.686 [id number] 2020-11-07 11:25:00 2020-11-08 13:59:00 [facility] 1.2.840.114 350.1.13.10 4.2.7.2.686 [id number] [facility] 2020-11-07 11:21:00 2020-11-07 11:21:00 Emergency X [facility] ERT [id number] [facility] 2020-11-07 00:00:00 2020-11-07 00:00:00 Orders Only Doctor Unassigned, [place] [facility] 1.2840.114 350.1.13.10 4.2.7.2.686 [id number] 2020-11-07 00:00:00 2020-11-07 00:00:00 Orders Only Doctor Unassigned, [place] [facility] 1.2.840.114 350.1.13.10 4.2.7.2.686 [id number] [facility] 2020-10-30 03:51:00 2020-10-30 03:51:00 Emergency CHAPIN ENNIS [facility] [id number] [facility] [place] ([facility]) 2020-10-05 14:42:00 2020-10-05 17:26:00 Emergency Braden Rivas [facility] 1.2.840.114 350.1.13.10 4.2.7.2.686 [id number] 2020-10-05 14:42:00 2020-10-05 17:26:00 Emergency Braden Rivas [facility] 1.2.840.114 350.1.13.10 4.2.7.2.686 [id number] [facility] 2020-10-05 14:28:00 2020-10-05 14:28:00 Emergency X [facility] ERT [id number] [facility] 2020-05-18 12:15:00 2020-05-18 14:15:00 Departed Emergency Room SUKUMARUSS DANICA [facility] [id number] [facility] 2020-05-18 12:15:00 2020-05-18 12:15:00 Departed Emergency Room ER UNASSIGNED, ED CURT ELIAS [id number] [address] [place] [address] 2020-01-11 11:00:00 2020-01-11 11:21:00 Departed Emergency Room TAM MISHRA CURT [place] [id number] 42 [facility] 2020-01-11 10:56:00 2020-01-11 11:21:00 Departed Emergency Room ALEXEY DEVINEUS [id number] [facility] 2019-12-04 09:11:00 2019-12-04 09:11:00 Outpatient URI MORALES [id number] [facility] 2019-09-01 18:00:00 2019-09-02 14:00:00 Discharged Inpatient UR AI [facility]ADOR [facility] [id number] [facility] 2019-09-01 18:00:00 2019-09-02 14:00:00 Discharged Inpatient CHRISTLUIZA BREEN [facility] [id number] [facility] 2019-08-13 10:44:00 2019-08-13 10:44:00 Registered Clinic TANA TERESA [id number] [facility] 2019-08-13 10:44:00 2019-08-13 10:44:00 Registered Clinic TAM SOELOY [facility] [id number] 09 [facility] 2019-03-13 07:06:00 2019-03-13 09:02:00 Emergency ER QUIN KRUGER [id number] [facility] 2018-08-22 20:34:00 2018-08-22 21:26:00 Emergency ER FANG PICKETT [id number] [facility] 2017-09-21 22:04:00 2017-09-22 01:13:00 Emergency ER FANG PICKETT [id number] [facility] 2017-08-01 10:54:00 2017-08-01 10:54:00 Outpatient TANA TERESA [id number] [facility] 2017-06-23 07:52:00 2017-06-23 07:52:00 Outpatient URI CHATTERJEE [id number] [facility] 2017-06-19 15:05:00 2017-06-19 17:24:00 Emergency ER SHANNON QUACH [id number] 72 [facility] 2017-06-10 08:04:00 2017-06-10 08:04:00 Outpatient TANA TERESA CURT ELIAS [id number] [facility] 2017-03-17 07:40:00 2017-03-17 10:05:00 Emergency ER SARWAT HALE CURT ELIAS [id number] [facility] 2017-01-15 14:30:00 2017-01-15 14:30:00 Emergency E [facility] [id number] [facility] 2016-12-29 17:31:00 2016-12-29 17:31:00 Emergency E [facility] [id number] [facility] 2016-06-14 10:26:00 2016-06-14 11:59:00 Emergency ER NATA FELIZ CURT ELIAS [id number] [facility] 2016-04-09 14:11:00 2016-04-09 15:12:00 Emergency ER CAMRYN MORA CURT ELIAS [id number] [facility] 2015-11-18 21:14:00 2015-11-19 00:29:00 Emergency ER KALEY TOVAR CURT ELIAS [id number] [facility] Results Test Description Test Time Test Comments Results Result Co mments Source CBC W/AUTO [id number] 09:49:00* Test Item Value Reference Range Interpretation Comme nts WHITE BLOOD CELL (test code = WBC) 4.4 x10 3/uL 4.5-11.0 L RED BLOOD CELL (test code = RBC) 3.38 x10 6/uL 3.54-5.02 L HEMOGLOBIN (test code = HGB) 10.0 g/dL 11.0-15.0 L HEMATOCRIT (test code = HCT) 31.8 % 33.0-45.0 L MEAN CELL VOLUME (test code = MCV) 94.1 fL 81.0-99.0 N MEAN CELL HGB (test code = MCH) 29.6 pg 27.0-33.0 N MEAN CELL HGB CONCETRATION (test code = MCHC) 31.4 g/dL 33.0-37.0 L RED CELL DISTRIBUTION WIDTH CV (test code = RDW) 14.9 % 11.5-14.5 H PLATELET COUNT (test code = PLT) 353 x10 3/uL 150-400 N NEUTROPHIL % (test code = NT%) 51.5 % 56.0-77.0 L LYMPHOCYTE % (test code = LY%) 29.4 % 14.0-32.0 N NEUTROPHIL # (test code = NT#) 2.25 x10 3/uL 2.0-7.6 N LYMPHOCYTE # (test code = LY#) 1.28 x10 3/uL 1.0-3.8 N MANUAL DIFF REQUIRED (test c ode = MDIFF) NO RED CELL DISTRIBUTION WIDTH SD (test code = RDW-SD) 51.2 fL 37.0-54.0 N MEAN PLATELET VOLUME (test c ode = MPV) 9.3 fL 7.0-9.0 H IMMATURE GRANULOCYTE % (test code = IG%) 0.5 % 0.0-2.0 N MONOCYTE % (test code = MO%) 12.2 % 4.8-9.0 H EOSINOPHIL % (test code = EO%) 5.5 % 0.3-3.7 H BASOPHIL % (test code = BA%) 0.9 % 0.0-2.0 N NUCLEATED RBC % (test code = NRBC%) 0.0 % 0-0 N IMMATURE GRANULOCYTE # (test code = IG#) 0.02 x10 3/uL 0.00-0.03 N MONOCYTE # (test code = MO#) 0.53 x10 3/uL 0.1-0.8 N EOSINOPHIL # (test code = EO#) 0.24 x10 3/uL 0.0-0.2 H BASOPHIL # (test code = BA#) 0.04 x10 3/uL 0.0-0.2 N NUCLEATED RBC # (test code = NRBC#) 0.00 x10 3/uL 0.0-0.1 N HGB [id number] 07:26:00* Test Item Value Reference Range Interpretation Comme nts HEMOGLOBIN (test code = HGB) 8.9 g/dL 11.0-15.0 L HEMATOCRIT (test code = HCT) 28.8 % 33.0-45.0 L [id number] 07:09:00* Test Item Value Reference Range Interpretation Comme nts ALBUMIN (test code = ALB) 3.10 g/dL 3.4-5.0 L [id number] 07:09:00* Test Item Value Reference Range Interpretation Comme nts PREALBUMIN (test code = PREALB) 16.9 mg/dL 16.0-40.0 N HGB [id number] 07:46:00* Test Item Value Reference Range Interpretation Comme nts HEMOGLOBIN (test code = HGB) 8.0 g/dL 11.0-15.0 L HEMATOCRIT (test code = HCT) 25.7 % 33.0-45.0 L HGB [id number] 08:19:00* Test Item Value Reference Range Interpretation Comme nts HEMOGLOBIN (test code = HGB) 8.2 g/dL 11.0-15.0 L HEMATOCRIT (test code = HCT) 25.2 % 33.0-45.0 L [id number] 06:53:00* Test Item Value Reference Range Interpretation Comme nts ALBUMIN (test code = ALB) 3.00 g/dL 3.4-5.0 L [id number] 06:53:00* Test Item Value Reference Range Interpretation Comme nts PREALBUMIN (test code = PREALB) 10.1 mg/dL 16.0-40.0 L UA RFLX MICR CULT IF [id number] 16:36:00* Test Item Value Reference Range Interpretation Comme nts UA COLOR (test code = COLU) YELLOW YEL/STRAW UA APPEARANCE (test code = APPU) SL CLOUDY CLEAR UA GLUCOSE DIPSTICK (test co de = DGLUU) NEGATIVE NEGATIVE UA BILIRUBIN DIPSTICK (test code = BILU) NEGATIVE NEGATIVE UA KETONE DIPSTICK (test cod e = KETU) NEGATIVE NEGATIVE UA SPECIFIC GRAVITY (test co de = SGU) 1.012 1.005-1.030 N UA BLOOD DIPSTICK (test code = NESTOR) 1+ NEGATIVE A UA PH DIPSTICK (test code = VIDA) 7.0 5.0-7.0 N UA PROTEIN DIPSTICK (test co de = PROU) NEGATIVE NEGATIVE UA UROBILINIOGEN DIPSTICK (t est code = URO) 0.2 mg/dL 0.2-1.0 UA NITRITE DIPSTICK (test co de = RIANA) NEGATIVE NEGATIVE UA LEUKOCYTE ESTERASE DIPSTI CK (test code = LEUU) 3+ NEGATIVE A UA WBC (test code = WBCU) >50 WBC/HPF 0-3 A UA RBC (test code = RBCU) >50 RBC/HPF 0-3 A UA WBC NO REFLEX (test code = WBCUCL) >50 WBC/HPF 0-3 A UA BACTERIA (test code = BACU) 1+ /HPF NONE SEEN A UA SQUAMOUS CELLS (test code = SQU) 0-5 /HPF NONE SEEN UA MUCUS (test code = MUCU) TRACE /LPF NONE SEEN Cath type: Temporary/indwellingIN date: 09/24/21IN time: 184Elapse time: 44 Hrs 29 MinsIndication for culture: RiskForSepsis-no oth srcSpecimen Description: STRAIGHT CATHHGB [id number] 07:30:00* Test Item Value Reference Range Interpretation Comme nts HEMOGLOBIN (test code = HGB) 7.7 g/dL 11.0-15.0 L HEMATOCRIT (test code = HCT) 24.4 % 33.0-45.0 L COMPREHENSIVE METABOLIC [id number] 07:37:00* Test Item Value Reference Range Interpretation Comme nts SODIUM (test code = NA) 140 mEq/L 134-147 N POTASSIUM (test code = K) 3.7 mEq/L 3.4-5.0 N CHLORIDE (test code = CL) 103 mEq/L 100-108 N CARBON DIOXIDE (test code = CO2) 30 mEq/l 21-33 N ANION GAP (test code = GAP) 10 0-20 N GLUCOSE (test code = GLU) 113 mg/dL 70-110 H BLOOD UREA NITROGEN (test code = BUN) 18 mg/dL 7-18 GLOMERULAR FILTRATION RATE (test code = GFR) 169.6 95-105 H Units of measure = ml/min/1.73 m2 CREATININE (test code = CREAT) 0.4 mg/dL 0.6-1.3 L TOTAL PROTEIN (test code = PROT) 5.8 g/dL 6.4-8.2 L ALBUMIN (test code = ALB) 2.60 g/dL 3.4-5.0 L CALCIUM (test code = CA) 8.3 mg/dL 8.0-10.5 N BILIRUBIN TOTAL (test code = BILT) 0.50 mg/dL 0.0-1.0 N SGOT/AST (test code = AST) 20 IUnit/L 15-37 N SGPT/ALT (test code = ALT) 16 IUnit/L 30-65 L ALKALINE PHOSPHATASE TOTAL (test code = ALKP) 66 IUnit/L 20-125 N [id number] 07:37:00* Test Item Value Reference Range Interpretation Comme nts MAGNESIUM (test code = MAG) 1.66 mg/dL 1.80-2.40 L CBC W/AUTO [id number] 07:13:00* Test Item Value Reference Range Interpretation Comme nts WHITE BLOOD CELL (test code = WBC) 6.1 x10 3/uL 4.5-11.0 N RED BLOOD CELL (test code = RBC) 2.60 x10 6/uL 3.54-5.02 L HEMOGLOBIN (test code = HGB) 7.8 g/dL 11.0-15.0 L HEMATOCRIT (test code = HCT) 23.7 % 33.0-45.0 L MEAN CELL VOLUME (test code = MCV) 91.2 fL 81.0-99.0 N MEAN CELL HGB (test code = MCH) 30.0 pg 27.0-33.0 N MEAN CELL HGB CONCETRATION (test code = MCHC) 32.9 g/dL 33.0-37.0 L RED CELL DISTRIBUTION WIDTH CV (test code = RDW) 14.0 % 11.5-14.5 N PLATELET COUNT (test code = PLT) 250 x10 3/uL 150-400 N NEUTROPHIL % (test code = NT%) 64.6 % 56.0-77.0 N LYMPHOCYTE % (test code = LY%) 21.0 % 14.0-32.0 N NEUTROPHIL # (test code = NT#) 3.91 x10 3/uL 2.0-7.6 N LYMPHOCYTE # (test code = LY#) 1.27 x10 3/uL 1.0-3.8 N MANUAL DIFF REQUIRED (test c ode = MDIFF) NO RED CELL DISTRIBUTION WIDTH SD (test code = RDW-SD) 45.4 fL 37.0-54.0 N MEAN PLATELET VOLUME (test c ode = MPV) 10.1 fL 7.0-9.0 H IMMATURE GRANULOCYTE % (test code = IG%) 3.3 % 0.0-2.0 H MONOCYTE % (test code = MO%) 6.8 % 4.8-9.0 N EOSINOPHIL % (test code = EO%) 3.8 % 0.3-3.7 H BASOPHIL % (test code = BA%) 0.5 % 0.0-2.0 N NUCLEATED RBC % (test code = NRBC%) 0.0 % 0-0 N IMMATURE GRANULOCYTE # (test code = IG#) 0.20 x10 3/uL 0.00-0.03 H MONOCYTE # (test code = MO#) 0.41 x10 3/uL 0.1-0.8 N EOSINOPHIL # (test code = EO#) 0.23 x10 3/uL 0.0-0.2 H BASOPHIL # (test code = BA#) 0.03 x10 3/uL 0.0-0.2 N NUCLEATED RBC # (test code = NRBC#) 0.00 x10 3/uL 0.0-0.1 N COVID 19 Asymptomatic IH [id number] 16:41:00* Test Item Value Reference Range Interpretation Comme nts COVID 19 Asymptomatic IH AG (test code = COVNONPUIAG) Negative Negative A negative resul t is presumptive and should be confirmedwith an FDA authorized molecular assay, if necessary forpatient management.A positive result does not rule out co-infections withother pathogens.This test detects both viable (live) and non-viable,SARS-CoV, and SARS-CoV-2. Test performance depends on theamount of virus (antigen) in the sample.This test has not been FDA cleared or approved; the test hasbeen authorized by FDA under an Emergency Use Authorization(EUA) for use by laboratories certified under the CLIA thatmeet the requirements to perform moderate, high or waivedcomplexity tests. CBC W/AUTO [id number] 08:04:00* Test Item Value Reference Range Interpretation Comme nts WHITE BLOOD CELL (test code = WBC) 6.6 x10 3/uL 4.5-11.0 N RED BLOOD CELL (test code = RBC) 2.73 x10 6/uL 3.54-5.02 L HEMOGLOBIN (test code = HGB) 8.0 g/dL 11.0-15.0 L HEMATOCRIT (test code = HCT) 25.3 % 33.0-45.0 L MEAN CELL VOLUME (test code = MCV) 92.7 fL 81.0-99.0 N MEAN CELL HGB (test code = MCH) 29.3 pg 27.0-33.0 N MEAN CELL HGB CONCETRATION (test code = MCHC) 31.6 g/dL 33.0-37.0 L RED CELL DISTRIBUTION WIDTH CV (test code = RDW) 14.1 % 11.5-14.5 N RED CELL DISTRIBUTION WIDTH SD (test code = RDW-SD) 46.7 fL 37.0-54.0 N PLATELET COUNT (test code = PLT) 233 x10 3/uL 150-400 N MEAN PLATELET VOLUME (test c ode = MPV) 10.3 fL 7.0-9.0 H NEUTROPHIL % (test code = NT%) 63.7 % 56.0-77.0 N IMMATURE GRANULOCYTE % (test code = IG%) 4.1 % 0.0-2.0 H LYMPHOCYTE % (test code = LY%) 21.5 % 14.0-32.0 N MONOCYTE % (test code = MO%) 8.4 % 4.8-9.0 N EOSINOPHIL % (test code = EO%) 1.8 % 0.3-3.7 N BASOPHIL % (test code = BA%) 0.5 % 0.0-2.0 N NUCLEATED RBC % (test code = NRBC%) 0.6 % 0-0 H NEUTROPHIL # (test code = NT#) 4.23 x10 3/uL 2.0-7.6 N IMMATURE GRANULOCYTE # (test code = IG#) 0.27 x10 3/uL 0.00-0.03 H LYMPHOCYTE # (test code = LY#) 1.43 x10 3/uL 1.0-3.8 N MONOCYTE # (test code = MO#) 0.56 x10 3/uL 0.1-0.8 N EOSINOPHIL # (test code = EO#) 0.12 x10 3/uL 0.0-0.2 N BASOPHIL # (test code = BA#) 0.03 x10 3/uL 0.0-0.2 N NUCLEATED RBC # (test code = NRBC#) 0.04 x10 3/uL 0.0-0.1 N MANUAL DIFF REQUIRED (test c ode = MDIFF) NO BASIC METABOLIC [id number] 08:01:00* Test Item Value Reference Range Interpretation Comme nts SODIUM (test code = NA) 140 mEq/L 134-147 N POTASSIUM (test code = K) 3.9 mEq/L 3.4-5.0 N CHLORIDE (test code = CL) 103 mEq/L 100-108 N CARBON DIOXIDE (test code = CO2) 30 mEq/l 21-33 N ANION GAP (test code = GAP) 11 0-20 N GLUCOSE (test code = GLU) 108 mg/dL 70-110 N BLOOD UREA NITROGEN (test code = BUN) 12 mg/dL 7-18 N GLOMERULAR FILTRATION RATE (test code = GFR) 170.4 95-105 H Units of measure = ml/min/1.73 m2 CREATININE (test code = CREAT) 0.4 mg/dL 0.6-1.3 L CALCIUM (test code = CA) 8.1 mg/dL 8.0-10.5 N RENAL FUNCTION [id number] 06:40:00* Test Item Value Reference Range Interpretation Comme nts SODIUM (test code = NA) 143 mEq/L 134-147 N POTASSIUM (test code = K) 3.6 mEq/L 3.4-5.0 N CHLORIDE (test code = CL) 108 mEq/L 100-108 N CARBON DIOXIDE (test code = CO2) 30 mEq/l 21-33 N ANION GAP (test code = GAP) 8 0-20 N GLUCOSE (test code = GLU) 112 mg/dL 70-110 H BLOOD UREA NITROGEN (test code = BUN) 12 mg/dL 7-18 N GLOMERULAR FILTRATION RATE (test code = GFR) 170.4 95-105 H Units of measure = ml/min/1.73 m2 CREATININE (test code = CREAT) 0.4 mg/dL 0.6-1.3 L ALBUMIN (test code = ALB) 2.80 g/dL 3.4-5.0 L CALCIUM (test code = CA) 7.5 mg/dL 8.0-10.5 L PHOSPHOROUS (test code = PHOS) 2.2 MG/DL 2.5-4.9 L [id number] 06:40:00* Test Item Value Reference Range Interpretation Comme nts MAGNESIUM (test code = MAG) 1.75 mg/dL 1.80-2.40 L CBC W/AUTO [id number] 06:35:00* Test Item Value Reference Range Interpretation Comme nts WHITE BLOOD CELL (test code = WBC) 10.2 x10 3/uL 4.5-11.0 N RED BLOOD CELL (test code = RBC) 2.68 x10 6/uL 3.54-5.02 L HEMOGLOBIN (test code = HGB) 8.0 g/dL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 additional findings. CT Abdomen And Pelvis With Contrast Mildly displaced fractures of the right inferior pubic ramus. Mildly displaced fractures of the right sacrum as described above. Asymmetric enlargement of the right piriformis muscle may be on the basis of underlying hematoma. Impression By: Jonathan Jackson M.D. Procedures Splint Applic - Fx Mgmt #1Time Spent (minutes) 10Procedure Performed by ED NPPrecise Anatomic LocationLUE, elbowCustom Immobilization Ortho glass, Posterior splintsPost-Procedure/Complications Cap refill normal, Post splint vascular nl, Post splint neuro nl, Condition improved, Tolerated procedure well, Patient stable Re-Evaluation MDM Free Text MDM NotesFree Text MDM NotesLabs and imaging ordered secondary to trauma alert and concern for multisystem trauma Re-Evaluation/Progress #1Text/Dict NoteWashout of left open elbow fracture completed covered with sterile gauze and placed in a Ortho-Glass posterior splint in a position of comfort. Remains neurovascularly intact. Knee immobilizer placed (by nurse) for proximal fibularfracture.Time of Re-Eval 0012 ED CourseMedication(s) OrderedMedication(s) Ordered:Cardiovascular Drugs Sig/Emily Start time Last Medication Dose Route Stop Time Status Admin Hydralazine HCl 10 MG Q6H PRN PRN 09/17 2300 AC IV 10/17 2259 Labetalol HCl 10 MG Q4H PRN PRN 09/17 2300 AC IV 10/17 2259 Central Nervous System Agents Sig/Emily Start time Last Medication Dose Route Stop Time Status Admin Levetiracetam 500 MG Q12H 09/18 1050 AC 09/19 Sodium Chloride 100 ML IV 09/24 1104 1220 Acetaminophen 1,000 MG Q6H 09/17 2300 AC 09/19 PO 10/17 225 1733 Morphine Sulfate 4 MG Q4H PRN PRN 09/17 230 AC 09/19 IV 09/22 2259 0505 Oxycodone HCl 5 MG Q6H PRN PRN 09/17 230 AC 09/19 PO 09/22 2259 1920 Gastrointestinal Drugs Sig/Emily Start time Last Medication Dose Route Stop Time Status Admin Docusate Sodium 100 MG BID 09/18 899 AC 09/19 PO 10/18 0859 203 Polyethylene Glycol 17 GM DAILY 09/18 899 AC PO 10/18 0859 Ondansetron HCl 4 MG Q4H PRN PRN 09/17 230 AC 09/19 IV 10/17 2259 0504 Skin And Mucous Membrane Agent Sig/Emily Start time Last Medication Dose Route Stop Time Status Admin Mupirocin 1 APPLIC BID 09/18 899 AC 09/19 NASAL 09/22 Patient Discharge Departure Vital Signs/ConditionVital SignsFirst Documented: Result Date Time Pulse Ox 96 09/17 2006 B/P 116/67 09/17 2006 B/P Mean 83 09/17 2006 O2 Delivery Room air 09/17 2006 Temp 35.9 09/17 2006 Pulse 90 09/17 2006 Resp 20 09/17 2006 Last Documented: Result Date Time Pulse Ox 98 09/17 2299 B/P 144/82 09/17 2299 B/P Mean 102 09/17 2299 O2 Delivery Room air 09/17 2299 Temp 36.4 09/17 2299 Pulse 108 09/17 2299 Resp 22 09/17 2300 All vital signs available at the time of this entry have been reviewed. Clinical ImpressionClinical ImpressionPrimary Impression: Elbow fracture, leftSecondary Impressions: Cortical contusion, Fibula fracture, Fracture of sacrum, Inferior pubic ramus fracture, Rib fracture Disposition DecisionAdmit Admit Physician Name ValdemarkatieDeon Lb Admit Physician Trauma Surgeon Request Time 2204 Request Date 09/17/21 )( Admission Accepts Yes )( Accepted Time 2204 )( Accepted Date 09/17/21 Call Information will see patient Critical CareTime Spent (minutes): 32Services Performed Patient management by me, Time spent at bedside, Reviewing test results, Reviewing imaging, Discussing patient care, Documentation in record, Time with fam/surrogatePatient was critically ill due to:Patient with multi system dysfunction that causes persistent threat to life. 32minutes of critical care time was spent at the bedside, in communication with other healthcare providers, review of available medical records, and discussion with parent. This is exclusive of any procedures Jeovanny Ramirez. 09/19/21 2254:Patient Discharge Departure Supervising Physician Note MidLv/Doc Saw Pt 1I have seen and evaluated this patient and agree with the nurse practitioner or physician assistant professor sculpture's documentation and assessment. Patient fully evaluated and examined. GCS 15, no airway compromise. Reviewed all orders and I agree. Documentation of one or more elements of my assessment are included in the medical record. at 0155 at 2256RPT #:[id number] OF REPORTBig [facility] department wxejpn1880-61-97I00:28:00G.[id number] for patient qipoZGJOWQYBEYSJKC8756-61-41U33:56: 08 HCACL
[2023-11-05 15:59] LABS: Urine Bacteria <20 /HPF (<20); Urine Bilirubin 1+ (Negative); Urine Blood Negative (Negative); Urine Clarity Extremely Turbid (Clear); Urine Color Dark-Brown (Yellow); Urine Culture Reflex Order REFLEXED; Urine Glucose NEGATIVE (Negative); Urine Ketones NEGATIVE (Negative); Urine Micro Reflex YN NO BILL MICROSCOPIC; Urine Mucus Slight /HPF (None Seen); Urine Nitrite 1+ (Negative); Urine Protein NEGATIVE (Negative); Urine RBC <5 /HPF (None Seen); Urine Urobilinogen 1+ (Normal); Urine pH 5.5 (5.0-7.0)
[2023-11-05 16:03] LABS: Calcium Oxalate Crystals- Ur Many /HPF (None Seen)
--- NOTE | 2023-11-05 16:07 | ER ---
Nurse's Notes [facility] Name: Pily Morrissey Age: 53 yrs Sex: Female : 1970 Arrival Date: 11/05/2023 Time: 15:11 Bed 13 Private MD: Diagnosis: UTI/ Urinary tract infection, site not specified Presentation: 11/04 15:14 Chief complaint: Patient states: painful, frequent, urgent urination. Has hx of UTI's, ko1 also taking Azo with no relief. Coronavirus screen: At this time, the client does not indicate any symptoms associated with coronavirus-19. Ebola Screen: No symptoms or risks identified at this time. Initial Sepsis Screen: Does the patient meet any 2 criteria? No. Patient's initial sepsis screen is negative. Does the patient have a suspected source of infection? No. Patient's initial sepsis screen is negative. Risk Assessment: Do you want to hurt yourself or someone else? Patient reports no desire to harm self or others. Onset of symptoms was November 05, 2023. 15:14 Method Of Arrival: Ambulatory ko1 15:14 Acuity: RJ 3 ko1 Triage Assessment: 15:17 General: Appears uncomfortable, Behavior is calm, cooperative, appropriate for age. ko1 Pain: Complains of pain in pelvis. 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 - Social history:: Smoking status: Patient denies any tobacco usage or history of. Screenin:30 [facility] ED Fall Risk Assessment (Adult) History of falling in the last 3 months, ko1 including since admission No falls in past 3 months (0 pts) Confusion or Disorientation No (0 pts) Intoxicated or Sedated No (0 pts) Impaired Gait No (0 pts) Mobility Assist Device Used No (0 pt) Altered Elimination No (0 pt) Score/Fall Risk Level 0 - 2 = Low Risk Oriented to surroundings, Maintained a safe environment, Educated pt \T\ family on fall prevention, incl call for assistance when getting out of bed, Assessed \T\ reinforced patient's understanding of fall precautions, Provided non-skid footwear, Hourly rounding (assess needs \T\ fall precautionary measures) done, Used ambulatory aids as needed (educated on \T\ assisted with), Used gait belt as appropriate. Abuse screen: Denies threats or abuse. Denies injuries from another. Nutritional screening: No deficits noted. Tuberculosis screening: No symptoms or risk factors identified. Assessment: 16:00 General: Appears in no apparent distress. Behavior is calm, cooperative. GI: Patient ph currently denies abdominal pain, nausea, vomiting. : Reports burning with urination, urinary frequency. Derm: Skin is pink, warm \T\ dry. Vital Signs: 15:14 BP 144 / 76; Pulse 85; Resp 15; Temp 97.8; Pulse Ox 98% ; ko1 ED Course: 15:12 Patient arrived in ED. rg4 15:17 Triage completed. ko1 15:17 Arm band placed on right wrist. Patient placed in an exam room, on a stretcher, on ko1 pulse oximetry, Patient notified of wait time. 15:18 Abby Manrique FNP is PHCP. [facility] 15:18 Oswaldo Patricia MD is Attending Physician. [facility] 15:30 Patient has correct armband on for positive identification. Allergy band placed. Bed in ko1 low position. Call light in reach. Provided Education on: na. Pulse ox on. NIBP on. Door closed. Noise minimized. Warm blanket given. Assisted to bathroom. 15:30 No provider procedures requiring assistance completed. Urine collected: clean catch ko1 specimen, leatha colored. Patient did not have IV access during this emergency room visit. 15:35 Urinalysis W/Microscopic Sent. ko1 15:39 Charisma Ramirez, RN is Primary Nurse. ph Administered Medications: No medications were administered Medication: 15:30 VIS not applicable for this client. ko1 Outcome: 16:06 Discharge ordered by . [facility] 16:24 Discharged to home ambulatory, ph 16:24 Condition: good 16:24 Discharge instructions given to patient, Instructed on discharge instructions, follow up and referral plans. medication usage, Demonstrated understanding of instructions, follow-up care, medications, Prescriptions given X 2, 16:25 Patient left the ED. ph Signatures: Charisma Ramirez, RN RN Soraya Harvey rg4 Abby Manrique, COSMETICIAN APPRENTICE COSMETICIAN APPRENTICE jh7 Karina Ospina, DONAVON RN ko1
--- NOTE | 2023-11-05 16:07 | EDPHYS ---
Physician Documentation [facility] Name: Pily Morrissey Age: 53 yrs Sex: Female : 1970 Arrival Date: 11/05/2023 Time: 15:11 Bed 13 Private MD: ED Physician Oswaldo Patricia HPI: 11/04 15:14 This 53 yrs old Female presents to ER via Ambulatory with complaints of Urinary Problem.jh7 15:14 Onset: The symptoms/episode began/occurred 1 day(s) ago. Associated signs and symptoms: jh7 Pertinent positives: pelvic pain, Pertinent negatives: abdominal pain, chest pain, fever, shortness of breath. Patient presents with dysuria, urinary frequency, and urgency for the past day. History of frequent UTIs. Denies back pain, N/V, or fever.. 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 - Social history:: Smoking status: Patient denies any tobacco usage or history of. ROS: 15:14 Constitutional: Negative for fever, chills, and weight loss, Eyes: Negative for injury, jh7 pain, redness, and discharge, Neck: Negative for injury, pain, and swelling, Cardiovascular: Negative for chest pain, palpitations, and edema, Respiratory: Negative for shortness of breath, cough, wheezing, and pleuritic chest pain, Abdomen/GI: Negative for abdominal pain, nausea, vomiting, diarrhea, and constipation, Back: Negative for injury and pain, MS/Extremity: Negative for injury and deformity, Skin: Negative for injury, rash, and discoloration, Neuro: Negative for headache, weakness, numbness, tingling, and seizure, 15:14 : Positive for urinary symptoms, pelvic pain, Negative for flank pain, 15:14 All other systems are negative, Exam: 15:14 Constitutional: This is a well developed, well nourished patient who is awake, alert, jh7 and in no acute distress. Head/Face: Normocephalic, atraumatic. Eyes: Pupils equal round and reactive to light, extra-ocular motions intact. Lids and lashes normal. Conjunctiva and sclera are non-icteric and not injected. Cornea within normal limits. Periorbital areas with no swelling, redness, or edema. Neck: Trachea midline, no thyromegaly or masses palpated, and no cervical lymphadenopathy. Supple, full range of motion without nuchal rigidity, or vertebral point tenderness. No Meningismus. Cardiovascular: Regular rate and rhythm with a normal S1 and S2. No gallops, murmurs, or rubs. Normal PMI, no JVD. No pulse deficits. Respiratory: Lungs have equal breath sounds bilaterally, clear to auscultation and percussion. No rales, rhonchi or wheezes noted. No increased work of breathing, no retractions or nasal flaring. Abdomen/GI: Soft, non-tender, with normal bowel sounds. No distension or tympany. No guarding or rebound. No evidence of tenderness throughout. Skin: Warm, dry with normal turgor. Normal color with no rashes, no lesions, and no evidence of cellulitis. MS/ Extremity: Pulses equal, no cyanosis. Neurovascular intact. Full, normal range of motion. Neuro: Awake and alert, GCS 15, oriented to person, place, time, and situation. Normal gait. Vital Signs: 15:14 BP 144 / 76; Pulse 85; Resp 15; Temp 97.8; Pulse Ox 98% ; ko1 MDM: 15:18 Patient medically screened. [facility] 16:07 Differential diagnosis: UTI, Pyelonephritis, nephrolithiasis. Data reviewed: vital [facility] signs, nurses notes, lab test result(s), urinalysis. I considered the following discharge prescriptions or medication management in the emergency department. Counseling: I had a detailed discussion with the patient and/or guardian regarding the historical points, exam findings, and any diagnostic results supporting the discharge/admit diagnosis, to return to the emergency department if symptoms worsen or persist or if there are any questions or concerns that arise at home. Special discussion: Informed patient of large amount of calcium oxalate crystals seen in UA. Patient denied flank pain, nausea vomiting, and fever. Stated that she had had a kidney stone and that this did not feel similar. She reports that if symptoms change, she will return to the ER for further eval.. 11/04 15:18 Order name: Urinalysis W/Microscopic; Complete Time: 16:04 [facility] 11/04 16:05 Order name: Urine Culture EDMO Administered Medications: No medications were administered Disposition Summary: 11/05/23 16:06 Discharge Ordered Notes: Location: Home [facility] Problem: new [facility] Symptoms: are unchanged [facility] Condition: Stable [facility] Diagnosis - UTI/ Urinary tract infection, site not specified [facility] Followup: [facility] - With: Private Physician - When: 2 - 3 days - Reason: Recheck today's complaints Discharge Instructions: - Discharge Summary Sheet [facility] - Dysuria [facility] - Urinary Tract Infection, Adult [facility] Forms: - Medication Reconciliation Form [facility] - Thank You Letter [facility] - Antibiotic Education [facility] - Patient Portal Instructions [facility] - Leadership Thank You Letter [facility] Prescriptions: - Pyridium 200 mg Oral Tablet - take 1 tablet ORAL route every 8 hours for 3 days; 9 tablet; Refills: 0, [facility] Product Selection Permitted - cefpodoxime 200 mg Oral tablet - take 1 tablet ORAL route every 12 hours for 10 days with food; 20 tablet; [facility] Refills: 0, Product Selection Permitted Signatures: Dispatcher [employer] EDMS Abby Manrique, TEXTILE COLORIST FORMULATOR TEXTILE COLORIST FORMULATOR [facility] Karina Ospina, RN RN ko1
[2023-11-05 16:41] VITALS: BP 144/76; TEMP 97.8; O2SAT 98
== END ==
LOC: ER 15:11
DX: N39.0 Urinary tract infection, site not specified (principal); Z88.3 Allergy status to other anti-infective agents
CPT/HCPCS: 81001; 87077; 87086; 87088; 87186; 99284

== ENCOUNTER 2024-01-07 19:57 | Emergency (ER) | payer BC ==
--- OUTSIDE RECORDS SUMMARY | 2024-01-07 20:05 | XMS REPORT | Continuity of Care Document ---
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 Progress NoteREPORT#:[id number] REPORT STATUS: SignedDATE:10/08/21 TIME: 804 PATIENT: PILY MORRISSEY UNIT #: [id number]#: [id number] [address] [birth year] AGE: 51 SEX: F ATTEND: Tree Restrepo [facility] AUTHOR: France Taylor MD * [...] % (Auto) (14.0 - 32.0 %) 29.4 [place] % (Auto) (4.8 - 9.0 %) 12.2 H Eos % (Auto) (0.3 - 3.7 %) 5.5 H Baso % (Auto) (0.0 - 2.0 %) 0.9 Neut # (Auto) (2.0 - 7.6 x10 3/uL) 2.25 Lymph # (Auto) (1.0 - 3.8 x10 3/uL) 1.28 [place] # (Auto) (0.1 - 0.8 x10 3/uL) [...] Consultants: hospitalist, pain management at 1123 RPT #:[id number] OF REPORTPRProgress cdww4105-99-42Y50:05:00G.NHZK518076 0177AVAvailable for patient daweGTVGDVFCJQATZJ8075-94-02T74:23: 21 [facility] 2021-10-08 05:55:00 [id number] sPO7CMQxJbVemot co7jvnSjsAtvc40XQwupFmxncBfjDJeNJOo UXDn9p7594-19-12H81:55:00 [facility] ([facility])Pain Management Progress NoteREPORT#:[id number] REPORT STATUS: SignedDATE:10/08/21 TIME: 0555 PATIENT: PILY MORRISSEY UNIT #: [id number]#: [id number] [address] [birth year] AGE: 51 SEX: F ATTEND: Tree Restrepo [facility] AUTHOR: Jaylen Davis LINE DIRECTOR * ALL edits or amendments must be [...] Ox 98 10/08 002 B/P 97/64 10/08 002 B/P Mean 74.7 10/08 21 Temp 98.4 [...] bowel soundsExtremities: moves all, no edema, pedal pulsesNeuro/ORTHODONTIC TREATMENT COORDINATOR: no motor deficits, no sensory deficits, CNII-XII grossly intactSkin: dryLymphatics: no lymphadenopathy, neck normalPsychiatry: normal affect, normal mood ResultsFindings/data:Laboratory Tests: 10/07 0930 Chemistry Sodium (134 - [...] % (Auto) (14.0 - 32.0 %) 29.4 [place] % (Auto) (4.8 - 9.0 %) 12.2 H Eos % (Auto) (0.3 - 3.7 %) 5.5 H Baso % (Auto) (0.0 - 2.0 %) 0.9 Neut # (Auto) (2.0 - 7.6 x10 3/uL) 2.25 Lymph # (Auto) (1.0 - 3.8 x10 3/uL) 1.28 [place] # (Auto) (0.1 - 0.8 x10 3/uL) [...] hours -We will wean from Percocet to [place] as able-manageable Idiopathic neuropathy-10/02 increase gabapentin 300mg to 600mg q8h -Gabapentin 600 mg p.o. every 8 hours -manageable Muscle spasms-Robaxin 500 mg p.o. every 8 hours-manageable Constipation-We will monitor while utilizing opioid narcotic medications.-Adequate fluid intake also discussed.-MiraLAX 17 g p.o. daily-Colace 100 mg p.o. daily twice daily-Dulcolax 10 mg p.o. daily as needed-manageable Disposition: 10/06 sent medications to [facility] [place]: percocet, ms contin, gabapentin, methocarbamol Past Medical [...] agrees. Thank you for the consultation. [place] CIVIL CAD TECH:Total Prescriptions 10Total Private Pay 0Total Prescribers 5Total Pharmacies 4 08/31/2021 08/31/2021 3 TRAMADOL HCL 50 MG TABLET 90.00 30 Kin 096925 [facility] (5115) 0 15.00 MME Comm Ins 07/22/2021 07/22/2021 3 TRAMADOL HCL 50 MG TABLET 14.00 7 Kin 787551 [facility] (5115) 0 10.00 MME Comm Ins 06/09/2021 06/09/2021 3 TRAMADOL HCL 50 MG TABLET 90.00 23 Ki Pit 604451 [facility] (2215) 0 19.57 MME Comm Ins 05/05/2021 05/05/2021 3 TRAMADOL HCL 50 MG TABLET 90.00 22 Ki Pit 742280 [facility] (2215) 0 20.45 MME Comm Ins [place]04/22/2021 04/22/2021 3 TRAMADOL HCL 50 MG TABLET 28.00 7 Ki Pit 731752 [facility] (5115) 0 20.00 MME Comm Ins [place]04/16/2021 04/16/2021 2 HYDROCODONE-ACETAMIN 5-325 MG 28.00 7 Ki Pit 379189 [facility] (2215) 0 20.00 MME Comm Ins [place]04/[place]/2021 04/09/2021 1 ACETAMINOPHEN-COD #3 TABLET 20.00 3 Cy Ove 5403380 [facility] (0323) 0 30.00 MME Comm Ins [place]01/13/2021 01/13/2021 2 ACETAMINOPHEN-COD #3 TABLET 20.00 5 Freida Poh 831265 [facility] (2215) 0 18.00 [place]ME Comm Ins [place]12/15/2020 12/15/2020 4 ACETAMINOPHEN-COD #3 TABLET 14.00 7 Ja Kin 2320658 [facility] (1030) 0 9.00 MME Comm Ins [place]12/[place]2020 12/08/2020 4 ACETAMINOPHEN-COD #3 TABLET 14.00 7 Ja Kin 1978559 [facility] (1030) 0 9.00 [place] Comm [place] [facility] (6728) [address] [id number] [facility] (4354) [address] [address] -[facility] [phone] ([phone]) [address] [facility] 955025 [facility] (0485) 97 [facility] [place] [address] - at 0652 at 1270 RPT #:[id number] OF REPORTPRProgress rlvt7853-99-91H86:55:00G.CMGV269104 -8AVAvailable for patient duljZNFHYMLDBLEJSV7983-66-82J71:45: 36 [facility] 2021-10-08 00:53:00 P45107882986qng9jCJj MgkiEWFv9GTRcp2 DNGE0ZY0fIbwjGhcBgx0U/ngyAzTN3S++sY 95JyEs8158-58-95W88:53:00 [facility] ([facility])Rehab Progress NoteREPORT#:[id number] REPORT STATUS: SignedDATE:10/08/21 TIME: 52 PATIENT: PILY MORRISSEY UNIT #: [id number]#: [id number] [address] [birth year] AGE: 51 SEX: F ATTEND: [...] atrophy, calvesNT, No Cords, LUE in jessica wrap/splint.Neuro/ORTHODONTIC TREATMENT COORDINATOR: alert, CNII-XII intact, normal speech, no sensory deficits, MMT decreased AROM L shoulder/elbow d/t pain, L hand hoop punch and coiler operator 3-/5, LUE 5/5, RLE 4+/5, LLE [...] % (Auto) (14.0 - 32.0 %) 29.4 [place] % (Auto) (4.8 - 9.0 %) 12.2 H Eos % (Auto) (0.3 - 3.7 %) 5.5 H Baso % (Auto) (0.0 - 2.0 %) 0.9 Neut # (Auto) (2.0 - 7.6 x10 3/uL) 2.25 Lymph # (Auto) (1.0 - 3.8 x10 3/uL) 1.28 [place] # (Auto) (0.1 - 0.8 x10 3/uL) [...] functional progress.-Decubitus prevention-protective hydrating lotion-turn every 2 lwyxn-jqnantt-Qmwha program-Nutrition, monitor the patient's p.o. intake, check albumin 2.6, 3, 3.10 and prealbumin, 10.1, 16.9 dietary consult, protein supplements.-Strict fall and safety precaution-Keppra x7 days for seizure prophylaxis-completed 09/24-DVT prophylaxis on Lovenox-GI prophylaxis on Pepcid-changed to Protonix due to heartburn-OOB to chair-Work on bed mobility, transfer training, ADLs, pre-gait and gait exercises as tolerable. -Increase endurance and strength-NWB LUE, WBAT to RLE, ZDZ-Awlhkki-TW consult-patient scored 19 out of 30 on MMSE on acute care indicativeof mild to moderate cognitive changes in the areas of orientation, recall, problem solving and executive functioning-SP to continue treatment-Urinary retention-continue Flomax-Means catheter-consult on rehab-Means removed-patient with pelvic pain and possible dysuria-check YD-hrltjtym-Lixg management consulted for tiered pain management-medications being adjusted-Appreciate consultants input-hospitalist, pain management, -Continue current yzvnemknawt-Ejtdub-kranlsr hemoglobin 8.0, 8.9, 10-transfuse if hemoglobin less than 7-CW ferrous sulfate and vitamin C-chemistries good-continue on Slow-Mag on discharge-Continue Colace and MiraLAX-as needed lactulose-patient had BM-Cefdinir for UTI. Culture shows Enterococcus faecalis (VRE negative) and E. coli both sensitive to Macrodantin-DC cefdinir and start Macrodantin 100 mg p.o.twice daily till 10/0304-svwnsufs-Hjqgcxubi-DC Pepcid and start Ozbbcwqr-olgrxth-wfwglkra improved-09/28: Urology consult-patient will need outpatient urodynamics-Discontinued [...] discharge pain medications-Home Lovenox teaching-Discharge planning-discussed with community case manager Patient Progress-PERFORMING AMB WITH [facility] PERFORMING 60 FT, 110 FT, 80 FT, 125 SPV FOR SAFETY PM RPlease see team note.Plan and goals discussed with the patient. I agree with the teams findingELOS: [10/09]DC-home w sign. gawfv-DN-Kauhkat Jayt-out pt ORTHODONTIC TREATMENT COORDINATOR ? if able to travel from [facility] 15 STAIRSDME-WC, [place] walker, TTB, BSC Total [...] examined by me personally. at 1354 RPT #:[id number] OF REPORTPRProgress omhz3291-76-33K34:53:00G.SSDW824235 0016AVAvailable for patient cqpcOVVSUMWXBJLTEQ3427-81-02S99:54: 57 [facility] 2021-10-07 07:54:00 [id number] Dl5zRgLGMZv3id3 UxL2rjeEhwnKVvmuluptgQ4rN88bmgkC8I+ 5Yv50i1902-97-63E90:54:00 [facility] ([facility])Hospitalist Progress NoteREPORT#:[id number] REPORT STATUS: SignedDATE:10/07/21 TIME: 753 PATIENT: PILY MORRISSEY UNIT #: [id number]#: [id number] [address] [birth year] AGE: 51 SEX: F ATTEND: Tree Restrepo [facility] AUTHOR: France Taylor MD * ALL edits or amendments must be made on the electronic/computer document * SubjectiveChief complaint:improving Pain Follow-up weakness Review of SystemsConstitutional:Reports: generalized weakness. Musculoskeletal: Myalgias: Reports: bilateral. Neuro:Reports: weakness. Objective GeneralVS/I O:Vital Signs: Date Time Temp Pulse Resp B/P B/P Pulse O2 O2 Flow FiO2 Mean Ox Delivery Rate 10/06 2316 37.4 81 16 109/67 80.9 96 Room air 10/06 195 36.8 85 16 95/63 73.7 97 10/06 [...] Consultants: hospitalist, pain management at 1122 RPT #:[id number] OF REPORTPRProgress evmr1772-21-32T90:54:00G.GYMO083777 23-0154AVAvailable for patient xylzTVGNGUGGOLHTNZ2367-05-68A59:23: 10 [facility] 2021-10-07 06:11:00 [id number] QODiQQm+wbxmVja 4uiDY+HIvdBT9L4xh0uPZVHtc04ZiNu1sJ5 MX7Zl82681-69-53Q08:11:00 [facility] NoteREPORT#:[id number] REPORT STATUS: SignedDATE:10/07/21 TIME: 06 PATIENT: PILY MORRISSEY UNIT #: [id number]#: [id number] [address] [birth year] AGE: 51 SEX: F ATTEND: Tree Restrepo [facility] AUTHOR: Nell Adorno * ALL [...] atrophy, calvesNT, No Cords, LUE in jessica wrap/splint.Neuro/ORTHODONTIC TREATMENT COORDINATOR: alert, CNII-XII intact, normal speech, no sensory deficits, MMT decreased AROM L shoulder/elbow d/t pain, L hand hoop punch and coiler operator 3-/5, LUE 5/5, RLE 4+/5, LLE [...] laceration closure and ORIF of left elbow-09/21-Dr. LindsayRight pelvic fractures, inferior ramus, posterior sacrum, minimally [...] functional progress.-Decubitus prevention-protective hydrating lotion-turn every 2 djkof-igfmeeo-Wprbn program-Nutrition, monitor the patient's p.o. intake, check albumin 2.6, 3 and prealbumin, 10.1, dietary consult, protein supplements.-Strict fall and safety precaution-Keppra x7 days for seizure prophylaxis-completed 09/24-DVT prophylaxis on Lovenox-GI prophylaxis on Pepcid-changed to Protonix due to heartburn-OOB to chair-Work on bed mobility, transfer training, ADLs, pre-gait and gait exercises as tolerable. -Increase endurance and strength-NWB LUE, WBAT to RLE, RTG-Zugizet-YK consult-patient scored 19 out of 30 on MMSE on acute care indicativeof mild to moderate cognitive changes in the areas of orientation, recall, problem solving and executive functioning-SP to continue treatment-Urinary retention-continue Flomax-Means catheter-consult on rehab-Means removed-patient with pelvic pain and possible dysuria-check KQ-cvezlhpv-Igfe management consulted for tiered pain management-medications being adjusted-Appreciate consultants input-hospitalist, pain management, -Continue current xqevwlxoksa-Vrjcpd-kqjnskh hemoglobin 8.0, 8.9-transfuse if hemoglobin less than 7-CW ferrous sulfate and vitamin C-Continue Colace and MiraLAX-as needed lactulose-patient had BM-Cefdinir for UTI. Culture shows Enterococcus faecalis (VRE negative) and E. coli both sensitive to Macrodantin-DC cefdinir and start Macrodantin 100 mg p.o.twice daily till 10/0308-nrrwtohw-Xtoalalcr-DC Pepcid and start Wbbbybjz-fvgfjjk-axkfljiw improved-09/28: Urology consult-patient will need outpatient urodynamics-Discontinued [...] with the teams findingELOS: [10/13]DC-home w sign. efrvk-EP-Ypzrwuo Jayt-out pt ORTHODONTIC TREATMENT COORDINATOR ? if able to travel from [place] 15 STAIRSDME-WC, [place] walker, TTB, BSC Total time was 33 minutes > 50% with patient performing physical examination, discussing plan of care, goals, therapies, progress, medications, labs. All questions answeredRehab attestation:Face to face exam completed. Treatment plan discussed with patient. Meets continued stay criteria. Agree with interdisciplinary treatment plan. at 1643 [facility] #:[id number] OF REPORTPRProgress qofn9427-87-19H60:11:00G.SLMI748036 9AVAvailable for patient evdfTUXOLQXDHPHOBR2121-44-51J90:43: 59 [facility] 2021-10-07 05:56:00 [id number] DSeDdJ+/fEUf/eG iMsGiYiyrQb3pgVfv08Co/xsCtW0YD1RkmS SympKA5401-55-42G96:56:00 [facility] ([facility])Pain Management Progress NoteREPORT#:[id number] REPORT STATUS: SignedDATE:10/07/21 TIME: 05 PATIENT: PILY MORRISSEY UNIT #: [id number]#: [id number] [address] [birth year] AGE: 51 SEX: F ATTEND: Tree Restrepo [facility] AUTHOR: Jaylen Davis LINE DIRECTOR * ALL edits or amendments must be [...] bowel soundsExtremities: moves all, no edema, pedal pulsesNeuro/ORTHODONTIC TREATMENT COORDINATOR: no motor deficits, no sensory deficits, CNII-XII [...] hours -We will wean from Percocet to [place] as able-manageable Idiopathic neuropathy-10/02 increase gabapentin 300mg to 600mg q8h -Gabapentin 600 mg p.o. every 8 hours -manageable Muscle spasms-Robaxin 500 mg p.o. every 8 hours-manageable Constipation-We will monitor while utilizing opioid narcotic medications.-Adequate fluid intake also discussed.-MiraLAX 17 g p.o. daily-Colace 100 mg p.o. daily twice daily-Dulcolax 10 mg p.o. daily as needed-manageable Disposition: 10/06 sent medications to [facility] in [place]: percocet, ms contin, gabapentin, methocarbamol Past Medical [...] agrees. Thank you for the consultation. [place] CIVIL CAD TECH:Total Prescriptions 10Total Private Pay 0Total Prescribers 5Total Pharmacies 4 08/31/2021 08/31/2021 3 TRAMADOL HCL 50 MG TABLET 90.00 30 Ja Kin 074328 [facility] (5115) 0 15.00 [place]ME Comm Ins [place]07/22/2021 07/22/2021 3 TRAMADOL HCL 50 MG TABLET 14.00 7 Ja Kin 621410 [facility] (5115) 0 10.00 MME Comm Ins 06/09/2021 06/09/2021 3 TRAMADOL HCL 50 MG TABLET 90.00 23 Ki Pit 306977 [facility] (2215) 0 19.57 [facility]ME Comm Ins [place]05/05/2021 05/05/2021 3 TRAMADOL HCL 50 MG TABLET 90.00 22 Ki Pit 516526 [facility] (2215) 0 20.45 [facility]ME Comm Ins [place]04/22/2021 04/22/2021 3 TRAMADOL HCL 50 MG TABLET 28.00 7 Ki Pit 926426 [facility] (5115) 0 20.00 [place]ME Comm Ins [place]04/16/2021 04/16/2021 2 HYDROCODONE-ACETAMIN 5-325 MG 28.00 7 Ki Pit [id number] [facility] (2215) 0 20.00 [place]2021 04/09/2021 1 ACETAMINOPHEN-COD #3 TABLET 20.00 3 Cy Ove [id number] Cvs (0323) 0 30.00 [place]13/2021 01/13/2021 2 ACETAMINOPHEN-COD #3 TABLET 20.00 5 Freida Po [id number] [facility] (2753) 0 18.00 [place]15/2020 12/15/2020 4 ACETAMINOPHEN-COD #3 TABLET 14.00 7 Israel Kin [id number] Wal (1030) 0 9.00 [place]2020 12/08/2020 4 ACETAMINOPHEN-COD #3 TABLET 14.00 7 [place] Kin [id number] Wal (1030) 0 9.00 [place] Comm [place] [facility] (9753) [address] [facility] [id number] [facility] (9164) [address] [facility] [address] [facility] [address] -[facility] 105077 (6568) [address] [facility] [address] [facility] (5022) [address] [place] [address] - at 0603 at 1391 RPT #:[id number] OF REPORTPRProgress [id number]:56:[id number] for patient [id number]:48: 27 [facility] 2021-10-06 13:55:00 [id number] EG/fs2b+DZ3ApYn [id number] FmVZXJ2933-04-13K03:55:00 [facility] Team ConferenceREPORT#:[id number] REPORT STATUS: SignedDATE:10/06/21 TIME: 1355 PATIENT: PILY MORRISSEY UNIT #: [id number]#: [id number] [address] 74 AGE: 51 SEX: F ATTEND: [...] OT Hattie Garrison OT CM/ZIGGY Flood, [facility] Mendez Staff (8) Staff (9) Staff (10) Staff (11) OTHER NAME CREDENTIALS 1 MOLLY [employer] DIETITION 2 3 4 FUNCTIONAL CHANGE: TYPE [...] SW team conference update: SHE LIVES IN [place] 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 ORTHODONTIC TREATMENT COORDINATOR WILL EVALUATE HER IN ANTICIPATION OF DISCHARGE [...] Twelve steps discharge goal: Partial/moderate asst (3) [place] 150 feet discharge goal: Independent (6) Goal [...] 10/13/21Discharge date adjustment comment: OUT PT WITH ORTHODONTIC TREATMENT COORDINATOR IF ABLEIdentified financial and/or community resource needs: Family/Caregiver training days: PATIENT AND FAMILY WILL BE EDUCATED ON USE OF GAIT BELT TO LOWER PT TO THE FLOOR IN THE EVENT OF LOSS OF BALANCE TO PREVENT FALL OR INJURY. FAMILY TRAINING TO BE SCHEDULED BY THERAPY.Jasper day (DATE): 10/12/21Expected discharge destination: HomeAnticipated services upon discharge: Occupational therapy, Physical therapy, tunnel worker, Speech therapy, Outpatient-ORTHODONTIC TREATMENT COORDINATOR, Home health, Nurses aide, NursingAnticipated discharge equipment: [...] stay criteriasee my note at 1355 RPT #:[id number] OF REPORTCLClinical hbtr9752-79-41R89:55:00G.[id number] for patient gdaxVGPIZFMYTPPIRO8211-61-29B79:56: 08 [facility] 2021-10-06 11:05:00 [id number] sTg+m98j7xxlzne 6OwxtOCdtcj5fJIqHXFCIw3EpvTFVdmsDMj qaiRua3528-89-37V04:05:00 [facility]ospital[facility] Progress NoteREPORT#:[id number] REPORT STATUS: SignedDATE:10/06/21 TIME: 1105 PATIENT: PILY MORRISSEY UNIT #: [id number]#: [id number] [address] [birth year] AGE: 51 SEX: F ATTEND: Tree Restrepo [facility] AUTHOR: France Taylor MD * [...] Consultants: hospitalist, pain management at 1122 RPT #:[id number] OF REPORTPRProgress gubc7544-19-49Z18:05:00G.[id number] AVAvailable for patient xxuzUMYVQPYPUYYPVE6294-19-68F09:22: 40 [facility] 2021-10-06 05:54:00 [id number]/gRGf WrKWoV6UGMVGvSF LIQ62whGKsRM5H5r7Fy07RuyC/ftneg5iHc FJSIYM7852-65-75W66:54:00 [facility] ([facility])Pain Management Progress NoteREPORT#:[id number] REPORT STATUS: SignedDATE:10/06/21 TIME: 05 PATIENT: PILY MORRISSEY UNIT #: [id number]#: [id number] [address] [birth year] AGE: 51 SEX: F ATTEND: Tree Restrepo [facility] AUTHOR: Jaylen Davis LINE DIRECTOR * ALL edits or amendments must be [...] Pulse 83 10/06 0001 Resp 16 10/06 0001 O2 Delivery Room air 10/05 1545 24 [...] bowel soundsExtremities: moves all, no edema, pedal pulsesNeuro/ORTHODONTIC TREATMENT COORDINATOR: no motor deficits, no sensory deficits, CNII-XII [...] hours -We will wean from Percocet to [place] as able-manageable Idiopathic neuropathy-10/02 increase gabapentin 300mg to 600mg q8h -Gabapentin 600 mg p.o. every 8 hours -manageable Muscle spasms-Robaxin 500 mg p.o. every 8 hours-manageable Constipation-We will monitor while utilizing opioid narcotic medications.-Adequate fluid intake also discussed.-MiraLAX 17 g p.o. daily-Colace 100 mg p.o. daily twice daily-Dulcolax 10 mg p.o. daily as needed-manageable Disposition: 10/06 sent medications to [facility] [place]: percocet, ms contin, gabapentin, methocarbamol Past Medical [...] agrees. Thank you for the consultation. [place] CIVIL CAD TECH:Total Prescriptions 10Total Private Pay 0Total Prescribers 5Total Pharmacies 4 08/31/2021 08/31/2021 3 TRAMADOL HCL 50 MG TABLET 90.00 30 Ja Kin [id number] [facility] (5115) 0 15.00 MME Comm Ins [place]07/22/2021 07/22/2021 3 TRAMADOL HCL 50 MG TABLET 14.00 7 Ja Kin 361673 [facility] (5115) 0 10.00 MME Comm Ins 06/09/2021 06/09/2021 3 TRAMADOL HCL 50 MG TABLET 90.00 23 Ki Pit 074733 [facility] (2215) 0 19.57 MME Comm Ins 05/05/2021 05/05/2021 3 TRAMADOL HCL 50 MG TABLET 90.00 22 Ki Pit 823469 [facility] (2215) 0 20.45 MME Comm Ins [place]04/22/2021 04/22/2021 3 TRAMADOL HCL 50 MG TABLET 28.00 7 Ki Pit 829759 [facility] (5115) 0 20.00 MME Comm Ins 04/16/2021 04/16/2021 2 HYDROCODONE-ACETAMIN 5-325 MG 28.00 7 Ki Pit 158874 [facility] (2215) 0 20.00 [place]ME Comm Ins [place]04/09/2021 04/09/2021 1 ACETAMINOPHEN-COD #3 TABLET 20.00 3 Cy Ove [id number] [facility] (0323) 0 30.00 [place]ME Comm Ins [place]01/13/2021 01/13/2021 2 ACETAMINOPHEN-COD #3 TABLET 20.00 5 Freida [facility] 671982 b (5724) 0 18.00 [place]ME Comm Ins [place]12/15/2020 12/15/2020 4 ACETAMINOPHEN-COD #3 TABLET 14.00 7 Israel Thorpe [id number] [facility] (1030) 0 9.00 [place] Comm Ins [place]12/08/2020 12/08/2020 4 ACETAMINOPHEN-COD #3 TABLET 14.00 7 Israel Kin [id number] [facility] (1030) 0 9.00 [place] Comm Ins [place] [facility] (5724) [address] [facility] [id number] [facility] (4096) 4800 [facility] 365 [facility] [address] -[facility] [phone] ([phone]) [address] [facility] [id number] [facility] (6629) [address] [facility] [place] [address] - at 0719 at 1438 RPT #:[id number] OF REPORTPRProgress cepl0316-81-21P36:54:00G.TNJY584190 -0065AVAvailable for patient hdxkRBSUVCKDKCLETW5152-33-96Y60:20: 16 [facility] 2021-10-06 00:53:00 [id number] 8omv9xENC/8dqTx XQf+CSgTqnygJ1MdA2lyfjJuc9VnOUn15ag 2Nv7YL8056-31-84I19:53:00 [facility] ([facility] Progress NoteREPORT#:[id number] REPORT STATUS: SignedDATE:10/06/21 TIME: 52 PATIENT: PILY MORRISSEY UNIT #: [id number]#: [id number] [address] [birth year] AGE: 51 SEX: F ATTEND: [...] atrophy, calvesNT, No Cords, LUE in jessica wrap/splint.Neuro/ORTHODONTIC TREATMENT COORDINATOR: alert, CNII-XII intact, normal speech, no sensory deficits, MMT decreased AROM L shoulder/elbow d/t pain, L hand hoop punch and coiler operator 3-/5, LUE 5/5, RLE 4+/5, LLE [...] functional progress.-Decubitus prevention-protective hydrating lotion-turn every 2 ecmjz-zlufing-Ezegb program-Nutrition, monitor the patient's p.o. intake, check albumin 2.6, 3 and prealbumin, 10.1, dietary consult, protein supplements.-Strict fall and safety precaution-Keppra x7 days for seizure prophylaxis-completed 09/24-DVT prophylaxis on Lovenox-GI prophylaxis on Pepcid-changed to Protonix due to heartburn-OOB to chair-Work on bed mobility, transfer training, ADLs, pre-gait and gait exercises as tolerable. -Increase endurance and strength-NWB LUE, WBAT to RLE, AKY-Uhajisx-CR consult-patient scored 19 out of 30 on MMSE on acute care indicativeof mild to moderate cognitive changes in the areas of orientation, recall, problem solving and executive functioning-SP to continue treatment-Urinary retention-continue Flomax-Means catheter-consult on rehab-Means removed-patient with pelvic pain and possible dysuria-check QZ-ltpcwwbk-Vsxs management consulted for tiered pain management-medications being adjusted-Appreciate consultants input-hospitalist, pain management, -Continue current gkmukagxsbp-Ojyddy-eweahcn hemoglobin 8.0, 8.9-transfuse if hemoglobin less than 7-CW ferrous sulfate and vitamin C-Continue Colace and MiraLAX-as needed lactulose-patient had BM-Cefdinir for UTI. Culture shows Enterococcus faecalis (VRE negative) and E. coli both sensitive to Macrodantin-DC cefdinir and start Macrodantin 100 mg p.o.twice daily till 10/0349-nzrwaofo-Seyltlkmc-DC Pepcid and start Qlqbifke-bpkycob-qqltxywv improved-09/28: Urology consult-patient will need outpatient urodynamics-Discontinued [...] AMB 25 FT AND 30 FT SPV MOBILITY PERFORMING 400 FT, 500 FT, 500 FT MOD I FOR IMPROVED ACTIVITY TOLERANCE PM RPlease see team note.Plan and goals discussed with the patient. I agree with the teams findingELOS: [10/13]DC-home w sign. dehmz-[place]-Ccwmlzi [employer]-out pt ORTHODONTIC TREATMENT COORDINATOR ? if able to travel [facility] 15 STAIRSDME-WC, Marin walker, TTB, BSC Total [...] and examined by me personally. at 1355 RPT #:[id number] OF REPORTPRProgress uvia8912-60-96T62:53:00G.OIIT094294 4AVAvailable for patient qnjeFAPSHZOCVMQBOF0053-29-69L36:55: 38 [facility] 2021-10-05 11:24:00 [id number]/yK mL5YYNseafBOkHy L+8LtyItUajzg94XwpTgED2oFgn4MH4bMul WZI0897814-11-21D40:24:00 [facility] ([facility])Pain Management Progress NoteREPORT#:[id number] REPORT STATUS: SignedDATE:10/05/21 TIME: 1124 PATIENT: PILY MORRISSEY UNIT #: [id number]#: [id number] [address] [birth year] AGE: 51 SEX: F ATTEND: KayeTree Kaila [facility] AUTHOR: Jaylen Davis LINE DIRECTOR * ALL edits or amendments must be [...] Ox 98 10/05 07 B/P 108/72 10/05 07 B/P Mean 0.0 10/05 07 O2 Delivery Room air 10/05 07 Temp 97.5 10/05 07 Pulse 62 10/05 0729 Resp 15 10/05 0729 24 hour I O ending at 0700: [...] bowel soundsExtremities: moves all, no edema, pedal pulsesNeuro/ORTHODONTIC TREATMENT COORDINATOR: no motor deficits, no sensory deficits, CNII-XII grossly intactSkin: dry, intact, no rash, warmLymphatics: no lymphadenopathy, neck normalPsychiatry: normal affect, normal mood ResultsFindings/data:Laboratory Tests: 10/05 0515 Chemistry Albumin (3.4 - [...] hours -We will wean from Percocet to [place] as able-manageable Idiopathic neuropathy-10/02 increase gabapentin 300mg [...] agrees. Thank you for the consultation. [place] CIVIL CAD TECH:Total Prescriptions 10Total Private Pay 0Total Prescribers 5Total Pharmacies 4 08/31/2021 08/31/2021 3 TRAMADOL HCL 50 MG TABLET 90.00 30 Ja Kin 989455 [facility] (5115) 0 15.00 MME Comm Ins [place]07/22/2021 07/22/2021 3 TRAMADOL HCL 50 MG TABLET 14.00 7 Ja Kin 201636 [facility] (5115) 0 10.00 [place]ME Comm Ins [place]06/09/2021 06/09/2021 3 TRAMADOL HCL 50 MG TABLET 90.00 23 Ki Pit 012658 [facility] (2215) 0 19.57 [place]ME Comm Ins [place]05/05/2021 05/05/2021 3 TRAMADOL HCL 50 MG TABLET 90.00 22 Ki Pit 430664 [facility] (2215) 0 20.45 [place]ME Comm Ins [place]04/22/2021 04/22/2021 3 TRAMADOL HCL 50 MG TABLET 28.00 7 Ki Pit 798589 [facility] (5115) 0 20.00 [place]ME Comm Ins [place]04/16/2021 04/16/2021 2 HYDROCODONE-ACETAMIN 5-325 MG 28.00 7 Ki Pit 619358 [facility] (2215) 0 20.00 [place]ME [place] Ins [place]04/09/2021 04/09/2021 1 ACETAMINOPHEN-COD #3 TABLET 20.00 3 Cy Ove [id number] [facility] (0323) 0 30.00 [place]ME Comm Ins [place]01/13/2021 01/13/2021 2 ACETAMINOPHEN-COD #3 TABLET 20.00 5 Freida Poh 446718 [facility] (2215) 0 18.00 [place]ME Comm Ins [place]12/15/2020 12/15/2020 4 ACETAMINOPHEN-COD #3 TABLET 14.00 7 Ja Kin [id number] [facility] (1030) 0 9.00 [place] Ins [place]12/08[place]2020 12/08/2020 4 ACETAMINOPHEN-COD #3 TABLET 14.00 7 Kin [id number] [facility] (1030) 0 9.00 [place] Comm Ins [place] [facility] (1876) [address] [facility] [address] [facility] (6491) [facility] [facility] [address] [facility] [address] -[facility] 9989 (2948) [address] [facility] [address] [facility] (5927) [address] [place] [address] - at 1137 at 4952 RPT #:[id number] OF REPORTPRProgress yjws8156-82-49K93:24:00G.[id number] AVAvailable for patient vfmpJNWMUJDGBJOGRN5877-40-14V56:32: 57 [facility] 2021-10-05 10:24:00 [id number] MK/g8aZGVGlSQiw /Eba/0WvYPVH94MdWtiijWRhzg2tTxR2Jx+ J2EhHU1031-06-68Z13:24:00 [facility]ospital[facility] Progress NoteREPORT#:[id number] REPORT STATUS: SignedDATE:10/05/21 TIME: 1024 PATIENT: PILY MORRISSEY UNIT #: [id number]#: [id number] [address] [birth year] AGE: 51 SEX: F ATTEND: Tree Restrepo [facility] AUTHOR: France Taylor MD * [...] Consultants: hospitalist, pain management at 1025 RPT #:[id number] OF REPORTPRProgress zmjh7580-29-48N81:24:00G.AQZC310077 -0431AVAvailable for patient exzrHHDKWKNSLBDCXV2440-23-50U08:26: 23 [facility] 2021-10-05 08:18:00 [id number] gG6Ar4q8xZ8HF7R YRpo9dneIcRsYxiVcLlD7BYEyo5HUtzEBBn 1g3q9T1584-86-24K03:18:00 [facility] Progress NoteREPORT#:[id number] REPORT STATUS: SignedDATE:10/05/21 TIME: 0818 PATIENT: PILY MORRISSEY UNIT #: [id number]#: [id number] ROOM/BED: Nayeli506-1DOB: [birth year] AGE: 51 SEX: F ATTEND: Tree [...] atrophy, calvesNT, No Cords, LUE in jessica wrap/splint.Neuro/ORTHODONTIC TREATMENT COORDINATOR: alert, CNII-XII intact, normal speech, no sensory deficits, MMT decreased AROM L shoulder/elbow d/t pain, L hand hoop punch and coiler operator 3-/5, LUE 5/5, RLE 4+/5, LLE [...] functional progress.-Decubitus prevention-protective hydrating lotion-turn every 2 bpyib-dumxpbj-Rdprd program-Nutrition, monitor the patient's p.o. intake, check albumin 2.6, 3 and prealbumin, 10.1, dietary consult, protein supplements.-Strict fall and safety precaution-Keppra x7 days for seizure prophylaxis-completed 09/24-DVT prophylaxis on Lovenox-GI prophylaxis on Pepcid-changed to Protonix due to heartburn-OOB to chair-Work on bed mobility, transfer training, ADLs, pre-gait and gait exercises as tolerable. -Increase endurance and strength-NWB LUE, WBAT to RLE, JYV-Jtnohes-DG consult-patient scored 19 out of 30 on MMSE on acute care indicativeof mild to moderate cognitive changes in the areas of orientation, recall, problem solving and executive functioning-SP to continue treatment-Urinary retention-continue Flomax-Means catheter-consult on rehab-Means removed-patient with pelvic pain and possible dysuria-check PM-rffzsbzc-Dddj management consulted for tiered pain management-medications being adjusted-Appreciate consultants input-hospitalist, pain management, -Continue current sedxxpjdylo-Eayoye-lhcoych hemoglobin 8.0, 8.9-transfuse if hemoglobin less than 7-CW ferrous sulfate and vitamin C-Continue Colace and MiraLAX-as needed lactulose-patient had BM-cefdinir for UTI. Culture shows Enterococcus faecalis (VRE negative) and E. coli both sensitive to Macrodantin-DC cefdinir and start Macrodantin 100 mg p.o.twice daily till 10/0302-Nvrrncmod-AQ Pepcid and start Yyafjpnr-fbqxgrn-rgroljwv improved-09/28: Urology consult-patient will need outpatient urodynamics-Discontinued [...] agree with the teams findingELOS: [10/13]DC-home w mdrttc-LW-Jxhmtqg Angelina-out pt CNSDME-WC, Marin walker, TTB, BSC Total time was 33 minutes > 50% with patient performing physical examination, discussing with patient about discharge plan, rehab plan of care, goals, therapies, progress, medications, labs. EMR and MAR reviewed. All questions answeredOrders: Procedure Date/time Status [facility] 09665 10/04 UNK Complete BRYANNA DVLMNT EA15 67799 10/04 UNK Complete Consultants: hospitalist, pain managementPlan discussed with: patient, nurse, interdisc care teamRehab attestation:Face to face exam completed. Treatment plan discussed with patient. Meets continued stay criteria. Agree with interdisciplinary treatment plan. Patient seen and examined by me personally. at 1314 RPT #:[id number] OF REPORTPRProgress jimo3479-53-86M74:18:00G.ZZDC700031 AVAvailable for patient tmekHMDDYPCDVXKNLI9586-02-74N43:14: 30 [facility] 2021-10-04 09:55:00 [id number] MrWNTS/fbO2VmO7 HeyNHKx+iRw8qnQ0VBLa9hcAcMR6ugM6wj1 VVbmEv9785-53-13C29:55:00 [facility] ([facility])Pain Management Progress NoteREPORT#:[id number] REPORT STATUS: SignedDATE:10/04/21 TIME: 0955 PATIENT: PILY MORRISSEY UNIT #: [id number]#: [id number] [address] [birth year] AGE: 51 SEX: F ATTEND: [...] 93/55 10/04 732 B/P Mean 68.0 10/04 07 O2 Delivery Room air 10/04 732 Temp 36.9 10/04 732 Pulse 85 10/04 732 Resp 17 10/04 732 24 hour I [...] bowel soundsExtremities: moves all, no edema, pedal pulsesNeuro/ORTHODONTIC TREATMENT COORDINATOR: no motor deficits, no sensory deficits, CNII-XII [...] hours -We will wean from Percocet to [place] as able-manageable Idiopathic neuropathy-10/02 increase gabapentin 300mg [...] agrees. Thank you for the consultation. [place] CIVIL CAD TECH:Total Prescriptions 10Total Private Pay 0Total Prescribers 5Total Pharmacies 4 08/31/2021 08/31/2021 3 TRAMADOL HCL 50 MG TABLET 90.00 30 Ja Kin 068985 [facility] (5115) 0 15.00 MME Comm Ins 07/22/2021 07/22/2021 3 TRAMADOL HCL 50 MG TABLET 14.00 7 Ja Kin 497167 [facility] (5115) 0 10.00 MME Comm Ins 06/09/2021 06/09/2021 3 TRAMADOL HCL 50 MG TABLET 90.00 23 Ki Pit 673338 [facility] (2215) 0 19.57 MME Comm Ins 05/05/2021 05/05/2021 3 TRAMADOL HCL 50 MG TABLET 90.00 22 Ki Pit 307219 [facility] (2215) 0 20.45 MME Comm Ins 04/22/2021 04/22/2021 3 TRAMADOL HCL 50 MG TABLET 28.00 7 Ki Pit 959142 [facility] (5115) 0 20.00 MME Comm Ins 04/16/2021 04/16/2021 2 HYDROCODONE-ACETAMIN 5-325 MG 28.00 7 Ki Pit 043719 [facility] (2215) 0 20.00 MME Comm Ins 04/09/2021 04/09/2021 1 ACETAMINOPHEN-COD #3 TABLET 20.00 3 Cy Ove 0285959 [facility] (0323) 0 30.00 MME Comm Ins [place]01/13/2021 01/13/2021 2 ACETAMINOPHEN-COD #3 TABLET 20.00 5 Freida Poh 477337 [facility] (3605) 0 18.00 [place]ME Comm Ins [place]12/15/2020 12/15/2020 4 ACETAMINOPHEN-COD #3 TABLET 14.00 7 Ja Kin [id number] [facility] (1030) 0 9.00 [place]ME Comm Ins [place]12/08/2020 12/08/2020 4 ACETAMINOPHEN-COD #3 TABLET 14.00 7 Ja Kin [id number] [facility] (1030) 0 9.00 [place] Comm Ins [place] [facility] (8329) [address] [facility] [id number] [facility] (2029) 48[address] [facility] 365 [facility] [address] -[facility] 100153 (6290) [address] [facility] 839135 [facility] (5842) [address] [facility] [place] [address] - at 0957 at 1944 RPT #:[id number] OF REPORTPRProgress pdve3340-29-39Q85:55:00G.[id number] VAvailable for patient axmzBOLUKBVAIDAXMN1221-08-54C36:58: 04 [facility] 2021-10-04 09:10:00 [id number]+YbFW lqjmWD9OdPTbcLt 7g42aNX5KCZrjG7iYfn6E1YSb1A29N/EZeM HVpgMI4028-88-45X32:10:00 [facility]ospital[facility] Progress NoteREPORT#:[id number] REPORT STATUS: SignedDATE:10/04/21 TIME: 0910 PATIENT: PILY MORRISSEY UNIT #: [id number]#: [id number] [facility]BED[facility]DOB: [birth year] AGE: 51 SEX: F ATTEND: Tree Restrepo [facility] AUTHOR: France Taylor MD * [...] Consultants: hospitalist, pain management at 1100 RPT #:[id number] OF REPORTPRProgress wbto2009-99-87E40:10:00G.JYUK150563 AVAvailable for patient nlkeDNCEEVTEKKRWEA9679-18-00J80:00: 22 [facility] 2021-10-04 06:19:00 Y15939679790wBF4WEu2 A0RUExYSAN6Tu2G z03QJcwEb3Ee+/3I5BR4Yca22O+wqH3BWgc Z8MT4H8763-99-71U76:19:00 [facility] ([facility])Rehab Progress NoteREPORT#:[id number] REPORT STATUS: SignedDATE:10/04/21 TIME: 618 PATIENT: PIYL MORRISSEY UNIT #: [id number]#: [id number] [address] [birth year] AGE: 51 SEX: F ATTEND: Tree Restrepo [facility] AUTHOR: Nell Adorno * ALL [...] atrophy, calvesNT, No Cords, LUE in jessica wrap/splint.Neuro/ORTHODONTIC TREATMENT COORDINATOR: alert, CNII-XII intact, normal speech, no sensory deficits, MMT decreased AROM L shoulder/elbow d/t pain, L hand hoop punch and coiler operator 3-/5, LUE 5/5, RLE 4+/5, LLE [...] functional progress.-Decubitus prevention-protective hydrating lotion-turn every 2 mpmfn-fyxbxzb-Mhjnk program-Nutrition, monitor the patient's p.o. intake, check albumin 2.6, 3 and prealbumin, 10.1, dietary consult, protein supplements.-Strict fall and safety precaution-Keppra x7 days for seizure prophylaxis-completed 09/24-DVT prophylaxis on Lovenox-GI prophylaxis on Pepcid-changed to Protonix due to heartburn-OOB to chair-Work on bed mobility, transfer training, ADLs, pre-gait and gait exercises as tolerable. -Increase endurance and strength-NWB LUE, WBAT to RLE, COZ-Vpqpccq-LC consult-patient scored 19 out of 30 on MMSE on acute care indicativeof mild to moderate cognitive changes in the areas of orientation, recall, problem solving and executive functioning-SP to continue treatment-Urinary retention-continue Flomax-Means catheter-consult on rehab-Means removed-patient with pelvic pain and possible dysuria-check IT-xwmxnbvf-Iwml management consulted for tiered pain management-medications being adjusted-Appreciate consultants input-hospitalist, pain management, -Continue current fzkjhmqqgpy-Llnwwd-dulxgnv hemoglobin 8.0-transfuse if hemoglobin less than 7-CW ferrous sulfate and vitamin C-Continue Colace and MiraLAX-as needed lactulose-patient had BM-cefdinir for UTI. Culture shows Enterococcus faecalis (VRE negative) and E. coli both sensitive to Macrodantin-DC cefdinir and start Macrodantin 100 mg p.o.twice daily till 10/0393-Zbdcfrxes-OR Pepcid and start Cyoedbtl-zyxjprw-eewqkoaj improved-09/28: Urology consult-patient will need outpatient urodynamics-Discontinued [...] agree with the teams findingELOS: [10/13]DC-home w cajtvl-JG-Suazcqx Angelina-out pt CNSDME-WC, [place] walker, TTB, BSC Total time was 33 minutes > 50% with patient performing physical examination, discussing with patient about discharge plan, rehab plan of care, goals, therapies, progress, medications, labs. EMR and MAR reviewed. All questions answeredRehab attestation:Face to face exam completed. Treatment plan discussed with patient. Meets continued stay criteria. Agree with interdisciplinary treatment plan. at 0547 [facility] #:[id number] OF REPORTPRProgress dtka4246-02-54K40:19:00G.[id number] VAvailable for patient tbchGJYRLFWTHQOQRT6905-23-71D07:47: 48 [facility] 2021-10-03 11:26:00 [id number] 5T42wL2OgOA7CUo APAA2Fb8sOXFrpqQ9iILeC2C+Vjx1apffov XZGgOp1392-70-11V91:26:00 [facility] ([facility])Pain Management Progress NoteREPORT#:[id number] REPORT STATUS: SignedDATE:10/03/21 TIME: 1126 PATIENT: PILY MORRISSEY UNIT #: [id number]#: [id number] [address] [birth year] AGE: 51 SEX: F ATTEND: Tree Restrepo [facility] AUTHOR: Cameron Santos * ALL edits or amendments must be made on the electronic/computer document * SubjectiveChief complaint:Patient seen and examined. Chart/MAR reviewed. Patients MS Greg fell off overnight. I will be restarting [...] Result Date Time Pulse Ox 97 10/03 744 B/P 99/64 10/03 744 B/P Mean 76.0 10/03 744 O2 Delivery Room air 10/03 744 Temp 36.6 10/03 744 Pulse 71 10/03 0745 Resp 18 10/03 744 24 hour I O ending at 0700: [...] bowel soundsExtremities: moves all, no edema, pedal pulsesNeuro/ORTHODONTIC TREATMENT COORDINATOR: no motor deficits, no sensory deficits, CNII-XII [...] hours -We will wean from Percocet to [place] as able-manageable Idiopathic neuropathy-10/02 increase gabapentin 300mg [...] agrees. Thank you for the consultation. [place] CIVIL CAD TECH:Total Prescriptions 10Total Private Pay 0Total Prescribers 5Total Pharmacies 4 08/31/2021 08/31/2021 3 TRAMADOL HCL 50 MG TABLET 90.00 30 Kin 838239 [facility] (5115) 0 15.00 MME Comm Ins 07/22/2021 07/22/2021 3 TRAMADOL HCL 50 MG TABLET 14.00 7 Kin 190976 [facility] (5115) 0 10.00 MME Comm Ins 06/09/2021 06/09/2021 3 TRAMADOL HCL 50 MG TABLET 90.00 23 Ki Pit 250356 [facility] (2215) 0 19.57 MME Comm Ins 05/05/2021 05/05/2021 3 TRAMADOL HCL 50 MG TABLET 90.00 22 Ki Pit 819812 [facility] (2215) 0 20.45 MME Comm Ins 04/22/2021 04/22/2021 3 TRAMADOL HCL 50 MG TABLET 28.00 7 Ki Pit 863159 [facility] (5115) 0 20.00 MME Comm Ins 04/16/2021 04/16/2021 2 HYDROCODONE-ACETAMIN 5-325 MG 28.00 7 Ki Pit 023906 [facility] (2215) 0 20.00 [place]ME Comm Ins [place]04/09/2021 04/09/2021 1 ACETAMINOPHEN-COD #3 TABLET 20.00 3 Cy Ove [id number] Cvs (0323) 0 30.00 [place]01/13/2021 01/13/2021 2 ACETAMINOPHEN-COD #3 TABLET 20.00 5 Freida Poh [id number] [facility] (2215) 0 18.00 [place]/15/2020 12/15/2020 4 ACETAMINOPHEN-COD #3 TABLET 14.00 7 Ja Kin [id number] Wal (1030) 0 9.00 [place]2020 12/08/2020 4 ACETAMINOPHEN-COD #3 TABLET 14.00 7 Ja Kin [id number] [facility] (1030) 0 9.00 [place] [facility] ([phone]) [address] [id number] [facility] (2413) [address] [address] -[facility] [phone] ([phone]) [address] [facility] [id number] [facility] (0527) [address] [facility] [place] [address] - at 1134 at 0755 RPT #:[id number] OF REPORTPRProgress efkx0822-76-24B80:26:00G.DPQS823527 -0338AVAvailable for patient lrdkMIQRPMKRWPDQIT8361-94-49Q45:34: 53 [facility] 2021-10-03 09:51:00 [id number] ucTkChGwZ94Udcw kGunaTEUL77TnUeQoQsSTvyqsE2UJRL3SV/ fnwNE69762-62-74V88:51:00 [facility]Hospital[facility] Progress NoteREPORT#:[id number] REPORT STATUS: SignedDATE:10/03/21 TIME: 950 PATIENT: PILY MORRISSEY UNIT #: [id number]#: [id number] ROOM/BED: [facility]DOB: [birth year] AGE: 51 SEX: F ATTEND: Tree Restrepo [facility] AUTHOR: France Taylor MD * [...] Consultants: hospitalist, pain management at 0859 RPT #:[id number] OF REPORTPRProgress temd3707-13-09B67:51:00G.TQTE787349VAvailable for patient clkeIVHPJFQUEPTSFS5954-72-77G88:59: 50 [facility] 2021-10-03 06:23:00 [id number] oAokJgfU2BJQ9Se 8mqsxpxfQ1sLlYa9o7t5LF0g8lQYOG8qZCd yrVih52421-90-81N33:23:00 [facility])Rehab Progress NoteREPORT#:[id number] REPORT STATUS: SignedDATE:10/03/21 TIME: 622 PATIENT: PILY MORRISSEY UNIT #: [id number]#: [id number] [address] [birth year] AGE: 51 SEX: F ATTEND: Tree Restrepo [facility] AUTHOR: Nell Adorno * ALL [...] atrophy, calvesNT, No Cords, LUE in jessica wrap/splint.Neuro/ORTHODONTIC TREATMENT COORDINATOR: alert, CNII-XII intact, normal speech, no sensory deficits, MMT decreased AROM L shoulder/elbow d/t pain, L hand hoop punch and coiler operator 3-/5, LUE 5/5, RLE 4+/5, LLE [...] functional progress.-Decubitus prevention-protective hydrating lotion-turn every 2 tlhtd-iotbirr-Ljigq program-Nutrition, monitor the patient's p.o. intake, check albumin 2.6, 3 and prealbumin, 10.1, dietary consult, protein supplements.-Strict fall and safety precaution-Keppra x7 days for seizure prophylaxis-completed 09/24-DVT prophylaxis on Lovenox-GI prophylaxis on Pepcid-changed to Protonix due to heartburn-OOB to chair-Work on bed mobility, transfer training, ADLs, pre-gait and gait exercises as tolerable. -Increase endurance and strength-NWB LUE, WBAT to RLE, LLJ-Djfenfb-KI consult-patient scored 19 out of 30 on MMSE on acute care indicativeof mild to moderate cognitive changes in the areas of orientation, recall, problem solving and executive functioning-SP to continue treatment-Urinary retention-continue Flomax-Means catheter-consult on rehab-Means removed-patient with pelvic pain and possible dysuria-check PY-ehdwlgrn-Moch management consulted for tiered pain management-medications being adjusted-Appreciate consultants input-hospitalist, pain management, -Continue current jhqxfazqphn-Dkgiom-vemguoc hemoglobin 8.0-transfuse if hemoglobin less than 7-CW ferrous sulfate and vitamin C-Continue Colace and MiraLAX-as needed lactulose-patient had BM-cefdinir for UTI. Culture shows Enterococcus faecalis (VRE negative) and E. coli both sensitive to Macrodantin-DC cefdinir and start Macrodantin 100 mg p.o.twice daily till 10/0397-Udsuehrlw-EO Pepcid and start Ztbiwmzg-dqlqamv-apvykjdk improved-09/28: Urology consult-patient will need outpatient urodynamics-Discontinued [...] agree with the teams findingELOS: [10/13]DC-home w tvajay-OF[facility] CNSDME-WC, [place] walker, TTB, BSC Total [...] with interdisciplinary treatment plan. at 0552 RPT #:[id number] OF REPORTPRProgress fyrs4640-52-24V17:23:00G.IZEB994643 -0056AVAvailable for patient jqkcBDZQMOKDGPOHRR1423-90-00W97:52: 36 [facility] 2021-10-02 11:39:00 [id number] pVVI+xLHy8GuJsj oVHnzll75/brUjV2+THNjHt9NjnAxwS4716 7+hAJV0542-42-71Z92:39:00 [facility] ([facility])Pain Management Progress NoteREPORT#:[id number] REPORT STATUS: SignedDATE:10/02/21 TIME: 1139 PATIENT: PILY MORRISSEY UNIT #: [id number]#: [id number] [address] [birth year] AGE: 51 SEX: F ATTEND: [...] Mean Pulse Ox FiO2 10/01-10/02 36.8-36.9 75-99 17-18 91-110/57-72 68.6-83.9 96-98 Last Documented: Result Date [...] bowel soundsExtremities: moves all, no edema, pedal pulsesNeuro/ORTHODONTIC TREATMENT COORDINATOR: no motor deficits, no sensory deficits, CNII-XII [...] hours -We will wean from Percocet to [place] as able-manageable Idiopathic neuropathy-10/02 increase gabapentin 300mg [...] agrees. Thank you for the consultation. [place] CIVIL CAD TECH:Total Prescriptions 10Total Private Pay 0Total Prescribers 5Total Pharmacies 4 08/31/2021 08/31/2021 3 TRAMADOL HCL 50 MG TABLET 90.00 30 Ja Kin 012130 [facility] (7132) 0 15.00 [place]ME Comm Ins [place]07/22/2021 07/22/2021 3 TRAMADOL HCL 50 MG TABLET 14.00 7 Ja Kin 974976 [facility] (5115) 0 10.00 [place]06/09/2021 06/09/2021 3 TRAMADOL HCL 50 MG TABLET 90.00 23 Ki Pit 533898 [facility] (2215) 0 19.57 [place]05/05/2021 05/05/2021 3 TRAMADOL HCL 50 MG TABLET 90.00 22 Ki Pit 853918 [facility] (2215) 0 20.45 [place]04/22/2021 04/22/2021 3 TRAMADOL HCL 50 MG TABLET 28.00 7 Ki Pit 714862 [facility] (5115) 0 20.00 [place]04/16/2021 04/16/2021 2 HYDROCODONE-ACETAMIN 5-325 MG 28.00 7 Ki Pit 407555 [facility] (2215) 0 20.00 [place]04/09/2021 04/09/2021 1 ACETAMINOPHEN-COD #3 TABLET 20.00 3 Cy Ove [id number] [facility] (0323) 0 30.00 [place] Ins [place]01/13/2021 01/13/2021 2 ACETAMINOPHEN-COD #3 TABLET 20.00 5 Freida Poh 360232 [facility] (2215) 0 18.00 [place] Ins [place]12/15/2020 12/15/2020 4 ACETAMINOPHEN-COD #3 TABLET 14.00 7 Ja Kin [id number] [facility] (1030) 0 9.00 [place]12/08/2020 12/08/2020 4 ACETAMINOPHEN-COD #3 TABLET 14.00 7 Ja Kin [id number] [facility] (1030) 0 9.00 M[place] Comm Ins [place] [facility] (4343) [address] [id number] [facility] (1885) [address] [address] -[facility] 05-1989 (1290) [address] [facility] [address] (5025) [address] [place] [address] [place] [address] - at 1146 at 1941 Addendum 1: 10/03/211947 by Cameron Santos Total time >35 minutes. >50% spent face to face, reviewing chart/MAR, examining patient, answering all questions, discussing plan of care with patient and nurse. TT 37 minutes at 1949 RPT #:[id number] OF REPORTPRProgress tdcd7904-46-47E31:39:00G.RDLN124129 AVAvailable for patient pqzkFZGTLKABBALITO6524-02-15S69:46: 36 [facility] 2021-10-02 07:59:00 [id number]/ruq RXy+pHWBbvC2LEA UskYzZiA/8YUOxgb+UnwZgp/LXxcjyLceck PL281T3878-48-62H79:59:00 [facility] Progress NoteREPORT#:[id number] REPORT STATUS: SignedDATE:10/02/21 TIME: 758 PATIENT: PILY MORRISSEY UNIT #: [id number]#: [id number] [address] [birth year] AGE: 51 SEX: F ATTEND: Tree Restrepo [facility] AUTHOR: France Taylor MD * [...] regular diet 2. Snacks TIDDietitian name: Molly MS Madhuri, RDN, LDAssessment completed: 09/25/21 ___ Provider comments [...] Consultants: hospitalist, pain management at 0900 RPT #:[id number] OF REPORTPRProgress mhbw9680-75-78X77:59:00G.[id number] AVAvailable for patient mdagWPGJLGFMGDYNBT1277-58-06P71:00: 30 [facility] 2021-10-02 04:46:00 [id number] X2WL6RbteMOgaN3 MNGMk5JaXtTU4w1yKq9JGH7IHwpWu+9MmXE MrmgYo7366-21-74C36:46:00 [facility] Progress NoteREPORT#:[id number] REPORT STATUS: SignedDATE:10/02/21 TIME: 445 PATIENT: PILY MORRISSEY UNIT #: [id number]#: [id number] [address] [birth year] AGE: 51 SEX: F ATTEND: [...] 98.2 85 17 102/64 76.8 97 10/01 1936 86 103/60 74.5 10/01 1934 86 100/66 77.6 02/17 1934 98.2 85 17 91/57 68.6 98 [...] MATH TASK, LEVEL 1, CT-90% W/MIN CUES. VENDETTE PRESENT DURING PORTION OF SESSION ANDPT WAS [...] atrophy, calvesNT, No Cords, LUE in jessica wrap/splint.Neuro/ORTHODONTIC TREATMENT COORDINATOR: alert, CNII-XII intact, normal speech, no sensory deficits, MMT decreased AROM L shoulder/elbow d/t pain, L hand hoop punch and coiler operator 3-/5, LUE 5/5, RLE 4+/5, LLE [...] laceration closure and ORIF of left elbow-09/21-Dr. LindsayRight pelvic fractures, inferior ramus, posterior sacrum, minimally [...] functional progress.-Decubitus prevention-protective hydrating lotion-turn every 2 owtef-wngsyun-Cyuac program-Nutrition, monitor the patient's p.o. intake, check albumin 2.6, 3 and prealbumin, 10.1, dietary consult, protein supplements.-Strict fall and safety precaution-Keppra x7 days for seizure prophylaxis-completed 09/24-DVT prophylaxis on Lovenox-GI prophylaxis on Pepcid-changed to Protonix due to heartburn-OOB to chair-Work on bed mobility, transfer training, ADLs, pre-gait and gait exercises as tolerable. -Increase endurance and strength-NWB LUE, WBAT to RLE, HQF-Czujiqn-ZL consult-patient scored 19 out of 30 on MMSE on acute care indicativeof mild to moderate cognitive changes in the areas of orientation, recall, problem solving and executive functioning-SP to continue treatment-Urinary retention-continue Flomax-Means catheter-consult on rehab-Means removed-patient with pelvic pain and possible dysuria-check SC-grzhsiar-Hfks management consulted for tiered pain management-medications being adjusted-Appreciate consultants input-hospitalist, pain management, -Continue current icbfqymvruz-Cjoosf-nvcqmme hemoglobin 8.0-transfuse if hemoglobin less than 7-CW ferrous sulfate and vitamin C-Give Dulcolax p.o. x1. Continue Colace and MiraLAX-as needed lactulose-patienthad BM-Started on cefdinir for UTI. Culture shows Enterococcus faecalis (VRE negative) and E. coli both sensitive to Macrodantin-DC cefdinir and start Macrodantin 100 mg p.o. twice daily till 10/0373-Cvakslkla-QM Pepcid and start Wqpkdsby-ztpgjqy-viyiyvri improved-09/28: Urology consult-patient will need outpatient urodynamics-Discontinue [...] patient. I agree with the teams findingELOS: [3/1]DC-home w wshlii-PH-[employer]-out pt CNSDME-WC, [place] walker, TTB, BSC [...] 10/[address] [facility] DVLMT INT15 [address] 10/[address] [facility] DVLMNT EA15 60370 10/01 UNK Complete PT GAIT TRNG 10/01 [...] examined by me personally. at 1337 RPT #:[id number] OF REPORTPRProgress jslb4940-49-27M83:46:00G.ICQC785942 0029AVAvailable for patient ieelSWHLNQVHULFMMI8207-59-33Q83:37: 58 [facility] 2021-10-01 08:31:00 [id number] 9r2ddC5YB9dI+BN BIMJc4Glpj164FQQgxU53pycF1xCt3hp+3V Hi+YJY9234-40-57N92:31:00 [facility] ([facility])Pain Management Progress NoteREPORT#:[id number] REPORT STATUS: SignedDATE:10/01/21 TIME: 830 PATIENT: PILY MORRISSEY UNIT #: [id number]#: [id number] [address] [birth year] AGE: 51 SEX: F ATTEND[facility] Tree Restrepo [facility] AUTHOR: Cameron Santos * ALL edits or [...] bowel soundsExtremities: moves all, no edema, pedal pulsesNeuro/ORTHODONTIC TREATMENT COORDINATOR: no motor deficits, no sensory deficits, CNII-XII [...] hours -We will wean from Percocet to [place] as able-manageable Idiopathic neuropathy-Gabapentin 300 mg p.o. [...] agrees. Thank you for the consultation. [place] CIVIL CAD TECH:Total Prescriptions 10Total Private Pay 0Total Prescribers 5Total Pharmacies 4 08/31/2021 08/31/2021 3 TRAMADOL HCL 50 MG TABLET 90.00 30 Kin 331181 [facility] (6755) 0 15.00 [place]ME [place] Ins [place]07/22/2021 07/22/2021 3 TRAMADOL HCL 50 MG TABLET 14.00 7 Ja Kin 474316 [facility] (5315) 0 10.00 [place] Ins [place]06/09/2021 06/09/2021 3 TRAMADOL HCL 50 MG TABLET 90.00 23 Pit 590200 [facility] (8055) 0 19.57 [place]05/05/2021 05/05/2021 3 TRAMADOL HCL 50 MG TABLET 90.00 22 Ki Pit 478952 [facility] (2215) 0 20.45 [place]04/22/2021 04/22/2021 3 TRAMADOL HCL 50 MG TABLET 28.00 7 Ki Pit 227897 [facility] (5115) 0 20.00 [place]04/16/2021 04/16/2021 2 HYDROCODONE-ACETAMIN 5-325 MG 28.00 7 Ki Pit 504256 [facility] (2215) 0 20.00 [place] Ins [place]04/09/2021 04/09/2021 1 ACETAMINOPHEN-COD #3 TABLET 20.00 3 Cy Ove [id number] [facility] (0323) 0 30.00 [place] Ins [place]01/13/2021 01/13/2021 2 ACETAMINOPHEN-COD #3 TABLET 20.00 5 Freida Poh [id number] [facility] (2215) 0 18.00 [place] Ins [place]12/15/2020 12/15/2020 4 ACETAMINOPHEN-COD #3 TABLET 14.00 7 Ja Kin 1131933 [facility] (1030) 0 9.00 [place]12/08/2020 12/08/2020 4 ACETAMINOPHEN-COD #3 TABLET 14.00 7 Ja Kin 4070538 [facility] (1030) 0 9.00 [place] [facility] (5733) [address] [address] [facility] (5847) [address] [address] -[facility] [address] (1184) [address] [facility] [address] [facility] (4500) [address] [place] [address] - at 1026 at 3234 RPT #:[id number] OF REPORTPRProgress ukzi4983-73-85D23:31:00G.HLXL163835 VAvailable for patient vyerPUBYZRIDQCREOD0628-45-70N06:27: 10 [facility] 2021-10-01 07:42:00 [id number] PD4v1MbqljeZZNj jlUYlSp+nPNnSxLvVoPkd/LVAKtyyblFS6E RhZQV77029-10-78Y67:42:00 [facility] ([facility])Hospitalist Progress NoteREPORT#:[id number] REPORT STATUS: SignedDATE:10/01/21 TIME: 741 PATIENT: PILY MORRISSEY UNIT #: [id number]#: [id number] [address] [birth year] AGE: 51 SEX: F ATTEND: Tree Restrepo [facility] AUTHOR: France Taylor MD * [...] 2. Snacks TIDDietitian name: Molly Dhaliwal MS, DIANEN, LDAssessment completed: 09/25/21 ___ Provider comments on [...] Consultants: hospitalist, pain management at 0759 RPT #:[id number] OF REPORTPRProgress rusi3918-17-43T08:42:00G.LQXF179319 -0115AVAvailable for patient lbtuYDPCJNUXIZOGCA3884-47-02X53:00: 06 [facility] 2021-10-01 00:51:00 [id number] woce1Ip81rJ+YFr L7+wP7DqQ7MShZvbijzR7nhotqij8YKM7gc q/6ARE7982-31-60V80:51:00 [facility] Progress NoteREPORT#:[id number] REPORT STATUS: SignedDATE:10/01/21 TIME: 50 PATIENT: PILY MORRISSEY UNIT #: [id number]#: [id number] [address] [birth year] AGE: 51 SEX: F ATTEND: [...] atrophy, calvesNT, No Cords, LUE in jessica wrap/splint.Neuro/ORTHODONTIC TREATMENT COORDINATOR: alert, CNII-XII intact, normal speech, no sensory deficits, MMT decreased AROM L shoulder/elbow d/t pain, L hand hoop punch and coiler operator 3-/5, LUE 5/5, RLE 4+/5, LLE [...] supracondylar, comminuted, displaced, operativeLeft upper extremity washout, ED2: Status post washout and sharp excisional debridement [...] functional progress.-Decubitus prevention-protective hydrating lotion-turn every 2 vobvz-qjnuxte-Qoyxb program-Nutrition, monitor the patient's p.o. intake, check albumin 2.6, 3 and prealbumin, 10.1, dietary consult, protein supplements.-Strict fall and safety precaution-Keppra x7 days for seizure prophylaxis-completed 09/24-DVT prophylaxis on Lovenox-GI prophylaxis on Pepcid-changed to Protonix due to heartburn-OOB to chair-Work on bed mobility, transfer training, ADLs, pre-gait and gait exercises as tolerable. -Increase endurance and strength-NWB LUE, WBAT to RLE, BSN-Roukgnc-XZ consult-patient scored 19 out of 30 on MMSE on acute care indicativeof mild to moderate cognitive changes in the areas of orientation, recall, problem solving and executive functioning-SP to continue treatment-Urinary retention-continue Flomax-Means catheter-consult on rehab-Means removed-patient with pelvic pain and possible dysuria-check UH-vwcozwxd-Nzas management consulted for tiered pain management-medications adjusted-Appreciate consultants input-hospitalist, pain management, -Continue current ylisefuzfbq-Oaleee-umuanay hemoglobin 8.0-transfuse if hemoglobin less than 7-CW ferrous sulfate and vitamin C-Give Dulcolax p.o. x1. Continue Colace and MiraLAX-as needed lactulose-patienthad BM-Started on cefdinir for UTI. Culture shows Enterococcus faecalis (VRE negative) and E. coli both sensitive to Macrodantin-DC cefdinir and start Macrodantin 100 mg p.o. twice daily till 10/0325-Atalldceo-AP Pepcid and start Vqkrrwsi-autlmrj-guzhypzm improved-09/28: Urology consult-patient will need outpatient urodynamics-Discontinue [...] agree with the teams findingELOS: [10/13]DC-home w xlrulk-PG-[employer]-out pt CNSDME-WC, [place] walker, TTB, BSC Total time was 33 minutes > 50% with patient performing physical examination, discussing with patient about nausea/vomiting, adjustment of medications discharge plan, rehab plan of care, goals, therapies, progress, medications, labs. EMR and MAR reviewed. All questions answeredOrders: Procedure Date/time Status ST [facility] DVLMT INT15 76383 09/[address] [facility] DVLMNT EA15 69307 09/30 UNK Complete PT GAIT TRNG 09/30 [...] examined by me personally. at 1405 RPT #:[id number] OF REPORTPRProgress yaxm4872-62-04D69:51:00G.XVFE445608 170011AVAvailable for patient nlhyTMSLXVSRQHUCNI7607-84-85N14:05: 45 [facility] 2021-09-30 11:57:00 [id number] u5CJWJAUVthEed8 Ee60viATCsxaRTMrOu7dFueC7LDLq7rGaA8 PC3w9e5236-74-14N37:57:00 [facility] Progress NoteREPORT#:[id number] REPORT STATUS: SignedDATE:09/30/21 TIME: 1157 PATIENT: PILY MORRISSEY UNIT #: [id number]#: [id number] [address] [birth year] AGE: 51 SEX: F ATTEND: Tree Restrepo [facility] AUTHOR: France Taylor MD * [...] Consultants: hospitalist, pain management at 0759 RPT #:[id number] OF REPORTPRProgress owyw0295-33-06L74:57:00G.ZODB218480 16-0665AVAvailable for patient koudJLWRKMXJZOARXQ6136-76-45A89:59: 56 [facility] 2021-09-30 10:20:00 [id number] PCCJzFVsyXC7swt /HS8h/ZdYT5mHnJDLXcsGNuNMsOz6lYHowh KyyZDS9063-16-03S45:20:00 [facility] ([facility])Pain Management Progress NoteREPORT#:[id number] REPORT STATUS: SignedDATE:09/30/21 TIME: 1020 PATIENT: PILY MORRISSEY UNIT #: [id number]#: [id number] [address] [birth year] AGE: 51 SEX: F ATTEND: Tree Restrepo [facility] AUTHOR: Cameron Santos * ALL [...] 09/30 0732 O2 Delivery Room air 09/30 0732 Pulse 94 09/30 0732 Resp 15 09/30 0732 Temp 36.9 09/30 0728 24 hour I [...] bowel soundsExtremities: moves all, no edema, pedal pulsesNeuro/ORTHODONTIC TREATMENT COORDINATOR: no motor deficits, no sensory deficits, CNII-XII [...] hours -We will wean from Percocet to [place] as able-manageable Idiopathic neuropathy-Gabapentin 300 mg p.o. [...] agrees. Thank you for the consultation. [place] CIVIL CAD TECH:Total Prescriptions 10Total Private Pay 0Total Prescribers 5Total Pharmacies 4 08/31/2021 08/31/2021 3 TRAMADOL HCL 50 MG TABLET 90.00 30 Ja Kin [id number] [facility] (5115) 0 15.00 MME Comm Ins 07/22/2021 07/22/2021 3 TRAMADOL HCL 50 MG TABLET 14.00 7 Ja Kin 674524 [facility] (5115) 0 10.00 MME Comm Ins 06/09/2021 06/09/2021 3 TRAMADOL HCL 50 MG TABLET 90.00 23 Ki Pit 068723 [facility] (2215) 0 19.57 MME Comm Ins 05/05/2021 05/05/2021 3 TRAMADOL HCL 50 MG TABLET 90.00 22 Ki Pit 900245 [facility] (2215) 0 20.45 MME Comm Ins 04/22/2021 04/22/2021 3 TRAMADOL HCL 50 MG TABLET 28.00 7 Ki Pit 167569 [facility] (5115) 0 20.00 MME Comm Ins 04/16/2021 04/16/2021 2 HYDROCODONE-ACETAMIN 5-325 MG 28.00 7 Ki Pit 634660 [facility] (2215) 0 20.00 MME Comm Ins 04/09/2021 04/09/2021 1 ACETAMINOPHEN-COD #3 TABLET 20.00 3 Cy Ove 9162985 [facility] (0323) 0 30.00 MME Comm Ins 01/13/2021 01/13/2021 2 ACETAMINOPHEN-COD #3 TABLET 20.00 5 Freida Poh 561410 [facility] (2215) 0 18.00 [place]ME Comm Ins [place]12/15/2020 12/15/2020 4 ACETAMINOPHEN-COD #3 TABLET 14.00 7 [place]pe [id number] [facility] (1030) 0 9.00 [place]12/08[place]2020 12/08/2020 4 ACETAMINOPHEN-COD #3 TABLET 14.00 7 Israel Thorpe 1399272 [facility] (1030) 0 9.00 [place] Comm Ins [place] [facility] (0641) [address] [facility] 687245 [facility] (8345) [address] [facility] [address] [facility] [address] -[facility] 236848 (8444) [address] [facility] 979105 [facility] (9645) [address] [facility] [place] [place] [address] - at 1209 at 2008 Addendum 1: 09/30/212054 by Cameron Santos Total time >35 minutes. >50% spent face to face, reviewing chart/MAR, examining patient, answering all questions, discussing plan of care with patient and nurse.TT 38 minutes at 2055 RPT #:[id number] OF REPORTPRProgress proq1711-10-60J84:20:00G.XTJN579216 16-0429AVAvailable for patient lttjTCZBFBQBIDREAY9088-70-83C16:10: 11 [facility] 2021-09-30 06:20:00 [id number] SqVolpTZ2zp2saP +6q2PDMaksGwD+Y/+S/wgPnxLN7VG+voAJ4 luM3eP2453-38-85T21:20:00 [facility] ([facility] Progress NoteREPORT#:[id number] REPORT STATUS: SignedDATE:09/30/21 TIME: 0620 PATIENT: PILY MORRISSEY UNIT #: [id number]#: [id number] [address] [birth year] AGE: 51 SEX: F ATTEND: [...] bed, reports of R Hip/ Pelvis pain 4/10, agreeable to therapy O: Pt seen for [...] Pt C/O pain on R Hip/Pelvis area 4/10 exacerbated during weight bearing activities, requires encouragementduring [...] atrophy, calvesNT, No Cords, LUE in jessica wrap/splint.Neuro/ORTHODONTIC TREATMENT COORDINATOR: alert, CNII-XII intact, normal speech, no sensory deficits, MMT decreased AROM L shoulder/elbow d/t pain, L hand hoop punch and coiler operator 3-/5, LUE 5/5, RLE 4+/5, LLE [...] functional progress.-Decubitus prevention-protective hydrating lotion-turn every 2 mitoq-byuwiyx-Yeryy program-Nutrition, monitor the patient's p.o. intake, check albumin 2.6, 3 and prealbumin, 10.1, dietary consult, protein supplements.-Strict fall and safety precaution-Keppra x7 days for seizure prophylaxis-completed 09/24-DVT prophylaxis on Lovenox-GI prophylaxis on Pepcid-changed to Protonix due to heartburn-OOB to chair-Work on bed mobility, transfer training, ADLs, pre-gait and gait exercises as tolerable. -Increase endurance and strength-NWB LUE, WBAT to RLE, QQJ-Ldtrkza-VC consult-patient scored 19 out of 30 on MMSE on acute care indicativeof mild to moderate cognitive changes in the areas of orientation, recall, problem solving and executive functioning-SP to continue treatment-Urinary retention-continue Flomax-Means catheter-consult on rehab-Means removed-patient with pelvic pain and possible dysuria-check XI-ldqpwdhu-Wmob management consulted for tiered pain management-medications adjusted-Appreciate consultants input-hospitalist, pain management, -Continue current mejbjqcbspd-Owulew-uktevcx hemoglobin-transfuse if hemoglobin less than 7-CW ferrous sulfate and vitamin C-Give Dulcolax p.o. x1. Continue Colace and MiraLAX-as needed lactulose-patienthad BM-Started on cefdinir for UTI. Culture shows Enterococcus faecalis (VRE negative) and E. coli both sensitive to Macrodantin-DC cefdinir and start Macrodantin 100 mg p.o. twice daily till 10/0381-Ktxcyroyu-FY Pepcid and start Omngakzs-fmcxtab-gjdxhgrz improved-09/28: Urology consult-patient will need outpatient urodynamics-Discontinue bladder scans. Minimal residuals-Labs reviewed-Memory SPVN-Advance therapies as tolerable-Patient making progress PM RPlease see team note.Plan and goals discussed with the patient. I agree with the teams findingELOS: [10/13]DC-home w viwomo-YM-Nzptuzt Angelina-out pt CNSDME-WC, [place] walker, TTB, BSC Total time was 33 minutes > 50% with patient performing physical examination, discussing with patient about about discharge plan, rehab plan of care, goals, therapies, progress, medications, labs. EMR and MAR reviewed. All questions answeredRehab attestation:Face to face exam completed. Treatment plan discussed with patient. Meets continued stay criteria. Agree with interdisciplinary treatment plan. Gibberman,Tree X 09/30/21 1537:Attestations Physician AttestationAgree w/findings plan:Pt seen and examined by me. Agree with the findings and plan as documented by AYE Rodrigues. at 1538 at 1844 RPT #:[id number] OF REPORTPRProgress khmo9089-82-61W95:20:00G.[id number] 0049AVAvailable for patient ufcvJAVAKKGHOIVGPD4564-47-17W26:39: 06 [facility] 2021-09-29 22:40:00 [id number]/oHcdiK 6g7Wry0qG9HdOaA G1BOArVWegWdK3knSuDOMtkM7ft38yCrbYG UWf28o5805-42-13J77:40:00 [facility]Hospital[facility] Progress NoteREPORT#:[id number] REPORT STATUS: SignedDATE:09/29/21 TIME: 2239 PATIENT: PILY MORRISSEY UNIT #: [id number]#: [id number] [address] [birth year] AGE: 51 SEX: F ATTEND: Tree Restrepo [facility] AUTHOR: France Taylor MD * [...] regular diet 2. Snacks TIDDietitian name: Molly Amity, MS, RDN, LDAssessment completed: 09/25/21 ___ Provider [...] Consultants: hospitalist, pain management at 1157 RPT #:[id number] OF REPORTPRProgress uvrn2616-43-76Q45:40:00G.[id number] for patient qdqnKYBYOLFIGEPKIX0738-99-64X83:57: 51 [facility] 2021-09-29 14:11:00 [id number] VhrElBwySp0dnz0 [facility] SERVICESl+DKCMmgCSsmOIyGdkEgQq00eglnui TH51hU8137-10-93I39:11:00 [facility] [facility])Rehab Team ConferenceREPORT#:[id number] REPORT STATUS: SignedDATE:09/29/21 TIME: 1410 PATIENT: PILY MORRISSEY UNIT #: [id number]#: [id number] [address] AGE: 51 SEX: F ATTEND: [...] OT Hattie Garrison OT CM/ZIGGY Flood, DEN[facility]SC Staff (8) Staff (9) Staff (10) Staff [...] SW team conference update: SHE LIVES IN [place] 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 FOR ORTHODONTIC TREATMENT COORDINATOR AT TIME OF DC.Other discipline update 1: [...] Twelve steps discharge goal: Partial/moderate asst (3) [place] 150 feet discharge goal: Independent (6) Goal [...] INJURY. FAMILY TRAINING TO BE SCHEDULED BY THERAPY.Jasper day (DATE): 10/12/21Expected discharge destination: HomeAnticipated services upon discharge: Occupational therapy, Physical therapy, tunnel worker, Speech therapy, Outpatient-CNSAnticipated discharge equipment: W/C, [...] cont stay criteriasee my note at 1411 RPT #:[id number] OF REPORTCLClinical lgvp2926-35-48Y90:11:00G.[id number] AVAvailable for patient xiiuQSUINKJVXQCPXB8634-72-42V21:12: 09 [facility] 2021-09-29 10:38:00 [id number] BWIv9ko4xuY9lqy SZpf7vLTiproYQL90MNnc8Uk1H0ri2Ip8oH 5E5AVv0654-70-82F93:38:00 [facility] Progress NoteREPORT#:[id number] REPORT STATUS: SignedDATE:09/29/21 TIME: 1038 PATIENT: PILY MORRISSEY UNIT #: [id number]#: [id number] ROOM[facility]BED: [facility]DOB: [birth year] AGE: 51 SEX: F ATTEND: Tree [...] REQUIRED ADDITIONAL REPETITION OF TARGET WORDS FROM ASSAYER FOR REMAINING TRIALS. CONVERGENT REASONING: -ADD TO [...] ABLE TO TOLERATE LBD EOB, EDU UTILIZING SCOOPING MACHINE TENDER. EDU: SAFE FX TRANSFERS, WBS, DME, HOME [...] atrophy, calvesNT, No Cords, LUE in jessica wrap/splint.Neuro/ORTHODONTIC TREATMENT COORDINATOR: alert, CNII-XII intact, normal speech, no sensory deficits, MMT decreased AROM L shoulder/elbow d/t pain, L hand hoop punch and coiler operator 3-/5, LUE 5/5, RLE 4+/5, LLE 3-/5. LUE well aligned. ResultsFindings/Data:Laboratory Tests 09/26 09/28 1620 0515 Chemistry Albumin (3.4 - 5.0 g/dL) 3.00 Prealbumin (16.0 - 40.0 mg/dL) 10.1 Hematology Hgb (11.0 - 15.0 g/dL) 8.2 Hct (33.0 - 45.0 %) 25.2 Urines Urine Color (YEL/STRAW) YELLOW Urine Appearance (CLEAR) SL CLOUDY Urine pH (5.0 - 7.0) 7.0 Ur Specific [place] (1.005 - 1.030) 1.012 Urine Protein (NEGATIVE) [...] (NONE SEEN /LPF) TRACE Objective CommentsObjective comments:Microbiology:09/26 1620 URINE: Urine Culture - COMP ENTEROCOCCUS FAECALIS [...] functional progress.-Decubitus prevention-protective hydrating lotion-turn every 2 sflzv-ykkracr-Bqmmp program-Nutrition, monitor the patient's p.o. intake, check albumin 2.6, 3 and prealbumin, 10.1, dietary consult, protein supplements.-Strict fall and safety precaution-Keppra x7 days for seizure prophylaxis-completed 09/24-DVT prophylaxis on Lovenox-GI prophylaxis on Pepcid-changed to Protonix due to heartburn-OOB to chair-Work on bed mobility, transfer training, ADLs, pre-gait and gait exercises as tolerable. -Increase endurance and strength-NWB LUE, WBAT to RLE, QJY-Ojmumwf-QX consult-patient scored 19 out of 30 on MMSE on acute care indicativeof mild to moderate cognitive changes in the areas of orientation, recall, problem solving and executive functioning-SP to continue treatment-Urinary retention-continue Flomax-Means catheter-consult on rehab-Means removed-patient with pelvic pain and possible dysuria-check AL-pswluati-Umpx management consulted for tiered pain management-medications adjusted-Appreciate consultants input-hospitalist, pain management, -Continue current medications-Labs reviewed-hemoglobin -7.8, 7.7 8.2, magnesium 1.8-bnivqgj-Zknupd-monitor hemoglobin-transfuse if hemoglobin less than 7-CW ferrous sulfate and vitamin C-Give Dulcolax p.o. x1. Continue Colace and MiraLAX-as needed lactulose-patienthad BM-Started on cefdinir for UTI. Culture shows Enterococcus faecalis (VRE negative) and E. coli both sensitive to Macrodantin-DC cefdinir and start Macrodantin 100 mg p.o. twice daily till 10/0323-Rmactddjy-BL Pepcid and start Zxukzexc-gdiohju-pokjffph improved-09/28: Urology consult-patient will need outpatient urodynamics-Check [...] agree with the teams findingELOS: [10/13]DC-home w spcamf-HS-Fnrycnk Dandremart-out pt CNSDME-WC, [place] walker, TTB, BSC [...] examined by me personally. at 1411 RPT #:[id number] OF REPORTPRProgress hdku0151-08-18V40:38:00G.VTNR116787 15-0482AVAvailable for patient rqrhYIJQATRMZJSGZJ6701-67-09X20:12: 00 [facility] 2021-09-29 10:06:00 [id number] sfj2kuNV9GzjSrK 6W89706dMKSWrISQSFc1DlJFsg+7eGZksmA nhbsfU0986-31-14L73:06:00 [facility] ([facility])Pain Management Progress NoteREPORT#:[id number] REPORT STATUS: SignedDATE:09/29/21 TIME: 1006 PATIENT: PILY MORRISSEY UNIT #: [id number]#: [id number] [address] [birth year] AGE: 51 SEX: F ATTEND: Tree Restrepo [facility] AUTHOR: Cameron Santos * ALL [...] bowel soundsExtremities: moves all, no edema, pedal pulsesNeuro/ORTHODONTIC TREATMENT COORDINATOR: no motor deficits, no sensory deficits, CNII-XII [...] therapy -We will wean from Percocet to [place] as able-manageable Idiopathic neuropathy-Gabapentin 300 mg p.o. [...] agrees. Thank you for the consultation. [place] CIVIL CAD TECH:Total Prescriptions 10Total Private Pay 0Total Prescribers 5Total Pharmacies 4 08/31/2021 08/31/2021 3 TRAMADOL HCL 50 MG TABLET 90.00 30 Kin [id number] [facility] (5115) 0 15.00 MME Comm Ins 07/22/2021 07/22/2021 3 TRAMADOL HCL 50 MG TABLET 14.00 7 Kin [id number] [facility] (5115) 0 10.00 MME Comm Ins 06/09/2021 06/09/2021 3 TRAMADOL HCL 50 MG TABLET 90.00 23 Ki Pit 797225 [facility] (2215) 0 19.57 MME Comm Ins 05/05/2021 05/05/2021 3 TRAMADOL HCL 50 MG TABLET 90.00 22 Ki Pit 740216 [facility] (2215) 0 20.45 MME Comm Ins 04/22/2021 04/22/2021 3 TRAMADOL HCL 50 MG TABLET 28.00 7 Ki Pit 381853 [facility] (5115) 0 20.00 MME Comm Ins 04/16/2021 04/16/2021 2 HYDROCODONE-ACETAMIN 5-325 MG 28.00 7 Ki Pit 665027 [facility] (2215) 0 20.00 MME Comm Ins [place]04/09/2021 04/09/2021 1 ACETAMINOPHEN-COD #3 TABLET 20.00 3 Cy Ove [id number] [facility] (0323) 0 30.00 [place]ME Comm Ins [place]01/13/2021 01/13/2021 2 ACETAMINOPHEN-COD #3 TABLET 20.00 5 Freida Poh [id number] [facility] (2215) 0 18.00 [place] Comm Ins [place]12/15/2020 12/15/2020 4 ACETAMINOPHEN-COD #3 TABLET 14.00 7 Ja Kin [id number] [facility] (1030) 0 9.00 [place] Ins [place]12/08/2020 12/08/2020 4 ACETAMINOPHEN-COD #3 TABLET 14.00 7 Ja Kin 6587180 [facility] (1030) 0 9.00 [place] Comm [place] [facility] (2561) [address] [facility] 030085 [facility] (6695) [address] [address] -[facility] [phone] (1346) [address] [facility] 328[address] [facility] (1049) [address] [facility] [place] [place] [address] - at 1352 at 0914 Addendum 1: 09/29/212112 by Cameron Santos Total time >35 minutes. >50% spent face to face, reviewing chart/MAR, examining patient, answering all questions, discussing plan of care with patient and nurse.TT 37 minutes at 2114 RPT #:[id number] OF REPORTPRProgress dtme0132-35-24J35:06:00G.FBXX513330 15-0392AVAvailable for patient fcuiRGNBJRFGRFMFEG0624-88-07B43:52: 33 [facility] 2021-09-28 18:58:00 [id number] oe0hVM4tRROWy4N 9tRmfxcwmthwg+XsgUZ+YpInOdM6PKhCpH+ Wy6oZD0709-75-49N76:58:00 [facility] ([facility])Clinical NoteREPORT#:[id number] REPORT STATUS: SignedDATE:09/28/21 TIME: 1858 PATIENT: PILY MORRISSEY UNIT #: [id number]#: [id number] ROOM[facility]BED: [facility]DOB: [birth year] AGE: 51 SEX: F ATTEND: Tree Restrepo [facility] AUTHOR: Los Trevizo MD * ALL edits or amendments must be made on the electronic/computer document * Clinical NoteNote:Dict 056743 at 1858 RPT #:[id number] OF REPORTCLClinical kvkp1892-09-37T73:58:00G.RYWL688658 14-1307AVAvailable for patient jqpzOHVKNCQTZXXCFJ6067-64-21E60:58: 58 [facility] 2021-09-28 18:58:00 [id number] IAkex5Yp1bHxibt UW6f3SLretrgmWneNCqvKEptpJHzhC0NtW+ BcSsjA9558-25-72M01:58:913335-8106 [place] [address] PATIENT NAME: PILY MORRISSEY ADMIT DATE: 09/24/21ACCOUNT NO: [id number] ROOM NO: [facility] AGE: 51 REPORT TYPE: CONSULTATION REPORT SEX: [...] pressure 115/74, pulse 92, respiratory rate 17, qvfwqsjujkz61.1, 95% on room air.GENERAL: Alert, no acute [...] basis. Dictated By: Los Trevizo MD WT: CON:GMARI/DAVIDA/NIKOLASDD: 09/28/2021 18:58:14DT: 09/28/2021 20:20:18Conf#: [id number]/DID#: [id number] Authenticated and Edited by Los Trevizo MD On 10/20/21 5:40:49 PM at 0543 PATIENT NAME: PILY MORRISSEY 4T20:20:00G.[id number] able for patient bkebTCLTLLEHLYHZKZ6870-04-42R98:44: 36 [facility] 2021-09-28 14:28:00 [id number] 17UuJbYzLf2CoL+ 39UACef3k7+/8JqSv0lbuEvlGld6I/sqDuV YvaAys3219-88-51T30:28:00 [facility]ospital[facility] Progress NoteREPORT#:[id number] REPORT STATUS: SignedDATE:09/28/21 TIME: 1428 PATIENT: PILY MORRISSEY UNIT #: [id number]#: [id number] [address] [birth year] AGE: 51 SEX: F ATTEND: Tree Restrepo [facility] AUTHOR: France Taylor MD * [...] regular diet 2. Snacks TIDDietitian name: Molly MS Madhuri, RDN, LDAssessment completed: 09/25/21 ___ Provider comments [...] soft, no distention, obeseGenitourinary: no bladder distention, Emans Extremities: abnormal capillary refill, moves all, normal [...] Consultants: hospitalist, pain management at 1157 RPT #:[id number] OF REPORTPRProgress riiz1260-25-92F64:28:00G.RJWZ293467 AVAvailable for patient akozHTSKZZRMRQIIUJ9543-42-90N00:57: 45 [facility] 2021-09-28 11:02:00 [id number] Ia0iB7pJeYoPnFL c8AOnpbFHXHlO+no390ag44YSUQIXPgxZ74 mPkFfT6322-02-89D79:02:00 [facility] Progress NoteREPORT#:[id number] REPORT STATUS: SignedDATE:09/28/21 TIME: 1102 PATIENT: PILY MORRISSEY UNIT #: [id number]#: [id number] [address] [birth year] AGE: 51 SEX: F ATTEND: Tree Restrepo AUTHOR: Tree Restrepo MD * ALL edits or amendments must be made on the electronic/computer document * SubjectiveChief complaint:Rehab follow-up Pain better controlled, denies dysuria, Avis has some grinding in the right hipShe is wearing her back braceComplaining of dyspepsiaEating fairPositive BMDenies REYES/N/V/D14 systems reviewed and neg. except that above.Patient reports:No: shortness of breath, vomiting. Nursing reports:No: new events overnight. Objective GeneralVS:Vital Signs: Date Time Temp Pulse Resp B/P B/P Pulse O2 O2 Flow FiO2 Mean Ox Delivery Rate 09/28 0912 92 120/79 92.5 96 09/28 0711 98.2 [...] BOARD AND SCOOTING IN INCLINE. 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 intake, check albumin 2.6, 3 and prealbumin, 10.1, dietary consult, protein supplements.-Strict fall and safety precaution-Keppra x7 days for seizure prophylaxis-completed 09/24-DVT prophylaxis on Lovenox-GI prophylaxis on Pepcid-changed to Protonix due to heartburn-OOB to chair-Work on bed mobility, transfer training, ADLs, pre-gait and gait exercises as tolerable. -Increase endurance and strength-NWB LUE, WBAT to RLE, FPT-Zqzyoyq-YR consult-patient scored 19 out of 30 on MMSE on acute care indicativeof mild to moderate cognitive changes in the areas of orientation, recall, problem solving and executive functioning-SP to continue treatment-Urinary retention-continue Flomax-Means catheter-consult on rehab-Means removed-patient with pelvic pain and possible dysuria-check VT-rceofxms-Njpg management consulted for tiered pain management-medications adjusted-Appreciate consultants input-hospitalist, pain management, -Continue current medications-Labs reviewed-hemoglobin - 8.2, magnesium 1.7-ubudwwg-Favawm-monitor hemoglobin 7.8, 7.7, 8.2-transfuse if hemoglobin less than 7-addferrous sulfate and vitamin C-Give Dulcolax p.o. x1. Continue Colace and MiraLAX-as needed lactulose-patienthad BM-Started on cefdinir for UTI. Culture shows Enterococcus faecalis (VRE negative) and E. coli both sensitive to Macrodantin-DC cefdinir and start Macrodantin 100 mg p.o. twice raovj-Iwpwfiiyw-HO Pepcid and start Gxtiomif-fbytvwt-Laaspjj therapies as tolerable-Patient making progress Patient Progress-GAIT: STANDING PRE-GAIT W/ HW. RLE STEP FWD/BWD AND LLE HEEL/FOOT RAISES. PM RPlease see team note.Plan and goals discussed with the patient. I agree with the teams findingELOS: [16 days]WM-ierj-PMXZC-pending Total time was 33 minutes > 50% [...] examined by me personally. at 1407 RPT #:[id number] OF REPORTPRProgress cefr8294-52-10G95:02:00G.DRDJ963272 14-0443AVAvailable for patient aftyYFUUOTLNBCVPWL1486-89-36I36:08: 01 [facility] 2021-09-28 09:43:00 [id number] jgyHCkg1lD19KXA raOOcpdgwdlU/hzdRBaUyBlX+rVIW1IHH7r 7p68759366-17-12X57:43:00 [facility] ([facility])Pain Management Progress NoteREPORT#:[id number] REPORT STATUS: SignedDATE:09/28/21 TIME: 09 PATIENT: PILY MORRISSEY UNIT #: [id number]#: [id number] [address] [birth year] AGE: 51 SEX: F ATTEND: Tree Restrepo [facility] AUTHOR: Cameron Santos * ALL [...] Result Date Time Pulse Ox 96 09/28 09 B/P 120/79 09/28 09 B/P Mean 92.5 09/28 911 Pulse 92 09/28 09 O2 Delivery Room air 09/28 0711 Temp 36.8 09/28 0711 Resp 17 09/28 0711 24 hour I O ending at [...] bowel soundsExtremities: moves all, no edema, pedal pulsesNeuro/ORTHODONTIC TREATMENT COORDINATOR: no motor deficits, no sensory deficits, CNII-XII [...] therapy -We will wean from Percocet to [place] as able-manageable Idiopathic neuropathy-Gabapentin 300 mg p.o. [...] agrees. Thank you for the consultation. [place] CIVIL CAD TECH:Total Prescriptions 10Total Private Pay 0Total Prescribers 5Total Pharmacies 4 08/31/2021 08/31/2021 3 TRAMADOL HCL 50 MG TABLET 90.00 30 Ja Kin 120857 [facility] (5115) 0 15.00 MME Comm Ins 07/22/2021 07/22/2021 3 TRAMADOL HCL 50 MG TABLET 14.00 7 Ja Kin [id number] [facility] (5115) 0 10.00 MME Comm Ins 06/09/2021 06/09/2021 3 TRAMADOL HCL 50 MG TABLET 90.00 23 Ki Pit 262835 [facility] (2215) 0 19.57 MME Comm Ins 05/05/2021 05/05/2021 3 TRAMADOL HCL 50 MG TABLET 90.00 22 Ki Pit 851052 [facility] (2215) 0 20.45 MME Comm Ins 04/22/2021 04/22/2021 3 TRAMADOL HCL 50 MG TABLET 28.00 7 Ki Pit 320751 [facility] (5115) 0 20.00 MME Comm Ins 04/16/2021 04/16/2021 2 HYDROCODONE-ACETAMIN 5-325 MG 28.00 7 Ki Pit 912405 [facility] (2215) 0 20.00 MME Comm Ins 04/09/2021 04/09/2021 1 ACETAMINOPHEN-COD #3 TABLET 20.00 3 Cy Ove [id number] [facility] (0323) 0 30.00 [place]ME Comm Ins [place]01/13/2021 01/13/2021 2 ACETAMINOPHEN-COD #3 TABLET 20.00 5 Freida [facility] 455749 b (3365) 0 18.00 [place]ME Comm Ins [place]12/15/2020 12/15/2020 4 ACETAMINOPHEN-COD #3 TABLET 14.00 7 [place] Kin 3193830 [facility] (1030) 0 9.00 [place]ME Comm Ins [place]12/08/2020 12/08/2020 4 ACETAMINOPHEN-COD #3 TABLET 14.00 7 Israel Kin [id number] [facility] (1030) 0 9.00 MME Comm Ins [place] [facility] (3043) [address] [facility] [id number] [facility] (2527) [address] [facility] [address] [facility] [address] -[facility] 12-0530 (9960) [address] [facility] [id number] [facility] (2125) [address] [place] [address] - at 1950 at 0912 Addendum 1: 09/28/211949 by Cameron Santos Total time >35 minutes. >50% spent face to face, reviewing chart/MAR, examining patient, answering all questions, discussing plan of care with patient and nurse.PT 36 minutes at 1951 RPT #:[id number] OF REPORTPRProgress mwzk0085-67-31Q09:43:00G.KOHM219571 14-0306AVAvailable for patient rkyeVIQMRLOAOZUZPQ8206-32-05I43:50: 28 [facility] 2021-09-27 09:06:00 [id number]/6C3Ch D9EF8wr1x480VUY ELnuU5tPV37gaEUOy7M5pMyDAgGUL0fiHRS 0tSxmU4612-72-64P96:06:00 [facility] ([facility])Hospitalist Progress NoteREPORT#:[id number] REPORT STATUS: SignedDATE:09/27/21 TIME: 905 PATIENT: PILY MORRISSEY UNIT #: [id number]#: [id number] ROOM/BED: [facility] [place] [facility]1DOB: [birth year] AGE: 51 SEX: F ATTEND: Tree Restrepo [facility] AUTHOR: Kasi Watkins LINE DIRECTOR * ALL edits or amendments must be [...] regular diet 2. Snacks TIDDietitian name: Molly MS Madhuri, RDN, LDAssessment completed: 09/25/21 ___ Provider comments [...] pH (5.0 - 7.0) 7.0 Ur Specific [place] (1.005 - 1.030) 1.012 Urine Protein (NEGATIVE) [...] the consultaiton. Consultants: hospitalist, pain management at 0950 at 1157 RPT #:[id number] OF REPORTPRProgress uoad0492-96-96X42:06:00G.WSUO532959 13-0255AVAvailable for patient fnupMVIRFAPWNLTUXQ7406-76-73M76:51: 06 [facility] 2021-09-27 07:29:00 [id number] NqV8A4TLXIil6TU fdhlHcB7L0GXK9Bc5gOPrrFUDgkimF/SFww qIjTjZ9274-34-35S67:29:00 [facility] ([facility])Pain Management Progress NoteREPORT#:[id number] REPORT STATUS: SignedDATE:09/27/21 TIME: 728 PATIENT: PILY MORRISSEY UNIT #: [id number]#: [id number] [address] [birth year] AGE: 51 SEX: F ATTEND: Tree Restrepo [facility] AUTHOR: Jaylen Davis LINE DIRECTOR * ALL edits or amendments must be [...] Pulse Resp B/P B/P Mean Pulse Ox UhL747/-09/27 98.1-99.5 88-107 16-17 103-125/60-77 74.9-93.2 95-98 Last Documented: Result Date Time Pulse Ox 95 09/27 722 B/P 104/60 09/27 722 B/P Mean 74.9 09/27 722 Temp 98.1 09/27 722 Pulse 88 09/27 0723 Resp 16 09/27 722 O2 Delivery Room air 09/27 0019 24 [...] RUQ normal bowel soundsExtremities: moves all, pedal pulsesNeuro/ORTHODONTIC TREATMENT COORDINATOR: no sensory deficits, CNII-XII grossly intactSkin: dry, normal color, normal turgorLymphatics: no lymphadenopathyPsychiatry: normal affect ResultsFindings/data:Laboratory Tests: 09/26 1620 Urines Urine Color (YEL/STRAW) YELLOW Urine Appearance (CLEAR) SL CLOUDY Urine pH (5.0 - 7.0) 7.0 Ur Specific [place] (1.005 - 1.030) 1.012 Urine Protein (NEGATIVE) [...] Date/Time Procedure - Status Source Growth 09/26 162 Urine Culture - WKST URINE Diagnosis, Assessment [...] doses (09/22)-We will wean from Percocet to [place] as able-manageable Acute postoperative pain-09/21/2021 planned for [...] agrees. Thank you for the consultation. [place] CIVIL CAD TECH:Total Prescriptions 10Total Private Pay 0Total Prescribers 5Total Pharmacies 4 08/31/2021 08/31/2021 3 TRAMADOL HCL 50 MG TABLET 90.00 30 Ja Kin 484288 [facility] (5115) 0 15.00 MME Comm Ins 07/22/2021 07/22/2021 3 TRAMADOL HCL 50 MG TABLET 14.00 7 Ja Kin 179019 [facility] (5115) 0 10.00 MME Comm Ins 06/09/2021 06/09/2021 3 TRAMADOL HCL 50 MG TABLET 90.00 23 Ki Pit 331415 [facility] (2215) 0 19.57 MME Comm Ins [place]05/05/2021 05/05/2021 3 TRAMADOL HCL 50 MG TABLET 90.00 22 Ki Pit 816447 [facility] (2215) 0 20.45 MME Comm Ins [place]04/22/2021 04/22/2021 3 TRAMADOL HCL 50 MG TABLET 28.00 7 Ki Pit 770576 [facility] (5115) 0 20.00 MME Comm Ins [place]09/09/2020 04/16/2021 2 HYDROCODONE-ACETAMIN 5-325 MG 28.00 7 Ki Pit 088954 [facility] (2215) 0 20.00 MME Comm Ins [place]04/09/2021 04/09/2021 1 ACETAMINOPHEN-COD #3 TABLET 20.00 3 Cy Ove 4593052 [facility] (0323) 0 30.00 MME Comm Ins [place]01/13/2021 01/13/2021 2 ACETAMINOPHEN-COD #3 TABLET 20.00 5 Freida Poh 771308 [facility] (2215) 0 18.00 [place]ME Comm Ins [place]12/15/2020 12/15/2020 4 ACETAMINOPHEN-COD #3 TABLET 14.00 7 Ja Kin 1282641 [facility] (1030) 0 9.00 [place]ME Comm Ins [place]12/08[place]2020 12/08/2020 4 ACETAMINOPHEN-COD #3 TABLET 14.00 7 Ja Kin 7645179 [facility] (1030) 0 9.00 [place] Comm [place] [facility] (2109) [address] [address] [facility] (6957) [address] [address] -[facility] [phone] (4232) [address] [facility] [address] [facility] (4173) [address] [facility] [place] [address] - at 0913 at 0910 RPT #:[id number] OF REPORTPRProgress sfkl1096-10-47H46:29:00G.LNLM178196 13-0138AVAvailable for patient egckMZLJYVQITMETGH5185-28-01V45:14: 13 [facility] 2021-09-27 06:13:00 [id number] QYxpkJLF+Qi6yuZ OoODPqpeZE9dFw7yoortfbjXLYxwRWINCV3 vXqn0H5037-60-65V88:13:00 [facility] ([facility])Rehab Progress NoteREPORT#:[id number] REPORT STATUS: SignedDATE:09/27/21 TIME: 06 PATIENT: PILY MORRISSEY UNIT #: [id number]#: [id number] ROOM/BED: Sheryl506-1DOB: [birth year] AGE: 51 SEX: F ATTEND: Tree Restrepo [facility] AUTHOR: Nell Adorno * ALL [...] BOARD AND SCOOTING IN INCLINE. 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 SBA WC [...] atrophy, calvesNT, No Cords, LUE in jessica wrap/splint.Neuro/ORTHODONTIC TREATMENT COORDINATOR: alert, CNII-XII intact, normal speech, no sensory deficits, MMT decreased AROM L shoulder/elbow d/t pain, L hand hoop punch and coiler operator 3-/5, LUE 5/5, RLE 4+/5, LLE 3-/5. LUE well aligned. ResultsFindings/Data:Laboratory Tests: 09/26 1620 Urines Urine Color (YEL/STRAW) YELLOW Urine Appearance (CLEAR) SL CLOUDY Urine pH (5.0 - 7.0) 7.0 Ur Specific [place] (1.005 - 1.030) 1.012 Urine Protein (NEGATIVE) [...] Urine Mucus (NONE SEEN /LPF) TRACE Microbiology:09/26 1620 URINE: Urine Culture - WKST Diagnosis, Assessment [...] laceration closure and ORIF of left elbow-09/21-Dr. MoultonRight pelvic fractures, inferior ramus, posterior sacrum, minimally [...] functional progress.-Decubitus prevention-protective hydrating lotion-turn every 2 kbolu-xxctinx-Igxza program-Nutrition, monitor the patient's p.o. intake, check albumin 2.6 and prealbumin,dietary consult, protein supplements.-Strict fall and safety precaution-Keppra x7 days for seizure prophylaxis-completed 09/24-DVT prophylaxis on Lovenox-GI prophylaxis on Pepcid-OOB to chair-Work on bed mobility, transfer training, ADLs, pre-gait and gait exercises as tolerable. -Increase endurance and strength-NWB LUE, WBAT to RLE, RBL-Skutrzw-EL consult-patient scored 19 out of 30 on MMSE on acute care indicativeof mild to moderate cognitive changes in the areas of orientation, recall, problem solving and executive functioning-SP to continue treatment-Urinary retention-continue Flomax-Means catheter-consult on rehab-Means removed-patient with pelvic pain and possible dysuria-check XZ-aaeyrgte-Fibx management consulted for tiered pain management-medications adjusted-Appreciate consultants input-hospitalist, pain management, -Continue current medications-Labs reviewed-hemoglobin low, magnesium 1.1-ajnkbnj-Kshlpw-monitor hemoglobin 7.8, 7.7-transfuse if hemoglobin less than 7-add ferrous sulfate and vitamin C-Give Dulcolax p.o. x1. Continue Colace and MiraLAX-Started on cefdinir for UTI. changed from 500 mg twice daily to 300 mg twice daily-Check H H on Tuesday PM RPlease see team note.Plan and goals discussed with the patient. I agree with the teams findingELOS: [16 days]XC-ogpo-BBBQB-pending Total time was 33 minutes > 50% with patient performing physical examination, discussing plan of care, UTI and antibiotics, goals, therapies, progress, medications, labs. All questions answeredRehab attestation:Face to face exam completed. Treatment plan discussed with patient. Meets continued stay criteria. Agree with interdisciplinary treatment plan. at 2147 RPT #:[id number] OF REPORTPRProgress [id number] 9AVAvailable for patient [id number]: 42 [facility] 2021-09-26 09:16:00 [id number]/D [id number] /soVcgJ7m+SuTzBnxtrI0XZkgmoxmcF1CHn DDMlfc4710-88-46D93:16:00 [facility]Hospitalist Progress NoteREPORT#:[id number] REPORT STATUS: SignedDATE:09/26/21 TIME: 09 PATIENT: PILY MORRISSEY UNIT #: [id number]#: [id number] [address] [birth year] AGE: 51 SEX: F ATTEND: Tree Restrepo [facility] AUTHOR: Kasi Watkins LINE DIRECTOR * ALL edits or amendments must be [...] 1929 36.4 90 16 111/76 87.7 95 02/11 1553 36.8 80 18 90/60 70.0 97 [...] pain management at 0922 at 1157 RPT #:[id number] OF REPORTPRProgress rphx3898-32-14Z01:16:00G.SLJX100004 VAvailable for patient bliaQLSDSYDOSMAETX3528-16-36I09:22: 44 [facility] 2021-09-26 05:47:00 [id number] y0aVyjLP++RieAA 0WMHpe/iOhOJLWJie3r9MP7Fx9lJZ/c77Di Wa2+bl7081-92-78F57:47:00 [facility] ([facility])Pain Management Progress NoteREPORT#:[id number] REPORT STATUS: SignedDATE:09/26/21 TIME: 0547 PATIENT: PILY MORRISSEY UNIT #: [id number]#: [id number] [address] [birth year] AGE: 51 SEX: F ATTEND: Tree Restrepo [facility] AUTHOR: Jaylen Davis LINE DIRECTOR * ALL edits or amendments must be [...] 2348 Temp 99.0 09/25 2348 Pulse 90 09/25 2348 Resp 17 09/25 2348 O2 Delivery Room [...] RUQ normal bowel soundsExtremities: moves all, pedal pulsesNeuro/ORTHODONTIC TREATMENT COORDINATOR: no sensory deficits, CNII-XII grossly intactSkin: dry, [...] % (Auto) (14.0 - 32.0 %) 21.0 [place] % (Auto) (4.8 - 9.0 %) 6.8 Eos % (Auto) (0.3 - 3.7 %) 3.8 H Baso % (Auto) (0.0 - 2.0 %) 0.5 Neut # (Auto) (2.0 - 7.6 x10 3/uL) 3.91 Lymph # (Auto) (1.0 - 3.8 x10 3/uL) 1.27 Stonewall # (Auto) (0.1 - 0.8 x10 3/uL) [...] doses (09/22)-We will wean from Percocet to [place] as able-manageable Acute postoperative pain-09/21/2021 planned for [...] agrees. Thank you for the consultation. [place] CIVIL CAD TECH:Total Prescriptions 10Total Private Pay 0Total Prescribers 5Total Pharmacies 4 08/31/2021 08/31/2021 3 TRAMADOL HCL 50 MG TABLET 90.00 30 Kin [id number] [facility] (2805) 0 15.00 MME Comm Ins [place]07/22/2021 07/22/2021 3 TRAMADOL HCL 50 MG TABLET 14.00 7 Kin 250040 [facility] (1435) 0 10.00 [place]ME Comm Ins [place]06/09/2021 06/09/2021 3 TRAMADOL HCL 50 MG TABLET 90.00 23 Ki Pit 765272 [facility] (4075) 0 19.57 [place] Comm Ins [place]05/05/2021 05/05/2021 3 TRAMADOL HCL 50 MG TABLET 90.00 22 Ki Pit 186579 [facility] (2215) 0 20.45 [place] Comm Ins [place]04/22/2021 04/22/2021 3 TRAMADOL HCL 50 MG TABLET 28.00 7 Ki Pit 551670 [facility] (5115) 0 20.00 [place]/16/2021 04/16/2021 2 HYDROCODONE-ACETAMIN 5-325 MG 28.00 7 Ki Pit 332157 [facility] (2215) 0 20.00 [place] Comm Ins [place]04/09/2021 04/09/2021 1 ACETAMINOPHEN-COD #3 TABLET 20.00 3 Cy Ove [id number] [facility] (0323) 0 30.00 [place]ME Comm Ins [place]01/13/2021 01/13/2021 2 ACETAMINOPHEN-COD #3 TABLET 20.00 5 Freida Poh 591554 [facility] (2215) 0 18.00 [place] Comm Ins [place]12/15/2020 12/15/2020 4 ACETAMINOPHEN-COD #3 TABLET 14.00 7 Ja Kin 1201089 [facility] (1030) 0 9.00 [place] Ins [place]12/08/2020 12/08/2020 4 ACETAMINOPHEN-COD #3 TABLET 14.00 7 Ja Kin [id number] [facility] (1030) 0 9.00 MME Comm Ins [place] [facility] (3243) [address] [id number] [facility] (1526) [facility] [address] [address] -[facility] 103899 (3850) [address] [facility] [id number] [facility] (2650) [address] [facility] [place] [address] - at 0730 at 0908 RPT #:[id number] OF REPORTPRProgress bzyu0032-34-98T01:47:00G.QGNZ041112 VAvailable for patient islfTVPJQMXHLPVNOX8438-90-75S16:30: 59 [facility] 2021-09-26 05:23:00 [id number] 5ztc9FDjyNsXoEL 5Z/7PlhzCWHSSDSBoNOksGMI0g6zBVIALdk 48UgT23510-07-29M66:23:00 [facility] ([facility])Rehab Progress NoteREPORT#:[id number] REPORT STATUS: SignedDATE:09/26/21 TIME: 522 PATIENT: PILY MORRISSEY UNIT #: [id number]#: [id number] [address] [birth year] AGE: 51 SEX: F ATTEND: [...] W/RUE ONLY X 10 REPS EACH, 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 Transfers: RECLINER TO BED: [...] PATIENT, INDEPENDENT PRIOR TO HOSPITALIZATION.LIVES WITH BOYFRIEND, MICROBIOLOGY SUPERVISOR AT [facility], DRIVING AND MANAGED ALL IADLS INDEPENDENTLY. [...] ST special tests: CLQT ST evaluation results: ASSAYER ADMINISTERED PORTIONS OF THE CLQT TO ASSESS [...] PLANNING, MENTAL FLEXIBILITY AND COMPLEX PROBLEM SOLVING. ASSAYER TO FOLLOW. - PT DAILY NOTE - [...] atrophy, calvesNT, No Cords, LUE in jessica wrap/splint.Neuro/ORTHODONTIC TREATMENT COORDINATOR: alert, oriented X 3, CNII-XII intact, normal speech, no sensory deficits, MMT decreased AROM L shoulder/elbow d/t pain, L hand hoop punch and coiler operator 3-/5, LUE 5/5, RLE 4+/5, LLE [...] % (Auto) (14.0 - 32.0 %) 21.0 [place]wall % (Auto) (4.8 - 9.0 %) 6.8 Eos % (Auto) (0.3 - 3.7 %) 3.8 H Baso % (Auto) (0.0 - 2.0 %) 0.5 Neut # (Auto) (2.0 - 7.6 x10 3/uL) 3.91 Lymph # (Auto) (1.0 - 3.8 x10 3/uL) 1.27 Stonewall # (Auto) (0.1 - 0.8 x10 3/uL) [...] % (Auto) (14.0 - 32.0 %) 21.0 [place]wall % (Auto) (4.8 - 9.0 %) 6.8 Eos % (Auto) (0.3 - 3.7 %) 3.8 Baso % (Auto) (0.0 - 2.0 %) 0.5 Neut # (Auto) (2.0 - 7.6 x10 3/uL) 3.91 Lymph # (Auto) (1.0 - 3.8 x10 3/uL) 1.27 [place]wall # (Auto) (0.1 - 0.8 x10 3/uL) [...] functional progress.-Decubitus prevention-protective hydrating lotion-turn every 2 nahlj-acmkjfu-Ntezj program-Nutrition, monitor the patient's p.o. intake, check albumin 2.6 and prealbumin,dietary consult, protein supplements.-Strict fall and safety precaution-Keppra x7 days for seizure prophylaxis-completed 09/24-DVT prophylaxis on Lovenox-GI prophylaxis on Pepcid-Early mobilization-OOB to chair-Work on bed mobility, transfer training, ADLs, pre-gait and gait exercises as tolerable. -Increase endurance and strength-NWB LUE, WBAT to RLE, VDG-Romqryq-XL consult-patient scored 19 out of 30 on MMSE on acute care indicativeof mild to moderate cognitive changes in the areas of orientation, recall, problem solving and executive functioning-SP to continue treatment-Urinary retention-continue Flomax-Means catheter-consult on rehab-Means removed-patient with pelvic pain and possible dysuria-check UA-Pain management consulted for tiered pain management-medications adjusted-Await consultants input-hospitalist, pain management, -Continue current medications-Labs reviewed-hemoglobin low, magnesium 1.8-oikcwxh-Jmebli-monitor hemoglobin 7.8, 7.7-transfuse if hemoglobin less than 7-add ferrous sulfate and vitamin C-Check H H on Tuesday-GOALS: Modified independent-Patient medically ready to start rehab Patient Progress- PT ABLE TO SIT TO STAND WITH MAX A WITHOUT INCREASED SYMPTOMS. PM RPlease see team note.Plan and goals discussed with the patient. I agree with the teams findingELOS: [16 days]OA-zzgs-LYJNM-pending TT 35 min>50% with discussing with patient [...] and examined by me personally. at 1512 [facility] #:[id number] OF REPORTPRProgress eldd1417-29-86P42:23:00G.NDVV942934 12-0045AVAvailable for patient cwxsNFAJRYKIOUWGEA6063-20-44D39:12: 51 [facility] 2021 10:07:00 [id number] W1lo/y69ulcp4P9 U//64JHuIaIU+OcHS1zVXYRoDb2hpm1sGkY iqL4FT2875-09-64H56:07:00 [facility] ([facility])Rehab Indiv Overall POCREPORT#:[id number] REPORT STATUS: SignedDATE:09/25/21 TIME: 1007 PATIENT: PILY MORRISSEY UNIT #: [id number]#: [id number] ROOM/BED: 506[address]1DOB: [birth year] AGE: 51 SEX: F [...] functional progress.-Decubitus prevention-protective hydrating lotion-turn every 2 wgffr-fyeoalf-Zltoo program-Nutrition, monitor the patient's p.o. intake, check albumin 2.6 and prealbumin,dietary consult, protein supplements.-Strict fall and safety precaution-Keppra x7 days for seizure prophylaxis-completed 09/24-DVT prophylaxis on Lovenox-GI prophylaxis on Pepcid-Early mobilization-OOB to chair-Work on bed mobility, transfer training, ADLs, pre-gait and gait exercises as tolerable. -Increase endurance and strength-NWB LUE, WBAT to RLE, JLO-Zgfleqi-YR consult-patient scored 19 out of 30 on MMSE on acute care indicativeof mild to moderate cognitive changes in the areas of orientation, recall, problem solving and executive functioning-SP to continue treatment-Urinary retention-continue Flomax-Means catheter-consult on rehab-Pain management consulted for tiered pain management-Await consultants input-hospitalist, pain management, -Continue current medication-Labs reviewed-hemoglobin low, magnesium 1.2-wgmpcli-Fixaej-monitor hemoglobin-transfuse if hemoglobin less than 7-add ferrous [...] Partial/moderate asst (3) object discharge goal: CARE [place] 50 feet Independent (6) with two turns discharge goal: CARE [place] 150 Independent (6) feet discharge goal: CARE [...] TIBIAFRACTURE RIGHT SACURM FRACTURE at 1355 RPT #:[id number] OF REPORTCLClinical vobw1075-54-61L54:07:00G.GPJQ793365 VAvailable for patient nttuRPXVPRFKHPGOME5491-77-71C75:54: 17 [facility] 2021 08:11:00 [id number] sJ8v0qnoGSNLXai XygrU9YY3qkuagy6VbyOIkM58PX0R2CPSD3 Ezd9ns8222-00-33C89:11:00 [facility]Consultation Note - BriefREPORT#:[id number] REPORT STATUS: SignedDATE:09/25/21 TIME: 08 PATIENT: PILY MORRISSEY UNIT #: [id number]#: [id number] [address] [birth year] AGE: 51 SEX: F ATTEND[facility] Tree Restrepo [facility] AUTHOR: France Taylor MD * ALL edits or amendments must be made on the electronic/computer document * History of Present Illness HPIRequesting Clinician: for consult:medical managementHistory of present illness: is a 50 y/o female admitted to [facility], after RTA, LOC, sustained, further [...] 2058 2108 Methocarbamol 500 MG Q8HR 09/24 2199 AC 09/26 (ROBAXIN) PO 10/24 215 0556 Blood Formation,Coagulation Sig/Emily Start time Last Medication Dose Route Stop Time Status Admin Ferrous Sulfate 325 MG DAILY 09/26 0900 AC 09/26 (FERROUS SULFATE) PO 10/26 0859 0754 Enoxaparin Sodium 40 MG Q12H 09/24 2100 CKD 09/26 (lovENOX) SUBQ 10/24 205 0755 Central Nervous System Agents Sig/Emily Start [...] MG) Magnesium Chloride 64 MG DAILY 09/25 0900 AC 09/26 (MAG 64MG) PO 10/25 0859 0754 Gabapentin 300 MG TID 09/24 2100 AC 09/26 (NEURONTIN) PO 10/24 205 0755 Acetaminophen 650 MG Q6H PRN PRN 09/24 1515 AC (TYLENOL) PO 10/24 1514 Morphine Sulfate 4 MG Q4H PRN PRN 09/24 1515 DC (morphine SULFATE) IV 09/29 1514 Oxycodone/ 1 TAB Q4H PRN PRN 09/24 1515 AC 09/26 Acetaminophen PO 09/29 1514 0557 (PERCOCET 7.5/325MG TAB) Gastrointestinal Drugs Sig/Meily Start time Last Medication Dose Route Stop Time Status Admin Famotidine 20 MG BID 9A 5P 09/25 0900 AC 09/26 (PEPCID) PO 10/25 0859 0754 Polyethylene Glycol 17 GM DAILY 09/25 0900 AC 09/26 (MIRALAX) PO 10/25 0859 0754 Docusate Sodium 100 MG BID 09/24 2100 AC 09/26 (COLACE) PO 10/24 205 0754 Meclizine HCl 25 MG Q6H PRN PRN 09/24 1515 AC 09/26 (ANTIVERT) PO 10/24 1514 0752 Ondansetron HCl 4 MG Q6H PRN PRN 09/24 1500 AC 09/25 (ZOFRAN ODT) PO 10/24 1459 0838 Vitamins Sig/Emily Start time Last Medication Dose Route Stop Time Status Admin Ascorbic Acid 500 MG BID 09/25 2100 AC 09/26 (ASCORBIC ACID) PO 10/25 2059 0752 Allergies:Coded Allergies:povidone-iodine (From BETADINE) (RASH 09/17/21) Brief Consult Note Physical ExamVitals:Last Documented: Result Date Time Pulse Ox 95 02/12 0734 B/P 103/64 09/26 733 B/P Mean 77.1 09/26 733 Temp 37.1 09/26 733 Pulse 96 09/26 733 Resp 17 09/26 733 O2 Delivery Room air 09/25 1553 General appearance: alert, awake, orientedHEENT: mucosal membranes moist, pale conjunctivaeNeck: full range of motionCardiovascular: normal capillary refill, regular rate rhythm, normal heart soundsRespiratory: clear to auscultation, no distressNeuro/ORTHODONTIC TREATMENT COORDINATOR: alert, oriented X 3, NL cerebellar functionFindings/Data:Laboratory [...] thank you for the consultaiton. at 0843 RPT #:[id number] OF REPORTBKOmpakkopvxmb9162-47-28N8 8:11:00G.KTHM78561525-4705DPInrvctw le for patient uloqTEEZTUQGPENPQC7876-84-46W98:44: 16 [facility] 2021 06:36:00 [id number] KFIoVs7R/7/Szha OCSYlL/48FpJ3azbeN9P6ckpooa42rdFkjo Hb5avY4436-88-42U56:36:00 [facility] ([facility])Rehab History PhysicalREPORT#:[id number] REPORT STATUS: SignedDATE:09/25/21 TIME: 0636 PATIENT: PILY MORRISSEY UNIT #: [id number]#: [id number] [address] [birth year] AGE: 51 SEX: F ATTEND: Tree Restrepo MDADM AUTHOR: Tree Restrepo MD * ALL edits or amendments must be made on the electronic/computer document * HPI HPIChief complaint:Left shoulder and left leg painPCP:PCP: Nell Patel MD Referring physician:Referring physician: [facility] HPI: Pily Morrissey is a 50 year old female patient that presented to [facility] on 09/17 as a trauma pt. 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. Due to onset of weakness and [...] atrophy, calvesNT, No Cords, LUE in jessica wrap/splint.Neuro/ORTHODONTIC TREATMENT COORDINATOR: alert, oriented X 3, CNII-XII intact, normal speech, no sensory deficits, MMT decreased AROM L shoulder/elbow d/t pain, L hand hoop punch and coiler operator 3-/5, LUE 5/5, RLE 4+/5, LLE [...] % (Auto) (14.0 - 32.0 %) 21.0 [place]wall % (Auto) (4.8 - 9.0 %) 6.8 Eos % (Auto) (0.3 - 3.7 %) 3.8 H Baso % (Auto) (0.0 - 2.0 %) 0.5 Neut # (Auto) (2.0 - 7.6 x10 3/uL) 3.91 Lymph # (Auto) (1.0 - 3.8 x10 3/uL) 1.27 [place] # (Auto) (0.1 - 0.8 x10 3/uL) [...] functional progress.-Decubitus prevention-protective hydrating lotion-turn every 2 xekqq-htuqzzb-Nlpve program-Nutrition, monitor the patient's p.o. intake, check albumin 2.6 and prealbumin,dietary consult, protein supplements.-Strict fall and safety precaution-Keppra x7 days for seizure prophylaxis-completed 09/24-DVT prophylaxis on Lovenox-GI prophylaxis on Pepcid-Early mobilization-OOB to chair-Work on bed mobility, transfer training, ADLs, pre-gait and gait exercises as tolerable. -Increase endurance and strength-NWB LUE, WBAT to RLE, YZA-Ucherxj-TC consult-patient scored 19 out of 30 on MMSE on acute care indicativeof mild to moderate cognitive changes in the areas of orientation, recall, problem solving and executive functioning-SP to continue treatment-Urinary retention-continue Flomax-Means catheter-consult on rehab-Pain management consulted for tiered pain management-Await consultants input-hospitalist, pain management, -Continue current medication-Labs reviewed-hemoglobin low, magnesium 1.0-unihaum-Lqdpgp-monitor hemoglobin-transfuse if hemoglobin less than 7-add ferrous sulfate and vitamin C-Check H H in the morning-ELOS: 16 days-GOALS: Modified independent-Patient medically ready to start rehab PM RPlease see team note.Plan and goals discussed with the patient. I agree with the teams findingELOS: [Pending]CA-acnz-WASPG-pending TT 71 min>50% with discussing about IRF [...] Hospitalist consult, VTE Risk at 1246 RPT #:[id number] OF REPORTHPHistory and physical kslrhskzusk2425-90-79K68:36:00G.PDO [id number] for patient qvrhBANOBIXAACTXFA4486-87-21U86:46: 56 [facility] 2021 06:33:00 [id number] NWJvOMh5oU5DZtg O8gB1GLWUYmYlb4C/5IgDSt4fOnH2L4Qzd5 oSLxzF3500-96-20E80:33:00 [facility] ([facility])Pain Management Progress NoteREPORT#:[id number] REPORT STATUS: SignedDATE:09/25/21 TIME: 06 PATIENT: PILY MORRISSEY UNIT #: [id number]#: [id number] [address] [birth year] AGE: 51 SEX: F ATTEND: Tree Restrepo [facility] AUTHOR: Jaylen Davis NP * ALL edits [...] 0555 Temp 98.1 09/25 0555 Pulse 97 / 0555 Resp 17 09/25 0555 PATIENT WEIGHT: [...] RUQ normal bowel soundsExtremities: moves all, pedal pulsesNeuro/ORTHODONTIC TREATMENT COORDINATOR: no sensory deficits, CNII-XII grossly intactSkin: dryLymphatics: [...] doses (09/22)-We will wean from Percocet to [place] as able-manageable Acute postoperative pain-09/21/2021 planned for [...] agrees. Thank you for the consultation. [place] CIVIL CAD TECH:Total Prescriptions 10Total Private Pay 0Total Prescribers 5Total Pharmacies 4 08/31/2021 08/31/2021 3 TRAMADOL HCL 50 MG TABLET 90.00 30 Ja Kin 475168 [facility] (5115) 0 15.00 MME Comm Ins 07/22/2021 07/22/2021 3 TRAMADOL HCL 50 MG TABLET 14.00 7 Kin 908278 [facility] (5115) 0 10.00 MME Comm Ins 06/09/2021 06/09/2021 3 TRAMADOL HCL 50 MG TABLET 90.00 23 Ki Pit 814013 [facility] (2215) 0 19.57 MME Comm Ins 05/05/2021 05/05/2021 3 TRAMADOL HCL 50 MG TABLET 90.00 22 Ki Pit 641696 [facility] (2215) 0 20.45 MME Comm Ins 04/22/2021 04/22/2021 3 TRAMADOL HCL 50 MG TABLET 28.00 7 Ki Pit 804543 [facility] (5115) 0 20.00 MME Comm Ins [place]04/16/2021 04/16/2021 2 HYDROCODONE-ACETAMIN 5-325 MG 28.00 7 Ki Pit 638164 [facility] (2215) 0 20.00 MME Comm Ins [place]04/09/2021 04/09/2021 1 ACETAMINOPHEN-COD #3 TABLET 20.00 3 Cy Ove [id number] [facility] (0323) 0 30.00 MME Comm Ins [place]01/13/2021 01/13/2021 2 ACETAMINOPHEN-COD #3 TABLET 20.00 5 Freida Poh 136762 [facility] (2215) 0 18.00 MME Comm Ins [place]12/15/2020 12/15/2020 4 ACETAMINOPHEN-COD #3 TABLET 14.00 7 Ja Kin 2968166 [facility] (1030) 0 9.00 [place]ME Comm Ins [place]12/08/2020 12/08/2020 4 ACETAMINOPHEN-COD #3 TABLET 14.00 7 Ja Kin 1847977 [facility] (1030) 0 9.00 MME Comm Ins [place] [facility] (8545) [address] [id number] [facility] (5927) [address] [address] -[facility] [phone] (2668) [address] [facility] 808125 [facility] (5643) [address] [facility] [place] [address] - at 0948 at 0907 RPT #:[id number] OF REPORTPRProgress kedl0671-64-75D93:33:00G.EXQV499720 VAvailable for patient yecwODCZIYEFIBSFHY2299-16-76F49:48: 43 [facility] 2021-09-24 14:51:00 [id number] xO2VpHt9tKIZIvJ g+MMhibhEK614JHetjf8tGoJyO/++kHpg/t FKKStv5888-07-59S41:51:00 [facility] ([facility])Rehab Preadmission ScreenREPORT#: REPORT STATUS:DATE:09/24/21 TIME: 1451 PATIENT: PILY MORRISSEY UNIT #: ROOM: BED:: 72 AGE: 50 SEX: F ATTEND: Tree Restrepo MDPROJECTED ADM AUTHOR: Tree Restrepo MDREP SRV REP SRV TM: 1451* ALL edits or amendments must be made on the electronic/computer document * IRF Preadmission Screen Information From CRS PASCRS PAS documentation:The data set between the solid lines has been imported from CRS PAS documentation. ____ PREADMISSION INFORMATION: DEMOGRAPHICS: Assessment date: 09/24/21Assessment time: 1341Patient has an Advanced Directive: NoContent of advance directive/living will/plan of care: Copy of advance directive on chart: Referring physician: SRINIVASAN CASTREJON-TRAUMAPrimary care provider: NELL ARMENTA-PCPConsulting physician(s): SRINIVASAN CASTREJON-TRAUMA TREE KELLY-TRAUMA ,OBINJoel.-PAIN MANAG.Referral contact name: MILADIS Kingsley contact number: [phone] setting: Acute hospitalRoom number: 401 IMPAIRMENT GROUP: [...] 50 year old female patient that[facility] as a trauma pt. 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 Due to onset of weakness and acute [...] IN RLE 10/10.PT PT UNABLE TO LOAD RLEDescription of expected [...] DYSARTHRIA, APRAXIA OF SPEECH AND/OR APHASIA EVIDENT. ASSAYER ADMINISTERED THE SLUMS TO ASSESS COGNITIVE FUNCITONING. [...] LONG THAT ORIGINATE FROM THE CENTER. INCORRECTTIME. ASSAYER RELAYEDEVALUATION RESULTS TO PATIENT. PATIENT INDICATED AGREEMENT [...] situation: HomeLiving with: FriendsLiving with comment: DEREK ANTICIPATED DC PLAN/POST IRF: Primary support contact: SAGAR LYNDSAY Relationship to patient: Sandra number 1: [phone] number 2: Caregiver availability: Evenings only, Days [...] in acute inpatient rehab: Rehab nursing 07/03, manager etl,Occupational therapy, Physical therapy, Speech therapy, Dietitian CRS ELECTRONIC SIGNATURE: CRS #1 electronic signature: ANSELMO RENE credentials: CARLITOSRNDate: 09/24/21Time: 1434 CRS #2 electronic signature: EILEEN credentials: Date: Time: CRS #3 electronic signature: EILEEN credentials: Date: Time: ____ Provider Pre-Admit SummaryAcute IP rehab admit: criteria metMD determinationBased upon my evaluation and review of the supporting assessment documentation and consultation with the preadmission chief accountant, I have determined, prior to admitting this [...] compromise, Hospitalist consult, VTE RiskAcute [facility], IRF consult on Acute care at 1452 RPT #:[id number] OF REPORTCLClinical smow3783-26-80A87:51:00G.ABAS590947 VAvailable for patient pkpuSQRKOVHSLEKBFQ5817-80-83J63:53: 33 [facility] 2021-09-24 12:00:00 [id number] TtIrPCzWM9jFz4f dPfIbK7qEPGRKDNVo8RzrhNqGiN0ATxjxJZ r2gWqD1191-60-11L46:00:00 [facility] ([facility])Trauma Progress NoteREPORT#:[id number] REPORT STATUS: SignedDATE:09/24/21 TIME: 1200 PATIENT: PILY MORRISSEY UNIT #: [id number]#: [id number] [address] AGE: 50 SEX: F ATTEND: [...] % (Auto) (14.0 - 32.0 %) 21.5 [place] % (Auto) (4.8 - 9.0 %) 8.4 Eos % (Auto) (0.3 - 3.7 %) 1.8 Baso % (Auto) (0.0 - 2.0 %) 0.5 Neut # (Auto) (2.0 - 7.6 x10 3/uL) 4.23 Lymph # (Auto) (1.0 - 3.8 x10 3/uL) 1.43 [place] # (Auto) (0.1 - 0.8 x10 3/uL) [...] of the healthcare team. at 1203 at 1758 RPT #:[id number] OF REPORTPRProgress odzd3232-66-16E23:00:00G.HNRG244076 -0753AVAvailable for patient gixmSJEHJEPMTJQVDY3073-35-98Y30:04: 11 [facility] 2021-09-24 05:57:00 [id number]/29e hw7HYivXELjrHwK 1Jj30f5/BfTywuupXguleBMZ7L0fi2enmCv fVylEf2998-89-46A59:57:00 [facility] ([facility])Pain Management Progress NoteREPORT#:[id number] REPORT STATUS: SignedDATE:09/24/21 TIME: 556 PATIENT: PILY MORRISSEY UNIT #: [id number]#: [id number] [address] [birth year] AGE: 50 SEX: F ATTEND: Deon Lorenz DOADM AUTHOR: Jaylen Davis LINE DIRECTOR * ALL edits or amendments must be [...] 0320 Temp 98.6 09/24 0320 Pulse 100 09/24 0320 Resp 12 09/24 0320 O2 Delivery [...] all, no edema, pedal pulses, left elbow spilntNeuro/ORTHODONTIC TREATMENT COORDINATOR: no motor deficits, no sensory deficits, CNII-XII [...] every 4 hours as needed pain scale 4-64-Jmttkimq 4 mg IV every 4 hours as needed pain scale 7 of 10, second line therapy-Toradol 30mg IV every 6 hours x6 doses (09/22)-We will wean from Percocet to [place] as able-manageable Acute postoperative pain-09/21/2021 planned for [...] agrees. Thank you for the consultation. [place] CIVIL CAD TECH:Total Prescriptions 10Total Private Pay 0Total Prescribers 5Total Pharmacies 4 08/31/2021 08/31/2021 3 TRAMADOL HCL 50 MG TABLET 90.00 30 Ja Kin [id number] [facility] ([id number]) 0 15.00 [facility] [place]07/22/2021 07/22/2021 3 TRAMADOL HCL 50 MG TABLET 14.00 7 Ja Kin [id number] [facility] (5115) 0 10.00 [place] [place]/09/2021 06/09/2021 3 TRAMADOL HCL 50 MG TABLET 90.00 23 Ki Pit [id number] [facility] (2215) 0 19.57 [place] [place]/05/2021 05/05/2021 3 TRAMADOL HCL 50 MG TABLET 90.00 22 Ki Pit [id number] [facility] (2215) 0 20.45 [place] [place]/2021 04/22/2021 3 TRAMADOL HCL 50 MG TABLET 28.00 7 Ki Pit [id number] [facility] (5115) 0 20.00 [place] [place]16/2021 04/16/2021 2 HYDROCODONE-ACETAMIN 5-325 MG 28.00 7 Ki Pit [id number] [facility] (2215) 0 20.00 [place] [place]2021 04/09/2021 1 ACETAMINOPHEN-COD #3 TABLET 20.00 3 Cy Ove [id number] [facility] ([id number]) 0 30.00 [place]/13/2021 01/13/2021 2 ACETAMINOPHEN-COD #3 TABLET 20.00 5 Freida Poh [id number] [facility] (2215) 0 18.00 [place]/15/2020 12/15/2020 4 ACETAMINOPHEN-COD #3 TABLET 14.00 7 Ja Kin [id number] [facility] (1030) 0 9.00 [place]2020 12/08/2020 4 ACETAMINOPHEN-COD #3 TABLET 14.00 7 Kin [id number] [facility] (1030) 0 9.00 [place] [facility] ([id number]) [address] [facility] [address] [facility] (1471) [address] [facility] [address] [facility] [address] -[facility] [id number] ([phone]) [address] [facility] [address] [facility] (1712) [address] [place] [address] - at 0707 at 9565 RPT #:[id number] OF REPORTPRProgress ihyy8960-06-94M30:57:00G.[id number] VAvailable for patient gxeqQRTYUPHISDVQMK5910-23-27X89:07: 23 [facility] 2021-09-24 01:10:00 [id number] HQK5w8UmkQbC1FR EB+5+PZz7yysrKcUycHzEC0tpuHbDOEG69W /4HN6u7174-78-18Y41:10:00 [facility] ([facility])Rehab Progress NoteREPORT#:[id number] REPORT STATUS: SignedDATE:09/24/21 TIME: 0110 PATIENT: PILY MORRISSEY UNIT #: [id number]#: [id number] [address] [birth year] AGE: 50 SEX: F ATTEND: [...] Bed MARIN-WALKER Effects of Treatment: Balance Improved [place] of care decreased Cardio tolerance improved Circulation improved Edema diminished Function Improved Gait quality improved [place] Precautions: In Bed, rails Up Bed Alarm Data Warehouse Developer Light in Reach Nursing Notified Telephone in [...] Gross Motor Coordination: Normal Response/Grasp Right Hand Bottom Stop Attacher Strength: Good Comments: L HAND GAS LINE INSTALLER SUPERVISOR NOT TESTED 2/2 TO INJURY FUNCTIONAL MOBILITY [...] as brushing teeth? 3 Eating meals? 3 [facility] Activity Score: 11 ACTIVITIES OF DAILY LIVING [...] L shoulder and elbow limited bypain, L hoop punch and coiler operator 2+, RLE 4+, LLE 3-Neuro/ORTHODONTIC TREATMENT COORDINATOR: alert, oriented X 3, CNII-XII intact, normal speech, Decreased AROM Rshoulder and elbow, L hand hoop punch and coiler operator 3+/5. RUE 5/5, RLE 4+/5, LLE [...] % (Auto) (14.0 - 32.0 %) 21.5 [place] % (Auto) (4.8 - 9.0 %) 8.4 Eos % (Auto) (0.3 - 3.7 %) 1.8 Baso % (Auto) (0.0 - 2.0 %) 0.5 Neut # (Auto) (2.0 - 7.6 x10 3/uL) 4.23 Lymph # (Auto) (1.0 - 3.8 x10 3/uL) 1.43 [place] # (Auto) (0.1 - 0.8 x10 3/uL) [...] would obtain MRI follow up. Impression By: Boo4 Lambert Bundy M.D.RADIOLOGY - XR KNEE 1 [...] Castro M.D. Objective CommentsObjective comments:Hematology: 09/22 09/21 0352 0500 Hematology WBC (4.5 - 11.0 x10 3/uL) 10.2 8.8 Chemistry: 09/22 09/21 035 0500 Chemistry Creatinine (0.6 - 1.3 mg/dL) [...] laceration closure and ORIF of left elbow-09/21-Dr. Elmoreht pelvic fractures, inferior ramus, posterior sacrum, minimally [...] with therapy-Labs reviewed-monitor hemoglobin 8 stable, magnesium 1.34-fcmlbca-Yyoofex-SP consult-patient scored 19 out of 30 on [...] discussed with: patient, nurseRehab attestation:. at 112[address] [facility] #:[id number] OF REPORTPRProgress lnha5196-40-69L22:10:00G.MFKA331549 -0031AVAvailable for patient vuqpIOBYOHQKLXPWSY2309-24-10X33:35: 13 [facility] 2021-09-23 10:44:00 [id number] 7nUvSB3ANlsD+lr daZSfg/zgqvISqt0hm10SKDm8UL7mjAtue4 AtkLqb1776-77-68U07:44:00 [facility] ([facility])Discharge SummaryREPORT#:[id number] REPORT STATUS: SignedDATE:09/23/21 TIME: 104 PATIENT: PILY MORRISSEY UNIT #: [id number]#: [id number] ROOM/BED: 401-1DOB: [birth year] AGE: 50 SEX: F ATTEND: Deon Lorenz DOADM AUTHOR: Jefferson Hill * ALL edits or amendments must be made on the electronic/computer document * LizJefferson 09/23/21 1044:General InformationDate of admission:Observation Start Date: [...] Facility Discharge InstructionsAdditional Discharge Routines: PCP Follow-Up, Project Archivist Follow-Up)( Diet: Regular)( Activity: As Tolerated, Do [...] Use/CounselingTobacco use/counseling: non tobacco user Srinivasan Godwin 09/23/211948:Attestations Physician AttestationAgree w/findings plan:I was present with Jefferson Hill NP during the history and examination. I discussed the case and agree with the findings and plan as documented in Jefferson Hill's note. Labs reviewed. Pertinent imaging personally reviewed. Discussed plan with other members of the healthcare team. at 1045 at 1955 RPT #:[id number] OF REPORTDSDischarge eggtimj4490-14-77Q53:44:00G.VZUC313 42992-4398DWGwzskmmqb for patient gxcrRQHUIYWRVOCNXP1549-42-30H23:45: 44 [facility] 2021-09-23 07:13:00 [id number] HRX2hay4lzIMFha wbrfAUy6vuHo3wzeYR+V3IQQqkzznxpbwZk /SFx4483-29-78A76:13:00 [facility])Rehab Progress NoteREPORT#:[id number] REPORT STATUS: SignedDATE:09/23/21 TIME: 712 PATIENT: PILY MORRISSEY UNIT #: [id number]#: [id number] [address] [birth year] AGE: 50 SEX: F ATTEND: Doen Lorenz DOADM AUTHOR: Nell Adorno * ALL edits or amendments must be made on the electronic/computer document * SubjectiveChief complaint:Rehab follow-upReports left upper extremity pain with movementC/O acute urinary retentionEating fairDenies REYES/N/V/D/CP14 systems reviewed and neg. except that above. Objective GeneralVS:Vital Signs: Date Time Temp Pulse Resp B/P B/P Pulse O2 O2 Flow FiO2 Mean Ox Delivery Rate 09/23 0517 99.5 98 12 106/71 82.4 [...] Dynamic Standing: Maximal Assistance Static Sitting: Modified J[place] Dynamic Sitting: Moderate Assistance Tinetti Assessment Performed: Not tested Patient Ambulatory: Yes Gait Assist: Dependent Gait Device NONE,[facility] Ambulation Distance: FEW SIDE STEPS Gait Deviations: Decreased Christen Base of Support - Narrow Antalgic Gait Left Antalgic Gait Right Physical ExamGeneral appearance: alert, awake, no acute distressPsych: alert, normal affectHEENT: anicteric, sclera clearNeck: supple, no JVDCardiovascular: regular rate rhythm, S1/U4Ealikgqojpl: aerating well, clear bilaterallyAbdomen: bowel sounds present, non-distended, softSkin: no rash, LUE in ACEMusculoskeletal - general: Musculoskeletal - general: L shoulder and elbow limited by pain, L hoop punch and coiler operator 2+, RLE 4+, LLE 3-Neuro/ORTHODONTIC TREATMENT COORDINATOR: alert, oriented X 3 ResultsFindings/Data:Laboratory Tests 09/22 [...] Coagulation INR (0.8 - 1.2) 1.0 PTT ([place]) (25.0 - 39.5 Seconds) 30.1 PT Patient/Control [...] (Auto) (14.0 - 32.0 %) 15.0 23.6 [place] % (Auto) (4.8 - 9.0 %) 9.8 H 6.3 Eos % (Auto) (0.3 - 3.7 %) 0.0 L 0.3 Baso % (Auto) (0.0 - 2.0 %) 0.3 0.2 Neut # (Auto) (2.0 - 7.6 x10 3/uL) 7.26 6.02 Lymph # (Auto) (1.0 - 3.8 x10 3/uL) 1.53 2.08 [place] # (Auto) (0.1 - 0.8 x10 3/uL) [...] Report Impression - Status: SIGNED Entered: 09/21/2021 0479 IMPRESSION: Fluoroscopy dosage documentation. See also separate [...] and heart rate with therapy-Labs reviewed-monitor anemia fncbehvlp-Mpljdgh-EC consult-Recommend bladder scans and as needed straight cath. Per IM-Recommend IRF-order placed for 5 E.-Will require insurance approval Total time was 33 minutes > 50% with patient performing physical examination, discussing plan of care, goals, therapies, progress, medications, labs. All questions answeredRehab attestation:Face to face exam completed. Treatment plan discussed with patient. Meets continued stay criteria. Agree with interdisciplinary treatment plan. at [address] [place] [address] #:[id number] OF REPORTPRProgress gckz5603-08-53Q23:13:00G.[id number] VAvailable for patient qzniGKMEHWWZNJNURK2514-91-57G48:40: 55 [facility] 2021-09-23 05:42:00 [id number] ZZQUUeE8bOSnvKe xbEM4sL6B6xIL86PD0g+Jv56BkrHqtcX+dc cYXUS+3937-25-66M76:42:00 [facility] ([facility])Pain Management Progress NoteREPORT#:[id number] REPORT STATUS: SignedDATE:09/23/21 TIME: 05 PATIENT: PILY MORRISSEY UNIT #: [id number]#: [id number] ROOM[facility]BED: [facility]DOB: [birth year] AGE: 50 SEX: F ATTEND: Deon Lorenz DOADM AUTHOR: Jaylen Davis LINE DIRECTOR * ALL edits or amendments must be [...] all, no edema, pedal pulses, left elbow spilntNeuro/ORTHODONTIC TREATMENT COORDINATOR: no motor deficits, no sensory deficits, CNII-XII [...] every 4 hours as needed pain scale 0-11-Xagjvbps 4 mg IV every 4 hours as needed pain scale 7 of 10, second line therapy-Toradol 30mg IV every 6 hours x6 doses (09/22)-We will wean from Percocet to [place] as able-manageable Acute postoperative pain-09/21/2021 planned for [...] agrees. Thank you for the consultation. [place] CIVIL CAD TECH:Total Prescriptions 10Total Private Pay 0Total Prescribers 5Total Pharmacies 4 08/31/2021 08/31/2021 3 TRAMADOL HCL 50 MG TABLET 90.00 30 Ja Kin 990325 [facility] (5115) 0 15.00 [place] [place]07/22/2021 07/22/2021 3 TRAMADOL HCL 50 MG TABLET 14.00 7 Ja Kin 866474 [facility] (5115) 0 10.00 [place] [place]06/09/2021 06/09/2021 3 TRAMADOL HCL 50 MG TABLET 90.00 23 Ki Pit 407945 [facility] (2215) 0 19.57 [place]05/05/2021 05/05/2021 3 TRAMADOL HCL 50 MG TABLET 90.00 22 Ki Pit 659623 [facility] (2215) 0 20.45 [place]04/22/2021 04/22/2021 3 TRAMADOL HCL 50 MG TABLET 28.00 7 Ki Pit 928859 [facility] (5115) 0 20.00 [place]04/16/2021 04/16/2021 2 HYDROCODONE-ACETAMIN 5-325 MG 28.00 7 Ki Pit 594048 [facility] (2215) 0 20.00 [place]04/09/2021 04/09/2021 1 ACETAMINOPHEN-COD #3 TABLET 20.00 3 Cy Ove [id number] [facility] (0323) 0 30.00 MME Comm Ins 01/13/2021 01/13/2021 2 ACETAMINOPHEN-COD #3 TABLET 20.00 5 Freida Poh 685211 [facility] (2215) 0 18.00 [place]12/15/2020 12/15/2020 4 ACETAMINOPHEN-COD #3 TABLET 14.00 7 Ja Kin [id number] [facility] (1030) 0 9.00 [place]12/08/2020 12/08/2020 4 ACETAMINOPHEN-COD #3 TABLET 14.00 7 Kin [id number] [facility] (1030) 0 9.00 MME Comm Ins [place] [facility] (7173) [address] [facility] [address] [facility] (4496) [address] [facility] [address] [facility] [address] -[facility] [phone] (3581) [address] [facility] [address] [facility] (9381) [address] [place] [address] - at 0718 at 1954 RPT #:[id number] OF REPORTPRProgress imib8553-10-57V30:42:00G.[id number] VAvailable for patient jugvYLIRVPYPREOPJA1214-91-46O68:19: 06 [facility] 2021-09-22 09:40:00 [id number] FWvWrTzq9Rvjrj9 WRWDQXRG2HCx0BsXWY4oDGkMgC+7HRYbHwC Qk5xii5877-75-04J51:40:00 [facility] ([facility])Trauma Progress NoteREPORT#:[id number] REPORT STATUS: SignedDATE:09/22/21 TIME: 939 PATIENT: PILY MORRISSEY UNIT #: [id number]#: [id number] [address] [birth year] AGE: 50 SEX: F ATTEND: [...] Flow FiO2 Mean Ox Delivery Rate 09/22 830 37.3 93 18 124/73 90.1 93 Room air 09/22 0434 37.5 85 16 122/79 93.2 95 09/22 0018 37.4 99 16 131/82 98.2 96 02/ 1903 36.9 82 16 117/74 88.4 94 02/ 1608 81 14 157/85 108.6 92 Room air 02 1525 36.9 83 12 121/84 95 Room air 02/ 1510 88 12 138/66 94 02/07 1455 89 12 139/72 94 02/07 1440 85 12 138/68 95 02/07 1425 87 12 142/78 93 02/07 1420 103 16 148/78 92 Room air 02/ 1415 82 13 139/78 100 02/07 1410 73 11 141/79 100 02/07 1405 71 11 133/76 99 02/07 1403 Simple 6 mask 02/ 1400 67 13 132/74 99 02/07 1355 [...] % (Auto) (14.0 - 32.0 %) 15.0 [place] % (Auto) (4.8 - 9.0 %) 9.8 H Eos % (Auto) (0.3 - 3.7 %) 0.0 L Baso % (Auto) (0.0 - 2.0 %) 0.3 Neut # (Auto) (2.0 - 7.6 x10 3/uL) 7.26 Lymph # (Auto) (1.0 - 3.8 x10 3/uL) 1.53 [place] # (Auto) (0.1 - 0.8 x10 3/uL) [...] Report Impression - Status: SIGNED Entered: 09/21/2021 8955 IMPRESSION: Fluoroscopy dosage documentation. See also separate [...] Medical Problems/Comorbidities:-GERD Consultants:Neurosurgery, Dr. HubbardOrthopedic surgery, Dr. Lindasy Procedures:Left upper extremity washout, ED PLAN:NEURO:TBIDowngraded from [...] (TBI) Tobacco Use/CounselingTobacco use/counseling: non tobacco user TatoSrinivasan 09/22/21 1452:Attestations Physician AttestationAgree w/findings plan:I was present with Jefferson Hill NP during the history and examination. I discussed the case and agree with the findings and plan as documented in Jefferson Hill's note. Labs reviewed. Pertinent imaging personally reviewed. Discussed plan with other members of the healthcare team. at 0942 at 1500 RPT #:[id number] OF REPORTPRProgress xotq7682-23-50W74:40:00G.[id number] VAvailable for patient zqazWZYJVRNFPAKKWH3110-12-07Q70:43: 14 [facility] 2021-09-22 08:46:00 [id number] FXPsn3jWEr/Y7Kg jRnoak/l/xwYstUOb95ZLdAmk6CMSD6V8f5 Oeqt/14488-37-52A64:46:00 [facility] General ConsultationREPORT#:[id number] REPORT STATUS: SignedDATE:09/22/21 TIME: 0846 PATIENT: PILY MORRISSEY UNIT #: [id number]#: [id number] [address] [birth year] AGE: 50 SEX: F ATTEND: [...] DAILY 09/17/21 09/18/21 Strength: 10 MG CAP. 3658 9846 Current Hospital Medications:Anti-Infective Agents Sig/Emily Start time [...] (QUELICIN FLIPTOP) Methocarbamol 500 MG Q8H 09/19 09 AC 09/22 (ROBAXIN) PO 10/19 0859 0054 Blood Formation,Coagulation Sig/Emily Start time Last Medication Dose Route Stop Time Status Admin Enoxaparin Sodium 30 MG Q12HR 09/21 2100 DC (lovENOX) SUBQ 10/21 2059 Enoxaparin Sodium 40 MG Q12HR 09/21 2100 [...] ONE 09/21 1038 DC(DIPRIVAN 200MG/20ML IVINJECTION)Acetaminophen 0 .STK-MED ONE 09/21 1010 DC (TYLENOL EXTRA .ROUTESTRENGTH)Fentanyl [...] 0000Acetaminophen 650 MG Q6H PRN PRN 09/20 0900 AC (TYLENOL) PO 10/20 0859Oxycodone/ 1 TAB Q4H PRN PRN 09/20 0900 AC 09/22Acetaminophen PO 10/12 1300 0741 (PERCOCET 7.5/325MGTAB)Gabapentin 100 MG TID 09/19 0900 DC 09/21 (NEURONTIN) PO 10/19 0859 2110Tramadol HCl 50 MG Q6H 09/19 0900 AC 09/22 (ULTRAM) PO 09/24 0859 0345Levetiracetam [...] Ringer's 1,000 ML PREOP ONCALL 09/21 0700 DC 09/21 (LACTATED RINGERS) IV 09/23 2359 1013 Sodium Chloride 500 ML PREOP ONCALL 09/21 0700 DC (SODIUM CHLORIDE IV 09/23 2359 0.9%) [...] 0859 Docusate Sodium 100 MG BID 09/18 0900 AC 09/21 (COLACE) PO 10/18 0859 2106 Famotidine 20 MG BID 9A 5P 09/18 0900 AC 09/21 (PEPCID) IV 10/17 2323 1744 Polyethylene Glycol 17 GM DAILY 09/18 09 [...] Status Admin Mupirocin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 patient wygoRIYEPXURJLMXAG8469-09-16M06:01: 52 [facility] 2021-09-17 22:07:00 [id number] K7gjMvkmDD9V0Ci SgM7Oq2aQsY/5q4YAob9u7qawqQvSN/fokg 4/DMX75733-80-30Q60:07:00 [facility] ([facility])Trauma - History PhysicalREPORT#:[id number] REPORT STATUS: SignedDATE:09/17/21 TIME: 2206 PATIENT: PILY MORRISSEY UNIT #: [id number]#: [id number] [address] AGE: 50 SEX: F ATTEND: Deon Lorenz DOADM AUTHOR: Deon Lorenz DO * ALL edits or amendments must [...] the last 12 months. at 2325 RPT #:[id number] OF REPORTHPHistory and physical qgtelmmewtr0259-45-34R51:07:00G.PDO S63981458-8169HIVblbqowch for patient hdjeZQXBLPAGSINLTM4297-04-79M10:25: 58 [facility] 2021-09-17 20:28:00 [id number] f+Ykv7C6M/nI9kB rS8esDhlogOVjDxL7rbJ9IMVDitAxOz5MMT eQVi8f7596-59-90P35:28:00 [facility] ([facility])EMERGENCY PROVIDER REPORTREPORT#:[id number] REPORT STATUS: SignedDATE:09/17/21 TIME: 2027 PATIENT: PILY MORRISSEY UNIT #: [id number]#: [id number] [address] 50 SEX: F PCP PHYS: Nell Patel AUTHOR: Franky Serrano * ALL edits or amendments must be made on the electronic/computer document * Franky Serrano 09/17/212027:HPI-Trauma Multiple Free Text HPI NotesFree Text HPI Fvgjr66-ojkm-zha female presents to the emergency room via [...] Ankle/Foot Inspection NLSkin Skin Warm, DryGenitourinary General Animal Nurse present External Genitalia Negative: Swelling present, Tenderness [...] (Auto) (14.0 - 32.0 %) 12.8 L Stonewall % (Auto) (4.8 - 9.0 %) 6.6 Eos % (Auto) (0.3 - 3.7 %) 0.6 Baso % (Auto) (0.0 - 2.0 %) 0.3 Neut # (Auto) (2.0 - 7.6 x10 3/uL) 10.46 H Lymph # (Auto) (1.0 - 3.8 x10 3/uL) 1.71 Stonewall # (Auto) (0.1 - 0.8 x10 3/uL) [...] 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 Impression By: RoxanneEC14 Lambert Jackson M.D.CAT SCAN - CT ABD PELVIS [...] the basis of underlying hematoma. Impression By: tFLORIDA Jackson M.D.CAT SCAN - CT CHEST W/CONTRAST [...] Acetaminophen 1,000 MG Q6H 09/17 2300 AC / PO 10/17 225 1733 Morphine Sulfate 4 MG Q4H PRN PRN 09/17 2300 AC 09/19 IV 09/22 225 0505 Oxycodone HCl 5 MG Q6H PRN PRN 09/17 2300 AC 09/19 PO 09/22 2259 1920 Gastrointestinal Drugs Sig/Emily Start time Last Medication Dose Route Stop Time Status Admin Docusate Sodium 100 MG BID 09/18 899 AC 09/19 PO 10/18 0859 203 Polyethylene Glycol 17 GM DAILY 09/18 899 AC PO 10/18 0859 Ondansetron HCl 4 MG Q4H PRN PRN 09/17 2300 AC 09/19 IV 10/17 2259 0504 Skin [...] Documented: Result Date Time Pulse Ox 98 09/170 B/P 144/82 09/17 2299 B/P Mean 102 09/17 2299 O2 Delivery Room air 09/17 2299 Temp 36.4 09/17 2299 Pulse 108 09/17 230 Resp 22 09/17 2300 All vital signs available at the time of this entry have been reviewed. Clinical ImpressionClinical ImpressionPrimary Impression: Elbow fracture, leftSecondary Impressions: Cortical contusion, Fibula fracture, Fracture of sacrum, Inferior pubic ramus fracture, Rib fracture Disposition DecisionAdmit Admit Physician Name Deon Lorenz DO Admit Physician Trauma Surgeon Request Time 2204 [...] agree with the nurse practitioner or physician payroll human resources assistant's documentation and assessment. Patient fully evaluated and examined. GCS 15, no airway compromise. Reviewed all orders and I agree. Documentation of one or more elements of my assessment are included in the medical record. at 0155 at 2256RPT #:[id number] OF REPORTEDEmergency department rsdgmj5806-77-75E32:28:00G.MCAD9728 0203-1541AVAvailable for patient wezpMLOKZIJMEOWFLC3168-55-77K54:56: 08 [facility]
[2024-01-07] MEDS ORDERED: KETOROLAC 30 MG/ML INJ ONE (20:19)
[2024-01-07] MEDS ORDERED: methocarbamoL 500 MG TAB ONE (20:19)
--- NOTE | 2024-01-07 20:54 | RAD REPORT ---
EXAM DESCRIPTION: RAD - Foot Left 3 View - 01/07/2024 8:49 pm CLINICAL HISTORY: PAIN COMPARISON: Ankle Left 3 View dated 01/07/2024 FINDINGS/IMPRESSION: No acute fracture. No malalignment. Small plantar aspect and dorsal aspect calc aneal spurs.
--- NOTE | 2024-01-07 20:55 | RAD REPORT ---
EXAM DESCRIPTION: RAD - Ankle Left 3 View - 01/07/2024 8:49 pm CLINICAL HISTORY: PAIN COMPARISON: No comparisons FINDINGS/IMPRESSION: No acute fracture. No malalignment. Small dorsal and plantar aspect calcaneal s purs.
--- NOTE | 2024-01-07 20:57 | EDPHYS ---
Physician Documentation [facility] Name: Pily Morrissey Age: 53 yrs Sex: Female : 1970 Arrival Date: 01/07/2024 Time: 19:57 Bed 9 Private MD: ED Physician Marcos Bell HPI: 01/06 20:17 This 53 yrs old Female presents to ER via Wheelchair with complaints of Foot Pain. ec2 20:17 Patient arrives today for evaluation of left foot pain. Patient complains of left heel ec2 pain ongoing for several weeks and worsening after stepping on abnormally several days ago. Patient also with complaints of left ankle pain. Patient reports she is taken Tylenol and ibuprofen with minimal alleviation in symptoms. Patient that she has an appointment with podiatry in 2-3 weeks.. Historical: - Allergies: 20:07 Betadine; cm10 - PMHx: 20:07 SVT; cm10 - PSHx: 20:07 Appendectomy; birthmark removal; Cholecystectomy; hysterectomy; left arm; sinus; cm10 - Immunization history:: Adult Immunizations up to date. - Infectious Disease History:: Denies. - Social history:: Smoking status: Patient denies any tobacco usage or history of. ROS: 20:17 Constitutional: as per hpi ec2 Exam: 20:17 Constitutional: GEN: NAD Head: atraumatic Eyes: EOMI Ears: External ears are ec2 normal. CV: regular rate LUNGS: no respiratory distress ABD: non-distended SKIN: no evidence of rashes MSK: no evidence of trauma, left heel with TTP, no deformity or crepitus appreciated, no discoloration appreciated. Intact distal neurovascular status. NEURO: moves all extremities equally Vital Signs: 20:05 BP 135 / 73; Pulse 70; Resp 16; Temp 98.7; Pulse Ox 97% on R/A; Weight 81.65 kg; Height cm10 5 ft. 4 in. ; Pain 7/10; 21:26 BP 129 / 64; Pulse 88; Resp 18; Pulse Ox 99% ; as6 20:05 Body Mass Index 30.90 (81.65 kg, 162.56 cm) cm10 20:05 Pain Scale: Adult cm10 MDM: 20:07 Patient medically screened. ec2 20:17 Data reviewed: vital signs. ED course: Patient arrives today for evaluation of left ec2 heel pain. Examination remarkable for well-appearing nontoxic dividual is otherwise in no acute distress with a reassuring examination with pinpoint TTP to the heel. Will obtain radiograph of the ankle and foot. Differential diagnosis includes process such as bony fracture, arthritis, bony spur. Will give patient Robaxin and Toradol for pain.. 20:52 ED course: Foot x-ray and ankle x-ray independently reviewed and interpreted by me, ec2 show no evidence of bony fracture.. 01/06 20:17 Order name: Foot Left 3 View XRAY; Complete Time: 20:56 ec2 01/06 20:17 Order name: Ankle Left 3 View XRAY; Complete Time: 20:56 ec2 01/06 20:56 Order name: Post-op shoe; Complete Time: 21:25 ec2 Administered Medications: 20:22 Drug: Ketorolac IM 30 mg IM once Route: IM; Site: right deltoid; as6 21:25 Follow up: Response: No adverse reaction as6 20:22 Drug: Methocarbamol PO 500 mg PO once Route: PO; as6 21:25 Follow up: Response: No adverse reaction as6 Disposition Summary: 01/07/24 20:57 Discharge Ordered Notes: Location: Home ec2 Condition: Stable ec2 Diagnosis - Heel Pain ec2 - Pain in left foot ec2 - Calcaneal spur, left foot ec2 Followup: ec2 - With: Private Physician - When: - Reason: Re-evaluation by your physician Discharge Instructions: - Discharge Summary Sheet ec2 - Foot Pain ec2 Forms: - Medication Reconciliation Form ec2 - Antibiotic Education ec2 - Prescription Opioid Use ec2 - Patient Portal Instructions ec2 - Leadership Thank You Letter ec2 Prescriptions: - methocarbamol 500 mg Oral tablet - take 2 tablets ORAL route 4 times per day; 30 tablet; Refills: 0, Product ec2 Selection Permitted Signatures: Dispatcher [employer] Parmjit Alcala RN RN as6 Ly Dumont RN RN cm10 Marcos Bell MD MD ec2
--- NOTE | 2024-01-07 20:57 | ER ---
Nurse's Notes [facility] Name: Pily Morrissey Age: 53 yrs Sex: Female : 1970 Arrival Date: 01/07/2024 Time: 19:57 Bed 9 Private MD: Diagnosis: Heel Pain;Pain in left foot;Calcaneal spur, left foot Presentation: 01/06 20:05 Chief complaint: Patient states: Left heel pain onset a few weeks ago. Pt states last cm10 week she stepped in a hole and the pain got worse. pt reports that putting pressure on her foot makes the pain worse. Coronavirus screen: Client denies travel out of the [place] in the last 14 days. At this time, the client does not indicate any symptoms associated with coronavirus-19. Ebola Screen: Patient denies travel to an Ebola-affected area in the 21 days before illness onset. No symptoms or risks identified at this time. Initial Sepsis Screen: Does the patient meet any 2 criteria? No. Patient's initial sepsis screen is negative. Does the patient have a suspected source of infection? No. Patient's initial sepsis screen is negative. Risk Assessment: Do you want to hurt yourself or someone else? Patient reports no desire to harm self or others. Onset of symptoms was January 07, 2024. 20:05 Method Of Arrival: Wheelchair cm10 20:05 Acuity: RJ 4 cm10 Triage Assessment: 20:07 General: Appears in no apparent distress. comfortable, Behavior is calm, cooperative. cm10 Pain: Complains of pain in heel of left foot Pain currently is 7 out of 10 on a pain scale. Neuro: No deficits noted. Level of Consciousness is awake, alert, obeys commands, Oriented to person, place, time, situation. Respiratory: No deficits noted. Airway is patent Respiratory effort is even, unlabored, Respiratory pattern is regular, symmetrical. Historical: - Allergies: 20:07 Betadine; cm10 - PMHx: 20:07 SVT; cm10 - PSHx: 20:07 Appendectomy; birthmark removal; Cholecystectomy; hysterectomy; left arm; sinus; cm10 - Immunization history:: Adult Immunizations up to date. - Infectious Disease History:: Denies. - Social history:: Smoking status: Patient denies any tobacco usage or history of. Screenin:25 [place] [facility] Fall Risk Assessment (Adult) History of falling in the last 3 months, as6 including since admission Yes- single mechanical fall (1 pt) Confusion or Disorientation No (0 pts) Intoxicated or Sedated No (0 pts) Impaired Gait Yes (1 pt) Mobility Assist Device Used No (0 pt) Altered Elimination No (0 pt) Score/Fall Risk Level 0 - 2 = Low Risk Oriented to surroundings, Maintained a safe environment, Educated pt \T\ family on fall prevention, incl call for assistance when getting out of bed, Assessed \T\ reinforced patient's understanding of fall precautions. Abuse screen: Denies threats or abuse. Denies injuries from another. Nutritional screening: No deficits noted. Tuberculosis screening: No symptoms or risk factors identified. Assessment: 21:26 Reassessment: Patient appears in no apparent distress at this time. Patient and/or as6 family updated on plan of care and expected duration. Pain level reassessed. Patient is alert, oriented x 3, equal unlabored respirations, skin warm/dry/pink. Patient states feeling better. Vital Signs: 20:05 BP 135 / 73; Pulse 70; Resp 16; Temp 98.7; Pulse Ox 97% on R/A; Weight 81.65 kg; Height cm10 5 ft. 4 in. ; Pain 7/10; 21:26 BP 129 / 64; Pulse 88; Resp 18; Pulse Ox 99% ; as6 20:05 Body Mass Index 30.90 (81.65 kg, 162.56 cm) cm10 20:05 Pain Scale: Adult cm10 ED Course: 20:01 Patient arrived in ED. ec2 20:02 Marcos Bell MD is Attending Physician. ec2 20:07 Triage completed. cm10 20:07 Arm band placed on Patient placed in an exam room, on a stretcher. cm10 20:17 Parmjit Burrell, DONAVON is Primary Nurse. as6 20:51 Foot Left 3 View XRAY In Process Unspecified. EDMS 20:51 Ankle Left 3 View XRAY In Process Unspecified. EDMS 21:25 No provider procedures requiring assistance completed. Patient did not have IV access as6 during this emergency room visit. Ortho shoe applied to left foot. 21:26 Bed in low position. Call light in reach. Provided Education on: follow up with ortho. as6 Administered Medications: 20:22 Drug: Ketorolac IM 30 mg IM once Route: IM; Site: right deltoid; as6 21:25 Follow up: Response: No adverse reaction as6 20:22 Drug: Methocarbamol PO 500 mg PO once Route: PO; as6 21:25 Follow up: Response: No adverse reaction as6 Medication: 21:26 VIS not applicable for this client. as6 Outcome: 20:57 Discharge ordered by . ec2 : Discharged to home ambulatory, with significant other, as6 : Condition: stable 21: Discharge instructions given to patient, Instructed on discharge instructions, follow up and referral plans. medication usage, Demonstrated understanding of instructions, follow-up care, medications, Prescriptions given X 1, :27 Patient left the ED. as6 Signatures: Dispatcher [employer] Parmjit Alcala RN RN as6 Ly Dumont RN RN cm10 Marcos Bell MD MD ec2
[2024-01-07 21:58] VITALS: TEMP 98.7
[2024-01-07 22:23] VITALS: BP 129/64; O2SAT 99
== END 2024-01-07 21:27 | disposition home or self-care (01) ==
LOC: ER 19:57
DX: M77.32 Calcaneal spur, left foot (principal); Z88.8 Allergy status to other drugs, medicaments and biological substances
CPT/HCPCS: 96372; 99284